=== PATIENT | male | born 1955 | race Caucasian/White ===

== ENCOUNTER → 2021-09-07 14:58 | Outpatient (CLI) | payer OTHER, SELFPAY ==
--- NOTE | ~2021-09-07 | XR_ITS ---
EXAMINATION: XR hand RT 2V DATE: 09/07/2021 15:28 INDICATION: Right wrist pain. Arthralgia. TECHNIQUE: 2 views of right hand were obtained. COMPARISON: None. FINDINGS: Bone alignment is normal. No fracture. There is mild osteoarthritis of first carpometacarpa l joint, second metacarpophalangeal joint, and third and fifth proximal interphalangeal joints. IMPRESSION: 1. Mild polyarticular osteoarthritis. Reviewed, dictated and finalized at location A. ET DEVELOPMENT EXECUTIVE
--- NOTE | ~2021-09-07 | XR_ITS ---
EXAMINATION: XR hand LT 2V INDICATION: Left hand pain TECHNIQUE: Two views of the left hand are obtained. COMPARISON: None available FINDINGS: Bone alignment is normal. There is no fracture. The soft tissues are unremarkable. There is mild osteoarthritis of multiple interphalangeal joints as well as at the first carpometacarpal joint . IMPRESSION: 1. Polyarticular osteoarthritis without acute findings. Reviewed, dictated and finalized at location B. ECTOR SOLDERING
== END ==
PROVIDERS: PCP Internal Medicine; Visit Provider Physician Assistant Medical
DX: M25.531 Pain in right wrist (principal); M25.532 Pain in left wrist
CPT/HCPCS: 73120

== ENCOUNTER 2023-01-23 16:09 | Observation (INO) | payer OTHER, SELFPAY ==
[2023-01-23] VITALS (19 sets, daily range): BP systolic 130–183; BP diastolic 88–151; PULSE 75–100; RESP 14–21; TEMP 36.6; O2SAT 95–100; BMI 28.3
--- NOTE | ~2023-01-23 | XR_ITS ---
EXAMINATION: XR chest 2V 01/23/2023 17:57 INDICATION: Syncope PROCEDURE: 2 view chest COMPARISON: 06/21/2011 FINDINGS: The lungs are clear. The cardiomediastinal silhouette is within normal limits. There are no pleural effusions. There is no pneumothorax suspected. Shallow inspiration. Moderate thoracic sp ondylosis. IMPRESSION: 1: NO ACUTE CARDIOPULMONARY DISEASE. Reviewed, dictated and finalized at location A.
--- NOTE | 2023-01-23 16:27 | ECG_ITS ---
Measurements Intervals Prentiss Rate: 77 P: 41 ME: 174 QRS: 43 QRSD: 86 T: 92 QT: 380 QTc: 431 Interpretive Statements SINUS RHYTHM BORDERLINE ST-T WAVE ABNORMALITY- LAT/HIGH LAT LEADS BORDERLINE ECG NO PREVIOUS ECG AVAILABLE FOR COMPARISON Electronically Signed On 01-23-2023 21:07:41 CDT by Salas Anton D.O.
[2023-01-23 16:46] LABS: Basophils Percent Auto 0.3 % (0.2-1.2); Eosinophils Absolute Auto 0.3 K/mm3 (0-0.3); Eosinophils Percent Auto 2.8 % (0-4.4); Hemoglobin 14.9 g/dL (14.0-18.0); Immature Granulocyte Absolute 0.02 K/mm3 (0.00-0.031); Immature Granulocyte Percent A 0.2 % (0-0.5); Lymphocytes Percent Auto 28.4 % (18.3-44.2); Mean Corpuscular HGB Conc 34.7 g/dl (32-36); Mean Corpuscular Hemoglobin 32.5 pg (26-34); Mean Corpuscular Volume 93.9 fl (80-100); Mean Platelet Volume 9.6 fl (7.4-10.4); Monocytes Absolute Auto 0.9 K/mm3 (0.1-0.6); Monocytes Percent Auto 10.3 % (2.6-8.5); Neutrophils Absolute Auto 5.1 K/mm3 (1.3-6.7); Platelet Count Result 284 k/mm3 (150-375); Red Blood Count 4.58 M/mm3 (4.6-6.20); Red Cell Distribution Width 12.1 % (11.5-14.5); White Blood Count 8.8 K/mm3 (4.5-10.0)
[2023-01-23 17:02] LABS: Alanine Aminotransferase 18 U/L (6-50); Albumin Level 4.4 g/dL (3.5-5.1); Alkaline Phosphatase 71 U/L (38-126); Anion Gap 11 mmol/L (8-16); Aspartate Amino Transferase 25 U/L (17-59); Bilirubin,Total 0.7 mg/dL (0.2-1.3); Blood Urea Nitrogen 16 mg/dL (9-20); Calcium 8.6 mg/dL (8.4-10.2); Carbon Dioxide 20 mmol/L (22-30); Chloride 98 mmol/L (98-107); Estimated CRCL calculation 102 ml/min; Estimated Glomerular Filt Rate > 60; Glucose 128 mg/dL (65-110); Magnesium 1.7 mg/dL (1.6-2.3); Potassium 4.4 mmol/L (3.4-5.0); Sodium 129 mmol/L (137-145)
--- NOTE | 2023-01-23 17:39 | ED.SYNCOPE ---
HPI - Syncope General Chief Complaint: Syncope Stated Complaint: syncope? Time Seen by Provider: 01/23/23 16:10 History of Present Illness HPI narrative: This is a 67-year-old male, with a past medical history of diabetes and hypertension, brought in by EMS from home for a syncopal episode. The patient states he recalls going to sit in his chair with a snack then waking. The patient's states the patient stood, went to his seat to have his afternoon snack, then she heard snoring which is unusual for him. On her evaluation, the patient was very difficult to arouse. After approximately 10 minutes, the patient awoke and appeared to be his normal self. The patient's states this is similar to a previous syncopal episode approximately 1 year ago. EMS reported patient's vital signs were remarkable for hypertension with a blood glucose in the 120s. Related Data Home Medications Medication Instructions Recorded Confirmed acetaminophen 325 mg tablet 650 mg PO TID PRN Pain 01/23/23 01/23/23 (Tylenol) aspirin 81 mg capsule 81 mg PO HS 01/23/23 01/23/23 cholecalciferol (vitamin D3)-soy 1 tablet PO DAILY 01/23/23 01/23/23 isoflavone 2,000 unit-64 mg tablet cimetidine 200 mg tablet 200 mg PO BID 01/23/23 01/23/23 cyclobenzaprine 10 mg tablet 10 mg PO HS 01/23/23 01/23/23 fexofenadine 180 mg tablet 180 mg PO DAILY 01/23/23 01/23/23 losartan 25 mg tablet 25 mg PO HS 01/23/23 01/23/23 meloxicam 15 mg tablet 15 mg PO DAILY 01/23/23 01/23/23 metformin 500 mg tablet 500 mg PO BID 01/23/23 01/23/23 neomycin-polymyxin B-dexameth eye 1 applic RIGHT EYE BID 01/23/23 01/23/23 ointment timolol maleate 0.5 % eye drops 1 drp RIGHT EYE BID 01/23/23 01/23/23 Allergies Allergy/AdvReac Type Severity Reaction Status Date / Time Sulfa (Sulfonamide Allergy Hives Verified 01/23/23 20:01 Antibiotics) codeine AdvReac Anaphylaxis Verified 01/23/23 20:01 Review of Systems Review of Systems: CONSTITUTIONAL: Denies fever, chills, or sweats. EYES: Right eye blindness denies redness, or discharge. ENT: Denies rhinorrhea, congestion, sore throat, or otalgia. CARDIOVASCULAR: Denies chest pain, palpitations, or edema. RESPIRATORY: Denies cough or dyspnea. GASTROINTESTINAL: Denies abdominal pain, nausea, vomiting, or diarrhea. GENITOURINARY: Denies dysuria or hematuria. SKIN: Denies rash or itching. MUSCULOSKELETAL: Denies back pain, joint pain, or myalgia. NEUROLOGIC: Denies headache, numbness, dizziness, or weakness. PSYCHIATRIC: Denies anxiety or depression. [facility] Past Medical History Medical History Diabetes mellitus Hypertension Surgical History Surgical History History of cryosurgery History of left hip replacement Social History Social History (Updated 01/23/23 @ 17:42 by Dennis Bran MD) Smoking packs per day: 3 Smoking cigarettes per day: 60.0 Years smoked: 35 Smoking pack-years: 105.00 Smoking status: Former smoker Tobacco type: cigarettes Second hand tobacco smoke exposure: Yes Smoking end date: 11/29/10 Alcohol intake: never Substance use: never Lack of Transportation: No Lack of Food: Never True Current Housing: I Have Housing Concerned About Future Housing: No Difficulty Paying Gas/Electric Bills: No Difficulty Paying for Meds: No Currently Unemployed: No Education: Bachelor's Degree Difficulty w/ Childcare or Family Care: No Spiritual care concerns: No Exam Narrative: GENERAL: Well-developed, well-nourished, and in no acute distress. HEAD: Normocephalic, atraumatic. EYES: Clouded cornea of the right eye. Right pupil PRRLA and EOMI. ENT: Nares clear, no rhinorrhea or epistaxis. Mucous membranes moist. Oropharynx without tonsillar hypertrophy exudate or other lesions. NECK: Supple. No adenopathy or masses. No JVD CHEST: Clear to auscultation.
[2023-01-23] MEDS: LABETALOL HCL INJ 100 MG/20 ML VIAL 20 MG IV PUSH (20:45)
[2023-01-23] MEDS: INSULIN GLARGINE (*BKC) 100 UNITS/ML 15 UNITS SUB-Q (21:03)
[2023-01-23 21:06] LABS: Glucose Point of Care 167 mg/dl (65-105)
--- NOTE | 2023-01-23 21:08 | PM.IMHP ---
H&P: HPI History of Present Illness Date/Time: 01/23/23 21:08 Chief Complaint: Syncope Narrative: This is a 67-year-old male with past medical history significant for type diabetes mellitus, hypertension, patient was brought to the emergency room after he was found by his slumped over and with a heavy breathing pattern apparently lasted for roughly 50 minute she was not able to get him arouse right away and patient was confused upon waking up. Patient denies any lightheadedness, dizziness, shortness of breath, palpitations, chest pain, no PND, no orthopnea, no leg swelling, no fevers no rigors no chills. Preliminary workup has been essentially nonrevealing. Patient was brought to the emergency room via EMS EXAMINATION: XR chest 2V 01/23/2023 17:57 INDICATION: Syncope PROCEDURE:? 2 view chest COMPARISON: 06/21/2011 FINDINGS: The lungs are clear.? The cardiomediastinal silhouette is within normal limits.? There are no pleural effusions.? There is no pneumothorax suspected.? Shallow inspiration. Moderate thoracic spondylosis. IMPRESSION: 1:? NO ACUTE CARDIOPULMONARY DISEASE. EKG Rate 77 CO 174 QRSd 86 QT 380 QTc 431 --Mode-- P 41 QRS 43 T [address]-T WAVE ABNORMALITY- LAT/HIGH LAT LEADS BORDERLINE ECG NO PREVIOUS ECG AVAILABLE FOR COMPARISON Electronically Signed On 01-23-2023 21:07:41 CDT by Salas Anton D.O. Review of Systems Review of Systems: Syncope, altered mental status Constitutional: Constitutional: Denies chills, Denies fatigue, Denies fever(s), Denies frequent falls, Denies night sweats and Denies poor appetite Eyes: Eyes: Denies change in vision ENT: Denies dysphagia, Denies vertigo, Denies dizziness and Denies odynophagia Cardiovascular: Cardiovascular: Denies chest pain at rest, Denies pedal edema, Denies leg edema, Denies radiating jaw, neck or arm pain, Denies palpitations and Denies dyspnea Respiratory: Respiratory: Denies chest congestion, Denies cough, Denies excessive phlegm production and Denies dyspnea Gastrointestinal: Gastrointestinal: Denies abdominal pain, Denies dyspepsia, Denies heartburn, Denies diarrhea, Denies nausea and Denies hematemesis Genitourinary: Genitourinary: Denies dysuria Musculoskeletal: Musculoskeletal: Denies back pain, Denies myalgias and Denies arthralgias Integumentary/Breasts: Skin/Breast: Denies rash Neurologic: Denies abnormal gait, Reports confusion, Denies vertigo, Denies dizziness, Denies seizure-like activity, Denies Sensory deficit (Neuro), Denies disequilibrium and Denies weakness Psychiatric: Psychiatric: Reports no additional psychiatric complaints and Reports as per HPI Endocrine: Endocrine: Denies cold intolerance, Denies deepening of the voice, Denies heat intolerance, Denies increase in ring/shoe/hat size and Denies palpitations Hematologic/Lymphatic: Hematologic/Lymphatic: Reports no additional hematologic/lymphatic complaints and Reports as per HPI Allergic/Immunologic: Allergic/Immunologic: Reports no additional allergic/immunologic complaints and Reports as per HPI PMFSH Past Medical History Medical History (Updated 01/24/23 @ 13:06 by Melisa Bashir RN) Diabetes mellitus Hypertension Surgical History Surgical History (Updated 01/24/23 @ 13:06 by Melisa Bashir RN) History of cryosurgery History of left hip replacement Social History Social History (Updated 01/23/23 @ 17:42 by Dennis Bran MD) Smoking packs per day: 3 Smoking cigarettes per day: 60.0 Years smoked: 35 Smoking pack-years: 105.00 Smoking status: Former smoker Tobacco type: cigarettes Second hand tobacco smoke exposure: Yes Smoking end date: 11/29/10 Alcohol intake: never Substance use: never Lack of Transportation: No Lack of Food: Never True Current Housing: I Have Housing Concerned About Future Housing: No Difficulty Paying Gas/Electric Bills: No Difficulty Paying for Meds: No Curre
[2023-01-23 21:59] LABS: Glucose Point of Care 144 mg/dl (65-105)
--- NOTE | 2023-01-23 22:06 | ADMGEN ---
This patient, Ronak Obrien, was admitted to IMU Room 214-01 at 2138. Patient/family oriented to hospital policies and general routines including ID bracelet, bed and alarms, visiting hours, pain management, procedures, bathroom and other care routines, personal items, smoking policy, room service/diet, and visiting hours. Information on how to activate the Rapid Response Team has been discussed. Patient/Family are encouraged to report perceived risks to care and to ask questions if they do not understand what they are told or what they should do.
[2023-01-23] MEDS: ACETAMINOPHEN 325 MG TABLET 650 MG PO (22:53)
[2023-01-24] VITALS (16 sets, daily range): BP systolic 123–161; BP diastolic 62–107; PULSE 56–89; RESP 14–20; TEMP 36–36.8; O2SAT 96–100
--- NOTE | 2023-01-24 | ECHO_ITS ---
Patient Info Name: Ronak Obrien Age: 67 years : 1955 Gender: Male Ht: 72 in Wt: 130 lbs BSA: 1.71 m2 HR: 82 bpm BP: 145 / 62 mmHg Heart Rhythm: Sinus Rhythm Technical Quality: Fair Exam Date: 01/24/2023 12:34 PM Exam Location: [facility] Patient Status: Outpatient Admit Date: 01/23/2023 Staff Ordering Physician: Neftali Hernández MD Tubing Machine Tender: Amanda Rdz RDCS Attending Provider: Neftali Hernández MD Referring Physician: Edgar SUAREZ; Exam Type: CA echo doppler color flow Study Info Indications - syncope Complete two-dimensional, color flow and Doppler transthoracic echocardiogram is performed. Summary 1. Complete two-dimensional, color flow and Doppler transthoracic echocardiogram is performed. 2. Left ventricular chamber dimension is normal. 3. Left ventricular systolic function is normal, estimated at 50-55%. 4. The left ventricular diastolic function is grade I diastolic dysfunction. 5. Right ventricular systolic function is normal. 6. There is mild mitral valve regurgitation. Left Ventricle Left ventricular chamber dimension is normal. Left ventricular systolic function is normal, estimated at 50-55%. There is no increased left ventricular wall thickness. The left ventricular diastolic function is grade I diastolic dysfunction. Right Ventricle Right ventricular chamber dimension is normal. Right ventricular systolic function is normal. Left Atria Left atrial chamber dimension is normal. Right Atria Right atrial chamber dimension is normal. Aortic Valve The aortic valve is not well visualized. There is no aortic valve stenosis. There is no aortic valve regurgitation. Pulmonic Valve The pulmonic valve is not well visualized. Mitral Valve There is mild mitral valve regurgitation. Tricuspid Valve There is trace tricuspid valve regurgitation. Pericardium/Pleural There is no pericardial effusion. Inferior Vena Cava Normal inferior vena cava with >50% collapse upon inspiration consistent with normal right atrial pressure, 3 mmHg. Aorta The aortic root size at the sinus of Valsalva is normal. Left Ventricular Outflow Tract Name Value Normal LVOT 2D LVOT Diameter 2.3 cm LVOT Doppler LVOT Peak Gradient 2 mmHg LVOT Mean Gradient 1 mmHg LVOT VTI 15 cm LVOT VTI/AV VTI Ratio 0.8 LVOT Stroke Volume 64 ml LVOT CO 3.8 l/min LVOT CI 2.2 l/min/m2 Pulmonic Valve Name Value Normal RVOT Doppler RVOT Peak Gradient 0 mmHg PV Doppler PV Peak Gradient 1 mmHg Mitral Valve Name Rupal
[2023-01-24] MEDS: LOSARTAN POTASSIUM 25 MG TABLET PO ×2 (03:23→21:09)
[2023-01-24 05:17] LABS: Basophils Percent Auto 0.4 % (0.2-1.2); Eosinophils Absolute Auto 0.2 K/mm3 (0-0.3); Eosinophils Percent Auto 1.9 % (0-4.4); Hematocrit 44.8 % (42.0-52.0); Hemoglobin 15.2 g/dL (14.0-18.0); Immature Granulocyte Absolute 0.04 K/mm3 (0.00-0.031); Immature Granulocyte Percent A 0.5 % (0-0.5); Lymphocytes Absolute Auto 2.07 K/mm3 (0.9-3.2); Lymphocytes Percent Auto 26.7 % (18.3-44.2); Mean Corpuscular HGB Conc 33.9 g/dl (32-36); Mean Corpuscular Hemoglobin 32.5 pg (26-34); Mean Corpuscular Volume 95.7 fl (80-100); Mean Platelet Volume 9.5 fl (7.4-10.4); Monocytes Absolute Auto 0.7 K/mm3 (0.1-0.6); Monocytes Percent Auto 8.9 % (2.6-8.5); Neutrophils Absolute Auto 4.8 K/mm3 (1.3-6.7); Neutrophils Percent Auto 61.6 % (45.5-73.1); Platelet Count Result 250 k/mm3 (150-375); Red Blood Count 4.68 M/mm3 (4.6-6.20); White Blood Count 7.8 K/mm3 (4.5-10.0)
[2023-01-24 05:31] LABS: Potassium 4.4 mmol/L (3.4-5.0)
[2023-01-24 05:34] LABS: Anion Gap 10 mmol/L (8-16); Blood Urea Nitrogen 13 mg/dL (9-20); Calcium 9.1 mg/dL (8.4-10.2); Carbon Dioxide 26 mmol/L (22-30); Chloride 99 mmol/L (98-107); Estimated CRCL calculation 91 ml/min; Estimated Glomerular Filt Rate > 60; Glucose 119 mg/dL (65-110); Sodium 135 mmol/L (137-145)
[2023-01-24 07:46] LABS: Glucose Point of Care 140 mg/dl (65-105)
[2023-01-24] MEDS: TIMOLOL MALEATE 0.5% OP SOLN 5 ML BOTTLE 1 DROP RIGHT EYE ×2 (08:38→17:44)
[2023-01-24] MEDS: ENOXAPARIN 40 MG/0.4 ML SYRINGE SUB-Q (08:38)
[2023-01-24] MEDS: NEOMYCIN/POLYMYXIN/DEXAMETH OP OINT 3.5 GM TUBE 1 APPLIC RIGHT EYE ×2 (08:38→17:44)
[2023-01-24] MEDS: LORATADINE 10 MG TABLET PO (08:38)
[2023-01-24] MEDS: MELOXICAM 7.5 MG TABLET 15 MG PO (08:38)
[2023-01-24] MEDS: FAMOTIDINE 20 MG TABLET PO ×2 (08:38→21:09)
[2023-01-24] MEDS: INSULIN ASPART (*BKC) 100 UNITS/ML SUB-Q ×2 (09:22→13:02)
[2023-01-24] MEDS: ACETAMINOPHEN 325 MG TABLET 650 MG PO (13:12)
[2023-01-24 16:43] LABS: Glucose Point of Care 97 mg/dl (65-105)
--- NOTE | 2023-01-24 18:01 | WPDPN ---
Progress Note: A&P Assessment and Plan (1) Syncope: Qualifiers: Syncope type: unspecified Qualified Code(s): R55 - Syncope and collapse Code(s): R55 - Syncope and collapse Status: Acute Assessment and Plan: 01/24/2023 interval history: patient with syncopal episode without any prodrome suspect vasovagle as patient just ate and was trying to get nap, however etiology is uncertain, to further evaluate will do cardiac echo and consult Cardiology possible arrhythmia and further recommendation to follow. (2) Hyponatremia: Code(s): E87.1 - Hypo-osmolality and hyponatremia Status: Acute Assessment and Plan: patient with mild hyponatremia upon arrival most likely dehydration will monitor (3) Orthostatic hypertension: Code(s): I10 - Essential (primary) hypertension Status: Acute Assessment and Plan: continue home regimen and monitor (4) Diabetes mellitus: Code(s): E11.9 - Type 2 diabetes mellitus without complications Status: Acute Assessment and Plan: continue home regimen and monitor Subjective Date/time seen: 01/24/23 18:01 Interval history: ED-HPI narrative: This is a 67-year-old male, with a past medical history of diabetes and hypertension, brought in by EMS from home for a syncopal episode.? The patient states he recalls going to sit in his chair with a snack then waking.? The patient's states the patient stood, went to his seat to have his afternoon snack, then she heard snoring which is unusual for him.? On her evaluation, the patient was very difficult to arouse.? After approximately 10 minutes, the patient awoke and appeared to be his normal self.? The patient's states this is similar to a previous syncopal episode approximately 1 year ago. EMS reported patient's vital signs were remarkable for hypertension with a blood glucose in the 120s. 01/24/2023 interval history: patient with syncopal episode without any prodrome suspect vasovagle as patient just ate and was trying to get nap, however etiology is uncertain, to further evaluate will do cardiac echo and consult Cardiology possible arrhythmia and further recommendation to follow. Review of Systems Constitutional: Constitutional: Denies chills, Denies fatigue, Denies fever(s), Denies frequent falls, Denies night sweats and Denies poor appetite Exam Narrative: Patient is comfortable, NAD HEENT: eyes are clear and none icteric LUNGS: normal respiratory effort ABD: distended Lower extremities: no edema SKIN: nonjaundiced Neuro: grossly intact. Objective Data Vital Signs Vital Signs: Vital Signs - 24 hr 01/23/23 19:11 01/23/23 19:08 01/23/23 19:15 Temperature Pulse Rate 88 88 97 Respiratory Rate 20 18 19 Blood Pressure 181/98 H Pulse Oximetry 97 97 95 Oxygen Delivery 01/23/23 19:16 01/23/23 19:30 01/23/23 19:31 Temperature Pulse Rate 96 90 92 Respiratory Rate 14 17 16 Blood Pressure 178/123 H 183/107 H Pulse Oximetry 97 98 99 Oxygen Delivery 01/23/23 19:45 01/23/23 19:46 01/23/23 20:00 Temperature Pulse Rate 94 100 92 Respiratory Rate 20 20 17 Blood Pressure 174/151 H Pulse Oximetry 99 99 99 Oxygen Delivery 01/23/23 20:15 01/23/23 20:30 01/23/23 20:55 Temperature Pulse Rate 93 99 82 Respiratory Rate 15 19 16 Blood Pressure 130/98 H Pulse Oximetry 97 98 100 Oxygen Delivery 01/23/23 20:41 01/23/23 20:45 01/23/23 20:46 Temperature Pulse Rate 90 90 95 Respiratory Rate 19 16 16 Blood Pressure 176/103 H 171/107 H Pulse Oximetry 97 96 97 Oxygen Delivery 01/23/23 21:38 01/24/23 00:00 01/24/23 03:25 Temperature 97.8 F 97.6 F Pulse Rate 79 87 61 Respiratory Rate 18 18 14 Blood Pressure 173/88 H 154/86 H Pulse Oximetry 100 99 96 Oxygen Delivery CPAP 01/24/23 04:00 01/24/23 00:00 01/24/23 02:00 Temperature 97.7 F Pulse Rate 82 86 89 Respiratory Rate 18 Bloo
[2023-01-24 20:31] LABS: Glucose Point of Care 129 mg/dl (65-105)
[2023-01-24] MEDS: CYCLOBENZAPRINE HCL 10 MG TABLET PO (21:09)
[2023-01-24] MEDS: ASPIRIN 81 MG ENTERIC TABLET PO (21:09)
[2023-01-25] VITALS: PULSE 89
[2023-01-25 04:00] VITALS: BP 167/97; PULSE 71; PULSE 90; RESP 18; TEMP 36.3; O2SAT 98
[2023-01-25 08:00] VITALS: BP 150/84; PULSE 90; PULSE 96; RESP 14; TEMP 36.6; O2SAT 99
[2023-01-25 08:40] LABS: Glucose Point of Care 137 mg/dl (65-105)
[2023-01-25] MEDS: TIMOLOL MALEATE 0.5% OP SOLN 5 ML BOTTLE 1 DROP RIGHT EYE (09:09)
[2023-01-25] MEDS: MELOXICAM 7.5 MG TABLET 15 MG PO (09:10)
[2023-01-25] MEDS: FAMOTIDINE 20 MG TABLET PO (09:10)
[2023-01-25] MEDS: ENOXAPARIN 40 MG/0.4 ML SYRINGE SUB-Q (09:10)
[2023-01-25] MEDS: NEOMYCIN/POLYMYXIN/DEXAMETH OP OINT 3.5 GM TUBE 1 APPLIC RIGHT EYE (09:10)
[2023-01-25] MEDS: LORATADINE 10 MG TABLET PO (09:10)
--- NOTE | 2023-01-25 09:59 | PM.CNCAR ---
Assessment and Plan Assessment and plan (1) Syncope: Qualifiers: Syncope type: unspecified Qualified Code(s): R55 - Syncope and collapse Code(s): R55 - Syncope and collapse Status: Acute Assessment and Plan: Episode of unconsciousness not associated with any prodrome. Has had an event like this in the recent past and had full cardiac workup which was negative. On telemetry he has not had any arrhythmias that would explain syncope. History not consistent with orthostatic hypotension, but can check orthostatic vitals. He had an echo performed that showed normal LVSF, grade I diastolic dysfunction, no significant valve pathology. Thus far, no cardiac explanation for his loss of consciousness. Will check an outpatient nurse monitoring. From a cardiac standpoint, patient is acceptable for discharge today. History of Present Illness History of Present Illness Consult date/time: 01/25/23 09:59 Requesting physician: Jaimee Beckman MD Consult reason: Other (syncope) Reason For Visit: Syncope Narrative: Mr. Obrien is a 67-year-old male with a medical history of type 2 diabetes mellitus, hypertension, and chronic back pain who presents to the hospital following a syncopal event. Patient states that this is the 2nd syncopal event in the past several months. The first event occurred after he had a bowel movement and was walking back to his bed. He was taken to [facility] at that point and was worked up and was determined to have vasovagal syncope. This 2nd syncopal event happened 2 days ago. Patient reports fixing himself an afternoon snack, sitting down in his chair and reportedly moments later his noticed that he was unresponsive. She called EMS and patient reports when he awoke he was able to hear and speak with the EMS personnel but things were fuzzy. He apparently did lose consciousness for about 3-4 minutes. He denies having any chest pain, palpitations, dizziness prior to either of these events. At the time of my visit with him, he is lying comfortably bed and has no complaints of any kind. Review of Systems Review of Systems: All systems reviewed & are unremarkable except as noted in HPI and below PMFSH Past Medical History Medical History Diabetes mellitus Hypertension Surgical History Surgical History History of cryosurgery History of left hip replacement Social History Social History Smoking packs per day: 3 Smoking cigarettes per day: 60.0 Years smoked: 35 Smoking pack-years: 105.00 Smoking status: Former smoker Tobacco type: cigarettes Second hand tobacco smoke exposure: Yes Smoking end date: 11/29/10 Alcohol intake: never Substance use: never Lack of Transportation: No Lack of Food: Never True Current Housing: I Have Housing Concerned About Future Housing: No Difficulty Paying Gas/Electric Bills: No Difficulty Paying for Meds: No Currently Unemployed: No Education: Bachelor's Degree Difficulty w/ Childcare or Family Care: No Spiritual care concerns: No Meds Home Medications and Allergies Home Medications Medication Instructions Recorded Confirmed Type acetaminophen 325 mg tablet 650 mg PO TID PRN Pain 01/23/23 01/23/23 History (Tylenol) aspirin 81 mg capsule 81 mg PO HS 01/23/23 01/23/23 History cholecalciferol (vitamin D3)-soy 1 tablet PO DAILY 01/23/23 01/23/23 History isoflavone 2,000 unit-64 mg tablet cimetidine 200 mg tablet 200 mg PO BID 01/23/23 01/23/23 History cyclobenzaprine 10 mg tablet 10 mg PO HS 01/23/23 01/23/23 History fexofenadine 180 mg tablet 180 mg PO DAILY 01/23/23 01/23/23 History losartan 25 mg tablet 25 mg PO HS 01/23/23 01/23/23 History meloxicam 15 mg tablet 15 mg PO DAILY 01/23/23 01/23/23 History metfor
[2023-01-25 10:00] VITALS: PULSE 102
[2023-01-25 12:00] VITALS: BP 154/87; PULSE 100; PULSE 90; RESP 18; TEMP 36.6; O2SAT 99
[2023-01-25] MEDS: ACETAMINOPHEN 325 MG TABLET 650 MG PO (12:13)
[2023-01-25 12:39] LABS: Glucose Point of Care 138 mg/dl (65-105)
[2023-01-25 14:00] VITALS: PULSE 102
--- NOTE | 2023-01-25 15:31 | PM.DS ---
DS: Admitting Diagnosis Discharge Date 01/25/2023 Admitting Diagnosis syncope DS: Discharge Diagnosis Discharge Diagnosis (1) Syncope: Qualifiers: Syncope type: unspecified Qualified Code(s): R55 - Syncope and collapse Code(s): R55 - Syncope and collapse Status: Acute Assessment and Plan: Admit to IMU Echocardiogram in morning Consider cardiology consult Unclear etiology Might want to consider Holter more (2) Hyponatremia: Code(s): E87.1 - Hypo-osmolality and hyponatremia Status: Acute Assessment and Plan: IV fluids (3) Orthostatic hypertension: Code(s): I10 - Essential (primary) hypertension Status: Acute Assessment and Plan: Continue home meds (4) Diabetes mellitus: Code(s): E11.9 - Type 2 diabetes mellitus without complications Status: Acute Assessment and Plan: Holding metformin DS: Summary Hospital Course Reason for hospitalization: Syncope Narrative: This is a 67-year-old male with past medical history significant for type diabetes mellitus, hypertension, patient was brought to the emergency room after he was found by his slumped over and with a heavy breathing pattern apparently lasted for roughly 50 minute she was not able to get him arouse right away and patient was confused upon waking up.? Patient denies any lightheadedness, dizziness, shortness of breath, palpitations, chest pain, no PND, no orthopnea, no leg swelling, no fevers no rigors no chills.? Preliminary workup has been essentially nonrevealing.? Patient was brought to the emergency room via EMS Hospital Course: patient with syncopal episode without any prodrome suspect vasovagle? as patient just ate and was trying to get nap, however etiology is uncertain,? to further evaluate will do cardiac echo and consult Cardiology possible arrhythmia and further recommendation to follow. Patient with syncopal episode, seen by foundry process engineer, all the workup is unrevealing, Patient will follow up with foundry process engineer with holter montor and further recommendation to follow. Time Spent with Patient Time attestation: Total time spent providing and/or coordinating discharge services: Exam Narrative: Patient is comfortable, NAD HEENT: eyes are clear and none icteric LUNGS: normal respiratory effort ABD: distended Lower extremities: no edema SKIN: nonjaundiced Neuro: grossly intact. DS: Data Data Completed and Pending Labs on day of discharge: Labs from last 24 hours 01/25/23 01/25/23 01/24/23 11:48 08:02 20:00 POC Capillary Glucose 138 H 137 H 129 H 01/24/23 16:35 POC Capillary Glucose 97 Discharge Plan Discharge Attending physician on discharge: Jaimee Beckman Consulting providers: Latrice Mcdaniel; Stevie Garcia; Josee Donaldson Discharging Clinician: Jaimee Beckman Patient Disposition: Home, Self-Care Activity: as tolerated Diet: heart healthy Discharge Instructions: Patient to follow discharge care instruction from his foundry process engineer and follow-up as scheduled, patient to follow-up with his primary care provider as soon as possible, patient is instructed if any symptoms worsen to go to nearest emergency department Patient Instructions: Antibiotic Form Stand Alone Forms: General Discharge Information Follow-up/Referrals: Florin Quiñones MD [Physician] - Clifford,Tim Pantoja MD [Primary Care Provider] - Discharge Medications: Continued cyclobenzaprine 10 mg tablet 10 mg PO HS metformin 500 mg tablet 500 mg PO BID meloxicam 15 mg tablet 15 mg PO DAILY timolol maleate 0.5 % drops 1 drp RIGHT EYE BID cimetidine 200 mg Tablet 200 mg PO BID acetaminophen [Tylenol] 325 mg Tablet 650 mg PO TID PRN (Reason: Pain) fexofenadine 180 mg Tablet 180 mg PO DAILY neomycin-polymyxin B-dexameth Ointment 1 applic RIGHT EYE BID losartan 25 mg Ta
== END 2023-01-25 15:52 | disposition home or self-care (01) ==
LOC: ANHED 18:01 → ANHIMU 01-24 09:24
PROVIDERS: Admitting Provider Internal Medicine; Emergency Provider Preventive Medicine Aerospace Medicine; PCP Internal Medicine; Visit Provider Family Medicine
DX: R55 Syncope and collapse (principal); E11.9 Type 2 diabetes mellitus without complications; I11.9 Hypertensive heart disease without heart failure; G89.29 Other chronic pain; M54.9 Dorsalgia, unspecified; H54.61 Unqualified visual loss, right eye, normal vision left eye; E87.1 Hypo-osmolality and hyponatremia; Z79.1 Long term (current) use of non-steroidal anti-inflammatories (NSAID); Z79.82 Long term (current) use of aspirin; Z79.899 Other long term (current) drug therapy; Z87.891 Personal history of nicotine dependence
CPT/HCPCS: 36415; 71046; 80048; 80053; 82948; 83735; 85025; 93005; 93306; 96372; 96374; 99285; A9270; G0378; J1650; J1815

== ENCOUNTER 2023-08-29 20:10 | Emergency (ER) | payer MEDICARE, SELFPAY ==
--- NOTE | ~2023-08-29 | XR_ITS ---
EXAMINATION: XR chest 1V portable INDICATION: Transient alteration of awareness TECHNIQUE: Portable AP chest at 2040 hours COMPARISON: 01/23/2023 FINDINGS: The lungs are free of acute opacities. No pleural effusion or pneumothorax. The cardiomedia stinal silhouette is normal. IMPRESSION: 1. No acute cardiopulmonary abnormality. Reviewed, dictated and finalized at location F. ERY TECH
--- NOTE | ~2023-08-29 | CT_ITS ---
EXAMINATION: CT brain wo con INDICATION: Transient alteration of awareness, head injury COMPARISON: None TECHNIQUE: Standard unenhanced head CT. The dose-length product (DLP) was 681.00 mGy-cm. The mA was a djusted according to patient size. Iterative reconstruction technique was employed. FINDINGS: No acute intraparenchymal hemorrhage. No evidence of mass lesion. No evidence of acute infa rction. There are areas of prior lacunar infarction in the right basal ganglia. There is mild periven tricular and subcortical hypodensity probably related to small vessel ischemic disease. There is mild prominence of the sulci and ventricles related to cerebral atrophy. Intracranial calcified cerebral atherosclerosis is noted. No extra-axial collections. No mass effect or midline shift. Hyperattenuati ng material in the left globe likely represents intraocular silicone coil. There is mild mucosal thic kening of the paranasal sinuses. IMPRESSION: 1. No acute intracranial abnormality. 2. Age related findings. Reviewed, dictated and finalized at location F. PREVENTION AGENT
[2023-08-29 20:05] VITALS: BP 136/90; PULSE 98; RESP 17; TEMP 36.5; O2SAT 100
--- NOTE | 2023-08-29 20:33 | ECG_ITS ---
Measurements Intervals [place] Rate: 100 P: 44 OR: 184 QRS: 46 QRSD: 85 T: 211 QT: 328 QTc: 424 Interpretive Statements SINUS TACHYCARDIA NONSPECIFIC ST-T WAVE ABNORMALITY- DIFFUSE LEADS BASELINE ARTIFACT- I, II, AVR, AVL, AVF, V3-V4 BORDERLINE ECG COMPARED TO ECG 01/23/2023 16:16:25 SINUS TACHYCARDIA NOW PRESENT Electronically Signed On 08-30-2023 6:36:41 DIE TROUBLE SHOOTER by Salas Anton D.O.
[2023-08-29 20:50] LABS: Basophils Percent Auto 0.3 % (0.2-1.2); Eosinophils Absolute Auto 0.2 K/mm3 (0-0.3); Eosinophils Percent Auto 1.4 % (0-4.4); Hematocrit 42.9 % (42.0-52.0); Hemoglobin 14.7 g/dL (14.0-18.0); Immature Granulocyte Absolute 0.06 K/mm3 (0.00-0.031); Immature Granulocyte Percent A 0.5 % (0-0.5); Lymphocytes Absolute Auto 1.19 K/mm3 (0.9-3.2); Lymphocytes Percent Auto 9.1 % (18.3-44.2); Mean Corpuscular HGB Conc 34.3 g/dl (32-36); Mean Corpuscular Hemoglobin 32.3 pg (26-34); Mean Corpuscular Volume 94.3 fl (80-100); Mean Platelet Volume 9.8 fl (7.4-10.4); Monocytes Absolute Auto 0.7 K/mm3 (0.1-0.6); Monocytes Percent Auto 5.5 % (2.6-8.5); Neutrophils Percent Auto 83.2 % (45.5-73.1); Platelet Count Result 244 k/mm3 (150-375); Red Blood Count 4.55 M/mm3 (4.6-6.20); Red Cell Distribution Width 11.9 % (11.5-14.5); White Blood Count 13.1 K/mm3 (4.5-10.0)
[2023-08-29 20:59] LABS: Lactic Acid Reflex 2.1 mmol/L (0.7-2.0)
[2023-08-29 21:01] LABS: Alanine Aminotransferase 16 U/L (6-50); Albumin Level 4.3 g/dL (3.5-5.1); Alkaline Phosphatase 91 U/L (38-126); Anion Gap 8 mmol/L (8-16); Aspartate Amino Transferase 20 U/L (17-59); Bilirubin,Total 0.7 mg/dL (0.2-1.3); Blood Urea Nitrogen 15 mg/dL (9-20); Calcium 9.3 mg/dL (8.4-10.2); Carbon Dioxide 25 mmol/L (22-30); Chloride 96 mmol/L (98-107); Estimated CRCL calculation 89 ml/min; Estimated Glomerular Filt Rate > 60; Glucose 190 mg/dL (65-110); INR 1.1; Magnesium 2.1 mg/dL (1.6-2.3); Potassium 4.3 mmol/L (3.4-5.0); Prothrombin Time 14.2 Seconds (11.1-14.7); Sodium 129 mmol/L (137-145)
[2023-08-29 21:02] LABS: Partial Thromboplastin Time 32.4 SECONDS (22.3-36.8)
[2023-08-29 21:12] LABS: Troponin I < 0.012 ng/mL (0.000-0.034)
[2023-08-29 21:38] LABS: Add Urine Microscopic? NO; Appearance Urine Clear (Clear); Bilirubin Urine Negative (Negative); Blood Urine Negative (Negative); Color Urine Yellow (Yellow); Glucose Urine UA Trace mg/dL (Negative); Ketones Urine Negative (Negative); Leukocyte Esterase Ur Negative LEU/UL (Negative); Nitrate Urine Negative (Negative); Protein Urine Negative (Negative); Specific Grav Ur 1.006 (1.001-1.035); Urobilinogen Urine 0.2 mg/dL (<2.0); pH Urine 6.5 (5.0-9.0)
[2023-08-29 21:50] VITALS: BP 138/95; PULSE 106; RESP 16; O2SAT 97
[2023-08-29 22:32] VITALS: BP 125/94; PULSE 107; RESP 15; O2SAT 97
[2023-08-29 23:24] VITALS: BP 129/101; BP 135/95; PULSE 107; PULSE 111
[2023-08-29 23:26] VITALS: BP 117/84; PULSE 96
[2023-08-29 23:48] LABS: Reflex Lactic Acid Yes or No Add Lactic
--- NOTE | 2023-08-29 23:55 | ED.GENADULT ---
HPI - General Adult General Chief complaint: Syncope Stated complaint: SYNCOPAL EPISODE W/ LOC+ Time Seen by Provider: 08/29/23 20:23 History of Present Illness HPI narrative: the patient is a 68-year-old gentleman who presents emergency department with chief complaint of syncopal episode. Patient reports that he was in the bathroom trying to have a bowel movement was straining and then fell off the toilet having a syncopal episode the patient was slightly confused afterwards and reports that he have a contusion on the right side of his scalp. The patient reports that he is not on blood thinners reports that he has no other injuries. Related Data Home Medications Medication Instructions Recorded Confirmed acetaminophen 325 mg tablet 650 mg PO TID PRN Pain 01/23/23 01/23/23 (Tylenol) aspirin 81 mg capsule 81 mg PO HS 01/23/23 01/23/23 cholecalciferol (vitamin D3)-soy 1 tablet PO DAILY 01/23/23 01/23/23 isoflavone 2,000 unit-64 mg tablet cimetidine 200 mg tablet 200 mg PO BID 01/23/23 01/23/23 cyclobenzaprine 10 mg tablet 10 mg PO HS 01/23/23 01/23/23 fexofenadine 180 mg tablet 180 mg PO DAILY 01/23/23 01/23/23 losartan 25 mg tablet 25 mg PO HS 01/23/23 01/23/23 meloxicam 15 mg tablet 15 mg PO DAILY 01/23/23 01/23/23 metformin 500 mg tablet 500 mg PO BID 01/23/23 01/23/23 neomycin-polymyxin B-dexameth eye 1 applic RIGHT EYE BID 01/23/23 01/23/23 ointment timolol maleate 0.5 % eye drops 1 drp RIGHT EYE BID 01/23/23 01/23/23 Allergies Allergy/AdvReac Type Severity Reaction Status Date / Time Sulfa (Sulfonamide Allergy Hives Verified 01/23/23 20:01 Antibiotics) codeine AdvReac Anaphylaxis Verified 01/23/23 20:01 Review of Systems Review of Systems: A 10 system review of systems was completed on the patient and is negative except for what is stated in the HPI. Nursing and ancillary documentation was reviewed. [facility] Past Medical History Medical History Diabetes mellitus Hypertension Surgical History Surgical History History of cryosurgery History of left hip replacement Social History Social History Smoking packs per day: 3 Smoking cigarettes per day: 60.0 Years smoked: 35 Smoking pack-years: 105.00 Smoking status: Former smoker Tobacco type: cigarettes Second hand tobacco smoke exposure: Yes Smoking end date: 11/29/10 Alcohol intake: never Substance use: never Lack of Transportation: No Lack of Food: Never True Current Housing: I Have Housing Concerned About Future Housing: No Difficulty Paying Gas/Electric Bills: No Difficulty Paying for Meds: No Currently Unemployed: No Education: Bachelor's Degree Difficulty w/ Childcare or Family Care: No Spiritual care concerns: No Exam Narrative: GENERAL: Well-appearing, well-nourished, and in no acute distress. HEAD: Normocephalic, Contusion present to right forehead. EYES: PERRLA and EOMI. ENT: Nares clear, no rhinorrhea or epistaxis. Mucous membranes moist. NECK: Supple. CHEST: Clear to auscultation. No respiratory distress. HEART: Regular rate and rhythm. No murmur heard. Normal peripheral pulses. ABDOMEN: Soft, nontender, nondistended, normal active bowel sounds. EXTREMITIES: Normal range of motion. No edema. SKIN: Warm, dry, no rash. NEURO: No focal deficits. Alert and oriented x3. PSYCH: Normal mood and affect. Course Vital Signs Vital signs: Vital Signs Temperature 36.5 C 08/29/23 20:05 Pulse Rate 98 08/29/23 20:05 Respiratory Rate 17 08/29/23 20:05 Blood Pressure 136/90 08/29/23 20:05 Pulse Oximetry 100 08/29/23 20:05 Oxygen Delivery Room Air 08/29/23 20:05 Temperature 36.5 C 08/29/23 20:05 Pulse Rate 96 08/29/23 23:26 Respiratory Rate 15 08/29/23 22:32 B
[2023-08-30 00:33] VITALS: BP 126/78; PULSE 98; RESP 20; O2SAT 99
== END 2023-08-30 00:34 | disposition home or self-care (01) ==
PROVIDERS: Emergency Provider Emergency Medicine; PCP Internal Medicine
DX: R55 Syncope and collapse (principal); S00.83XA Contusion of other part of head, initial encounter; E11.9 Type 2 diabetes mellitus without complications; I10 Essential (primary) hypertension; Z96.642 Presence of left artificial hip joint; Z87.891 Personal history of nicotine dependence; Z79.82 Long term (current) use of aspirin; Z79.84 Long term (current) use of oral hypoglycemic drugs; W18.11XA Fall from or off toilet without subsequent striking against object, initial encounter
CPT/HCPCS: 36415; 70450; 71045; 80053; 81003; 83605; 83735; 84484; 85025; 85610; 85730; 93005; 99284

== ENCOUNTER 2024-06-04 03:07 | Emergency (ER) | payer MEDICARE, SELFPAY ==
--- NOTE | ~2024-06-04 | CT_ITS ---
CT Facial Bones and Cervical Spine Clinical Indication: Trauma Technique: Contiguous axial scans were obtained through the facial bones and cervical spine followed by coronal and sagittal reconstructions. Dose reduction technique was used on this scan by utilizing automated exposure control and iterative reconstruction technique. The dose-length product (DLP) was 652.58 mGy-cm. Findings: CT facial bones: No fractures are identified. The visualized paranasal sinuses are clear. Intraorbita l soft tissues appear normal. CT cervical spine: No fractures or subluxation. There is moderate degenerative disc changes at the c ervical spine. There is extensive facet arthropathy. There is fusion of the bilateral C3-C4 facet harris nts. At C2-C3, there is left neural foraminal narrowing with probable left facet arthropathy. There i s mild canal stenosis with mild disc osteophyte complex. At C3-C4, there is bilateral neural foramina l narrowing with bilateral facet arthropathy. Probable mild central canal stenosis. At C4-C5, there i s left neural foraminal narrowing. There is probable disc ossify complex and probable mild to moderat e canal stenosis. At C5-C6, there is bilateral neural foraminal narrowing, right worse than left, wit h probable right facet arthropathy. At C6-C7, there is mild disc bulge. No prevertebral soft tissue s welling. Impression: No fracture is seen in the facial bones. No fracture or subluxation of the cervical spine. Extensive degenerative spondylosis of the cervical spine, as detailed above. Reviewed, dictated and finalized at [facility]. TICS SYSTEMS ENGINEER Impression: No fracture is seen in the facial bones. No fracture or subluxation of the cervical spine. Extensive degenerative spondylosis of the cervical spine, as detailed above.
--- NOTE | ~2024-06-04 | XR_ITS ---
Portable chest x-ray Comparison: 08/29/2023 Clinical History: Syncope Findings: Lungs are clear, without focal consolidation or pleural effusion. Cardiomediastinal silho uette is stable. Bones and soft tissues are unremarkable. Impression: Clear lungs. Reviewed, dictated and finalized at location . RVISOR WOUND Impression: Clear lungs.
--- NOTE | ~2024-06-04 | CT_ITS ---
CT head without contrast Indication: Head injury COMPARISON: 08/29/2023 Technique: Serial scans were obtained through the brain without the administration of contrast. Dose reduction technique was used on this scan by utilizing automated exposure control and iterative recon struction technique. The dose-length product (DLP) was 756.67 mGy-cm. Findings: There is no evidence of intracranial hemorrhage, mass lesion, or acute infarct. Chronic lac unar infarcts noted in the right basal ganglia. The ventricles and subarachnoid spaces are dilated, c onsistent with mild atrophy. Low attenuation regions are seen within the periventricular white matte r bilaterally, likely representing changes from chronic microvascular ischemic disease. There is no e vidence of edema, mass effect or midline shift. The visualized paranasal sinuses and mastoid air ce lls are clear. Impression: No intracranial hemorrhage, mass, or acute infarct. Stable chronic lacunar infarcts, as above. Atrophy and chronic white matter changes, as above. Reviewed, dictated and finalized at location . NG CHAIR SEAT CUSHION TRIMMER Impression: No intracranial hemorrhage, mass, or acute infarct. Stable chronic lacunar infarcts, as above. Atrophy and chronic white matter changes, as above.
--- NOTE | 2024-06-04 03:11 | ECG_ITS ---
Test Date: 2024-06-04 03:15:27 Measurements Intervals [place] Rate: 73 P: 47 [place]: 200 QRS: 56 QRSD: 85 T: 91 QT: 387 QTc: 429 Interpretive Statements SINUS RHYTHM NONSPECIFIC ST & T-WAVE ABNORMALITY No previous ECG available for comparison Electronically Signed On 06-04-2024 09:55:17 DISTRICT MANAGER by Luis Hudson M.D.
[2024-06-04 03:31] LABS: Basophils Percent Auto 0.2 % (0.2-1.2); Eosinophils Absolute Auto 0.3 K/mm3 (0-0.3); Eosinophils Percent Auto 2.9 % (0-4.4); Hematocrit 39.1 % (42.0-52.0); Hemoglobin 13.8 g/dL (14.0-18.0); Immature Granulocyte Absolute 0.04 K/mm3 (0.00-0.031); Immature Granulocyte Percent A 0.4 % (0-0.5); Lymphocytes Absolute Auto 2.73 K/mm3 (0.9-3.2); Lymphocytes Percent Auto 27.2 % (18.3-44.2); Mean Corpuscular HGB Conc 35.3 g/dl (32-36); Mean Corpuscular Hemoglobin 33.2 pg (26-34); Mean Platelet Volume 9.6 fl (7.4-10.4); Monocytes Absolute Auto 0.8 K/mm3 (0.1-0.6); Monocytes Percent Auto 7.9 % (2.6-8.5); Neutrophils Absolute Auto 6.2 K/mm3 (1.3-6.7); Neutrophils Percent Auto 61.4 % (45.5-73.1); Platelet Count Result 251 k/mm3 (150-375); Red Blood Count 4.16 M/mm3 (4.6-6.20); White Blood Count 10.1 K/mm3 (4.5-10.0)
[2024-06-04 03:32] VITALS: BP 116/88; PULSE 82; RESP 19; TEMP 36.6; O2SAT 100
[2024-06-04 03:33] VITALS: BP 112/86; PULSE 79; RESP 20; TEMP 36.5; O2SAT 98
[2024-06-04 03:43] LABS: Alanine Aminotransferase 13 U/L (6-50); Albumin Level 4.1 g/dL (3.5-5.1); Alkaline Phosphatase 76 U/L (38-126); Anion Gap 8 mmol/L (4-12); Aspartate Amino Transferase 19 U/L (17-59); Bilirubin,Total 0.7 mg/dL (0.2-1.3); Blood Urea Nitrogen 13 mg/dL (9-20); Calcium 8.6 mg/dL (8.4-10.2); Carbon Dioxide 19 mmol/L (22-30); Chloride 104 mmol/L (98-107); Estimated CRCL calculation 88 ml/min; Estimated Glomerular Filt Rate > 60; Glucose 156 mg/dL (65-110); Sodium 131 mmol/L (137-145)
--- NOTE | 2024-06-04 03:52 | ED.GENADULT ---
HPI - General Adult General Chief complaint: Fall Stated complaint: FALL W/+LOC, SYNCOPE, TINGLING TO HANDS & FEET. Time Seen by Provider: 06/04/24 03:17 History of Present Illness HPI narrative: Patient 69-year-old gentleman presents emergency department with chief complaint syncopal episode and tingling in the upper extremities. Patient reports that he has history of vasovagal syncope reports this evening he got up and had a episode of vasovagal syncope the patient reports he was on the ground and then noticed that he was having weakness in his arms and legs after the fall patient reports tingling in his hands when EMS arrived they attempted to help him get up and the patient reports that he had another syncopal episode the patient reports that since he got back up he is having numbness in his hands and reports that he has no fine control of his upper extremities and when he attempts to lift his arms there just floppy Related Data Home Medications Medication Instructions Recorded Confirmed acetaminophen 325 mg tablet 650 mg PO TID PRN Pain 01/23/23 01/23/23 (Tylenol) aspirin 81 mg capsule 81 mg PO HS 01/23/23 01/23/23 cholecalciferol (vitamin D3)-soy 1 tablet PO DAILY 01/23/23 01/23/23 isoflavone 2,000 unit-64 mg tablet cimetidine 200 mg tablet 200 mg PO BID 01/23/23 01/23/23 cyclobenzaprine 10 mg tablet 10 mg PO HS 01/23/23 01/23/23 fexofenadine 180 mg tablet 180 mg PO DAILY 01/23/23 01/23/23 losartan 25 mg tablet 25 mg PO HS 01/23/23 01/23/23 meloxicam 15 mg tablet 15 mg PO DAILY 01/23/23 01/23/23 metformin 500 mg tablet 500 mg PO BID 01/23/23 01/23/23 neomycin-polymyxin B-dexameth eye 1 applic RIGHT EYE BID 01/23/23 01/23/23 ointment timolol maleate 0.5 % eye drops 1 drp RIGHT EYE BID 01/23/23 01/23/23 Allergies Allergy/AdvReac Type Severity Reaction Status Date / Time Sulfa (Sulfonamide Allergy Hives Verified 01/23/23 20:01 Antibiotics) codeine AdvReac Anaphylaxis Verified 01/23/23 20:01 Review of Systems Review of Systems: A 10 system review of systems was completed on the patient and is negative except for what is stated in the HPI. Nursing and ancillary documentation was reviewed. [facility] Past Medical History Medical History Diabetes mellitus Hypertension Surgical History Surgical History History of cryosurgery History of left hip replacement Social History Social History Smoking packs per day: 3 Smoking cigarettes per day: 60.0 Years smoked: 35 Smoking pack-years: 105.00 Smoking status: Former smoker Tobacco type: cigarettes Second hand tobacco smoke exposure: Yes Smoking end date: 11/29/10 Alcohol intake: never Substance use: never Lack of Transportation: No Lack of Food: Never True Current Housing: I Have Housing Concerned About Future Housing: No Difficulty Paying Gas/Electric Bills: No Difficulty Paying for Meds: No Currently Unemployed: No Education: Bachelor's Degree Difficulty w/ Childcare or Family Care: No Spiritual care concerns: No Exam Narrative: GENERAL: Well-appearing, well-nourished, and in no acute distress. HEAD: Normocephalic, atraumatic. EYES: PERRLA and EOMI. ENT: Nares clear, no rhinorrhea or epistaxis. Mucous membranes moist. NECK: Supple. CHEST: Clear to auscultation. No respiratory distress. HEART: Regular rate and rhythm. No murmur heard. Normal peripheral pulses. ABDOMEN: Soft, nontender, nondistended, normal active bowel sounds. EXTREMITIES: Normal range of motion. No edema. SKIN: Warm, dry, no rash. NEURO: Upper extremities are profoundly weak patient is able to lift his upper extremities against gravity but there is no fine motor control there is decreased sensation in the hands. Alert and oriented x3. PSYCH: Normal mood and affect. Course Vital Signs Vital signs: Vital Signs Temperature 36.6 C 06/04/24 03:32 Pulse Rate 82 06/04/24 03:32 Respiratory Rate 19 06/04/24 03:32 Blood Pressure 116/88 06/04/24 03:32 Pulse Oximetry 100 06/04/24 03:32 Oxygen Delivery Room Air 06/04/24 03:32 Temperature 36.5 C 06/04/24 03:33 Pulse Rate 79 06/04/24 03:33 Respiratory Rate 20 06/04/24 03:33 Blood Pressure 112/86 06/04/24 03:33 Pulse Oximetry 98 06/04/24 03:33 Oxygen Delivery Room Air 06/04/24 03:32 Medical Decision Making MDM Narrative Medical decision making narrative: Differential diagnosis includes intracranial hemorrhage, cervical spine injury, cervical spine fracture Given the patient's presentation the concern for central cord syndrome is the most likely diagnosis. CT head CT facial bones CT C-spine were obtained at our facility and plan will be to discuss the patient with the transfer center at [facility] Vital Signs Vital Signs: Vital Signs Temperature 36.6 C 06/04/24 03:32 Pulse Rate 82 06/04/24 03:32 Respiratory Rate 19 06/04/24 03:32 Blood Pressure 116/88 06/04/24 03:32 Pulse Oximetry 100 06/04/24 03:32 Oxygen Delivery Room Air 06/04/24 03:32 Temperature 36.5 C 06/04/24 03:33 Pulse Rate 79 06/04/24 03:33 Respiratory Rate 20 06/04/24 03:33 Blood Pressure 112/86 06/04/24 03:33 Pulse Oximetry 98 06/04/24 03:33 Oxygen Delivery Room Air 06/04/24 03:32 Lab Data 06/04/24 03:25 06/04/24 03:25 Labs: Lab Results 06/04/24 Range/Units 03:25 WBC 10.1 H (4.5-10.0) K/mm3 RBC 4.16 L (4.6-6.20) M/mm3 Hgb 13.8 L (14.0-18.0) g/dL Hct 39.1 L (42.0-52.0) % MCV 94.0 (80-100) fl MCH 33.2 (26-34) pg MCHC 35.3 (32-36) g/dl RDW 12.0 (11.5-14.5) % Plt Count 251 (150-375) k/mm3 MPV 9.6 (7.4-10.4) fl Immature Gran % (Auto) 0.4 (0-0.5) % Neut % (Auto) 61.4 (45.5-73.1) % Lymph % (Auto) 27.2 (18.3-44.2) % [place] % (Auto) 7.9 (2.6-8.5) % Eos % (Auto) 2.9 (0-4.4) % Baso % (Auto) 0.2 (0.2-1.2) % Lymph # (Auto) 2.73 (0.9-3.2) K/mm3 [place] # (Auto) 0.8 H (0.1-0.6) K/mm3 Eos # (Auto) 0.3 (0-0.3) K/mm3 Baso # (Auto) 0.0 (0.0-0.1) K/mm3 Abs Immat Gran (auto) 0.04 H (0.00-0.031) K/mm3 Absolute Neuts (auto) 6.2 (1.3-6.7) K/mm3 Absolute Nucleated RBC 0.000 (0.0-0.012) K/mm3 Nucleated RBC % 0.0 (0.0-0.2) % Sodium 131 L (137-145) mmol/L Potassium 4.0 (3.4-5.0) mmol/L Chloride 104 (98-107) mmol/L Carbon Dioxide 19 L (22-30) mmol/L Anion Gap 8 (4-12) mmol/L BUN 13 (9-20) mg/dL Creatinine 0.80 (0.7-1.3) mg/dL Estim Creat Clear Calc 88 ml/min Estimated GFR > 60 (59 - ) Glucose 156 H (65-110) mg/dL Calcium 8.6 (8.4-10.2) mg/dL Total Bilirubin 0.7 (0.2-1.3) mg/dL AST 19 (17-59) U/L ALT 13 (6-50) U/L Alkaline Phosphatase 76 (38-126) U/L Total Protein 7.0 (6.3-8.2) g/dL Albumin 4.1 (3.5-5.1) g/dL Critical Care Time Critical Care Time Critical Care Time: Yes Total Critical Care Time: 30 Discharge Plan Discharge Clinical Impression: Syncope, Paresthesia and pain of both upper extremities, Central cord syndrome Patient Disposition: Acute Care Hospital Condition: Stable Prescriptions: No Action cyclobenzaprine 10 mg tablet 10 mg PO HS metformin 500 mg tablet 500 mg PO BID meloxicam 15 mg tablet 15 mg PO DAILY timolol maleate 0.5 % drops 1 drp RIGHT EYE BID cimetidine 200 mg Tablet 200 mg PO BID acetaminophen [Tylenol] 325 mg Tablet 650 mg PO TID PRN (Reason: Pain) fexofenadine 180 mg Tablet 180 mg PO DAILY neomycin-polymyxin B-dexameth Ointment 1 applic RIGHT EYE BID losartan 25 mg Tablet 25 mg PO HS cholecalciferol-soy isoflavone 2,000-64 unit-mg Tablet 1 tablet PO DAILY aspirin 81 mg Capsule 81 mg PO HS Follow-up/Referrals: Clifford,Tim Pantoja MD [Primary Care Provider] - Time of Disposition: 03:57
[2024-06-04 04:20] VITALS: BP 120/89; PULSE 97; RESP 17; TEMP 36.4; O2SAT 97
--- NOTE | 2024-06-04 05:16 | PC.NURSE ---
EMS arrives for patient
== END 2024-06-04 05:18 | disposition short-term general hospital (02) ==
PROVIDERS: Emergency Provider Emergency Medicine; PCP Internal Medicine
DX: R55 Syncope and collapse (principal); S14.129A Central cord syndrome at unspecified level of cervical spinal cord, initial encounter; R20.2 Paresthesia of skin; M79.602 Pain in left arm; M79.601 Pain in right arm; E11.9 Type 2 diabetes mellitus without complications; I10 Essential (primary) hypertension; Z87.891 Personal history of nicotine dependence; M47.812 Spondylosis without myelopathy or radiculopathy, cervical region; Z79.84 Long term (current) use of oral hypoglycemic drugs; Z79.82 Long term (current) use of aspirin; R94.31 Abnormal electrocardiogram [ECG] [EKG]; W18.39XA Other fall on same level, initial encounter
CPT/HCPCS: 36415; 70450; 70486; 71045; 72125; 80053; 85025; 93005; 99285; L0140

== ENCOUNTER 2024-08-04 06:09 | Emergency (ER) | payer MEDICARE, SELFPAY ==
--- NOTE | ~2024-08-04 | CT_ITS ---
CT head without contrast Indication: Status post fall COMPARISON: 06/04/2024 Technique: Serial scans were obtained through the brain without the administration of contrast. Dose reduction technique was used on this scan by utilizing automated exposure control and iterative recon struction technique. The dose-length product (DLP) was 605.33 mGy-cm. Findings: There is no evidence of intracranial hemorrhage, mass lesion, or acute infarct. The ventri cles and subarachnoid spaces are dilated, consistent with mild atrophy. Stable lacunar infarcts in th e right basal ganglia. Low attenuation regions are seen within the periventricular white matter bilat erally, likely representing changes from chronic microvascular ischemic disease. There is no evidence of edema, mass effect or midline shift. The visualized paranasal sinuses and mastoid air cells are clear. Impression: No intracranial hemorrhage, mass, or acute infarct. Stable chronic lacunar infarcts in the right basal ganglia. Atrophy and chronic white matter changes, as above. Reviewed, dictated and finalized at location . 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 Stable chronic lacunar infarcts in the right basal ganglia. Atrophy and chronic white matter changes, as above.
--- NOTE | ~2024-08-04 | XR_ITS ---
EXAMINATION: XR thoracic spine 2V DATE: 08/04/2024 07:58 INDICATION: Fall. TECHNIQUE: 3 views of thoracic spine on 4 radiographs were obtained. COMPARISON: Chest 2 view 01/23/2023. FINDINGS: Alignment is normal. There is mild chronic anterior wedge of multiple lower thoracic verteb ral bodies. There is mildly decreased disc height at many lower thoracic levels. There are changes of posterior fusion procedure from the cervical spine to T1. IMPRESSION: 1. Mild thoracic spondylosis. Reviewed, dictated and finalized at location A. AWAY MAN
[2024-08-04 06:12] VITALS: BP 138/93; PULSE 99; RESP 12; TEMP 36.1; O2SAT 100
[2024-08-04 07:36] VITALS: BP 131/91; PULSE 103; RESP 14; O2SAT 94
--- OUTSIDE RECORDS SUMMARY | 2024-08-04 08:35 | XMS_ITS | Clinical Summary ---
Author Organization [facility] Address [address] [facility] [place] [address] Care Team Providers Care Compliance Representative Dealer Name Role Phone Bri Clayton MD Unavailable Tim Horton MD Primary Care Provider [phone] Source Comments [facility],non-owned Affiliates and Associated Physician Practices is amultiple site organization consisting of ambulatory clinics and hospital sitesin [place], [place], [place] and [place]. This disclosure is being madepursuant to the Care Everywhere program and may not contain all information available regarding this patient. 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 Alwaysverify current medications with the patient. Medication Sig Dispensed Refills Start Date End Date Status raNITIdine (ZANTAC) 150 MG tablet Take 1 (one) tablet by mouth once daily Active vitamin D, cholecalciferol, 2000 UNITS tablet Take 1 (one) tablet by mouth once daily Active timolol maleate (TIMOPTIC) 0.5 % ophthalmic solution INSTILL ONE DROP INTO THE RIGHT EYE TWICE DAILY 5 mL 01/19/2020 Active albuterol HFA (PROVENTIL; VENTOLIN; PROAIR) 108 (90 Base) MCG/ACT inhaler 4 times daily Active ciclopirox (LOPROX) 1 % shampoo APPLY 5ML TOPICALLY TWICE WEEKLY 11/20/2021 Active metFORMIN (GLUCOPHAGE) 500 MG tablet 1 (one) tablet 2 times daily with morning and evening meal 12/04/2021 Active fexofenadine (NIELS) 180 MG tablet Take 1 (one) tablet by mouth once daily Active aspirin EC (Ecotrin) 81 MG tablet Take 1 (one) tablet by mouth 2 times daily Active OneTouch Ultra test strip USE 1 STRIP TO CHECK GLUCOSE ONCE DAILY 03/26/2022 Active acetaminophen CR (Tylenol 8 Hour Arthritis Pain) 650 MG tablet Take 1 (one) tablet by mouth every 8 hours as needed for Pain Active Blood Glucose Monitoring Suppl (ONE TOUCH ULTRA 2) w/Device KIT USE DIRECTED TO MONITOR DIABETES 08/15/2021 Active mupirocin (Bactroban) 2 % ointment APPLY OINTMENT TOPICALLY THREE TIMES DAILY 07/07/2022 Active meloxicam (Mobic) 15 MG tabletIndications: Hx of bilateral hip replacements Take 1 (one) tablet by mouth once daily 90 tablet 2 04/23/2023 Active felodipine CR 24hr (Plendil) 2.5 MG tablet Take 1 (one) tablet by mouth once daily 08/12/2023 Active rosuvastatin (Crestor) 10 MG tablet Take 1 (one) tablet by mouth at bedtime 08/05/2023 Active cyclobenzaprine (Flexeril) 10 MG tablet Take 1 (one) tablet by mouth at bedtime 08/29/2023 Active neomycin-polymyxin -hc (Cortisporin) 3.5-80245-8 otic suspension ADMINISTER 4 DROPS INTO LEFT EAR TWICE DAILY FOR 7 DAYS 01/03/2024 Active Entresto 24-26 MG tablet Take 1 (one) tablet by mouth 2 times daily 01/06/2024 Active prednisoLONE acetate (Pred Forte) 1 % ophthalmic suspensionIndicati ons:CME (cystoid macular edema), left Instill 1 (one) drop into left eye 4 times daily 15 mL 06/03/2024 Active ketorolac (Acular) 0.5 % ophthalmic solutionIndication s:CME (cystoid macular edema), left Instill 1 (one) drop into left eye 4 times daily 3 mL 06/03/2024 Active erythromycin (Romycin) 5 MG/GM ophthalmic ointmentIndication s:Band keratopathy of right eye Instill into right eye 2 times daily Apply thin ribbon to lower lid(s) twice a day 3.5 g 11 07/28/2024 Active erythromycin (Romycin) 5 MG/GM ophthalmic ointmentIndication s:Band keratopathy of right eye Instill into right eye 2 times daily Apply thin ribbon to lower lid(s) twice a day 3.5 g 4 07/22/2024 Discontinue d(Reorder) Active Problems Problem Noted Date Diagnosed Date 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 03/01/2023 Type 2 diabetes mellitus without retinopathy 07/2022 Syncope and collapse 12/17/2021 Osteoarthritis of left hip, unspecified osteoart hritis type 12/15/2021 History of detached retina repair 03/08/2018 Encounters Date Type Department Care Team Description 07/22/2024 1:20 PM LEGAL RECEPTIONIST Clinical Support [facility] [address] [place] [phone] Bell Gaffney MD CME (cystoid macular edema), left (Primary Dx); History of vitrectomy; History of detached retina repair 07/22/2024 1:15 PM LEGAL RECEPTIONIST [facility] [address] [place] [phone] Bell Gaffney MD CME (cystoid macular edema), left (Primary Dx); Band keratopathy of right eye; History of vitrectomy; History of detached retina repair; Phthisis bulbi of right eye 07/22/2024 Travel 06/03/2024 2:10 PM LEGAL RECEPTIONIST Clinical Support [facility] - Ophthalmology [address] [place] [phone] Bell Gaffney MD CME (cystoid macular edema), left (Primary Dx); History of vitrectomy 06/03/2024 1:45 PM LEGAL RECEPTIONIST Office Visit [facility] - Ophthalmology [address] [place] [phone] Bell Gaffney MD CME (cystoid macular edema), left (Primary Dx); History of detached retina repair; History of vitrectomy; Phthisis bulbi of right eye 06/03/2024 Travel from Last 3 Months Immunizations Name Administration Dates Next Due INFLUENZA VACCINE, TRIV. (AF LURIA, FLUZONE TRIVALENT; 6MO+) (IIV3) 03/09/2010 INFLUENZA VACCINE 03/25/2018 PNEUMOCOCCAL PCV VACCINE 04/06/2010 Social History Tobacco Use Types Packs/Day Years Used Date Smoking Tobacco: Former Cigarettes 2.5 25 1 986 - 2010 Smokeless Tobacco: Never Tobacco Cessation:Counseling Given: Not Answered Alcohol Use Standard Drinks/Week Comments No 0 (1 standard drink = 0.6 oz pur e alcohol) AUDIT-C Answer Date Recorded Q1: How often do you have a drink containing alc ohol? 2-4 times a month 01/30/2024 Q2: How many drinks containi ng alcohol do you have on a typical day when you are drinking? 1 or 2 01/30/2024 Q3: How often do you have si x or more drinks on one occasion? Never 01/30/2024 PHQ-2 Answer Date Recorded Patient Health Questionnaire-2 Score 0 04/23/2023 Sex and Gender Information Value Date Recorded Sex Assigned at Not on file Gender Identity Not on file Sexual Orientation Not on file Last Filed Vital Signs Vital Sign Reading Time Taken Comments Blood Pressure 112/80 01/30/2024 10:28 AM CDT Pulse 95 01/30/2024 10:24 AM CDT Temperature 36.4 ??C (97.6 ??F) 01/30/2024 10:11 AM C DT Respiratory Rate 17 01/30/2024 10:20 AM CDT Oxygen Saturation 95% 01/30/2024 10:24 AM CDT Inhaled Oxygen Concentration - - Weight 91.6 kg (202 lb) 01/30/2024 7:12 AM CDT Height 185.4 cm (6' 1 ) 01/30/2024 7:12 AM CDT Body Mass Index 26.65 01/30/2024 7:12 AM CDT Plan of Treatment Upcoming Encounters Date Type Department Care Team (Late st Contact Info) Description 09/09/2024 1:45 PM CDT Office Visit [facility] - Ophthalmology [address] [address], [place] [phone] Bell Gaffney MD [address] [facility] [place] [address] Health Maintenance Due Date Last Done Comments COLOGUARD (AGES 45-75) - COLON CA SCREENING [address] COLONOGRAPHY - COLON CA SCREENING 1955 FIT - COLON CA SCREENING 1955 FLEX SIG - COLON CA SCREENING 1957 HEPATITIS C SCREENING 02/09/1975 DTAP/TDAP/TD VACCINES (1 - Tdap) 02/14/1976 ZOSTER VACCINE (1 of 2) 2007 PNEUMOCOCCAL VACCINE 50+ (2 of 2 - PPSV23) 06/01/2010 04/06/2010 AAA SCREENING 2022 DIABETES-FOOT EXAM WITH MONOFILAMENT 03/01/2023 COVID-19 VACCINE ( season) 2024 03/31/2022, 06/11/2021, 09/05/2020 DEPRESSION SCREENING 07/01/2024 04/23/2023 DIABETES - URINE PROTEIN SCREENING 07/01/2024 MEDICARE AWV ? CALENDAR YEAR 2024 DIABETES-SERUM CREATININE 07/11/20242023, 12/18/2021, 12/17/2021, Additional history exists LUNG CANCER SCREENING 07/11/2024 07/11/2023 DIABETES-HGB A1C 11/09/2024 05/12/2024, , 10/17/2023, Additional history exists DIABETES RETINOPATHY SCREENING 07/22/2026 07/22/2024, 07/22/2024, 06/03/2024, Additional history exists COLONOSCOPY - COLON CA SCREENING 08/01/2031 08/01/2021, 08/01/2021 Colorectal Cancer Screening 08/01/2031 Respiratory Syncytial Virus (RSV) Vaccine Pt: or over 60 yrs (1 - 1-dose 75+ series) 02/14/2032 INFLUENZA VACCINE Completed 04/16/2024, , 03/25/2018, Additional history exists HEPATITIS B VACCINE Aged Out No longe r eligible based on patient's age to complete this topic HIB VACCINE Aged Out No longer eligi ble based on patient's age to complete this topic HPV VACCINE Aged Out No longer eligi ble based on patient's age to complete this topic MENINGOCOCCAL (Group B) VACCINE Aged Out No longer eligible based on patient's age to complete this topic MENINGOCOCCAL VACCINE Aged Out No olivia herb eligible based on patient's age to complete this topic Medical Devices Implanted Type Area Orthopedic Shoe Fitter Device Identifier Shelf Expiration Date Model / Serial / Lot Corydon Garland Adv Bp Orthocord Implanted:Qty: 2 on 07/20/2013 by Brandon Massey MD at [facility] Right: Shoulder [employer] 03/31/2016 [id number] / / [id number] Corydon Healix Adv Knotless Br Implanted:Qty: 2 on 07/20/2013 by Brandon Massey MD at [facility] Right: Shoulder [employer] 11/28/2015 [id number] / / [id number] Corydon Healix Adv Knotless Br Implanted:Qty: 1 on 07/20/2013 by Brandon Massey MD at [facility] Right: Shoulder [employer] 11/28/2015 [id number] / / [id number] Shell Actb 58mm 3 Hl Poly R3 Std Implanted:Qty: 1 on 12/15/2021 by Mo Gallardo MD at [facility] Left: Hip [employer] 09/26/2031 [id number] / / [id number] Screw 6.5mm 35mm Hip Actb Canc Sphrcl Implanted:Qty: 1 on 12/15/2021 by Mo Gallardo MD at [facility] Left: Hip [employer] 05/21/2031 [id number] / / [id number] Acetabular Liner Implanted:Qty: 1 on 12/15/2021 by Mo Gallardo MD at [facility] Left: Hip [employer] 02/20/2029 [id number] / / [id number] Stem Lateral Implanted:Qty: 1 on 12/15/2021 by Mo Gallardo MD at [facility] Left: Hip [employer] 03/08/2028 [id number] / / [id number] Head Fem 06/13 Lng+ 40mm Tpr Blx D Cerm Implanted:Qty: 1 on 12/15/2021 by Mo Gallardo MD at [facility] Left: Hip [employer] 03/23/2031 [id number] / / [id number] Tecnis Eyhance Iol Dib00 13.5d Implanted:Qty: 1 on 02/28/2023 by Bell Gaffney MD at [facility] Left: Eye [employer] 04/02/2025 [id number] / [id number] / 00 Description:No Lot# listed o n implant packaging. Procedures Procedure Name Priority Date/Time Associated Diagnosis Comments RETINAL ANALYSIS OCT Routine 07/22/2024 1:16 PM LEGAL RECEPTIONIST CME (cystoid macular edema), left History of vitrectomy History of detached retina repair RETINAL ANALYSIS OCT Routine 06/03/2024 2:06 PM LEGAL RECEPTIONIST CME (cystoid macular edema), left History of vitrectomy EYE EXAM 08/17/2022 BASIC METABOLIC PANEL (CALCIUM TOTAL) AM Draw 12/18/2021 4:15 AM CDT Syncope and collapse HEMOGLOBIN A1C STAT 12/05/2021 7:14 AM CDT Pre-op testing from Last 3 Months or Most Recently Relevant to Health Maintenance Results * RETINAL ANALYSIS OCT (07/22/2024 1:16 PM LEGAL RECEPTIONIST) Anatomical Region Laterality Modality Head External-Camera Photography Narrative 07/22/2024 2:16 PM LEGAL RECEPTIONIST Images from the original result were not included. OCT OS: CME is almost the same, distorted foveal contour, DRIL, much improved from before surgery, outer retinal folds improving Bell Gaffney MD OPHTHALMOLOGY SCHED ORD W PACS * RETINAL ANALYSIS OCT (06/03/2024 2:06 PM LEGAL RECEPTIONIST) Anatomical Region Laterality Modality Head External-Camera Photography Narrative 06/03/2024 4:28 PM LEGAL RECEPTIONIST Images from the original result were not included. OCT OS: distorted foveal contour, DRIL, much improved from before surgery, outer retinal folds improving, interval increase in CME OS (top 03/04/24, bottom 06/03/2024) Bell Gaffney MD OPHTHALMOLOGY SCHED ORD W PACS * EYE EXAM (08/17/2022) Anatomical Region Laterality Modality Other Narrative 08/17/2022 Ordered by an unspecified provider. Scanned Document SCANNING ONLY * (ABNORMAL) BASIC METABOLIC PANEL (CALCIUM TOTAL) (12/18/2021 4:15 AM CDT) Glucose 141(H) 70 - 105 mg/dL 12/18/2021 5:43 AM CDT [facility] Sodium 133(L) 136 - 145 mmol/L 12/18/2021 5:43 AM CDT [facility] Potassium 4.0 3.5 - 5.1 mmol/L 12/18/2021 5:43 AM CDT [facility] Chloride 101 98 - 107 mmol/L 12/18/2021 5:43 AM CDT [facility] CO2 21(L) 23 - 31 mmol/L 12/18/2021 5:43 AM CDT [facility] Calcium 8.4 8.4 - 10.4 mg/dL 12/18/2021 5:43 AM CDT [facility] Anion Gap 11 8 - 18 mmol/L 12/18/2021 5:43 AM CDT [facility] BUN 11 8.4 - 25.7 mg/dL 12/18/2021 5:43 AM CDT [facility] Creatinine 0.67(L) 0.72 - 1.25 mg/dL 12/18/2021 5:43 AM CDT [facility] eGFR by CKD-EPI >90 >=90 mL/min/1.7 3 m2 12/18/2021 5:43 AM CDT [facility] Blood BLOOD SPECIMEN / Unknown Lab Venipuncture / Unknown 12/18/2021 4:15 AM CDT 12/18/2021 5:18 AM CDT Gurdeep Reddy MD LAB - CHEMISTRY SAV[facility]NA [facility]MIC[facility] Organization Address City/State/[facility] [[email or web address]] Co de Phone Number [facility] [address] [place] [address] * (ABNORMAL) HEMOGLOBIN A1C (12/05/2021 7:14 AM CDT) [facility] Hemoglobin A1c 5.8(H) 4.2 - 5.6 % 12/05/2021 8:02 AM CDT [facility] Estimated Average Glucose 120 mg/dL 12/05/2021 8:02 AM CDT [facility] Blood BLOOD SPECIMEN / Unknown Venipuncture / Unknown 12/05/2021 7:14 AM CDT 12/05/2021 7:37 AM CDT Narrative [facility] - 12/05/2021 8:02 AM CDT The following cutoff levels are recommended by [place] [employer]. ?? A1c ??> 6.5% : considered as diabetes if two separate tests >6.5% or in an appropriate clinical setting. A1c ??5.7% - 6.4% : considered as prediabetes (suggest increased risk for diabetes and cardiovascular disease) Control target level: ??Should be individualized. ??< 7 ??for general (non- ) , ??< 8% less stringent goal, ??< 6.5 ??more stringent goal. Hemoglobin A1c measurements are used as an aid in the diagnosis of diabetic mellitus, as an aid to identify patients who may be at the risk for developing diabetic mellitus, and for the monitoring long-term blood glucose control in individuals with diabetes mellitus. ??This test should not replace glucose testing for patients with Type 1 diabetes, pediatric patients, or women. ??Falsely low HbA1c results may be observed in patients with clinical conditions that shorten erythrocyte life span or decrease mean erythrocyte age such as the presence of unstable hemoglobin variants, elevated hemoglobin F level ??or other causes of hemolytic anemia . ??HbA1c may not accurately reflect glycemic control when clinical conditions that affect erythrocyte survival are present. ??Severe Iron deficiency anemia may yield falsely high results. ??Hemoglobin A1c assay should not be used to diagnose or monitor diabetes in patients with malignancy, recent blood transfusion, chronic kidney or liver disease. ?? This method may yield falsely low results when hemoglobin (HbF) exceeds 5% in the specimen. Mo Gallardo MD LAB - CHEMISTRY ORD ERABLES [facility] [address] [place] [phone] from Last 3 Months or Most Recently Relevant to Health Maintenance Advance Directives * Full Code (Latest Code Status on File) Date Activated Date Inactivated Comments 12/18/2021 1:15 PM 12/18/2021 5:00 PM * Full Code Date Activated Date Inactivated Comments 12/15/2021 9:37 AM 12/15/2021 1:48 PM Care Teams Compliance Representative Dealer Relationship Specialty Start Date End Date Tim Horton MD [address] [facility] [address] [place] [address] PCP - General 04/18/22 [place] [address] [facility] [address] [place] [phone] Ophthalmology 07/23/19
--- OUTSIDE RECORDS SUMMARY | 2024-08-04 08:35 | XMS_ITS | Encounter Summary ---
Author Organization [facility] Address [address] [facility] [place] [address] Care Team Providers Care Emergency Operator Name Role Phone Bri Clayton MD Unavailable Tim Horton MD Primary Care Provider [phone] Reason for Visit * Reason Onset Date Comments Question 02/07/2023 Encounter Details Date Type Department Care Team (Late st Contact Info) Description 02/07/2023 Telephone [facility] - Ophthalmology [address] [place] [phone] Bell Gaffney MD [address] [place] [address] [place] [address] Question Social History Tobacco Use Types Packs/Day Years Used Date Smoking Tobacco: Former Smokeless Tobacco: Never Alcohol Use Standard Drinks/Week Comments No 0 (1 standard drink = 0.6 oz pur e alcohol) AUDIT-C Answer Date Recorded Q1: How often do you have a drink containing alc ohol? Never 12/17/2021 Average Number of Drinks Not on file 022 Frequency of Binge Drinking Not on file 11/29 Sex and Gender Information Value Date Recorded Sex Assigned at Not on file Gender Identity Not on file Sexual Orientation Not on file documented as of this encounter Miscellaneous Notes * Telephone Encounter - Keke Godwin - 02/07/2023 2:40 PM CDT Pt called about a referral from another provider for Dr. Gaffney. Pt is monocular with previous retinal surgery and has a cataract. Pt is looking to schedule. Outside provider notes are in chart. CB#[phone] documented in this encounter Plan of Treatment Upcoming Encounters Date Type Department Care Team (Late st Contact Info) Description 09/09/2024 1:45 PM CDT Office Visit [facility] - Ophthalmology [address] [place] [address], [place] [phone] Bell Gaffney MD [address] [place] [address] [place] [phone] documented as of this encounter Visit Diagnoses Not on filedocumented in this encounter Care Teams Emergency Operator Relationship Specialty Start Date End Date Tim Horton MD [address] [facility] [address] [place] [phone] PCP - General 04/18/22 [place] [address] [facility] [address] [place] [phone] Ophthalmology 07/23/19 documented as of this encounter
--- OUTSIDE RECORDS SUMMARY | 2024-08-04 08:35 | XMS_ITS | Referral Summary ---
Author Organization [facility] Address [address] [place] [address] Care Team Providers Care Geochemistry Teacher Name Role Phone Bri Clayton MD Unavailable Tim Horton MD Primary Care Provider [phone] Source Comments [facility],non-owned Affiliates and Associated Physician Practices is amultiple site organization consisting of ambulatory clinics and hospital sitesin [place], [place], [place] and [place]. This disclosure is being madepursuant to the Care Everywhere program and may not contain all information available regarding this patient. Last updated 18.[facility] Encounters Date Type Department Care Team Description 07/22/2024 1:20 PM ENGINEERING TEAM SUPERVISOR Clinical Support [facility] - Ophthalmology [address] [place] [phone] Bell Gaffney MD CME (cystoid macular edema), left (Primary Dx); History of vitrectomy; History of detached retina repair 07/22/2024 Travel 07/22/2024 1:15 PM ENGINEERING TEAM SUPERVISOR Office Visit [facility] - Ophthalmology [address] [place] [phone] Bell Gaffney MD CME (cystoid macular edema), left (Primary Dx); Band keratopathy of right eye; History of vitrectomy; History of detached retina repair; Phthisis bulbi of right eye 06/03/2024 2:10 PM ENGINEERING TEAM SUPERVISOR Clinical Support [facility] - Ophthalmology [address] [place] [phone] Bell Gaffney MD CME (cystoid macular edema), left (Primary Dx); History of vitrectomy 06/03/2024 Travel 06/03/2024 1:45 PM ENGINEERING TEAM SUPERVISOR Office Visit [facility] - Ophthalmology [address] [place] [phone] Bell Gaffney MD CME (cystoid macular edema), left (Primary Dx); History of detached retina repair; History of vitrectomy; Phthisis bulbi of right eye from Last 3 Months Allergies Active Allergy Reactions Criticality Noted Date Comments Adhesive Sensitivity Rash,Skin Reactions Medium 2021 Latex/adhesive on bandaids Codeine Rash,Itching,Nausea and/or Vomiting,MAINTENANCE MANAGER Dysfunction Medium 07/17/2013 Passes out Latex Rash [...] at bedtime 08/29/2023 Active neomycin-polymyxin -hc (Cortisporin) 3.5-18769-5 otic suspension ADMINISTER 4 DROPS INTO LEFT [...] 12/15/2021 History of detached retina repair 03/08/2018 Immunizations Name Administration Dates Next Due INFLUENZA [...] Description 09/09/2024 1:45 PM CDT Office Visit [facility] - Ophthalmology [address] [place] [address], [place] [phone] Bell Gaffney MD [address] [facility] [place] [address] Medical Devices Implanted Type Area Zoning Engineer Device Identifier Shelf Expiration Date Model / Serial / Lot Wildwood Conway Adv Bp Orthocord Implanted:Qty: 2 on 07/20/2013 by [place] Massey [place] [facility] [place] [facility]: Shoulder [employer] 03/31/2016 [id number] / / [id number] Wildwood Healix Adv Knotless Br Implanted:Qty: 2 on 07/20/2013 by Brandon Massey MD at [facility] [place] [facility] Right: Shoulder [employer] 11/28/2015 [id number] / / [id number] Wildwood Healix Adv Knotless Br Implanted:Qty: 1 on 07/20/2013 by Brandon Massey MD at [facility] [place] [facility] [place] Right: Shoulder [employer] 11/28/2015 [id number] / / [id number] Shell Actb 58mm 3 Hl Poly R3 Std Implanted:Qty: 1 on 12/15/2021 by Mo Gallardo MD at [facility] [place] [facility] Left: Hip [employer] 09/26/2031 [id number] / / [id number] Screw 6.5mm 35mm Hip Actb Canc Sphrcl Implanted:Qty: 1 on 12/15/2021 by Mo Gallardo MD at [facility] [place] [facility] Left: Hip [employer] 05/21/2031 [id number] / / [id number] Acetabular Liner Implanted:Qty: 1 on 12/15/2021 by Mo Gallardo MD at [facility] [place] [facility] [place] Left: Hip [employer] 02/20/2029 [id number] / / [id number] Stem Lateral Implanted:Qty: 1 on 12/15/2021 by Mo Gallardo MD at [facility] [place] [facility] [place] Left: Hip [employer] 03/08/2028 [id number] / / [id number] Head Fem 06/13 Lng+ 40mm Tpr Blx D Cerm Implanted:Qty: 1 on 12/15/2021 by Mo Gallardo MD at [facility] [place] [facility] [place] Left: Hip [employer] 03/23/2031 [id number] / / [id number] Tecnis Eyhance Iol Dib00 13.5d Implanted:Qty: 1 on 02/28/2023 by Bell Gaffney MD at [facility] Left: Eye [employer] 04/02/2025 [id number] / [id number] / 00 Description:No Lot# listed o n implant packaging. Procedures Procedure Name Priority Date/Time Associated Diagnosis Comments RETINAL ANALYSIS OCT Routine 07/22/2024 1:16 PM ENGINEERING TEAM SUPERVISOR CME (cystoid macular edema), left History of vitrectomy History of detached retina repair RETINAL ANALYSIS OCT Routine 06/03/2024 2:06 PM ENGINEERING TEAM SUPERVISOR CME (cystoid macular edema), left History of vitrectomy EYE EXAM 08/17/2022 BASIC METABOLIC PANEL (CALCIUM TOTAL) AM Draw 12/18/2021 4:15 AM CDT Syncope and collapse HEMOGLOBIN A1C STAT 12/05/2021 7:14 AM CDT Pre-op testing from Last 3 Months or Most Recently Relevant to Health Maintenance Results * RETINAL ANALYSIS OCT (07/22/2024 1:16 PM ENGINEERING TEAM SUPERVISOR) Anatomical Region Laterality Modality Head External-Camera Photography Narrative 07/22/2024 2:16 PM ENGINEERING TEAM SUPERVISOR Images from the original result were not included. OCT OS: CME is almost the same, distorted foveal contour, DRIL, much improved from before surgery, outer retinal folds improving Bell Gaffney MD OPHTHALMOLOGY SCHED ORD W PACS * RETINAL ANALYSIS OCT (06/03/2024 2:06 PM ENGINEERING TEAM SUPERVISOR) Anatomical Region Laterality Modality Head External-Camera Photography Narrative 06/03/2024 4:28 PM ENGINEERING TEAM SUPERVISOR Images from the original result were not [...] - 18 mmol/L 12/18/2021 5:43 AM CDT [facility] BUN 11 8.4 - 25.7 mg/dL 12/18/2021 5:43 AM CDT [facility] Creatinine 0.67(L) 0.72 - 1.25 mg/dL 12/18/2021 5:43 AM CDT [facility] eGFR by CKD-EPI >90 >=90 mL/min/1.7 3 m2 12/18/2021 5:43 AM CDT [facility] Blood BLOOD SPECIMEN / Unknown Lab Venipuncture / Unknown 12/18/2021 4:15 AM CDT 12/18/2021 5:18 AM CDT Gurdeep Reddy MD LAB - CHEMISTRY SAVANAN CARMICHAEL [facility] Organization Address City/State/[facility] Co de Phone Number [facility] [address] [place], [place] [id number] * (ABNORMAL) HEMOGLOBIN A1C (12/05/2021 7:14 AM CDT) Pathologist [facility] Hemoglobin A1c 5.8(H) 4.2 - 5.6 % 12/05/2021 8:02 AM CDT [facility] Estimated Average Glucose 120 mg/dL 12/05/2021 8:02 AM CDT [facility] Blood BLOOD SPECIMEN / Unknown Venipuncture / Unknown 12/05/2021 7:14 AM CDT 12/05/2021 7:37 AM CDT Narrative [facility] - 12/05/2021 8:02 AM CDT The following cutoff levels are recommended by [place] [employer]. ?? A1c ??> 6.5% : [...] Gallardo MD LAB - CHEMISTRY ORD ERABLES [facility] Organization Address City/State/ZIP Co de Phone Number [facility] [address] [place] [address] from Last 3 Months or Most Recently Relevant to Health Maintenance Advance Directives * Full Code (Latest Code Status on File) Date Activated Date Inactivated Comments 12/18/2021 1:15 PM 12/18/2021 5:00 PM * Full Code Date Activated Date Inactivated Comments 12/15/2021 9:37 AM 12/15/2021 1:48 PM Care Teams Geochemistry Teacher Relationship Specialty Start Date End Date Tim Horton MD [address] [facility] [address] [place] [address] PCP - General 04/18/22 [place] [address] [facility] [address] [place] [phone] Ophthalmology 07/23/19
--- OUTSIDE RECORDS SUMMARY | 2024-08-04 08:35 | XMS_ITS | Clinical Summary ---
Author Organization [facility] Address [address] [place] [address]. [place] [address] [place] [address] Care Team Providers Care Cooling Machine Operator Name Role Phone Tim Horton MD Primary Care Provider Allergies Active Allergy Reactions Criticality Noted Date Comments Codeine Nausea and Vomiting 07/24/2021 Latex Rash Low 07/24/2021 Sulfa Antibiotics Rash Low 07/24/2021 Medications cyclobenzaprine 10 MG tablet Take by mouth 2 (two) times daily as needed. Active raNITIdine HCl (ZANTAC OR) Take 20 mg by mouth. Active Vitamin D, Cholecalciferol , 50 MCG (1999) Cap Active aspirin EC (ASPIRIN EC) 81 MG tablet Take 81 mg by mouth daily. Active amLODIPine 5 MG tablet Take 5 mg by mouth daily. Active metFORMIN 500 MG tablet Take 500 mg by mouth 2 (two) times daily with meals. Active fexofenadine 180 MG tablet Take 180 mg by mouth daily. Active ibuprofen 200 MG tablet Take 400 mg by mouth every 8 (eight) hours as needed for Pain. Active timolol 0.25 % ophthalmic gel-forming Place 1 drop into the right eye 2 (two) times a day. Active neomycin-bacitr acin-polymyxin ointment Apply topically 2 (two) times daily. Right eye Active Immunizations Name Administration Dates Next Due Influenza Adult (Generic) 03/25/2018 JAYLA ([employer]) COVID-19 AD26 VACCINE 0.5 ML IM SUSP 06/11/2021,09/05/2020 Social History Tobacco Use Types Packs/Day Years Used Date Smoking Tobacco: Former Cigarettes Q uit: 2010 Smokeless Tobacco: Never Alcohol Use Standard Drinks/Week Comments Never 0 (1 standard drink = 0.6 oz pur e alcohol) Sex and Gender Information Value Date Recorded Sex Assigned at Not on file Legal Sex Male 7:50 AM GLUING CREW LEADER Gender Identity Not on file Sexual Orientation Not on file Last Filed Vital Signs Vital Sign Reading Time Taken Comments Blood Pressure 120/97 08/01/2021 8:07 AM GLUING CREW LEADER Pulse 96 08/01/2021 8:07 AM GLUING CREW LEADER Temperature 36.1 ??C (97 ??F) 08/01/2021 8:07 AM GLUING CREW LEADER Respiratory Rate 14 08/01/2021 8:07 AM GLUING CREW LEADER Oxygen Saturation 100% 08/01/2021 8:07 AM GLUING CREW LEADER Inhaled Oxygen Concentration - - Weight 104.3 kg (230 lb) 07/24/2021 12:46 PM GLUING CREW LEADER Height 188 cm (6' 2 ) 07/24/2021 12:46 PM GLUING CREW LEADER Body Mass Index 29.53 07/24/2021 12:46 PM GLUING CREW LEADER Plan of Treatment Health Maintenance Due Date Last Done Comments Hepatitis C 1975 DTaP, Tdap and Td Vaccines ( 1 - Tdap) 02/14/1976 Zoster Vaccines (1 of 2) 2007 Pneumococcal Vaccine: 65+ Years (1 of 1 - PCV) 2022 COVID-19 Vaccine (3 - 2023-2 5 season) 2024 06/11/2021, 09/05/2020 Influenza Adult (#1) 2024 03/25/2018, 03/09/2010 Colorectal Cancer Screening Colonoscopy (10 Years) 08/01/2031 08/01/2021, 08/01/2021 RSV Immunization or 60+ Years (1 - 1-dose 75+ series) 02/14/2032 Meningococcal B Vaccine Aged Out No l onger eligible based on patient's age to complete this topic Meningococcal Vaccine Aged Out No olivia herb eligible based on patient's age to complete this topic RSV Immunizations Under 20 Months Aged Out No longer eligible b ased on patient's age to complete this topic Procedures Procedure Name Priority Date/Time Associated Diagnosis Comments COLONOSCOPY Routine 08/01/2021 7:12 AM GLUING CREW LEADER from Last 3 Months or Most Recently Relevant to [place] [address] [facility] Care Teams Cooling Machine Operator Relationship Specialty Start Date End Date Tim Horton MD [address] [address] PCP - General INTERNAL MEDICINE 08/01/21
--- OUTSIDE RECORDS SUMMARY | 2024-08-04 08:35 | XMS_ITS | Continuity of Care Document ---
Author Organization 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 Name Role Phone Matilde MAO MD, Bri Unavailable Unavailable Allergies, Adverse Reactions, Alerts Substance Reaction Status Criticality Sulfa (Sulfonamide Antibiotics) Active No Information codeine Active No Information Medications Medication Instructions Dosage Effective Dates (start - stop) Status Comments Aspirin Childrens 81 mg chewable tablet chew 1 tablet by oral route 3 times every week 81 MG - Active Maxitrol 3.5 mg/g-10,000 unit/g-0.1 % eye ointment apply by ophthalmic route 2 times every day a small amount into the conjunctival sac(s) in affected eye(s) - Active timolol maleate 0.5 % eye drops instill 1 drop by ophthalmic route every day into both eyes, largest bottle insurance will allow. 90 day supply OK - Active Zantac-360 (famotidine) 20 mg tablet take 1 tablet by oral route 2 times every day 20 MG - Active vitamin d (unknown strength) Not Available - Active Tylenol 8 Hour 650 mg tablet,extended release take 2 tablet by oral route every 8 hours as needed swallowing whole with water. Do not break, crush, dissolve and/or chew. 1300 MG - Active meloxicam 15 mg tablet take 1 tablet by oral route every day 15 MG - Active flexeril ORAL TABLET - Active Nory Allergy 180 mg tablet take 1 tablet by oral route every day 180 MG - Active METFORMIN HCL (unknown strength) take 1 tablet by oral route 2 times every day with morning and evening meals Not Available - Active Procedures Procedure Date OFFICE/OUTPATIENT VISIT, EST GDX Retina POSTOP FOLLOW-UP VISIT GDX Retina OFFICE/OUTPATIENT VISIT, EST POSTOP FOLLOW-UP VISIT OFFICE/OUTPATIENT VISIT, EST REPAIR DETACHED RETINA REPAIR DETACHED RETINA FUNDUS PHOTOGRAPHY OFFICE/OUTPATIENT VISIT, EST OFFICE/OUTPATIENT VISIT, EST OFFICE/OUTPATIENT VISIT, EST OFFICE/OUTPATIENT VISIT, EST OPSCPY EXTND RTA DRAW UNI/BI OFFICE/OUTPATIENT VISIT, EST REFRACTION OFFICE/OUTPATIENT VISIT, EST EYE EXAM WITH PHOTOS Advance Directives Directive Yes / No Effective Date File Name No Information Encounters Encounter Description Practice Location Reason(s) For Visit Diagnoses Date Provider Providers Copied on Encounter [facility], [address] [address], [place], [place], [id number], [place] tel:[phone] OPH CONSULT HILDA MCLEAN No Information 3 Matilde Gregory. [address] [facility], [address], [place], [address], [place]. tel:[phone] Referring Provider: Jeremiah Altman MD, [address] [place], [address]. tel:[phone] OFFICE/OUTPA TIENT VISIT, EST [facility], [address] [facility] [address], [place], [place], [id number], [place] tel:[phone] [facility] Followup (chief complaint) Retinal detachment, leftHistory of detached retina repairAge-rel ated nuclear cataract of left eyePVD (posterior vitreous detachment), left eye 3 Matilde Gregory. [address] [facility], [address], [place], [address], [place]. tel:[phone] Other [place]: [place], [address], [place], [address]. tel:[phone] ring Provider: Jeremiah Altman MD, [address] [place], [address]. tel:[phone] [facility], [address] [place] [address] [address], [place], [place], [id number], [place] tel:[phone] OPH CONSULT [place] follow up (chief complaint) Retinal detachment, leftHistory of detached retina repairAge-rel ated nuclear cataract of left eye 3 Matilde Gregory. [address] [facility], [address], [place], [address], [place]. tel:[phone] Referring Provider: Jeremiah Altman MD, [address] [place], [address]. tel:[phone] OFFICE/OUTPA TIENT VISIT, [facility], [address] [place] [address] [address], [place], [place], [id number], [place] tel:[phone] [facility] retinal detachment OS (chief complaint) Retinal detachment, leftPVD (posterior vitreous detachment), left eyeHistory of detached retina repair 3 Matilde Gregory. [address] [facility], [address], [place], [address], [place]. tel:[phone] Specialist: Thelma De La Rosa, [address] [facility], [place], [address]. tel:[phone] ring Provider: Jeremiah Altman MD, [address] [facility], [place], [address]. tel:[phone] [facility], [address] [place] [address], [place], [place], [id number], [place] tel:[phone] OPH CONSULT HILDA MCLEAN Retinal detachment FU (chief complaint) Retinal detachment, leftPVD (posterior vitreous detachment), left eyeHistory of detached retina repairBullous keratopathy of right eyeIris bombe of right eye 3 Matilde Gregory. [address] [facility], [address], [place], [address], [place]. tel:[phone] Referring Provider: Jeremiah Altman MD, [address] [place] [address], [address]. tel:[phone] OFFICE/OUTPA TIENT VISIT, EST [facility], [address] [address], [place], [place], [id number], [place] tel:[phone] OPH CONSULT HILDA MCLEAN Visual Disturbance (chief complaint) PVD (posterior vitreous detachment), left eyeHistory of detached retina repairBullous keratopathy of right eyeIris bombe of right eyeAge-relate d nuclear cataract, left eyeRetinal detachment, left 3 Matilde Gregory. [address] [facility], [address], [place], [address], [place]. tel:[phone] Referring Provider: Jeremiah Altman MD, [address] [place] [address], [place], [address]. tel:[phone] OFFICE/OUTPA TIENT VISIT, EST [facility], [address] [place] [address], [place], [place], [id number], [place] tel:[phone] OPH CONSULT HILDA MCLEAN DMII (chief complaint)Mu ltiple Retina Repairs (chief complaint) PVD (posterior vitreous detachment), left eyeHistory of detached retina repairBullous keratopathy of right eyeIris bombe of right eyeAge-relate d nuclear cataract, left eye 3 Matilde Gregory. [address] [facility], [address], [place], [address], [place]. tel:[phone] Referring Provider: Jeremiah Altman MD, [address] [place] [address], [address]. tel:[phone] OFFICE/OUTPA TIENT VISIT, EST [facility], [address] [address], [place], [place], [id number], [place] tel:[phone] OPH CONSULT HILDA MCLEAN DM (chief complaint)mu ltiple retina repairs (chief complaint)PV D (chief complaint) Iris bombe of right eyeHistory of detached retina repairBullous keratopathy of right eyeAge-relate d nuclear cataract, left eyePVD (posterior vitreous detachment), left eye Xavier- 2 Matilde Gregory. [address] [facility], [address], [place], [address], [place]. tel:[phone] Referring Provider: [place], [address] [facility] [address], [place], [address]. tel:[phone] OFFICE/OUTPA TIENT VISIT, EST [facility], [address] [place] [address], [place], [place], [id number], [place] tel:[phone], multiple sxs (chief complaint)PV D (chief complaint) PVD (posterior vitreous detachment), left eyeHistory of detached retina repairIris bombe of right eyeBullous keratopathy of right eyeAcute allergic conjunctiviti s of both eyes 1 Matilde Gregory. [address] [facility], [address], [place], [address], [place]. tel:[phone] Referring Provider: Jeremiah Altman MD, [address] [place] [address], [address]. tel:[phone] OFFICE/OUTPA TIENT VISIT, EST [facility], [address] [place] [address], [place], [place], [id number], [place] tel:[phone] [facility] Bump on Eyelid (chief complaint) Chalazion of left lower eyelidAge-rel ated nuclear cataract, left eye 0 Dusty Catherine. [address] [facility], [address], [place], [place], [id number], [place]. tel:[phone] Referring Provider: Florin Montano MD P, [address] [facility] [address], [place], [place], [address]. tel:[phone] [facility], [address] [place] [address], [place], [place], [id number], [place] tel:[phone] OPH CONSULT HILDA MCLEAN blurry vision (chief complaint) Myopia, bilateral Mar- 0 Kingsley Vera. [address], [place], [address], [place]. tel:[phone] Referring Provider: Jeremiah Altman MD, [address] [facility], [place], [address]. tel:[phone] OFFICE/OUTPA TIENT VISIT, EST [facility], [address], [place], [place], [id number], [place] tel:[phone] OPH CONSULT HILDA MCLEAN retinal detachment (chief complaint) PVD (posterior vitreous detachment), left eyeHistory of detached retina repairIris bombe of right eyeBullous keratopathy of right eye 0 Matilde MAO [facility]. [address] [facility], [address], [place], [address], [place]. tel:[phone] Referring Provider: Jeremiah Altman MD, [address] [facility], [place], [address]. tel:[phone] Family History Family Member Type Diagnosis Age At Onset Problem No family history of Diabete s mellitus Problem No family history of Glaucom a Problem No family history of Macular degeneration Payers Payer name Insurance type Covered republican ID Authoriza tion(s) [facility] CI [id number] Social History Type Description Quantity Date Captured Comments Alcohol Use Details Unknown Caffeine Use Details Unknown Tobacco Use Status No Information Smoking Status No Information Sex Male Chief Complaint And Reason For Visit No Information Plan Of Treatment Date Type Action Status Goal Tobacco cessation counseling completed Goal Tobacco cessation counseling completed Goal Tobacco cessation counseling completed Goal Tobacco cessation counseling completed Goal Tobacco cessation counseling completed History Of Present Illness Encounter Date Complaint History Of Prese nt Illness Followup The 67 year old male presents for Follow - up. Patient states vision is about the same does have a nice amount of floaters(spider web). Started wearing cls sat& sun with no problems. No complaints of pain or discomfort. Used AT's a few times. OCT Ordered follow up The 67 year old male presents for evaluation of follow up Retinal Detachment S/P Cryoretinopexy + Pneumatic retinopexy (SF6) + AC tap OS - 01/10/23. Patient says he is still seeing a bubble, but it is getting more diminished then it was. No pain or discomfort. Not currently using any eye drops in the left eye. The right eye he has continued to use Maxitrol adam, and Timolol BID OD. retinal detachment OS The 67 yea r old male presents for evaluation of retinal detachment OS. OCT OS. Patient states vision is better when looking around the bubble. Patient is taking timolol OD BID and Maxitrol ADAM OD BID. Retinal detachment FU The 67 yea r old male presents for evaluation of Retinal detachment FU, pretty good but didn't care for drops-kept sneezing, coughing, and nose running, bubbles in OS are inferior, overall feels pretty good, hard to see with bubbles in eye, currently feels like there's a rock in the middle of his OSContinues Simwendyinsandee Visual Disturbance The 67 year o ld male presents for evaluation of Visual Disturbance. Saturday01/08/23 pt started to notice a black spot OS temporally. When pt woke up this AM, the black spot grew and looked wavy. Also blocked out vision temporally. Pt was wearing his CL yesterday but wore glasses today. Pt denies pain, discomfort, tears, discharge, and itching. OD seems normal and no new symptoms. DMII The 67 year old male presents for 1 year FU of DMII, BS: not tracked since A1C is under 7, last A1C end of October 2022: 6.[address] Mueller Multiple Retina Repairs The marv ent is present for FU of Multiple Retina Repairs, couple floaters in OS over the last 3 months-tend to zip back and forth, denies flashes and curtain/veils. His security supervisor mentioned cat sx, patient says his vision is so-so, still able to drive but has to get closer for things to become clear, words aren't as sharp, currently using CL in OS that helps some DM The 66 year old male presents for evaluation of DM in the right eye and left eye. It started about 1 year(s) ago. It occurs all the time. The condition is stable. A1C 6.8 yesterday. AM blood sugar runs about 93-110. He is followed by Dr Mueller at [place] multiple retina repairs The marv ent is present for evaluation of multiple retina repairs in the right eye. It started about 1 year(s) ago. It occurs all the time. The condition is stable. PVD The patient is p resent for evaluation of PVD in the left eye. It started about 1 year(s) ago. It occurs all the time. The condition is stable. Pt states no complaints/changes since last OV. A mac OCT was ordered today. gtts: Timolol BID OD, adam qhs OD RD, multiple sxs The 65 year old male presents for evaluation of RD, multiple sxs in the right eye. It started about 1 year(s) ago. It occurs all the time. The condition is stable. gtts: Timolol BID, OD, lisandro/poly adam BID, OD. PVD The patient is p resent for evaluation of PVD in the left eye. It started about 1 year(s) ago. It occurs all the time. The condition is stable. Pt states [facility] has been down 1 month. A mac OCT was ordered today. Bump on Eyelid Pt here today fo r ER appointment. Pt states has noticed a bump on his left lower lid- pt states no pain but still operator batch or continuous. Pt notices that it looks like its improving already. blurry vision The 65 year old male presents for evaluation of blurry vision in the left eye. It started about 4 month(s) ago. The stable is constant. The condition is stable. retinal detachment The 64 year o ld male presents for evaluation of retinal detachment in the right eye. It started about 5 year(s) ago. It occurs all the time. The condition is significant. Pt states no complaints/changes since he was last seen by Dr Clayton. gtts: Timolol BID OD Instructions Date Instruction Additional Infor irving Impression/Plan Related to PVD ( posterior vitreous detachment), left eye Impression/Plan Related to Retin al detachment, left Impression/Plan Related to Histo ry of detached retina repair Impression/Plan Related to Age-r elated nuclear cataract of left eye Impression/Plan Related to Histo ry of detached retina repair Impression/Plan Related to Age-r elated nuclear cataract of left eye Impression/Plan Related to Retin al detachment, left Impression/Plan Related to Retin al detachment, left Impression/Plan Related to PVD ( posterior vitreous detachment), left eye Impression/Plan Related to Histo ry of detached retina repair Impression/Plan Related to Retin al detachment, left Impression/Plan Related to PVD ( posterior vitreous detachment), left eye Impression/Plan Related to Histo ry of detached retina repair Impression/Plan Related to Bullo us keratopathy of right eye Impression/Plan Related to Iris bombe of right eye Impression/Plan Related to Retin al detachment, left Impression/Plan Related to Histo ry of detached retina repair Impression/Plan Related to PVD ( posterior vitreous detachment), left eye Impression/Plan Related to Iris bombe of right eye Impression/Plan Related to Bullo us keratopathy of right eye Impression/Plan Related to PVD ( posterior vitreous detachment), left eye Impression/Plan Related to Histo ry of detached retina repair Impression/Plan Related to Bullo us keratopathy of right eye Impression/Plan Related to Iris bombe of right eye Impression/Plan Related to Age-r elated nuclear cataract, left eye Impression/Plan Related to Bullo us keratopathy of right eye Impression/Plan Related to Histo ry of detached retina repair Impression/Plan Related to Iris bombe of right eye Impression/Plan Related to PVD ( posterior vitreous detachment), left eye Impression/Plan Related to Age-r elated nuclear cataract, left eye Impression/Plan Related to Acute allergic conjunctivitis of both eyes Impression/Plan Related to PVD ( posterior vitreous detachment), left eye Impression/Plan Related to Histo ry of detached retina repair Impression/Plan Related to Iris bombe of right eye Impression/Plan Related to Bullo us keratopathy of right eye Impression/Plan Related to Chala shannan of left lower eyelid Impression/Plan Related to Age-r elated nuclear cataract, left eye Impression/Plan Related to Myopi a, bilateral Impression/Plan Related to PVD ( posterior vitreous detachment), left eye Impression/Plan Related to Histo ry of detached retina repair Impression/Plan Related to Iris bombe of right eye Impression/Plan Related to Bullo us keratopathy of right eye Assessments Type Assessment Date No Information
--- OUTSIDE RECORDS SUMMARY | 2024-08-04 08:35 | XMS_ITS | Patient Health Summary ---
Author Organization [facility] Address [address] [place] [address] Care Team Providers Care Change Management Name Role Phone Bri Clayton MD Unavailable Tim Horton MD Primary Care Provider Note from [facility],non-owned Affiliates and Associated Physician Practices is amultiple site organization consisting of ambulatory clinics and hospital sitesin [place], [place], [place] and [place]. This disclosure is being madepursuant to the Care Everywhere program and may not contain all information available regarding this patient. Last updated 18.[facility] Allergies * Adhesive Sensitivity(Rash,Skin Reactions) -Medium Criticality * Codeine(Rash,Itching,Nausea and/or Vomiting,PROCESS ENGINEERING INTERN Dysfunction) -Medium Criticality * Latex(Rash) -Medium Criticality * Sulfa Drugs(Nausea and/or Vomiting) -Medium Criticality Medications * Be aware that medications may not be up to date on this document. Alwaysverify current medications with the patient. * raNITIdine (ZANTAC) 150 MG tablet Take 1 (one) tablet by mouth once daily * vitamin D, cholecalciferol, 2000 UNITS tablet Take 1 (one) tablet by mouth once daily * timolol maleate (TIMOPTIC) 0.5 % ophthalmic solution(Started 01/19/2020) INSTILL ONE DROP INTO THE RIGHT EYE TWICE DAILY * albuterol HFA (PROVENTIL; VENTOLIN; PROAIR) 108 (90 Base) MCG/ACT inhaler 4 times daily * ciclopirox (LOPROX) 1 % shampoo(Started 11/20/2021) APPLY 5ML TOPICALLY TWICE WEEKLY * metFORMIN (GLUCOPHAGE) 500 MG tablet(Started 12/04/2021) 1 (one) tablet 2 times daily with morning and evening meal * fexofenadine (NIELS) 180 MG tablet Take 1 (one) tablet by mouth once daily * aspirin EC (Ecotrin) 81 MG tablet Take 1 (one) tablet by mouth 2 times daily * UllinkTouch Ultra test strip(Started 03/26/2022) USE 1 STRIP TO CHECK GLUCOSE ONCE DAILY * acetaminophen CR (Tylenol 8 Hour Arthritis Pain) 650 MG tablet Take 1 (one) tablet by mouth every 8 hours as needed for Pain * Blood Glucose Monitoring Suppl (ONE TOUCH ULTRA 2) w/Device KIT(Started 08/15/2021) USE DIRECTED TO MONITOR DIABETES * mupirocin (Bactroban) 2 % ointment(Started 07/07/2022) APPLY OINTMENT TOPICALLY THREE TIMES DAILY * meloxicam (Mobic) 15 MG tablet(Started 04/23/2023) Take 1 (one) tablet by mouth once daily 2 refills by 04/22/2024 * felodipine CR 24hr (Plendil) 2.5 MG tablet(Started 08/12/2023) Take 1 (one) tablet by mouth once daily * rosuvastatin (Crestor) 10 MG tablet(Started 08/05/2023) Take 1 (one) tablet by mouth at bedtime * cyclobenzaprine (Flexeril) 10 MG tablet(Started 08/29/2023) Take 1 (one) tablet by mouth at bedtime * seliizsg-rkgdahuzr-ro (Cortisporin) 3.5-39026-0 otic suspension(Started 01/03/2024) ADMINISTER 4 DROPS INTO LEFT EAR TWICE DAILY FOR 7 DAYS * Entresto 24-26 MG tablet(Started 01/06/2024) Take 1 (one) tablet by mouth 2 times daily * prednisoLONE acetate (Pred Forte) 1 % ophthalmic suspension(Started 06/03/2024) Instill 1 (one) drop into left eye 4 times daily * ketorolac (Acular) 0.5 % ophthalmic solution(Started 06/03/2024) Instill 1 (one) drop into left eye 4 times daily * erythromycin (Romycin) 5 MG/GM ophthalmic ointment(Started 07/28/2024) Instill into right eye 2 times daily Apply thin ribbon to lower lid(s) twice a day 11 refills by 07/28/2025 Ended Medications* erythromycin (Romycin) 5 MG/GM ophthalmic ointment(Started 07/22/2024)(Discontinued) Instill into right eye 2 times daily Apply thin ribbon to lower lid(s) twice a day 4 refills by 07/22/2025 Active Problems Problem Noted Date Diagnosed Date 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 03/01/2023 Type 2 diabetes mellitus without retinopathy 07/2022 Syncope and collapse 12/17/2021 Osteoarthritis of left hip, unspecified osteoart hritis type 12/15/2021 History of detached retina repair 03/08/2018 Immunizations * INFLUENZA VACCINE, TRIV. (AFLURIA, FLUZONE TRIVALENT; 6MO+) (IIV3)(Given 03/09/2010) * INFLUENZA VACCINE(Given 03/25/2018) * PNEUMOCOCCAL PCV VACCINE(Given 04/06/2010) Social History Tobacco Use Types Packs/Day Years [...] Mass Index 26.65 01/30/2024 7:12 AM CDT Medical Devices Implanted Type Area Air Hoist Operator Device Identifier Shelf Expiration Date Model / Serial / Lot [place] Valders Adv Bp Orthocord Implanted:Qty: 2 on 07/20/2013 by Brandon Massey MD at [facility] Right: Shoulder [employer] 03/31/2016 [id number] / / [id number] [place] Healix Adv Knotless Br Implanted:Qty: 2 on 07/20/2013 by Brandon Massey MD at [facility] Right: Shoulder [employer] 11/28/2015 [id number] / / [id number] [place] Healix Adv Knotless Br Implanted:Qty: 1 on 07/20/2013 by Brandon Massey MD at [facility] Right: Shoulder [employer] 11/28/2015 [id number] / / [id number] Shell Actb 58mm 3 Hl Poly R3 Std Implanted:Qty: 1 on 12/15/2021 by Mo Gallardo MD at [facility] Left: Hip [employer] 09/26/2031 [id number] / / [id number] Screw 6.5mm 35mm Hip Actb Canc Sphrcl Implanted:Qty: 1 on 12/15/2021 by Mo Gallardo MD at [facility] Left: Hip [employer] 05/21/2031 [id number] / / [id number] Acetabular Liner Implanted:Qty: 1 on 12/15/2021 by Mo Gallardo MD at [facility] Left: Hip [employer] 02/20/2029 [id number] / / [id number] Stem Lateral Implanted:Qty: 1 on 12/15/2021 by Mo Gallardo MD at [facility] Left: Hip [employer] 03/08/2028 [id number] / / [id number] Head Fem 06/13 Lng+ 40mm Tpr Blx D Cerm Implanted:Qty: 1 on 12/15/2021 by Mo Gallardo MD at [facility] Left: Hip [employer] 03/23/2031 [id number] / / [id number] Tecnis Eyhance Iol Dib00 13.5d Implanted:Qty: 1 on 02/28/2023 by Bell Gaffney MD at [facility] Left: Eye [employer] 04/02/2025 [id number] / [id number] / 00 Description:No Lot# listed o n implant packaging. Procedures * RETINAL ANALYSIS OCT(Performed 07/22/2024) Performed for CME (cystoid macular edema), left, History of vitrectomy, History of detached retina repair * RETINAL ANALYSIS OCT(Performed 06/03/2024) Performed for CME (cystoid macular edema), left, History of vitrectomy * EDOUARD AUTO VISUAL FIELD EXTENDED(Performed 03/19/2024) Performed for Bilateral visual field constriction * RETINAL ANALYSIS OCT(Performed 03/04/2024) Performed for Status post eye surgery * RETINAL ANALYSIS OCT(Performed 02/12/2024) Performed for Status post eye surgery, Proliferative vitreoretinopathy of left eye * RETINAL ANALYSIS OCT(Performed 02/05/2024) Performed for Status post eye surgery * ENDOTRACHEAL TUBE NOTE(Performed 01/30/2024) * WA VIT FOR MACULAR PUCKER(Performed 01/30/2024) Performed for Epiretinal membrane (ERM) of left eye * GLUCOSE - POINT OF CARE(Performed 01/30/2024) * RETINAL ANALYSIS OCT(Performed 01/03/2024) Performed for Epiretinal membrane (ERM) of left eye, 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 * RETINAL ANALYSIS OCT(Performed 09/09/2023) Performed for Epiretinal membrane (ERM) of left eye, Proliferative vitreoretinopathy of left eye * RETINAL ANALYSIS OCT(Performed 06/19/2023) Performed for History of retinal detachment, Disorder of macula of left eye, Epiretinal membrane (ERM) of left eye * XR PELVIS W LEFT HIP 2VW(Performed 04/23/2023) Performed for Left hip pain * RETINAL ANALYSIS OCT(Performed 03/29/2023) Performed for History of retinal detachment, Status post eye surgery * RETINAL ANALYSIS OCT(Performed 03/08/2023) Performed for Status post phaco + IOL, 25 G vitrectomy, endolaser, air fluid exchange, silicone [id number], left eye 02/28/23 * WA REMV CATARACT EXTRACAP,INSERT LENS(Performed 02/28/2023) Performed for 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 * WA VITRECTOMY,MECHANICAL(Performed 02/28/2023) Performed for 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 * ENDOTRACHEAL TUBE NOTE(Performed 02/28/2023) * RETINAL ANALYSIS OCT(Performed 02/25/2023) Performed for History of detached retina repair, 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 * EYE EXAM(Performed 08/17/2022) * EYE EXAM(Performed 08/17/2022) * XR PELVIS W LEFT HIP 2VW(Performed 04/18/2022) Performed for Left hip pain * XR PELVIS W LEFT HIP 2VW(Performed 01/16/2022) Performed for Primary osteoarthritis of left hip * CARDIAC RHYTHM STRIP ORDER(Performed 12/21/2021) * CARDIAC RHYTHM STRIP ORDER(Performed 12/18/2021) * CARDIAC EKG ORDER(Performed 12/18/2021) * APHERESIS/TRANSFUSION ORDER(Performed 12/18/2021) * GLUCOSE - POINT OF CARE(Performed 12/18/2021) * GLUCOSE - POINT OF CARE(Performed 12/18/2021) * TSH REFLEX FREE T4(Performed 12/18/2021) Performed for Syncope and collapse * BASIC METABOLIC PANEL (CALCIUM TOTAL)(Performed 12/18/2021) Performed for Syncope and collapse * CBC W AUTO DIFFERENTIAL(Performed 12/18/2021) Performed for Syncope and collapse * GLUCOSE - POINT OF CARE(Performed 12/17/2021) * GLUCOSE - POINT OF CARE(Performed 12/17/2021) * TROPONIN I(Performed 12/17/2021) * GLUCOSE - POINT OF CARE(Performed 12/17/2021) * XR CERVICAL SPINE 2 OR 3VW(Performed 12/17/2021) Performed for Syncope and collapse * XR PELVIS W LEFT HIP 2VW(Performed 12/17/2021) Performed for Syncope and collapse * XR SHOULDER LEFT 2VW OR MORE(Performed 12/17/2021) Performed for Syncope and collapse * XR KNEE LEFT 3VW(Performed 12/17/2021) Performed for Syncope and collapse * TROPONIN I(Performed 12/17/2021) * URINALYSIS REFLEX TO MICROSCOPIC NO CULTURE(Performed 12/17/2021) * CT ANGIO CHEST ABDOMEN PELVIS(Performed 12/17/2021) Performed for Syncope and collapse * TROPONIN I(Performed 12/17/2021) * PT-INR(Performed 12/17/2021) * MAGNESIUM BLOOD(Performed 12/17/2021) * COMPREHENSIVE METABOLIC PANEL(Performed 12/17/2021) * CBC W AUTO DIFFERENTIAL(Performed 12/17/2021) * XR CHEST 1VW PORTABLE(Performed 12/17/2021) Performed for Syncope and collapse * EKG 12-LEAD(Performed 12/17/2021) Performed for Syncope and collapse * GLUCOSE - POINT OF CARE(Performed 12/16/2021) * GLUCOSE - POINT OF CARE(Performed 12/16/2021) * CBC W/O DIFFERENTIAL(Performed 12/16/2021) Performed for Osteoarthritis of left hip, unspecified osteoarthritis type * BASIC METABOLIC PANEL (CALCIUM TOTAL)(Performed 12/16/2021) Performed for Osteoarthritis of left hip, unspecified osteoarthritis type * GLUCOSE - POINT OF CARE(Performed 12/15/2021) * GLUCOSE - POINT OF CARE(Performed 12/15/2021) * GLUCOSE - POINT OF CARE(Performed 12/15/2021) * XR PELVIS 1 OR 2VW(Performed 12/15/2021) Performed for Osteoarthritis of left hip, unspecified osteoarthritis type * GLUCOSE - POINT OF CARE(Performed 12/15/2021) * ENDOTRACHEAL TUBE NOTE(Performed 12/15/2021) * WA TOTAL HIP REPLACEMENT(Performed 12/15/2021) Performed for Diagnosis unknown * BLOOD TYPE VERIFICATION(Performed 12/15/2021) * GLUCOSE - POINT OF CARE(Performed 12/15/2021) * TYPE + SCREEN PANEL(Performed 12/05/2021) Performed for Pre-op testing * URINALYSIS REFLEX MICROSCOPIC REFLEX CULTURE(Performed 12/05/2021) Performed for Pre-op testing * TRANSFERRIN(Performed 12/05/2021) Performed for Pre-op testing * HEMOGLOBIN A1C(Performed 12/05/2021) Performed for Pre-op testing * FRUCTOSAMINE(Performed 12/05/2021) Performed for Pre-op testing * COMPREHENSIVE METABOLIC PANEL(Performed 12/05/2021) Performed for Pre-op testing * CBC W AUTO DIFFERENTIAL(Performed 12/05/2021) Performed for Pre-op testing * CULTURE MSSA/MRSA(Performed 12/05/2021) Performed for Pre-op testing * XR PELVIS W LEFT HIP 2VW(Performed 09/13/2021) Performed for Pain * OPH OCT TEST SLU(Performed 11/10/2018) Performed for PVD (posterior vitreous detachment), left * OPH OCT TEST SLU(Performed 03/05/2018) Performed for Multiple defects of retina without detachment, unspecified laterality * OPH EYE ULTRASOUND SLU(Performed 03/05/2018) Performed for Multiple defects of retina without detachment, unspecified laterality * INFLUENZA A+B - POINT OF CARE (AMB)(Performed 07/10/2017) Performed for Influenza * XR HAND LEFT 3VW OR MORE(Performed 06/14/2017) * MRI LUMBAR SPINE WO CONTRAST(Performed 10/14/2015) * XR HIP RIGHT 2VW OR MORE(Performed 09/07/2015) Performed for Right hip pain * XR KNEE LEFT 4VW OR MORE(Performed 03/16/2015) * GLUCOSE ACCUCHECK(Performed 05/04/2014) * GLUCOSE ACCUCHECK(Performed 05/04/2014) * GLUCOSE ACCUCHECK(Performed 03/31/2014) * CARDIAC RHYTHM STRIP ORDER(Performed 07/22/2013) * GLUCOSE - POINT OF CARE(Performed 07/20/2013) * ARTHROSCOPY SHOULDER ROTATOR CUFF REPAIR (RCR)(Performed 07/20/2013) Performed for Rotator Cuff (Capsule) Sprain * Interscalene Block(Performed 07/20/2013) * GLUCOSE - POINT OF CARE(Performed 07/20/2013) * MRI SHOULDER RIGHT WO CONTRAST(Performed 02/06/2013) Performed for Complete rupture of rotator cuff * XR SHOULDER RIGHT 2VW OR MORE(Performed 02/03/2013) Performed for Pain in joint, shoulder region * XR HIP RIGHT 2VW OR MORE(Performed 06/25/2012) Performed for Hip pain Results * RETINAL ANALYSIS OCT (07/22/2024 1:16 PM NATURAL GAS TREATING UNIT OPERATOR) Anatomical Region Laterality Modality Head External-Camera Photography Narrative 07/22/2024 2:16 PM NATURAL GAS TREATING UNIT OPERATOR Images from the original result were not included. OCT OS: CME is almost the same, distorted foveal contour, DRIL, much improved from before surgery, outer retinal folds improving Bell Gaffney MD OPHTHALMOLOGY SCHED ORD W PACS * RETINAL ANALYSIS OCT (06/03/2024 2:06 PM NATURAL GAS TREATING UNIT OPERATOR) Anatomical Region Laterality Modality Head External-Camera Photography Narrative 06/03/2024 4:28 PM NATURAL GAS TREATING UNIT OPERATOR Images from the original result were not included. OCT OS: distorted foveal contour, DRIL, much improved from before surgery, outer retinal folds improving, interval increase in CME OS (top 03/04/24, bottom 06/03/2024) Bell Gaffney MD OPHTHALMOLOGY SCHED ORD W PACS * EDOUARD AUTO VISUAL FIELD EXTENDED (03/19/2024 1:08 PM CDT) Anatomical Region Laterality Modality Head External-Camera Photography Narrative 03/19/2024 1:53 PM CDT Images from the original result were not included. Horizontal meridian is approximately 85 degrees Nicolas Akbar OD OPHTHALMOLOGY SCHED ORD W PACS * RETINAL ANALYSIS OCT (03/04/2024 12:42 PM CDT) Anatomical Region Laterality Modality Head External-Camera Photography Narrative 03/08/2024 10:20 AM CDT Images from the original result were not included. OCT OS: distorted foveal contour, DRIL, much improved from before surgery , outer retinal folds improving OS (top 02/12/24, bottom 03/04/2024) Bell Gaffney MD OPHTHALMOLOGY SCHED ORD W PACS * RETINAL ANALYSIS OCT (02/12/2024 8:14 AM CDT) Anatomical Region Laterality Modality Head External-Camera Photography Narrative 02/18/2024 2:55 PM CDT Images from the original result were not included. OCT macula: OS: distorted foveal contour, DRIL, much improved from before surgery OS (top 02/05/2024, bottom 02/12/2024) Bell Gaffney MD OPHTHALMOLOGY SCHED ORD W PACS * RETINAL ANALYSIS OCT (02/05/2024 11:09 AM CDT) Anatomical Region Laterality Modality Head External-Camera Photography Narrative 02/05/2024 12:36 PM CDT Images from the original result were not included. OCT OS: Improved contour of retina and resolved cystoid spaces status post membrane peeling Bell Gaffney MD OPHTHALMOLOGY SCHED ORD W PACS * ETT LINE PERFORMABLE (01/30/2024 8:15 AM CDT) Narrative Charlie Rosa Anes Asst - 01/30/2024 8:15 AM CDT Charlie Rosa Anes Asst ? 01/30/2024 ??8:16 AM Endotracheal Tube Placement: ? Patient Location: OR. Intubation Event Date/Time: ??01/30/2024 8:06 AM Procedure: intubation (69624) Procedure Section: ?? Sedation: under general anesthesia. Indications for Airway Management: ??anesthesia Induction: standard IV Patient Position: ??supine Mask Ventilation: easy with oral airway. Blade Type: Yu Blade Size: 4 Laryngoscopy View: grade 1 (full cords) Intubation Adjuncts: cricoid pressure Tube: endotracheal tube Placement: oral Tube type: cuff - inflated Tube Size (MM): 7.5 Depth of Insertion (CM): 21 Measured From: lips Cuff volume (mL): ??6 Cuff Inflated With: air Number of Attempts: 1. Placement Verified By: direct visualization and CO2 monitor Tube secured with: ??adhesive tape. Dentition unchanged? ??Yes Difficult Airway? ??No. Procedure Start Time: 01/30/2024 8:06 AM. Staff Section ? Anesthesia Provider: Charlie Rosa Anes Asst, Performed the procedure Brandon Sahni MD GENERAL ANESTHESIA O RDERABLES * (ABNORMAL) GLUCOSE - POINT OF CARE (01/30/2024 7:19 AM CDT) Only the most recent of15 resultswithin the time period is included. Glucose WB/POC 159(H) 70 - 115 mg/dL 01/30/2024 1:11 PM CDT [facility] Specimen Type Venous 01/30/2024 1:11 PM CDT [facility] Blood BLOOD SPECIMEN / Unknown 01/30/2024 7:19 AM CDT 01/30/2024 1:11 PM CDT Bell Gaffney MD LAB - POINT OF CARE ORDERABLES Performing Organization Address City/State/[facility] Co de Phone Number [facility] [address] [place] [id number], [facility] [phone] * RETINAL ANALYSIS OCT (01/03/2024 9:08 AM CDT) Anatomical Region Laterality Modality Head External-Camera Photography Narrative 01/03/2024 4:48 PM CDT Images from the original result were not included. OCT OS: retinal thickening, ERM, IRF, multiple outer retinal folds improved from prior OS (top 09/09/23, bottom 01/03/2024) Bell Gaffney MD OPHTHALMOLOGY SCHED ORD W PACS * RETINAL ANALYSIS OCT (09/09/2023 11:13 AM CDT) Anatomical Region Laterality Modality Head External-Camera Photography Narrative 09/22/2023 5:18 PM CDT Images from the original result were not included. OCT OS: retinal thickening, ERM, IRF, multiple outer retinal folds - stable from prior OS (top 06/19/23, bottom 09/09/2023) Bell Gaffney MD OPHTHALMOLOGY SCHED ORD W PACS * RETINAL ANALYSIS OCT (06/19/2023 1:44 PM NATURAL GAS TREATING UNIT OPERATOR) Anatomical Region Laterality Modality Head External-Camera Photography Narrative 06/30/2023 6:41 PM NATURAL GAS TREATING UNIT OPERATOR Images from the original result were not included. OS: retinal thickening, ERM, IRF, multiple outer retinal folds - stable from prior OS (top 03/29/2023, bottom 06/19/2023) Bell Gaffney MD OPHTHALMOLOGY SCHED ORD W PACS * XR PELVIS W LEFT HIP 2VW (04/23/2023 12:38 PM CDT) Only the most recent of5 resultswithin the time period is included. Anatomical Region Laterality Modality Pelvis Radiographic Ho[place] ging 04/23/2023 12:4 4 PM CDT Impressions 04/23/2023 12:45 PM CDT IMPRESSION: No change, intact bilateral total hip arthroplasties > Interpreting Provider: Cori Jackson MD on 04/23/2023 12:45 PM Narrative 04/23/2023 12:45 PM CDT PROCEDURE: ??XR PELVIS W LEFT HIP 2VW DATE/TIME OF EXAM: ??04/23/2023 12:38 PM CLINICAL INFORMATION: None relevant/not provided if blank. Indication: M25.552: Pain in left hip Additional History: COMPARISON: Plain films from 04/18/2022 Findings: Bilateral total hip arthroplasties are unchanged in position or alignment. No evidence of hardware failure or loosening. ??Soft tissues are unremarkable. ??The pubic symphysis and the visualized sacroiliac joints are normal. Procedure Note Cori Jackson MD - 04/23/2023 PROCEDURE: XR PELVIS W LEFT HIP 2VW DATE/TIME OF EXAM: 04/23/2023 12:38 PM CLINICAL INFORMATION: None relevant/not provided if blank. Indication: M25.552: Pain in left hip Additional History: COMPARISON: Plain films from 04/18/2022 Findings: Bilateral total hip arthroplasties are unchanged in position or alignment. No evidence of hardware failure or loosening. Soft tissues are unremarkable. The pubic symphysis and the visualized sacroiliac jointsare normal. IMPRESSION: No change, intact bilateral total hip arthroplasties > Interpreting Provider: Cori Jackson MD on 04/23/2023 12:45 PM Mo Gallardo MD DIAGNOSTIC IMAGING ORDERABLES * RETINAL ANALYSIS OCT (03/29/2023 11:25 AM CDT) Anatomical Region Laterality Modality Head External-Camera Photography Narrative 04/09/2023 4:45 PM CDT Images from the original result were not included. OCT: OS: retinal thickening, ERM, multiple outer retinal folds - stable to slightly improved from prior OS (top 03/08/23, bottom 03/29/2023) Bell Gaffney MD OPHTHALMOLOGY SCHED ORD W PACS * RETINAL ANALYSIS OCT (03/08/2023 11:09 AM CDT) Anatomical Region Laterality Modality Head External-Camera Photography Narrative 03/09/2023 11:21 AM CDT Images from the original result were not included. OCT macula 03/08/23 OS: Retinal thickening, ERM, ??multiple outer retinal folds OS Bell Gaffney MD OPHTHALMOLOGY SCHED ORD W PACS * ETT LINE PERFORMABLE (02/28/2023 1:37 PM CDT) Narrative Kay Linton Anes Asst - 02/28/2023 1:37 PM CDT Kay Linton Anes Asst ? 02/28/2023 ??1:38 PM Endotracheal Tube Placement: ? Patient Location: OR. Intubation Event Date/Time: ??02/28/2023 1:29 PM Procedure: intubation (35051). Procedure Section: ?? Sedation: under general anesthesia. Indications for Airway Management: ??anesthesia Induction: standard IV Patient Position: ??supine Mask Ventilation: easy. Blade Type: Yu Blade Size: 4 Laryngoscopy View: grade 1 (full cords) Intubation Adjuncts: stylet Tube: endotracheal tube Placement: oral Tube type: cuff - inflated Tube Size (MM): 7 Depth of Insertion (CM): 23 Measured From: lips Cuff Inflated With: air Number of Attempts: 1. Placement Verified By: direct visualization, bilateral breath sounds, chest auscultation and CO2 monitor Tube secured with: ??adhesive tape. Dentition unchanged? ??Yes Difficult Airway? ??No. Procedure Start Time: 02/28/2023 1:29 PM. Staff Section ? Anesthesia Provider: Kay Linton Anes Asst, Performed the procedure ? Provider #1: Yessenia Ko MD. Additional Comments: Atraumatic intubation with lips, teeth, and tongue in pre-op condition. Eyes taped prior to airway manipulation. . Yessenia Ko MD GENERAL ANESTHESIA O RDERABLES * RETINAL ANALYSIS OCT (02/25/2023 9:48 AM CDT) Anatomical Region Laterality Modality Head External-Camera Photography Narrative 02/25/2023 5:44 PM CDT OCT unable to obtain Bell Gaffney MD OPHTHALMOLOGY SCHED ORD W PACS * EYE EXAM (08/17/2022) Anatomical Region Laterality Modality Other Narrative 08/17/2022 Ordered by an unspecified provider. Scanned Document SCANNING ONLY * EYE EXAM (08/17/2022) Anatomical Region Laterality Modality Other Narrative 08/17/2022 Ordered by an unspecified provider. Scanned Document SCANNING ONLY * CARDIAC RHYTHM STRIP ORDER (12/21/2021 8:35 AM CDT) Only the most recent of3 resultswithin the time period is included. Narrative 12/21/2021 8:35 AM CDT Ordered by an unspecified provider. Scanned Document CARDIAC SERVICES ORD ERABLES * CARDIAC EKG ORDER (12/18/2021 9:28 PM CDT) Narrative 12/18/2021 9:28 PM CDT Ordered by an unspecified provider. Scanned Document CARDIAC SERVICES ORD ERABLES * APHERESIS/TRANSFUSION ORDER (12/18/2021 2:20 PM CDT) Narrative 12/18/2021 2:20 PM CDT Ordered by an unspecified provider. Scanned Document NURSING - VITAL SIGN S AND ASSESSMENT * TSH REFLEX FREE T4 (12/18/2021 4:15 AM CDT) [facility] TSH 0.685 0.350 - 4.940 uIU/mL 12/18/2021 6:05 AM CDT [facility] Blood BLOOD SPECIMEN / Unknown Lab Venipuncture / Unknown 12/18/2021 4:15 AM CDT 12/18/2021 5:18 AM CDT Gurdeep Reddy MD LAB - CHEMISTRY ORDE [facility] Organization Address City/State/[facility] Co de Phone Number [facility] [address] [place] [address] * (ABNORMAL) CBC W AUTO DIFFERENTIAL (12/18/2021 4:15 AM CDT) Only the most recent of3 resultswithin the time period is included. [facility] WBC 9.2 4.4 - 10.7 x10E9/L 12/18/2021 5:30 AM CDT [facility] WBC Corrected 12/18/2021 5:30 AM CDT [facility] RBC 3.73(L) 3.80 - 5.40 x10E12/L 12/18/2021 5:30 AM CDT [facility] Hemoglobin 11.3(L) 12.0 - 17.6 gm/dL 12/18/2021 5:30 AM CDT [facility] Hematocrit 33.9(L) 35.2 - 51.7 % 12/18/2021 5:30 AM CDT [facility] MCV 90.9 80.7 - 98.3 fl 12/18/2021 5:30 AM CDT [facility] MCH 30.3 26.7 - 34.0 pg 12/18/2021 5:30 AM CDT [facility] MCHC 33.3 30.8 - 35.9 gm/dL 12/18/2021 5:30 AM [facility] Platelet Count 286 153 - 416 x10E9/L 12/18/2021 5:30 AM [facility] RDW-CV 13.9 12.1 - 14.9 % 12/18/2021 5:30 AM [facility] MPV 9.3(L) 9.4 - 12.9 fl 12/18/2021 5:30 AM [facility] Neutrophils % 70.2 44.0 - 73.0 % 12/18/2021 5:30 AM [facility] Lymphocytes % 17.6(L) 20.0 - 43.0 % 12/18/2021 5:30 AM [facility] Monocytes % 9.3 5.0 - 13.0 % 12/18/2021 5:30 AM [facility] Eosinophils % 1.9 0.0 - 6.0 % 12/18/2021 5:30 AM [facility] Basophils % 0.2 0.0 - 2.0 % 12/18/2021 5:30 AM [facility] Immature Granulocytes 0.8 0 - 1 % 12/18/2021 5:30 AM [facility] Neutrophil Absolute 6.48 2.01 - 7.14 x10E9/L 12/18/2021 5:30 AM [facility] Lymphocytes Absolute 1.63 1.07 - 3.94 x10E9/L 12/18/2021 5:30 AM [facility] Monocytes Absolute 0.86 0.26 - 1.07 x10E9/L 12/18/2021 5:30 AM [facility] Eosinophils Absolute 0.18 0 - 0.47 x10E9/L 12/18/2021 5:30 AM [facility] Basophils Absolute 0.02 0 - 0.08 x10E9/L 12/18/2021 5:30 AM [facility] Immature Granulocytes Absolute 0.07(H) 0.00 - 0.06 x10E9/L 12/18/2021 5:30 AM [facility] nRBC Auto 0 /100 WBC 12/18/2021 5:30 AM CDT [facility] Blood BLOOD SPECIMEN / Unknown Lab Venipuncture / Unknown 12/18/2021 4:15 AM CDT 12/18/2021 5:18 AM CDT Gurdeep Reddy MD LAB - HEMATOLOGY ORD DENISE [facility] [address] [place] [address] * (ABNORMAL) BASIC METABOLIC PANEL (CALCIUM TOTAL) (12/18/2021 4:15 AM CDT) Only the most recent of2 resultswithin the time period is included. [facility] Signature Glucose 141(H) 70 - 105 mg/dL 12/18/2021 5:43 AM CDT [facility] Sodium 133(L) 136 - 145 mmol/L 12/18/2021 5:43 AM CDT [facility] Potassium 4.0 3.5 - 5.1 mmol/L 12/18/2021 5:43 AM CDT [facility] Chloride 101 98 - 107 mmol/L 12/18/2021 5:43 AM CDT [facility] CO2 21(L) 23 - 31 mmol/L 12/18/2021 5:43 AM CDT [facility] Calcium 8.4 8.4 - 10.4 mg/dL 12/18/2021 5:43 AM CDT [facility] Anion Gap 11 8 - 18 mmol/L 12/18/2021 5:43 AM CDT [facility] BUN 11 8.4 - 25.7 mg/dL 12/18/2021 5:43 AM CDT [facility] Creatinine 0.67(L) 0.72 - 1.25 mg/dL 12/18/2021 5:43 AM CDT [facility] eGFR by CKD-EPI >90 >=90 mL/min/1.7 3 m2 12/18/2021 5:43 AM CDT [facility] Blood BLOOD SPECIMEN / Unknown Lab Venipuncture / Unknown 12/18/2021 4:15 AM CDT 12/18/2021 5:18 AM CDT Gurdeep Reddy MD LAB - CHEMISTRY ORDE JANY Performing Organization Address City/[facility]/ZIP Co de Phone Number [facility] [address] [place] [address] * TROPONIN I (12/17/2021 2:01 PM CDT) Only the most recent of3 resultswithin the time period is included. Troponin I <0.010 <0.038 ng/mL 12/17/2021 2:36 PM CDT [facility] Blood BLOOD SPECIMEN / Unknown Lab Venipuncture / Unknown 12/17/2021 2:01 PM CDT 12/17/2021 2:10 PM CDT Anthony Reyes MD LAB - CHEMISTRY ORDERABLES Performing Organization Address [facility] Co de Phone Number [facility] [address] [place] [address] * XR CERVICAL SPINE 2 OR 3VW (12/17/2021 12:51 PM CDT) Anatomical Region Laterality Modality Spine Radiographic [place] 12/17/2021 12:5 9 PM CDT Impressions 12/17/2021 1:00 PM CDT 1. ??No acute findings 2. ??Mild chronic degenerative changes and torticollis *Reading Radiologist: Cori Jackson on 12/17/2021 at 1:00 PM Narrative 12/17/2021 1:00 PM CDT Cervical spine, 3 views DATE: 12/17/2021. INDICATION: Syncopal episode. FINDINGS: Torticollis is noted. ??Nonstandard positioning somewhat limits evaluation. ??Nevertheless no evidence of fracture or prevertebral swelling. ??The mid to lower cervical interspaces are narrowed. ??Small posterior spurs at C5-C6. Procedure Note Cori Jackson MD - 12/17/2021 Cervical spine, 3 views DATE: 12/17/2021. INDICATION: Syncopal episode. FINDINGS: Torticollis is noted. Nonstandard positioning somewhat limits evaluation. Nevertheless no evidence of fracture or prevertebral swelling. The mid to lower cervical interspaces are narrowed. Small posterior spurs at C5-C6. IMPRESSION 1. No acute findings 2. Mild chronic degenerative changes and torticollis *Reading Radiologist: Cori Jackson on 12/17/2021 at 1:00 PM Gurdeep Reddy MD DIAGNOSTIC IMAGING O RDERABLES * XR KNEE LEFT 3VW (12/17/2021 12:49 PM CDT) Anatomical Region Laterality Modality Lower Extremity Radiographic [place] 12/17/2021 12:5 6 PM CDT Impressions 12/17/2021 12:57 PM CDT 1. ??No fracture 2. ??Mild primary osteoarthritic *Reading Radiologist: Cori Jackson on 12/17/2021 at 12:57 PM Narrative 12/17/2021 12:57 PM CDT Left knee, 4 views DATE: 12/17/2021. INDICATION: Pain after fall. FINDINGS: There is no fracture, dislocation or joint effusion. ??The patellofemoral space is asymmetrically narrowed indicating cartilage loss. Procedure Note Cori Jackson MD - 12/17/2021 Left knee, 4 views DATE: 12/17/2021. INDICATION: Pain after fall. FINDINGS: There is no fracture, dislocation or joint effusion. The patellofemoral space is asymmetrically narrowed indicating cartilage loss. IMPRESSION 1. No fracture 2. Mild primary osteoarthritic *Reading Radiologist: Cori Jackson on 12/17/2021 at 12:57 PM Gurdeep Reddy MD DIAGNOSTIC IMAGING O RDERABLES * XR SHOULDER LEFT 2VW OR MORE (12/17/2021 12:49 PM CDT) Anatomical Region Laterality Modality Upper Extremity Radiographic [place] 12/17/2021 12:5 9 PM CDT Impressions 12/17/2021 12:59 PM CDT Unremarkable. *Reading Radiologist: Cori Jackson on 12/17/2021 at 12:59 PM Narrative 12/17/2021 12:59 PM CDT Left shoulder, 3 views DATE: 12/17/2021 INDICATION: Pain after injury. ??Syncopal episode FINDINGS: There is no fracture, dislocation. ??Mild degenerative changes are noted in the glenoid. ??The AC joint is aligned. Procedure Note Cori Jackson MD - 12/17/2021 Left shoulder, 3 views DATE: 12/17/2021 INDICATION: Pain after injury. Syncopal episode FINDINGS: There is no fracture, dislocation. Mild degenerative changes are noted in the glenoid. The AC joint is aligned. IMPRESSION Unremarkable. *Reading Radiologist: Cori Jackson on 12/17/2021 at 12:59 PM Gurdeep Reddy MD DIAGNOSTIC IMAGING O RDERABLES * URINALYSIS REFLEX TO MICROSCOPIC NO CULTURE (12/17/2021 10:57 AM CDT) Color UA Yellow Straw, Yellow 12/17/2021 11:04 AM CDT [facility] Clarity UA Clear Clear 12/17/2021 11:04 AM CDT [facility] Glucose UA Negative Negative 12/17/2021 11:04 AM CDT [facility] Bilirubin UA Negative Negative 12/17/2021 11:04 AM CDT [facility] Ketone UA Negative Negative 12/17/2021 11:04 AM CDT [facility] Specific [place] UA 1.018 1.005 - 1.030 12/17/2021 11:04 AM CDT [facility] Blood UA Negative Negative 12/17/2021 11:04 AM CDT [facility] pH UA 7.0 5.0 - 8.0 pH 12/17/2021 11:04 AM CDT [facility] Protein UA Negative Negative 12/17/2021 11:04 AM CDT [facility] Urobilinogen UA Negative Negative mg/dL 12/17/2021 11:04 AM CDT [facility] Nitrite UA Negative Negative 12/17/2021 11:04 AM CDT [facility] Leukocyte UA Negative Negative 12/17/2021 11:04 AM [facility] Urine Microscopy Urine microscopy not indicated 12/17/2021 11:04 AM [facility] Urine URINE SPECIMEN OBTAINED BY CLEAN CATCH PROCEDURE / Unknown Collection / Unknown 12/17/2021 10:57 AM CDT 12/17/2021 10:59 AM CDT Narrative [facility] - 12/17/2021 11:04 AM CDT Anthony Reyes MD LAB - URINALYSIS ORDERABLES [facility] [address] [place] [address] * CT ANGIO CHEST ABDOMEN PELVIS (12/17/2021 10:02 AM CDT) Anatomical Region Laterality Modality Chest, Abdomen, Pelvis Computed Tomography 12/17/2021 10:0 9 AM CDT Impressions 12/17/2021 10:16 AM CDT 1. ??No aortic dissection or pulmonary embolism. 2. ??No pneumonia. 3. ??Coronary atherosclerosis. CT ANGIOGRAM ABDOMEN AND PELVIS: Exam quality is good for evaluating the abdominal aorta. ??The vessel is atherosclerotic particularly in the infrarenal region but without stenosis, dissection or aneurysm. ??There is no hemorrhage. ??The celiac artery, SMA and HOA are patent. ??The renal arteries are patent. ??The iliac arteries are moderately atherosclerotic with both calcified and soft plaque but without high-grade stenosis or occlusion. ??The external iliac arteries and common femoral arteries are patent. As seen in arterial phase the liver is unremarkable. ??The gallbladder is normal in size and there is no dilatation of biliary tree or common duct. ??The pancreas and pancreatic duct are normal. ??The spleen is normal. ??Adrenal glands are normal. ??The kidneys are free of stones or obstruction and enhance normally. ??The IVC is unremarkable. ??There is no overt peritoneal adenopathy. The distal esophagus is decompressed. ??The stomach and duodenum are normal. ??Small bowel is normal. ??The terminal ileum is normal. ??There is scattered stool in colon without obstructive or inflammatory changes. ??Diverticula in the descending and sigmoid colon are not inflamed. The prostate is small. ??No free fluid, free air or abscess. ??The urinary bladder is normal. Bilateral total hip arthroplasties are noted and there are recent postop changes in the left hip including scattered subcutaneous and intramuscular gas droplets. ??No abnormal fluid collection. ??No evidence of hardware failure or loosening. 1. ??No aortic aneurysm or dissection. ??No significant stenosis. 2. ??Colonic diverticulosis. 3. ??Recent left hip postop changes *Reading Radiologist: Cori Jackson on 12/17/2021 at 10:16 AM Narrative 12/17/2021 10:[address] ANGIOGRAM CHEST ABDOMEN AND PELVIS with and without contrast DATE: 12/17/2021. INDICATION: Syncopal episode, recent hip replacement. ??Assess for dissection or pulmonary embolism. TECHNIQUE: Multidetector pre-enhanced chest CT and post enhanced CT angiography through the chest, abdomen and pelvis utilizing 80 cc of Isovue-370 intravenously with multiplanar and MIP reformations created on a workstation. COMPARISONS: None relevant. CT ANGIOGRAM CHEST: Exam quality is good for assessing the thoracic aorta. ??There is no dissection, a aneurysm or hemorrhage. ??No aortic wall thickening. ??The arch vessels are patent. Exam quality is moderate for assessing the pulmonary arteries due to contrast bolus intensity. ??There is no central or proximal pulmonary embolus. ??The more peripheral vessels are not as well evaluated but there is no primary or secondary evidence for embolism. ??There is no pneumonia or mass. ??Bibasal dependent atelectasis is noted. ??The trachea and bronchi are patent. ??Overall heart size is normal. ??There is no pericardial effusion. ??However there are multifocal calcified plaques in the coronary arteries especially on the left. ??There is no significant mediastinal or axillary adenopathy. ??Several incidental calcified mediastinal nodes are present. No significant bony findings. Procedure Note Cori Jackson MD - 12/17/2021 CT ANGIOGRAM CHEST ABDOMEN AND PELVIS with and without contrast DATE: 12/17/2021. INDICATION: Syncopal episode, recent hip replacement. Assess for dissection or pulmonary embolism. TECHNIQUE: Multidetector pre-enhanced chest CT and post enhanced CT angiography through the chest, abdomen and pelvis utilizing 80 cc of Isovue-370 intravenously with multiplanar and MIP reformations created on a workstation. COMPARISONS: None relevant. CT ANGIOGRAM CHEST: Exam quality is good for assessing the thoracic aorta. There is no dissection, a aneurysm or hemorrhage. No aortic wall thickening. The arch vessels are patent. Exam quality is moderate for assessing the pulmonary arteries due to contrast bolus intensity. There is no central or proximal pulmonary embolus. The more peripheral vessels are not as well evaluated but there is no primary or secondary evidence for embolism. There is no pneumonia or mass. Bibasal dependent atelectasis is noted. The trachea and bronchi are patent. Overall heart size is normal. There is no pericardial effusion. However there are multifocal calcified plaques in the coronary arteries especially on the left. There is no significant mediastinal or axillary adenopathy. Several incidental calcified mediastinal nodes are present. No significant bony findings. IMPRESSION 1. No aortic dissection or pulmonary embolism. 2. No pneumonia. 3. Coronary atherosclerosis. CT ANGIOGRAM ABDOMEN AND PELVIS: Exam quality is good for evaluating the abdominal aorta. The vessel is atherosclerotic particularly in the infrarenal region but without stenosis, dissection or aneurysm. There is no hemorrhage. The celiac artery, SMA and HOA are patent. The renal arteries are patent. The iliac arteries are moderately atherosclerotic with both calcified and soft plaque but without high-grade stenosis or occlusion. The external iliac arteries and common femoral arteries are patent. As seen in arterial phase the liver is unremarkable. The gallbladder is normal in size and there is no dilatation of biliary tree or common duct. The pancreas and pancreatic duct are normal. The spleen is normal. Adrenal glands are normal. The kidneys are free of stones or obstruction and enhance normally. The IVC is unremarkable. There is no overt peritoneal adenopathy. The distal esophagus is decompressed. The stomach and duodenum are normal. Small bowel is normal. The terminal ileum is normal. There is scattered stool in colon without obstructive or inflammatory changes. Diverticula in the descending and sigmoid colon are not inflamed. The prostate is small. No free fluid, free air or abscess. The urinary bladder is normal. Bilateral total hip arthroplasties are noted and there are recent postop changes in the left hip including scattered subcutaneous and intramuscular gas droplets. No abnormal fluid collection. No evidence of hardware failure or loosening. 1. No aortic aneurysm or dissection. No significant stenosis. 2. Colonic diverticulosis. 3. Recent left hip postop changes *Reading Radiologist: Cori Jackson on 12/17/2021 at 10:16 AM Anthony Reyes MD CT ORDERABLES * PT-INR (12/17/2021 8:39 AM CDT) Pathologist [facility] PT 14.0 12.1 - 14.8 sec 12/17/2021 8:54 AM CDT [facility] INR 1.1 0.9 - 1.1 12/17/2021 8:54 AM CDT [facility] Blood BLOOD SPECIMEN / Unknown Venipuncture / Unknown 12/17/2021 8:39 AM CDT 12/17/2021 8:43 AM CDT [facility] - 12/17/2021 8:54 AM CDT Conventional Warfarin Anticoagulant Therapy: INR Reference Range: ??2.0-3.0 Intensive Warfarin Anticoagulant Therapy: INR Reference Range: ? 2.5-3.5 Anthony Reyes MD LAB - COAGULATIO N ORDERABLES Performing Organization Address City/State/[facility] Co de Phone Number [facility] [address], [place] [id number] * (ABNORMAL) COMPREHENSIVE METABOLIC PANEL (12/17/2021 8:39 AM CDT) Only the most recent of2 resultswithin the time period is included. Pathologist [facility] Glucose 143(H) 70 - 105 mg/dL 12/17/2021 9:01 AM [facility] Sodium 134(L) 136 - 145 mmol/L 12/17/2021 9:01 AM [facility] Potassium 4.2 3.5 - 5.1 mmol/L 12/17/2021 9:01 AM [facility] Chloride 101 98 - 107 mmol/L 12/17/2021 9:01 AM [facility] CO2 20(L) 23 - 31 mmol/L 12/17/2021 9:01 AM [facility] Calcium 8.7 8.4 - 10.4 mg/dL 12/17/2021 9:01 AM [facility] Anion Gap 13 8 - 18 mmol/L 12/17/2021 9:01 AM [facility] BUN 12 8.4 - 25.7 mg/dL 12/17/2021 9:01 AM [facility] Creatinine 0.74 0.72 - 1.25 mg/dL 12/17/2021 9:01 AM CDT [facility] Alkaline Phosphatase 81 40 - 150 U/L 12/17/2021 9:01 AM CDT [facility] ALT 14 0 - 61 U/L 12/17/2021 9:01 AM CDT [facility] AST 24 5 - 34 U/L 12/17/2021 9:01 AM CDT [facility] Protein Total 6.7 6.4 - 8.3 gm/dL 12/17/2021 9:01 AM CDT [facility] Albumin 3.7 3.2 - 4.6 gm/dL 12/17/2021 9:01 AM T [facility] Bilirubin Total 0.5 0.2 - 1.2 mg/dL 12/17/2021 9:01 AM T [facility] eGFR by CKD-EPI >90 >=90 mL/min/1.7 3 m2 12/17/2021 9:01 AM CDT [facility] Blood BLOOD SPECIMEN / Unknown Venipuncture / Unknown 12/17/2021 8:39 AM CDT 12/17/2021 8:43 AM CDT Anthony Reyes MD LAB - CHEMISTRY ORDERABLES [facility] [address] [place] [id number] * MAGNESIUM BLOOD (12/17/2021 8:39 AM CDT) [facility] Magnesium 1.7 1.6 - 2.6 mg/dL 12/17/2021 9:01 AM T [facility] Blood BLOOD SPECIMEN / Unknown Venipuncture / Unknown 12/17/2021 8:39 AM CDT 12/17/2021 8:43 AM CDT Anthony Reyes MD LAB - CHEMISTRY ORDERABLES [facility] [address] [place], [place] [id number] * XR CHEST 1VW PORTABLE (12/17/2021 8:30 AM CDT) Anatomical Region Laterality Modality Chest Radiographic [place] 12/17/2021 9:04 AM CDT Impressions 12/17/2021 9:04 AM CDT Unremarkable. *Reading Radiologist: Cori Jackson on 12/17/2021 at 9:04 AM Narrative 12/17/2021 9:04 AM CDT Chest, 1 view DATE: 12/17/2021 INDICATION: Syncope FINDINGS: The lungs are clear and free of effusion. The heart, mediastinum and bones are unremarkable. Procedure Note Cori Jackson MD - 12/17/2021 Chest, 1 view DATE: 12/17/2021 INDICATION: Syncope FINDINGS: The lungs are clear and free of effusion. The heart, mediastinum and bones are unremarkable. IMPRESSION Unremarkable. *Reading Radiologist: Cori Jackson on 12/17/2021 at 9:04 AM Anthony Reyes MD DIAGNOSTIC IMAGI NG ORDERABLES * EKG 12-LEAD (12/17/2021 8:24 AM CDT) Ventricular Rate 95 BPM [facility] Atrial Rate 96 BPM [facility] P-R Interval 150 ms [facility] QRS Duration ms 74 ms [facility] Q-T Interval ms 340 ms [facility] QTC Calculation (Bezet) 427 ms [facility] Calculated P [place] 54 degrees [facility] Calculated R [place] 56 degrees [facility] Calculated T [place] 97 degrees [facility] Interpretation EKG NORMAL SINUS RHYTHM SEPTAL INFARCT , AGE UNDETERMINED ABNORMAL ECG NO PREVIOUS ECGS AVAILABLE Confirmed by DO HUFFMAN STEPHANIE ([id number]) on 12/18/2021 4:57:47 PM [facility] 12/17/2021 8:24 AM CDT 12/18/2021 4:57 PM CDT Anthony Reyes MD ECG ORDERABLES [facility] * (ABNORMAL) CBC W/O DIFFERENTIAL (12/16/2021 2:31 AM CDT) WBC 12.9(H) 4.4 - 10.7 x10E9/L 12/16/2021 4:41 AM CDT [facility] RBC 4.03 3.80 - 5.40 x10E12/L 12/16/2021 4:41 AM CDT [facility] Hemoglobin 12.3 12.0 - 17.6 gm/dL 12/16/2021 4:41 AM CDT [facility] Hematocrit 37.4 35.2 - 51.7 % 12/16/2021 4:41 AM CDT [facility] MCV 92.8 80.7 - 98.3 fl 12/16/2021 4:41 AM CDT [facility] MCH 30.5 26.7 - 34.0 pg 12/16/2021 4:41 AM CDT [facility] MCHC 32.9 30.8 - 35.9 gm/dL 12/16/2021 4:41 AM CDT [facility] Platelet Count 352 153 - 416 x10E9/L 12/16/2021 4:41 AM CDT [facility] RDW-CV 13.6 12.1 - 14.9 % 12/16/2021 4:41 AM CDT [facility] MPV 9.6 9.4 - 12.9 fl 12/16/2021 4:41 AM CDT [facility] Blood BLOOD SPECIMEN / Unknown Lab Venipuncture / Unknown 12/16/2021 2:31 AM CDT 12/16/2021 4:33 AM CDT Mo Gallardo MD LAB - HEMATOLOGY OR DERABLES Performing Organization Address [facility] Co de Phone Number [facility] [address] [place] [address] * XR PELVIS 1 OR 2VW (12/15/2021 1:14 PM CDT) Anatomical Region Laterality Modality Pelvis Radiographic [place] 12/15/2021 1:22 PM CDT Narrative 12/15/2021 1:23 PM CDT AP pelvis HISTORY: Arthroplasty follow-up Since 09/13/2021 there is been interval left hip arthroplasty. A left knee prosthesis appears in normal alignment. A right hip prosthesis is normal. There is no evidence of an acute fracture or dislocation. *Reading Radiologist: Eric Jenkins on 12/15/2021 at 1:23 PM Procedure Note Eric Jenkins MD - 12/15/2021 AP pelvis HISTORY: Arthroplasty follow-up Since 09/13/2021 there is been interval left hip arthroplasty. A left knee prosthesis appears in normal alignment. A right hip prosthesis is normal. There is no evidence of an acute fracture or dislocation. *Reading Radiologist: Eric Jenkins on 12/15/2021 at 1:23 PM Mo Gallardo MD DIAGNOSTIC IMAGING ORDERABLES * ETT LINE PERFORMABLE (12/15/2021 10:57 AM CDT) Narrative Zulema Smallwood APRN-CRNA - 12/15/2021 10:57 AM CDT Zulema Smallwood APRN-CRNA ? 12/15/2021 10:57 AM Endotracheal Tube Placement: ? Patient Location: OR. Intubation Event Date/Time: ??12/15/2021 10:40 AM Procedure: intubation ([id number]). Procedure Section: ?? Sedation: under general anesthesia. Indications for Airway Management: ??anesthesia Induction: standard IV Patient Position: ??sniffing and supine Mask Ventilation: easy. Blade Type: Yu Blade Size: 4 Laryngoscopy View: grade 1 (full cords) Intubation Adjuncts: stylet Tube: endotracheal tube Placement: oral Tube type: cuff - inflated Tube Size (MM): 8 Depth of Insertion (CM): 24 Measured From: lips Cuff volume (mL): ??7 Cuff inflation pressure (CM H20): ??20 Cuff Inflated With: air Number of Attempts: 1. Placement Verified By: direct visualization, bilateral breath sounds, chest auscultation and CO2 monitor Tube secured with: ??adhesive tape. Difficult Airway? ??No. Procedure Start Time: 12/15/2021 10:40 AM. Staff Section ? Anesthesia Provider: Zulema Smallwood APRN-CRNA, Performed the procedure Additional Comments: Atraumatic intubation. All mouth, lips, tongue, teeth same condition as baseline. Toña Mckenzie DO GENERAL ANESTHESIA ORDERABLES * BLOOD TYPE VERIFICATION (12/15/2021 10:06 AM CDT) ABO Rh O POS 12/15/2021 10:53 AM CDT [facility] Blood Bank BLOOD SPECIMEN / Unknown Venipuncture / Unknown 12/15/2021 10:06 AM CDT 12/15/2021 10:10 AM CDT Toña Mckenzie DO LAB - BLOOD BANK OR DERABLES [facility] [address] [place], [place] [id number] [place] [address] * CULTURE MSSA/MRSA (12/05/2021 7:14 AM CDT) Culture Negative for Staphylococcus aureus (MRSA/MSSA) 12/06/2021 7:04 PM CDT [facility] Microbiology SPECIMEN FROM NASAL FOSSAE / Unknown Collection / Unknown 12/05/2021 7:14 AM CDT 12/05/2021 7:38 AM CDT Mo Gallardo MD LAB - MICROBIOLOGY ORDERABLES Performing Organization Address City/[facility]/ZIP Co de Phone Number [facility] [address] [phone] * (ABNORMAL) URINALYSIS REFLEX MICROSCOPIC REFLEX CULTURE (12/05/2021 7:14 AM CDT) Color UA Straw Straw, Yellow 12/05/2021 7:44 AM CDT [facility] Clarity UA Clear Clear 12/05/2021 7:44 AM CDT [facility] Glucose UA 2+(A) Negative 12/05/2021 7:44 AM CDT [facility] Bilirubin UA Negative Negative 12/05/2021 7:44 AM CDT [facility] Ketone UA Negative Negative 12/05/2021 7:44 AM CDT [facility] Specific [place] UA 1.006 1.005 - 1.030 12/05/2021 7:44 AM CDT [facility] Blood UA Negative Negative 12/05/2021 7:44 AM CDT [facility] pH UA 6.0 5.0 - 8.0 pH 12/05/2021 7:44 AM CDT [facility] Protein UA Negative Negative 12/05/2021 7:44 AM CDT [facility] Urobilinogen UA Negative Negative mg/dL 12/05/2021 7:44 AM CDT [facility] Nitrite UA Negative Negative 12/05/2021 7:44 AM CDT [facility] Leukocyte UA Negative Negative 12/05/2021 7:44 AM CDT [facility] Urine Microscopy Urine microscopy not indicated 12/05/2021 7:44 AM CDT [facility] Reflex Status Culture not indicated 12/05/2021 7:44 AM CDT [facility] Urine URINE SPECIMEN OBTAINED BY CLEAN CATCH PROCEDURE / Unknown Collection / Unknown 12/05/2021 7:14 AM CDT 12/05/2021 7:38 AM CDT Narrative [facility] - 12/05/2021 7:44 AM CDT Mo Gallardo MD LAB - URINALYSIS OR DERABLES [facility] [address] [place] [id number] * TRANSFERRIN (12/05/2021 7:14 AM CDT) Pathologist [facility] Transferrin 241 163 - 344 mg/dL 12/05/2021 8:14 AM CDT [facility] Blood BLOOD SPECIMEN / Unknown Venipuncture / Unknown 12/05/2021 7:14 AM CDT 12/05/2021 7:37 AM CDT Mo Gallardo MD LAB - CHEMISTRY ORD ERABLES [facility] [address] [place] [address] * (ABNORMAL) HEMOGLOBIN A1C (12/05/2021 7:14 AM CDT) Hemoglobin A1c 5.8(H) 4.2 - 5.6 % 12/05/2021 8:02 AM CDT [facility] Estimated Average Glucose 120 mg/dL 12/05/2021 8:02 AM CDT [facility] Blood BLOOD SPECIMEN / Unknown Venipuncture / Unknown 12/05/2021 7:14 AM CDT 12/05/2021 7:37 AM CDT Narrative [facility] - 12/05/2021 8:02 AM CDT The following cutoff levels are recommended by [place] [employer]. ?? A1c ??> 6.5% : [...] Gallardo MD LAB - CHEMISTRY ORD ERABLES [facility] [address] [place] [address] * FRUCTOSAMINE (12/05/2021 7:14 AM CDT) [facility] Fructosamine 225 0 - 285 umol/L 12/06/2021 5:07 AM CDT [facility] ([facility]) Comment: Published reference interval for apparently healthy subjects between age 20 and 60 is 205 - 285 umol/L and in a poorly controlled diabetic population is 228 - 563 umol/L with a mean of 396 umol/L. Blood BLOOD SPECIMEN / Unknown Venipuncture / Unknown 12/05/2021 7:14 AM CDT 12/05/2021 7:37 AM CDT Narrative [facility] ([facility]) - 12/06/2021 5:07 AM CDT Performed at: ??01 - [facility] [address] [place] [address], [place], [place] ??[id number] Environmental Services Project Manager: Mike Montes De Oca PhD, Phone: ??[phone] Mo Gallardo MD LAB - CHEMISTRY ORD ERABLES Performing Organization Address City/[facility] Co de Phone Number [facility] ([facility]) [address] [place] [address] * TYPE + SCREEN PANEL (12/05/2021 7:14 AM CDT) ABO Rh O POS 12/05/2021 8:10 AM CDT [facility] Comment:No history; collect retype. Antibody Screen NEG 8:10 AM CDT [facility] Blood Bank BLOOD SPECIMEN / Unknown Venipuncture / Unknown 12/05/2021 7:14 AM CDT 12/05/2021 7:37 AM CDT Mo Gallardo MD LAB - BLOOD BANK OR DERABLES Performing Organization Address City/[facility]/ZIP Co de Phone Number [facility] [address] [phone] * OPH OCT TEST [facility] (11/10/2018 2:00 PM CDT) Anatomical Region Laterality Modality Other 11/10/2018 2:00 PM CDT Bri Clayton MD OPHTHALMOLOGY SERVIC ES ORDERABLES * OPH OCT TEST [facility] (03/05/2018 10:49 AM CDT) Anatomical Region Laterality Modality Other 03/05/2018 10:4 9 AM CDT Bri Clayton MD OPHTHALMOLOGY SERVIC ES ORDERABLES * OPH EYE ULTRASOUND [facility] (03/05/2018 12:00 AM CDT) Anatomical Region Laterality Modality Other 03/05/2018 Bri Clayton MD OPHTHALMOLOGY SERVIC ES ORDERABLES * (ABNORMAL) INFLUENZA A+B - POINT OF CARE (AMB) (07/10/2017) Influenza A Antigen Rapid Positive(A) Negative Influenza B Antigen Rapid Negative Negative Influenza Internal Control NEG/POS NEGATIVE - POSITIVE Influenza Lot Number [id number] Influenza Expiration Date 02/21/19 Other NASOPHARYNGEAL SWAB / Unknown 07/10/2017 Long Batista 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 This report was electronically signed by AKASH HANSEN MD ??on 06/14/2017 10:22 AM . Narrative 06/14/2017 10:22 AM NATURAL G[employer] TREATING UNIT OPERATOR Exam: ??XR HAND LEFT 3+ VW History: ??pain Comparison: None. Findings: No fracture or dislocation is present. The joint spaces are normal. No erosions are seen. ??Bone density appears normal. ??The soft tissues are normal. Procedure Note Akahs Hansen MD - 09/27/2017 Exam: XR HAND LEFT 3+ VW History: pain Comparison: None. Findings: No fracture or dislocation is present. The joint spaces are normal. Noerosions are seen. Bone density appears normal. The soft tissues arenormal. IMPRESSION IMPRESSION: Normal. This report was electronically signed by AKASH HANSEN MD on06/14/2017 10:22 AM . Meagan Duron PA-C DIAGNOSTIC IMAG ING ORDERABLES * MRI LUMBAR SPINE WO CONTRAST (10/14/2015 4:45 PM CDT) Anatomical Region Laterality Modality Spine Other Impressions 10/14/2015 4:14 PM CDT IMPRESSION: 1. Multilevel degenerative disc disease most pronounced at L5-S1 where there is a diffuse disc bulge and superimposed right paracentral disc protrusion placing mass effect on the right S1 nerve root as it exits the thecal sac anteriorly with mild central canal stenosis. There is also mild bilateral neural foraminal stenosis at L5-S1. This report was approved ??by Ronak Loyola ?? on 10/14/2015 4:09 PM . I, Dr. TONY RODRIGUEZ M.D. have personally reviewed and interpreted this examination/study. This report was electronically signed by TONY RODRIGUEZ M.D. ??on 10/14/2015 4:14 PM . Narrative 10/14/2015 4:14 PM CDT EXAMINATION: Magnetic resonance imaging (MRI) of the lumbar spine without contrast HISTORY: Lumbar stenosis. TECHNIQUE: MRI of the lumbar spine was performed without contrast according to standard protocol. FINDINGS: Comparison is made to a lumbar radiograph performed 09/22/2015. There is mild L5-S1 retrolisthesis. Vertebral bodies are normal in height without evidence of compression fractures. Marrow signal intensity is normal. The conus medullaris terminates at the level of L2 and the distal spinal cord signal intensity is normal. There is disc desiccation at L5-S1 level. There are Schmorl's nodes seen in the lower thoracic and upper lumbar spine. No soft tissue abnormality is identified. L1-L2: There is mild disc bulge. There is no central canal stenosis. There is no facet osteoarthritis. There is no neural foraminal stenosis. L2-L3: There is no disc bulge. There is no central canal stenosis. There is no facet osteoarthritis. There is no neural foraminal stenosis. L3-L4: There is no disc bulge. There is no central canal stenosis. There is no facet osteoarthritis. There is no neural foraminal stenosis. L4-L5: There is mild disc bulge which touches the left L5 nerve root as it exits the thecal sac anteriorly. There is no central canal stenosis. There is mild bilateral facet osteoarthritis. There is no neural foraminal stenosis. L5-S1: There is moderate disc bulge with superimposed right right paracentral disc protrusion with mild which places mild mass effect on the on the right S1 nerve root as it exits the thecal sac anteriorly. (Series 101, image 42). There is mild central canal stenosis. There is mild facet osteoarthritis. There is mild bilateral neural foraminal stenosis. Procedure Note Tony Rodriguez MD - 09/28/2017 EXAMINATION: Magnetic resonance imaging (MRI) of the lumbar spine withoutcontrast HISTORY: Lumbar stenosis. TECHNIQUE: MRI of the lumbar spine was performed without contrastaccording to standard protocol. FINDINGS: Comparison is made to a lumbar radiograph performed 09/22/2015. There is mild L5-S1 retrolisthesis. Vertebral bodies are normal in heightwithout evidence of compression fractures. Marrow signal intensity isnormal. The conus medullaris terminates at the level of L2 and the distalspinal cord signal intensity is normal. There is disc desiccation at L5-S1 level. There are Schmorl'snodes seen in the lower thoracic and upper lumbar spine. No soft tissueabnormality is identified. L1-L2: There is mild disc bulge. There is no central canal stenosis. Thereis no facet osteoarthritis. There is no neural foraminal stenosis. L2-L3: There is no disc bulge. There is no central canal stenosis. Thereis no facet osteoarthritis. There is no neural foraminal stenosis. L3-L4: There is no disc bulge. There is no central canal stenosis. Thereis no facet osteoarthritis. There is no neural foraminal stenosis. L4-L5: There is mild disc bulge which touches the left L5 nerve root as itexits the thecal sac anteriorly. There is no central canal stenosis. Thereis mild bilateral facet osteoarthritis. There is no neural foraminalstenosis. L5-S1: There is moderate disc bulge with superimposed right rightparacentral disc protrusion with mild which places mild mass effect on theon the right S1 nerve root as it exits the thecal sac anteriorly. ([id number], image 42). There is mild central canal stenosis. There is mild facet osteoarthritis. There is mildbilateral neural foraminal stenosis. IMPRESSION IMPRESSION: 1. Multilevel degenerative disc disease most pronounced at L5-S1 wherethere is a diffuse disc bulge and superimposed right paracentral discprotrusion placing mass effect on the right S1 nerve root as it exits thethecal sac anteriorly with mild central canal stenosis. There is also mild bilateral neural foraminal stenosis atL5-S1. This report was approved by Ronak Loyola on 10/14/2015 4:09 PM . I, Dr. TONY RODRIGUEZ M.D. have personally reviewed and interpreted thisexamination/study. This report was electronically signed by TONY RODRIGUEZ M.D. on 10/14/20154:14 PM . Mark Singh MD MR ORDERABLES * XR HIP 2+ VW RIGHT (09/07/2015 8:37 AM [employer] TREATING UNIT OPERATOR) Only the most recent of2 resultswithin the time period is included. Anatomical Region Laterality Modality Pelvis, Lower Extremity Radiogra phic Imaging 09/07/2015 9:40 AM [employer] G[employer] TREATING UNIT OPERATOR Narrative 09/07/2015 10:38 AM [employer]URAL G[employer] TREATING UNIT OPERATOR RIGHT HIP, 3 VIEWS INCLUDING AP PELVIS HISTORY: Right hip pain. Since 06/25/2012, there has been no significant change in the appearance of right hip prosthesis. There is no fracture or dislocation. Degenerative change of the left hip joint is present. Edited by Peggy Bonner on 09/07/2015 10:35 AM Procedure Note Eric Jenkins MD - 09/07/2015 RIGHT HIP, 3 VIEWS INCLUDING AP PELVIS HISTORY: Right hip pain. Since 06/25/2012, there has been no significant change in the appearance of right hip prosthesis. There is no fracture or dislocation. Degenerative change of the left hip joint is present. Edited by Peggy Bonner on 09/07/2015 10:35 AM oM Gallardo MD DIAGNOSTIC IMAGING ORDERABLES * XR KNEE LEFT 4VW OR MORE (03/16/2015 10:10 AM CDT) Anatomical Region Laterality Modality Lower Extremity Other Impressions 03/16/2015 3:25 PM CDT Impression: 1. Mild tricompartment degenerative osteoarthritis. Report dictated by Katie Fortune MD. (Donation Specialist). This report was approved ??by Katie Fortune M.D. ?? on 03/16/2015 2:02 PM . IDr. AKASH MD have personally reviewed and interpreted this examination/study. This report was electronically signed by AKASH HANSEN MD ??on 03/16/2015 3:25 PM . Narrative 03/16/2015 3:25 PM CDT Exam: ??XR KNEE LEFT 4+ VW Date: 03/16/2015; 10:10 AM History: ??left knee pain Comparison: No prior study is available for comparison. Findings: The alignment is normal. There is no acute fracture or dislocation. Mild tricompartment degenerative osteoarthritis is noted. An inferior patellar enthesophyte is present. A joint effusion may be present. Bone mineralization is normal. Procedure Note Akash Hansen MD - 09/28/2017 Exam: XR KNEE LEFT 4+ VW Date: 03/16/2015; 10:10 AM History: left knee pain Comparison: No prior study is available for comparison. Findings: The alignment is normal. There is no acute fracture or dislocation. Mildtricompartment degenerative osteoarthritis is noted. An inferior patellarenthesophyte is present. A joint effusion may be present. Bonemineralization is normal. IMPRESSION Impression: 1. Mild tricompartment degenerative osteoarthritis. Report dictated by Katie Fortune MD. (Donation Specialist). This report was approved by Katie Fortune M.D. on 03/16/2015 2:[address] AKASH Thakkar MD have personally reviewed and interpreted thisexamination/study. This report was electronically signed by AKASH HANSEN MD on 03/16/20153:25 PM . Brandon Massey MD DIAGNOSTIC IMAGING O RDERABLES * GLUCOSE ACCUCHECK (05/04/2014 9:56 AM NATURAL GAS TREATING UNIT OPERATOR) Only the most recent of3 resultswithin the time period is included. Glucose, Fingerstick 112 70-115mg/d L mg/dL [facility] (BEAKER) Comment:Circuit Manager: TOLU PERKINS SA 05/04/2014 9:56 AM NATURAL GAS TREATING UNIT OPERATOR Bri Clayton MD LAB - CHEMISTRY SAVANNA CARMICHAEL ARNULFO MANUEL) * ANESTHESIA BLOCK PERF (07/20/2013 12:00 PM NATURAL GAS TREATING UNIT OPERATOR) Narrative Renetta Alvarenga MD - 07/20/2013 12:00 PM NATURAL G[employer] TREATING UNIT OPERATOR Renetta Alvarenga MD ? 07/20/2013 12:00 PM Preanesthetic Checklist Completed: patient identified, IV checked, site marked, risks and benefits discussed, surgical consent, monitors and equipment checked, pre-op evaluation, timeout performed and questions answered / anesthesia plan accepted ?? Interscalene Procedures: ultrasound guided and nerve stimulator. ?? Laterality: Right Position for procedure: ??sitting Prep: ??skin prepped with Chloraprep. ?? Needle: ??22 G Nerve Stimulator Needle ?? Needle length: 40mm ?? Injection technique: single-shot Needle placement: ??right neck Response to Block: ?? Start time: 07/20/2013 11:50 AM End time: 07/20/2013 11:59 AM Injection made incrementally with aspirations every 5 mL. Additional response: ??In holding. ??Time out. ??Oxygen per nasal cannula. ??IV sedation. ??Right brachial plexus at level of interscalene groove identified by ultrasound. ??Skin prepped with chloroprep, 1 % lidocaine skin wheal, 22 ga nerve stimulating needle advanced under direct vision until biceps twitch obtained. 40 ml Marcaine 0.375% with epi 1:400 injected. ??Perineural spread noted by ultrasound bicps twitch 0.4 mA Patient Care after Block: Additional Notes: Procedure Note Renetta Alvarenga MD - 07/20/2013 11:57 AM CST Preanesthetic Checklist Completed: patient identified, IV checked, site marked, risks and benefitsdiscussed, surgical consent, monitors and equipment checked, pre-opevaluation, timeout performed and questions answered / anesthesia planaccepted Interscalene Procedures: ultrasound guided and nerve stimulator. Laterality: Right Position for procedure: sitting Prep: skin prepped with Chloraprep. Needle: 22 G Nerve Stimulator Needle Needle length: 40mm Injection technique: single-shot Needle placement: right neck Response to Block: Start time: 07/20/2013 11:50 AM End time: 07/20/2013 11:59 AM Injection made incrementally with aspirations every 5 mL. Additional response: In holding. Time out. Oxygen per nasal cannula.IV sedation. Right brachial plexus at level of interscalene grooveidentified by ultrasound. Skin prepped with chloroprep, 1 % lidocaineskin wheal, 22 ga nerve stimulating needle advanced under direct visionuntil biceps twitch obtained. 40 ml Marcaine 0.375% with epi 1:400injected. Perineural spread noted by ultrasound bicps twitch 0.4 mA Patient Care after Block: Additional Notes: Renetta Alvarenga MD GENERAL ANESTHESIA O RDERABLES * MRI SHOULDER WO CONT RIGHT (02/06/2013 12:32 PM CDT) Anatomical Region Laterality Modality Magnetic Resonan ce Angiography 02/06/2013 1:23 PM CDT Narrative 02/06/2013 1:45 PM CDT MRI RIGHT SHOULDER HISTORY: Pain with questionable rotator cuff tear. TECHNIQUE: Routine MR shoulder was obtained on a high field open magnet. FINDINGS: There is a moderate amount of fluid within the subacromial subdeltoid bursa and moderate-sized glenohumeral joint effusion. There is a full-thickness tear of the supraspinatus contribution of the rotator cuff with approximately 2.4 cm of tendinous gap. The infraspinatus contribution of the rotator cuff appears intact. The subscapularis tendon is normal and intact. The biceps tendon is normally situated in the bicipital groove. The biceps superior labral anchor is normal. There is no evidence of a labral ligamentous tear. DIAGNOSIS: Full-thickness tear, supraspinatus contribution of the rotator cuff with approximately 2.4 cm tendinous gap. There is moderate glenohumeral joint effusion and fluid in the subacromial subdeltoid bursa. Edited by Anita Kern on 02/06/2013 1:43 PM Procedure Note Eric Jenkins MD - 02/06/2013 MRI RIGHT SHOULDER HISTORY: Pain with questionable rotator cuff tear. TECHNIQUE: Routine MR shoulder was obtained on a high field open magnet. FINDINGS: There is a moderate amount of fluid within the subacromial subdeltoid bursa and moderate-sized glenohumeral joint effusion. There is a full-thickness tear of the supraspinatus contribution of the rotator cuff with approximately 2.4 cm of tendinous gap. The infraspinatus contribution of the rotator cuff appears intact. The subscapularis tendon is normal and intact. The biceps tendon is normally situated in the bicipital groove. The biceps superior labral anchor is normal. There is no evidence of a labral ligamentous tear. DIAGNOSIS: Full-thickness tear, supraspinatus contribution of the rotator cuff with approximately 2.4 cm tendinous gap. There is moderate glenohumeral joint effusion and fluid in the subacromial subdeltoid bursa. Edited by Anita Kern on 02/06/2013 1:43 PM Brandon Massey MD MR ORDERABLES * XR SHOULDER 2+VW RIGHT ROUTINE (02/03/2013 9:28 AM CDT) Anatomical Region Laterality Modality Upper Extremity Radiographic [place] 02/03/2013 11:4 7 AM CDT Narrative 02/03/2013 12:03 PM CDT THREE-VIEW RIGHT SHOULDER HISTORY: Pain FINDINGS: There is minimal degenerative change of the glenohumeral joint. No fracture, dislocation, or bone destruction is seen. Edited by Joslyn Elaine on 02/03/2013 12:00 PM Procedure Note Eric Jenkins MD - 02/03/2013 THREE-VIEW RIGHT SHOULDER HISTORY: Pain FINDINGS: There is minimal degenerative change of the glenohumeral joint. No fracture, dislocation, or bone destruction is seen. Edited by Joslyn Elaine on 02/03/2013 12:00 PM Brandon Massey MD [facility] Care Teams Change Management Relationship Specialty Start Date End Date Tim Horton MD [address] [facility] [address] [place] [address] PCP - General 04/18/22 [place] [address] [address] [facility] [place] [address] [place] [id number] Ophthalmology 07/23/19
--- OUTSIDE RECORDS SUMMARY | 2024-08-04 08:35 | XMS_ITS | Clinical Summary ---
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 SEVERE NAUSEA AND VOMITING Passes out Latex Other (See comments),Rash Medium 07/17/2013 Reaction: FACIAL RASH, ?? skin Reaction Sulfa (Sulfonamide Antibiotics) Nausea And Vomiting Medium 11/08/2011 Medications fexofenadine (NIELS) 180 mg tablet Take 1 tablet (180 mg total) by mouth daily as needed Active cholecalcifer ol (VITAMIN D-3) 2,000 unit tablet Take 1 tablet (2,000 Units total) by mouth daily Active famotidine (PEPCID) 20 mg tablet Take 1 tablet (20 mg total) by mouth 2 (two) times a day Active rosuvastatin (CRESTOR) 20 mg tablet Take 1 tablet (20 mg total) by mouth daily 30 tablet 11 09/11/19 24 025 Active albuterol HFA (PROVENTIL HFA,VENTOLIN HFA,PROAIR HFA) 90 mcg/actuation inhaler Inhale 2 puffs every 4 (four) hours as needed for wheezing PRN 3 each 3 10/17/19 24 Active acetaminophen 500 mg capsule Take 2 capsules (1,000 mg total) by mouth every 8 (eight) hours 06/12/20 Active prednisoLONE acetate (PRED FORTE) 1 % ophthalmic suspension Administer 1 drop into the left eye 4 (four) times a day 06/12/20 Active polyethylene glycol (MIRALAX) 17 gram packetIndicat ions:constipa tion Take 1 packet (17 g total) by mouth daily as needed for constipation 06/12/20 Active methocarbamoL (ROBAXIN) 500 mg tablet Take 2 tablets (1,000 mg total) by mouth every 8 (eight) hours 06/12/20 Active ketorolac (ACULAR) 0.5 % ophthalmic solution Administer 1 drop into the left eye 4 (four) times a day 06/12/20 Active calcium carbonate (TUMS) 500 mg (200 mg elemental calcium) chewable tablet Take 1 tablet/chew tab (500 mg total) by mouth 2 (two) times a day as needed for heartburn 06/12/20 24 025 Active oxyCODONE (ROXICODONE) 5 mg immediate release tabletIndicat ions:Pain Take 1 tablet (5 mg total) by mouth every 6 (six) hours as needed for pain for up to 15 doses 15 tablet 06/12/20 24 Active blood glucose diagnostic strip Test sugars once daily dx e11.9 50 strip 3 07/03/19 25 Active ondansetron (ZOFRAN) 4 mg tablet TAKE 1 TABLET BY MOUTH EVERY 6 HOURS NEEDED FOR NAUSEA FOR VOMITING 07/04/19 25 Active erythromycin (ILOTYCIN) ophthalmic ointment Apply to affected eye(s) 2 (two) times a day 07/22/19 25 Active tamsulosin (FLOMAX) 0.4 mg extended release capsule Take 1 capsule (0.4 mg total) by mouth daily with dinner for 7 days 7 capsule 07/23/19 25 Active cyclobenzapri ne (FLEXERIL) 10 mg tablet Take 1 tablet (10 mg total) by mouth 3 (three) times a day as needed for muscle spasms 30 tablet 07/23/19 25 03/24/2 025 Active metFORMIN XR (GLUCOPHAGE XR) 500 mg 24 hr tablet Take 2 tablets (1,000 mg total) by mouth daily with breakfast 60 tablet 11 07/23/19 25 026 Active gabapentin (NEURONTIN) 300 mg capsule 2 caps 3 times daily 180 capsule 1 07/23/19 25 Active losartan (COZAAR) 25 mg tablet Take 1 tablet (25 mg total) by mouth daily 90 tablet 07/23/19 25 Active metFORMIN (GLUCOPHAGE) 500 mg tablet Take 1 tablet (500 mg total) by mouth 2 (two) times a day 180 tablet 1 10/17/19 24 025 Discontinued(A lternate therapy) gabapentin (NEURONTIN) 600 mg tablet Take 1 tablet (600 mg total) by mouth 3 (three) times a day 06/12/20 24 025 Discontinued tamsulosin (FLOMAX) 0.4 mg extended release capsule Take 1 capsule (0.4 mg total) by mouth daily with dinner for 7 days 06/12/20 24 025 Discontinued losartan (COZAAR) 25 mg tablet 1 tablet (25 mg total) 07/03/19 25 025 Discontinued(R eorder) gabapentin (NEURONTIN) 300 mg capsule 1 capsule (300 mg total) 2 caps 3 times daily 07/03/19 25 025 Discontinued(R eorder) losartan (COZAAR) 25 mg tablet Take 1 tablet (25 mg total) by mouth once for 1 dose 30 tablet 2 07/23/19 25 025 Discontinued(R eorder) gabapentin (NEURONTIN) 300 mg capsule Take 1 capsule (300 mg total) by mouth 3 (three) times a day 2 caps 3 times daily 30 capsule 2 07/23/19 25 025 Discontinued(R eorder) Active Problems Problem Noted Date Diagnosed Date Urinary retention 06/11/2024 Assessment & Plan (06/11/2024 11:30 AM ADMINISTRATIVE PROGRAM SPECIALIST): 06/11 elias replaced and flomax started Acute traumatic pain 06/08/2024 Assessment & Plan (06/12/2024 12:25 PM ADMINISTRATIVE PROGRAM SPECIALIST): - Tylenol 1g q6h - Increased Gabapentin 600mg TID - Robaxin 1000mg q8h - Ketorolac 1 gtts QID - Oxycodone 5mg q4h PRN Discharge planning issues 06/08/2024 Assessment & Plan (06/12/2024 3:19 PM ADMINISTRATIVE PROGRAM SPECIALIST): - 06/08: awaiting PT/OT, spine drain remained in place. - 06/09: syncope workup pending, continue to work with PT/OT - 06/10-06/11: Patient is medically stable for discharge, SW/CM updated. Discharge pending insurance authorization 06/12: Discharged Central cord syndrome (CMS/HCC) 06/04/2024 Assessment & Plan (06/12/2024 3:18 PM ADMINISTRATIVE PROGRAM SPECIALIST): - Neurosurgery consult - MRI C spine (06/04): Findings concerning for possible fracture of an anterior osteophyte at C5-C6 with anterior discoligamentous injury at this level (widening of the disc space, focal disruption of the anterior longitudinal ligament). There is mild edema within the interspinous ligament at C4-C5 extending into the facet joints with mild widening on left at this level, consistent with interspinous and capsulae ligamentous injury at this level, severe multilevel degenerative disc and joint disease resulting in multilevel severe canal and neuroforaminal stenosis with cord signal abnormality and compression at C4-C5. - s/p Posterior cervical thoracic instrumentation and arthrodesis C3-T1, posterior cervical laminectomy C4-C7, open reduction internal fixation C4-5 fracture (06/04 GARST) 06/04: c3-t1 PCDF, MAP 90-110 for 5 days postop, diet regular, no restrictions, - CT T/L spine (06/04): No acute fracture in the thoracic or lumbar spine, degenerative changes of the thoracic and lumbar spine as above, most pronounced at L5-S1 where there is severe bilateral neuroforaminal stenosis - Cspine xr (06/06): Interval C3-T1 posterior instrumented spinal fusion 06/06: Meeting MAP goals independently, Q4NC - PT/OT - F/u 4-6 weeks with cervical flexion/extension film Fall, initial encounter 06/04/2024 Cardiomyopathy 05/12/2024 Assessment & Plan (05/12/2024 12:29 PM ADMINISTRATIVE PROGRAM SPECIALIST): Has had 1 further episode of syncope. I have asked her to please reach out to his drawer in to discuss. The episodes of syncope seemed to have accelerated since starting on Entresto. Part of the dilemma is that the Entresto clearly has improved as ejection fraction. We did discuss that 1 option was to go on an ARB and then add an SGLT2 such as Farxiga. In my mind Farxiga seems to have some data in heart failure with preserved or improved ejection fraction. In any event she will call Cardiology to discuss Diabetic polyneuropathy becki wiseman with type 2 diabetes mellitus ([facility]) 01/01/2024 Assessment & Plan (04/09/2024 1:25 PM CDT): Diabetic foot evaluation performed: ADA Risk Category 3 (High): Presence of diabetes with previous history of ulcer or lower extremity amputation Chronic venous insufficiency (skin color change or temperature difference) Diabetic Foot Education: - Clean feet daily and dry between toes - Use clean socks that are not too tight. - If Low Risk Diabetic: - Avoid cutting nails on a sharp angle. Instead cut straight across - If Moderate or High Risk Diabetic: - Allow a medical professional to cut toenails. - Avoid walking barefoot - Always let your healthcare providers know right away if you have a cut or foot problem - Breaks in the skin of the feet can lead to gangrene and amputation - Try to stay off your foot if you have a cut. Let your national sales representative decide how much walking you should do. At this time his feet are doing well. He has not had any progression or worsening of neuropathy. He has not had any history of any open ulcerations since last visit. Assessment & Plan (01/01/2024 1:17 PM CDT): Diabetic foot evaluation performed: ADA Risk Category 3 (High): Presence of diabetes with previous history of ulcer or lower extremity amputation Chronic venous insufficiency (skin color change or temperature difference) Diabetic Foot Education: - Clean feet daily and dry between toes - Use clean socks that are not too tight. - If Low Risk Diabetic: - Avoid cutting nails on a sharp angle. Instead cut straight across - If Moderate or High Risk Diabetic: - Allow a medical professional to cut toenails. - Avoid walking barefoot - Always let your healthcare providers know right away if you have a cut or foot problem - Breaks in the skin of the feet can lead to gangrene and amputation - Try to stay off your foot if you have a cut. Let your national sales representative decide how much walking you should do. Essential hypertension 10/17/2023 Assessment & Plan (06/12/2024 3:19 PM ADMINISTRATIVE PROGRAM SPECIALIST): 06/06: still holding entresto Continue to hold Entresto, further management per PCP Assessment & Plan (10/17/2023 1:45 PM CDT): BP at target. Chronic systolic heart failure (CMS/HCC) 024 Assessment & Plan (10/17/2023 1:44 PM CDT): Doing quite well but does feel somewhat fatigued on Entresto Raynaud's disease without gangrene 08/16/2023 Assessment & Plan (04/09/2024 1:26 PM CDT): With the colder season coming up I have recommended he be diligent about checking his feet daily. I explained that if he has signs of ischemia with pain or blistering that I recommend he contact the office. We may then need to increase his felodipine dosage or try something such as Nitro-Bid. Assessment & Plan (01/01/2024 1:45 PM CDT): He is to continue to monitor his Raynaud's syndrome. Continue to wear thicker/layered socks. Assessment & Plan (09/12/2023 11:40 AM CDT): He continues to have Raynaud's syndrome and is on calcium channel blockers. Continue this at this time. Recommended thicker/layered socks. I suspect that the changes to the color to his left 3rd digit were secondary to his activity as well as his Raynaud's syndrome. Monitor for further issues. Assessment & Plan (09/03/2023 1:27 PM ADMINISTRATIVE PROGRAM SPECIALIST): We will continue calcium channel blockers at this time. Assessment & Plan (08/26/2023 11:56 AM ADMINISTRATIVE PROGRAM SPECIALIST): Recommend that he continue felodipine at this standpoint for Raynaud's syndrome. Assessment & Plan (08/16/2023 12:04 PM ADMINISTRATIVE PROGRAM SPECIALIST): While in hospital he was started on felodipine for Raynaud's syndrome. He did not take it once discharge due to significant other's concern for a side effect of dizziness. I explained that he tolerated the felodipine well in the hospital and it is a low dosage of 2.5 mg. I explained that it more than likely would not change his blood pressure and should not cause dizziness. I have explained that because of his Raynaud's syndrome there is decreased perfusion to the surgical site. I explained that this could cause dehiscence her lack of healing. I have advocated for them to start taking the felodipine 2.5 mg daily. I also recommended they wear thicker/layered socks. Diabetic foot ulcer with osteomyelitis Assessment & Plan (01/01/2024 1:46 PM CDT): His partial 2nd digit amputation site of the left foot is healed well. Monitor for any issues. Assessment & Plan (10/02/2023 2:34 PM CDT): His left 3rd digit amputation site is doing well today. There is some minimal scab formation however there was no active drainage or signs of infection. The color to the toe is appropriate. He can use a Band-Aid to the area as needed. He can also apply lotion to the area as needed. Recommended that he monitor the area for any drainage or worsening of the toe. Assessment & Plan (09/12/2023 11:40 AM CDT): His left 3rd digit amputation site has some crusting but otherwise looks fine. In discussions with the patient patient's the color has improved to the area. They stated that the discoloration was blue shoe which I think was more related to patient's activity along site has Raynaud's syndrome. Applied a dry Band-Aid. Recommended he perform daily dressing changes to the area. He is to monitor for signs of dehiscence or excessive drainage. Monitor for signs of infection as well. Assessment & Plan (09/03/2023 1:27 PM ADMINISTRATIVE PROGRAM SPECIALIST): Remove the rest of the sutures without incident. There is a small little punctate bleeding area that I put antibiotic ointment and a Band-Aid. I recommend they do this for 2 days. Once the area has fully epithelialized they can start getting it wet in the shower however, avoid soaking. He is to continue weight-bearing as tolerated in his surgical shoe until he obtains appropriate shoe gear and which he can then be weight-bearing as tolerated in this appropriate shoe gear. May feel better wearing a dry Band-Aid over the incision site to prevent irritation and rubbing. Continue to monitor for issues. Assessment & Plan (08/26/2023 11:57 AM ADMINISTRATIVE PROGRAM SPECIALIST): I started to remove the sutures however the incision site was not fully coapted. Therefore I stopped suture removal and applied Steri-Strips of the area. He is to keep the dressing clean, dry, intact. He is to continue weight-bearing as tolerated in surgical shoe. He is to monitor for any signs of reaction or infection. Assessment & Plan (08/16/2023 8:41 AM ADMINISTRATIVE PROGRAM SPECIALIST): Osteomyelitis has been resected completely. Diabetic foot evaluation performed: Urgent (Active Pathology): Open wound or ulcerative area, with or without signs of infection Diabetic Foot Education: - Clean feet daily and dry between toes - Use clean socks that are not too tight. - If Low Risk Diabetic: - Avoid cutting nails on a sharp angle. Instead cut straight across - If Moderate or High Risk Diabetic: - Allow a medical professional to cut toenails. - Avoid walking barefoot - Always let your healthcare providers know right away if you have a cut or foot problem - Breaks in the skin of the feet can lead to gangrene and amputation - Try to stay off your foot if you have a cut. Let your national sales representative decide how much walking you should do. Cellulitis of toe of left foot 08/07/2023 Toe pain, left 08/06/2023 Acute osteomyelitis of left ankle or foot 2023 Assessment & Plan (08/26/2023 11:56 AM ADMINISTRATIVE PROGRAM SPECIALIST): Proximal margin of the amputation was clear of osteomyelitis. Assessment & Plan (08/16/2023 8:40 AM ADMINISTRATIVE PROGRAM SPECIALIST): Proximal margin of the amputation was clear of osteomyelitis. He is to the dressing clean, dry, intact. He can be weight-bearing in surgical shoe. Type 2 diabetes mellitus without retinopathy ([facility] S/HCC) 03/01/2023 Syncope 02/27/2023 Assessment & Plan (06/10/2024 1:29 PM ADMINISTRATIVE PROGRAM SPECIALIST): - Orthostatic vital signs repeat 06/09 (-) - ECHO (06/10): TDS due to poor acoustic window. Normal LV and RV size and systolic function. LVEF 55-60% by visual estimate. LA normal. No significant valvular abnormalities noted. No , Grade I diastolic function c/w normal mean LA pressure. No adequate TR to estimate PA pressure. Strain quality is inadequate for accurate reporting. Normal Inferior vena cava. Normal aorta. Cellulitis of left toe 08/02/2022 Assessment & Plan (08/16/2023 8:40 AM ADMINISTRATIVE PROGRAM SPECIALIST): This is resolved currently with antibiotic treatment as well as with partial 3rd digit amputation. Monitor for further signs of infection Assessment & Plan (08/02/2022 10:27 AM ADMINISTRATIVE PROGRAM SPECIALIST): Finish clindamycin as prescribed by Podiatry Apply betadine daily & PRN Elevate BLE PRN Has Podiatry f/u 08/09/22 Osteoarthritis of left hip 12/15/2021 Rheumatoid arthritis of both wrists 09/07/2021 Overview (09/25/2021): 08/2021 labs: Neg Hep A/B/C 08/2021 XR: -Rt hand: mild OA of 1st CMC joint/2nd MCP joint/3rd and 5th PIP joints -Lt hand: mild OA of multiple IP joint and 1st CMC joint US Right hand/wrist 09/18/21: 1. 4th extensor compartment effusion with grade 1 power Doppler suggestive of tenosynovitis 2. Grade 1 effusion of the dorsal wrist, radial scaphoid joint, and ulnar styloid 3. Power Doppler of the wrist (grade 2), radial scaphoid joint (grade 2-3), and ulnar styloid (grade 2) 4. Moderate synovial thickening of the 2nd and 3rd MCPJ and 2nd PIPJ 5. Mild synovial thickening of the 4th MCPJ and 3rd PIPJ Assessment & Plan (10/26/2021 4:41 PM CDT): CDAI 8, low Began 12.5mg MTX weekly but experienced S/Es (headache, heartburn, fatigue) and decreased to 7.5mg weekly but had continued GI upset and discontinued after 2 doses. Has been taking 1300mg Tylenol Arthritis BID with improvement in joint pain. He is requesting to remain off medication until after his left hip arthroplasty in mid November as he does not wish to have any additional GI issues. Some synovitis on exam without joint tenderness. As his recent hand ultrasound did not demonstrate any erosive arthritis and he appears to be doing well at this time on Tylenol Arthritis I do think it would be acceptable to monitor symptoms and consider retrial of a DMARD following his hip surgery. No need for labs today with only 2 doses of MTX. Return 2 weeks following hip athroplasty. Seen with Dr. Lawrence. Assessment & Plan (09/25/2021 11:47 AM CDT): Mr. Obrien is a 66yo male with PMH of left hip OA, T2DM, asthma, GERD, cataracts, R torn retina/dettachment (visually impaired), high cholesterol and seasonal allergies who presents for additional evaluation of his bilateral wrist pain and recent +RF. Notes pain in his palms and over the ulnar aspect of his wrists. Has AM stiffness lasting hours. Alternates 15mg meloxicam (recently prescribed by his orthopedist) and Tylenol ES throughout the day with benefit. Also with symptoms of dry mouth and Raynauds. No contributory FH. An RA panel is still pending with an elevated CRP lab. Radiographic imaging of the bilateral hands revealed mild OA changes of the 1st CMC joints and multiple IP joints. A right hand/wrist US demonstrated varying degrees of synovial thickening of the MCP and PIP joints with moderate power doppler of the wrist/radial-scaphoid and ulnar styloid without erosions. Based on symptoms and work up patient appears to have rheumatoid arthritis. Recommend initiating treatment with 12.5mg MTX once weekly and 1mg folic acid daily. Patient advised of the side effects of the medication, including but not limited to increased risk of infection, GI upset, increased LFTs, mouth sores, rash, diarrhea, and/or blood count abnormalities. Discussed that this medication can take upwards of 3 months before joint improvement is noticeable and the dosage will be increased at each subsequent visit until symptoms are controlled or the maximum dose of 20mg is achieved. Patient was amenable to the plan and was provided handouts for further review his diagnosis and treatment. Discussed option to switch to Tylenol Arthritis 1300mg BID and alternate with his 15mg meloxicam. Return in [address] Lawrence. Assessment & Plan (09/07/2021 8:12 PM ADMINISTRATIVE PROGRAM SPECIALIST): Mr. Obrien is a 66yo male with PMH of left hip OA, T2DM, asthma, GERD, cataracts, R torn retina/dettachment (visually impaired), high cholesterol and seasonal allergies who presents for additional evaluation of his bilateral wrist pain and recent +RF. Notes pain in his palms and over the ulnar aspect of his wrists. Has AM stiffness lasting hours. Alternates Advil/Tylenol/Advil throughout the day with benefit. Also with symptoms of dry mouth and Raynauds. No contributory FH. Ttp over ulnar aspects of bilateral wrists with fullness, pain on pronation and supination of wrists. Telangectasia of several fingernail beds and palms of hands. Symptoms suspicious for RA. Will perform appropriate radiographs, serologies, and right hand/wrist US to assess the etiology of symptoms. Return in [address] Lawrence. History of detached retina repair 03/08/2018 Asymmetrical sensorineural hearing loss 12/15/19 16 Peripheral vascular disease 10/09/2013 Assessment & Plan (05/12/2024 12:29 PM ADMINISTRATIVE PROGRAM SPECIALIST): Stable at this time. Type 2 diabetes mellitus 02/04/2012 Overview (10/11/2017): Description: dx'd 2011 Assessment & Plan (05/12/2024 12:29 PM ADMINISTRATIVE PROGRAM SPECIALIST): Would like to add Farxiga if finances etc. will allow. Assessment & Plan (10/17/2023 1:44 PM CDT): A1c elevated. Needs to follow diet. Assessment & Plan (08/02/2022 10:26 AM ADMINISTRATIVE PROGRAM SPECIALIST): Well controlled, 6.1% Hyperlipidemia 02/04/2012 Assessment & Plan (05/12/2024 12:29 PM ADMINISTRATIVE PROGRAM SPECIALIST): Stable. Assessment & Plan (10/17/2023 1:44 PM CDT): Doing well at this time Resolved Problems Problem Noted Date Diagnosed Date Resolved Date Abdominal pain 03/20/2022 08/02/2022 Assessment & Plan (03/20/2022 5:38 PM CDT): Will continue to monitor If worsens or persists to call for imaging Polyarthritis 08/09/2021 03/20/2022 Assessment & Plan (08/09/2021 4:09 PM ADMINISTRATIVE PROGRAM SPECIALIST): Check rheum panel Hypertrophic toenail 02/22/2015 022 Pain in extremity 02/07/2015 03/20/2022 Onychomycosis of toenail 02/07/2015 Ingrown toenail 05/12/2014 03/20/2022 Skin callus 05/12/2014 03/20/2022 Ulcer of toe (CMS/HCC) 10/09/201303/20 Arthralgia of shoulder 06/18/201203/20 Unspecified cataract 02/04/2012 022 Encounters Date Type Department Care Team Description 07/28/2024 Orders Only [facility] [address] [place] [address] Tim Horton MD 07/27/2024 Telephone [facility] [address] [place] [phone] Tim Horton MD Spoke With Home Health Provider 07/23/2024 12:15 PM ADMINISTRATIVE PROGRAM SPECIALIST Office Visit [facility] [address] [place] [phone] Tim Horton MD Type 2 diabetes mellitus with diabetic polyneuropathy, without long-term current use of insulin (HCC) (Primary Dx); Mixed hyperlipidemia; Type 2 diabetes mellitus without retinopathy (CMS/HCC) (HCC); Central cord syndrome, sequela (HCC) 07/23/2024 Telephone [facility] [address] [place] [phone] Tim Horton MD 07/13/2024 8:00 AM ADMINISTRATIVE PROGRAM SPECIALIST Ancillary Procedure [facility] [address] [place] [address] [address] [place] [address] Syncope and collapse 07/13/2024 Telephone [facility] [address] [place] [phone] Tim Horton MD Spoke With Home Health Provider 07/10/[address] [facility] [address] [place] [address] [address] [place] [address] Jayne Brooks NP Syncope and collapse (Primary Dx) 07/06/[address] [facility] [address] [place] [address] [address] [place] [address] Nathan Rivas MD [employer] message re: pt update 07/02/2024 Orders Only [facility] [phone] Unknown, Notinfile 06/29/2024 Orders Only [facility] [phone] Unknown, Notinfile 06/25/2024 Orders Only [facility] [phone] Medicine 06/22/2024 Orders Only [facility] [address] [facility] [place] [id number] Mamie Cummings MA Personal history of nicotine dependence 06/22/2024 Orders Only [facility] [phone] Unknown, Notinfile 06/22/2024 Telephone [facility] Cardiology [address] [facility] [address] [place] [phone] Nathan Rivas MD 06/21/2024 Orders Only [facility] [phone] Unknown, Notinfile 06/18/2024 Orders Only [facility] [phone] Unknown, Notinfile 06/17/2024 Telephone [facility] [address] [facility] [address] 4th Floor [address] [place] [phone] Bhavna Fisher 06/16/2024 Telephone [facility] [address] [place] [address] Talia Carmona RN 06/15/2024 Orders Only [facility] [phone] Unknown, Notinfile 06/14/2024 Orders Only [facility] [phone] Unknown, Notinfile 06/04/2024 9:07 AM ADMINISTRATIVE PROGRAM SPECIALIST Anesthesia Event [facility] Operating Room 1 [place] [address] Lisa Marie MD PhD Florin Henson CRNA 06/04/2024 9:00 AM ADMINISTRATIVE PROGRAM SPECIALIST - 06/04/2024 2:50 PM ADMINISTRATIVE PROGRAM SPECIALIST Surgery [facility] Operating Room 1 [place] [phone] Panda Gamez MD FUSION CERVICAL/THORACIC - POSTERIOR WITH INSTRUMENTATION C3-T1 06/04/2024 5:48 AM ADMINISTRATIVE PROGRAM SPECIALIST - 06/13/2024 12:52 PM ADMINISTRATIVE PROGRAM SPECIALIST Hospital Encounter [address] [id number] Nathan Buchanan MD Vallar, Kelly Jean, MD Palmer, Kalyan Catherine MD Fall, initial encounter (Primary Dx); Central cord syndrome, initial encounter (HCC); Central cord syndrome, subsequent encounter (HCC) Discharge Disposition: Discharge to an Rehab facility 06/04/2024 Orders Only [facility] [address] [place] [address] [address] [place] [address] Tim Horton MD 05/12/2024 11:30 AM ADMINISTRATIVE PROGRAM SPECIALIST Office Visit [facility] [address] [place] [address] [address] [place] [address] Tim Horton MD Type 2 diabetes mellitus with diabetic polyneuropathy, without long-term current use of insulin (HCC) (Primary Dx); Mixed hyperlipidemia; Peripheral vascular disease (HCC); Cardiomyopathy, unspecified type (HCC) 05/06/[address] [facility]iology [facility] 8th [place] [address] [place] [phone] Nathan Rivas MD Entresto inquiry from Last 3 Months Immunizations Name Administration Dates Next Due Flucelvax Influenza Quad 04/16/2024 Influenza, Quadrivalent, Hig h Dose, Preservative Free, Intrr 03/31/2023 Influenza, Quadrivalent, Spl it, Preservative Free, Intramuscular 03/25/2018 Influenza, Trivalent, High D ose, Split, Preservative Free, Intramuscular 04/16/2024 Influenza, Trivalent, IM (MDV) 03/09/2010 Influenza, Unspecified 03/19/2023,03/25/2018 Pfizer Sars-Cov-2 Bivalent Vaccination (12+ YRS) 03/31/2022 Pneumococcal Conjugate, Unspecified 04/19/2021,1 Pneumococcal, Unspecified 04/20/2021 ZOSTER Recombinant 05/07/2024 Surgical History Surgery Date Site/Laterality Comments TOTAL HIP ARTHROPLASTY Bilateral Hip Replacement - right hip; 2010 (Added by TW Conv) HEMORRHOID SURGERY Hemorrhoidectomy - 1964 (Added by TW Conv) TONSILLECTOMY Tonsillectomy - 1961 (Added by TW Conv) PILONIDAL CYST RESECTION Pilonidal Cyst Resection - 1987 (Added by TW Conv) Medical History Medical History Date Comments Personal history of diseases of skin or subcutaneous tissue History of ingrown nail - (A dded by TW Conv) Diabetes mellitus (HCC) Hypertension Hyperlipidemia Family History Medical History Relation Name Comments Cancer Mother Cancer - breast -mother, aunt (Added by TW Conv)/Family history of malignant neoplasm - (Added by TW Conv) Hypertension Mother Thyroid disease Mother Thyroid Diso rder - mother (Added by TW Conv) Cancer Other 1 Cancer - breast -mother, aunt Relation: Aunt (Added by TW Conv) Diabetes type II Other 2 Type 2 Diab etes Mellitus - 3 grandparents, aunt, cousin, mother is borderline (Added by TW Conv) Relation Name Status Comments Mother Other 1 Other 2 Social History Tobacco Use Types Packs/Day Years Used Date Smoking Tobacco: Former Cigarettes 2.5 30 1 2010 Smokeless Tobacco: Never Tobacco Cessation:Counseling Given: Not Answered Alcohol Use Standard Drinks/Week Comments No 0 (1 standard drink = 0.6 oz pur e alcohol) [facility] Answer Date Recorded In the past 12 months has [employer], oil, or water [employer] threatened to shut off services in your home? No 08/07/2023 Social Connection and Isolat ion Panel [NHANES] Answer Date Recorded In a typical week, how many times do you talk on the phone with family, friends, or neighbors? More than three times a week 08/07/2023 How often do you get togethe r with friends or relatives? More than three times a week 08/07/2023 How often do you attend chur or scientology services? 1 to 4 times per year 08/07/2023 Do you belong to any clubs o r organizations such as muslim groups, unions, fraternal or athletic groups, or school groups? No 08/07/2023 How often do you attend meet ings of the clubs or organizations you belong to? Never 08/07/2023 Are you , , di vorced, , never , or living with a partner? 08/07/2023 AUDIT-C Answer Date Recorded Q1: How often do you have a drink containing alcohol? Never 08/09/2023 Q2: How many drinks containi ng alcohol do you have on a typical day when you are drinking? Patient does not drink Frequency of Binge Drinking Not on file 03/2024 Overall Financial Resource Strain (CARDIA) Answe r Date Recorded How hard is it for you to pa y for the very basics like food, housing, medical care, and heating? Not hard at all 08/07/2023 Hunger Vital Sign Answer Date Recorded Within the past 12 months, y ou worried that your food would run out before you got the money to buy more. Never true 08/07/19 24 Within the past 12 months, t he food you bought just didn't last and you didn't have money to get more. Never true 08/07/2023 PRAPARE - Transportation Answer Date Re corded In the past 12 months, has l ack of transportation kept you from medical appointments or from getting medications? No 12/2023 In the past 12 months, has l ack of transportation kept you from meetings, work, or from getting things needed for daily living? No 08/07/2023 Housing Stability Vital Sign Answer Loki e Recorded In the last 12 months, was t here a time when you were not able to pay the mortgage or rent on time? No 08/07/2023 In the last 12 months, how many places have you lived? 1 08/07/2023 In the last 12 months, was t here a time when you did not have a steady place to sleep or slept in a custodial (including now)? No 08/07/2023 Personal Safety Answer Date Recorded Have you ever been in or are you currently in a harmful physical or emotional relationship or is someone making you feel afraid or unsafe? Denies 06/04/2024 Sex and Gender Information Value Date Recorded Sex Assigned at Not on file Legal Sex Male 2:47 AM ADMINISTRATIVE PROGRAM SPECIALIST Gender Identity Male 02/12/2021 8:10 AM CDT Sexual Orientation Straight 12/18/2018 4: 37 PM CDT Obstetrics History Last Filed Vital Signs Vital Sign Reading Time Taken Comments Blood Pressure 143/91 07/23/2024 12:31 PM ADMINISTRATIVE PROGRAM SPECIALIST Pulse 103 07/23/2024 12:31 PM ADMINISTRATIVE PROGRAM SPECIALIST Temperature 37.1 ??C (98.8 ??F) 06/13/2024 4:41 AM CS T Respiratory Rate 18 06/13/2024 4:41 AM ADMINISTRATIVE PROGRAM SPECIALIST Oxygen Saturation 96% 06/13/2024 4:41 AM ADMINISTRATIVE PROGRAM SPECIALIST Inhaled Oxygen Concentration - - Weight 85.7 kg (189 lb) 07/23/2024 12:31 PM ADMINISTRATIVE PROGRAM SPECIALIST Height 185.4 cm (6' 1 ) 07/23/2024 12:31 PM ADMINISTRATIVE PROGRAM SPECIALIST Body Mass Index 24.94 07/23/2024 12:31 PM ADMINISTRATIVE PROGRAM SPECIALIST Plan of Treatment Health Maintenance Due Date Last Done Comments Depression Screening 1955 Dilated Eye Exam 1957 Foot Exam 1957 DTaP/Tdap/Td Vaccine (1 - Tdap) 02/14/1968 Hepatitis B Screening 1975 Pneumococcal vaccine 65+ (2 of 2 - PPSV23 or PCV20) 06/15/2021 04/20/2021, 04/19/2021, 04/06/2010 Well Visit 65+ 2022 Prostate Cancer Screening-PSA 01/25/2023 01/25/2021 Albumin Creatinine Ratio, Urine 11/23/2023 3 Zoster Vaccine (2 of 2) 07/02/2024 05/07/2024 Lung Cancer Screening 07/11/2024 07/11/2023 Hemoglobin A1C 01/20/2025 07/23/2024, 05/01, 01/24/2024, Additional history exists Lipid Panel 06/04/2025 06/04/2024, 07/01, 05/01/2022, Additional history exists Fall Risk Assessment 06/13/2025 06/13/2024 eGFR 07/02/2025 07/02/2024, 06/02, 06/25/2024, Additional history exists Colon Cancer Screening-Colonoscopy 08/01/2025 Hepatitis C Screening Completed 09/07/2021 Abdominal Aortic Aneurysm (A AA) Screen Completed 05/18/2022, 10/07/2013 Covid-19 Vaccine Completed 04/16/2024, 07/2021, 06/11/2021, Additional history exists Influenza Vaccine Completed 04/16/2024, , 03/31/2023, Additional history exists Medical Devices Implanted Type Area Ginseng Farmer Device Identifier Shelf Expiration Date Model / Serial / Lot [employer] Graft Bone Magnetos 10cc 1-2mm Granules In Moldable Putty 703-038-[id number] - [id number] Implanted:Qty : 1 on 06/04/2024 by Panda Gamez MD at [facility] N/A: Spine Cervical [employer] [id number] 01/29/2029 [id number] / / [id number] Allosource Crushed Fresh Frozen Cancellous 1-4mm Graft 15ml Bone [id number] - [id number] Implanted:Qty : 1 on 06/04/2024 by Panda Gamez MD at [facility] N/A: Spine Cervical [employer] 08/25/2028 [id number] / / [id number] Medtronic Inc 3.5mm 18mm Multiaxial Spine Screw Bone [id number] - [id number] Implanted:Qty : 6 on 06/04/2024 by Panda Gamez MD at [facility] N/A: Spine Cervical Med[employer] Inc [id number] / / Med[employer]onic Inc 3.5mm 22mm Multiaxial Spine Screw Bone [id number] - [id number] Implanted:Qty : 2 on 06/04/2024 by Panda Gamez MD at [facility] N/A: Spine Cervical [employer] Inc [id number] / / Med[employer]onic Inc 4.5mm 24mm Multiaxial Spine Screw Bone [id number] - [id number] Implanted:Qty : 2 on 06/04/2024 by Panda Gamez MD at [facility] N/A: Spine Cervical [employer] Inc [id number] / / Medtronic Inc Miguel Spinal [place] Cervical Standard Infinity [id number] - [id number] Implanted:Qty : 1 on 06/04/2024 by Panda Gamez MD at [facility] N/A: Spine Cervical [employer] Inc [id number] / / Medtronic Inc Set Screw [id number] M6 Setscrew [id number] - [id number] Implanted:Qty : 10 on 06/04/2024 by Panda Gamez MD at [facility] N/A: Spine Cervical Med[employer]onic Inc [id number] / / Medtronic Inc 3.5mm 80mm Precut Miguel Spinal [id number] - [id number] Implanted:Qty : 1 on 06/04/2024 by Panda Gamez MD at [facility] N/A: Spine Cervical [employer] Inc [id number] / / Procedures Procedure Name Priority Date/Time Associated Diagnosis Comments SCAN - LABS 07/28/2024 1:20 AM ADMINISTRATIVE PROGRAM SPECIALIST POCT HEMOGLOBIN A1C Routine 07/23/2024 12:36 PM ADMINISTRATIVE PROGRAM SPECIALIST Type 2 diabetes mellitus with diabetic polyneuropathy, without long-term current use of insulin (HCC) CS GLUCOSE Routine Gen Lab 07/02/2024 5:21 AM ADMINISTRATIVE PROGRAM SPECIALIST EGFR Routine Gen Lab 07/02/2024 5:21 AM ADMINISTRATIVE PROGRAM SPECIALIST CS BASIC METABOLIC PANEL Routine Gen Lab 07/02/2024 5:21 AM ADMINISTRATIVE PROGRAM SPECIALIST CBC WITHOUT DIFFERENTIAL Routine Gen Lab 07/02/2024 5:21 AM ADMINISTRATIVE PROGRAM SPECIALIST EGFR Routine Gen Lab 06/29/2024 10:23 AM ADMINISTRATIVE PROGRAM SPECIALIST COMPREHENSIVE METABOLIC PANEL WITHOUT GLUCOSE (OUTREACH) Routine Gen Lab 06/29/2024 10:23 AM ADMINISTRATIVE PROGRAM SPECIALIST CS GLUCOSE Routine Gen Lab 06/29/2024 10:23 AM ADMINISTRATIVE PROGRAM SPECIALIST CBC WITHOUT DIFFERENTIAL Routine Gen Lab 06/29/2024 10:23 AM ADMINISTRATIVE PROGRAM SPECIALIST EGFR Routine Gen Lab 06/25/2024 11:00 AM ADMINISTRATIVE PROGRAM SPECIALIST COMPREHENSIVE METABOLIC PANEL WITHOUT GLUCOSE (OUTREACH) Routine Gen Lab 06/25/2024 11:00 AM ADMINISTRATIVE PROGRAM SPECIALIST CS GLUCOSE Routine Gen Lab 06/25/2024 11:00 AM ADMINISTRATIVE PROGRAM SPECIALIST DIFFERENTIAL AUTO Routine Gen Lab 06/25/2024 11:00 AM ADMINISTRATIVE PROGRAM SPECIALIST CBC WITH AUTO DIFFERENTIAL Routine Gen Lab 06/25/2024 11:00 AM ADMINISTRATIVE PROGRAM SPECIALIST EGFR Routine Gen Lab 06/22/2024 8:29 AM ADMINISTRATIVE PROGRAM SPECIALIST COMPREHENSIVE METABOLIC PANEL WITHOUT GLUCOSE (OUTREACH) Routine Gen Lab 06/22/2024 8:29 AM ADMINISTRATIVE PROGRAM SPECIALIST CS GLUCOSE Routine Gen Lab 06/22/2024 8:29 AM ADMINISTRATIVE PROGRAM SPECIALIST CBC WITHOUT DIFFERENTIAL Routine Gen Lab 06/22/2024 8:29 AM ADMINISTRATIVE PROGRAM SPECIALIST C. DIFFICILE TESTING Routine Gen Lab 06/21/2024 4:18 PM ADMINISTRATIVE PROGRAM SPECIALIST EGFR Routine Gen Lab 06/18/2024 4:58 PM ADMINISTRATIVE PROGRAM SPECIALIST CS BASIC METABOLIC PANEL Routine Gen Lab 06/18/2024 4:58 PM ADMINISTRATIVE PROGRAM SPECIALIST CS GLUCOSE Routine Gen Lab 06/18/2024 4:58 PM ADMINISTRATIVE PROGRAM SPECIALIST CBC WITHOUT DIFFERENTIAL Routine Gen Lab 06/18/2024 4:58 PM ADMINISTRATIVE PROGRAM SPECIALIST EGFR Routine Gen Lab 06/15/2024 9:30 AM ADMINISTRATIVE PROGRAM SPECIALIST COMPREHENSIVE METABOLIC PANEL WITHOUT GLUCOSE (OUTREACH) Routine Gen Lab 06/15/2024 9:30 AM ADMINISTRATIVE PROGRAM SPECIALIST VITAMIN D 25 HYDROXY Routine Gen Lab 06/15/2024 9:30 AM ADMINISTRATIVE PROGRAM SPECIALIST CS GLUCOSE Routine Gen Lab 06/15/2024 9:30 AM ADMINISTRATIVE PROGRAM SPECIALIST CBC WITHOUT DIFFERENTIAL Routine Gen Lab 06/15/2024 9:30 AM ADMINISTRATIVE PROGRAM SPECIALIST URINALYSIS, MICROSCOPIC ONLY Routine Gen Lab 06/14/2024 4:34 PM ADMINISTRATIVE PROGRAM SPECIALIST URINE CULTURE Routine Gen Lab 06/14/2024 4:34 PM ADMINISTRATIVE PROGRAM SPECIALIST URINALYSIS AND REFLEX TO MICROSCOPIC AND CULTURE Routine Gen Lab 06/14/2024 4:34 PM ADMINISTRATIVE PROGRAM SPECIALIST CBC WITHOUT DIFFERENTIAL Routine Gen Lab 06/14/2024 5:18 AM ADMINISTRATIVE PROGRAM SPECIALIST POCT GLUCOSE DEVICE Routine 06/13/2024 11:41 AM ADMINISTRATIVE PROGRAM SPECIALIST POCT GLUCOSE DEVICE Routine 06/13/2024 8 :46 AM ADMINISTRATIVE PROGRAM SPECIALIST POCT GLUCOSE DEVICE Routine 06/13/2024 2 :02 AM ADMINISTRATIVE PROGRAM SPECIALIST POCT GLUCOSE DEVICE Routine 06/12/2024 8 :34 PM ADMINISTRATIVE PROGRAM SPECIALIST POCT GLUCOSE DEVICE Routine 06/12/2024 5 :28 PM ADMINISTRATIVE PROGRAM SPECIALIST POCT GLUCOSE DEVICE Routine 06/12/2024 11:17 AM ADMINISTRATIVE PROGRAM SPECIALIST POCT GLUCOSE DEVICE Routine 06/12/2024 7 :44 AM ADMINISTRATIVE PROGRAM SPECIALIST POCT GLUCOSE DEVICE Routine 06/11/2024 9 :23 PM ADMINISTRATIVE PROGRAM SPECIALIST POCT GLUCOSE DEVICE Routine 06/11/2024 5 :11 PM ADMINISTRATIVE PROGRAM SPECIALIST POCT GLUCOSE DEVICE Routine 06/11/2024 12:39 PM ADMINISTRATIVE PROGRAM SPECIALIST POCT GLUCOSE DEVICE Routine 06/11/2024 9 :26 AM ADMINISTRATIVE PROGRAM SPECIALIST EGFR Timed 06/11/2024 6:11 AM ADMINISTRATIVE PROGRAM SPECIALIST BASIC METABOLIC PANEL Timed 06/11/2024 6:11 AM ADMINISTRATIVE PROGRAM SPECIALIST POCT GLUCOSE DEVICE Routine 06/11/2024 2 :01 AM ADMINISTRATIVE PROGRAM SPECIALIST POCT GLUCOSE DEVICE Routine 06/10/2024 8 :58 PM ADMINISTRATIVE PROGRAM SPECIALIST POCT GLUCOSE DEVICE Routine 06/10/2024 7 :26 PM ADMINISTRATIVE PROGRAM SPECIALIST POCT GLUCOSE DEVICE Routine 06/10/2024 3 :23 PM ADMINISTRATIVE PROGRAM SPECIALIST POCT GLUCOSE DEVICE Routine 06/10/2024 11:05 AM ADMINISTRATIVE PROGRAM SPECIALIST TRANSTHORACIC ECHO (TTE) COMPLETE W DOPPLER/CF W CONTRAST ED Urgent/IP Urgent 06/10/2024 9:22 AM ADMINISTRATIVE PROGRAM SPECIALIST POCT GLUCOSE DEVICE Routine 06/10/2024 7 :30 AM ADMINISTRATIVE PROGRAM SPECIALIST POCT GLUCOSE DEVICE Routine 06/10/2024 4 :51 AM ADMINISTRATIVE PROGRAM SPECIALIST POCT GLUCOSE DEVICE Routine 06/09/2024 11:40 PM ADMINISTRATIVE PROGRAM SPECIALIST EGFR Routine 06/09/2024 9:46 PM ADMINISTRATIVE PROGRAM SPECIALIST DIFFERENTIAL AUTO Routine 06/09/2024 9:4 6 PM ADMINISTRATIVE PROGRAM SPECIALIST PHOSPHORUS Routine 06/09/2024 9:46 PM ADMINISTRATIVE PROGRAM SPECIALIST MAGNESIUM Routine 06/09/2024 9:46 PM ADMINISTRATIVE PROGRAM SPECIALIST BASIC METABOLIC PANEL Routine 06/09/2024 9:46 PM ADMINISTRATIVE PROGRAM SPECIALIST CBC WITH AUTO DIFFERENTIAL Routine 06/09/2024 9:46 PM ADMINISTRATIVE PROGRAM SPECIALIST POCT GLUCOSE DEVICE Routine 06/09/2024 7 :54 PM ADMINISTRATIVE PROGRAM SPECIALIST POCT GLUCOSE DEVICE Routine 06/09/2024 5 :49 PM ADMINISTRATIVE PROGRAM SPECIALIST POCT GLUCOSE DEVICE Routine 06/09/2024 12:05 PM ADMINISTRATIVE PROGRAM SPECIALIST POCT GLUCOSE DEVICE Routine 06/09/2024 7 :32 AM ADMINISTRATIVE PROGRAM SPECIALIST EGFR STAT 06/09/2024 6:36 AM ADMINISTRATIVE PROGRAM SPECIALIST PHOSPHORUS STAT 06/09/2024 6:36 AM ADMINISTRATIVE PROGRAM SPECIALIST MAGNESIUM STAT 06/09/2024 6:36 AM ADMINISTRATIVE PROGRAM SPECIALIST BASIC METABOLIC PANEL STAT 06/09/2024 6:36 AM ADMINISTRATIVE PROGRAM SPECIALIST CBC WITHOUT DIFFERENTIAL STAT 024 6:36 AM ADMINISTRATIVE PROGRAM SPECIALIST POCT GLUCOSE DEVICE Routine 06/08/2024 9 :12 PM ADMINISTRATIVE PROGRAM SPECIALIST POCT GLUCOSE DEVICE Routine 06/08/2024 5 :33 PM ADMINISTRATIVE PROGRAM SPECIALIST XR ABDOMEN AP 1 VIEW ED Urgent/IP Urgent 06/08/2024 3:30 PM ADMINISTRATIVE PROGRAM SPECIALIST POCT GLUCOSE DEVICE Routine 06/08/2024 11:17 AM ADMINISTRATIVE PROGRAM SPECIALIST POCT GLUCOSE DEVICE Routine 06/08/2024 7 :34 AM ADMINISTRATIVE PROGRAM SPECIALIST POCT GLUCOSE DEVICE Routine 06/08/2024 3 :38 AM ADMINISTRATIVE PROGRAM SPECIALIST POCT GLUCOSE DEVICE Routine 06/07/2024 11:34 PM ADMINISTRATIVE PROGRAM SPECIALIST EGFR Routine 06/07/2024 9:38 PM ADMINISTRATIVE PROGRAM SPECIALIST PHOSPHORUS Routine 06/07/2024 9:38 PM ADMINISTRATIVE PROGRAM SPECIALIST MAGNESIUM Routine 06/07/2024 9:38 PM ADMINISTRATIVE PROGRAM SPECIALIST BASIC METABOLIC PANEL Routine 06/07/2024 9:38 PM ADMINISTRATIVE PROGRAM SPECIALIST CBC WITHOUT DIFFERENTIAL Routine 024 9:38 PM ADMINISTRATIVE PROGRAM SPECIALIST POCT GLUCOSE DEVICE Routine 06/07/2024 8 :15 PM ADMINISTRATIVE PROGRAM SPECIALIST POCT GLUCOSE DEVICE Routine 06/07/2024 5 :08 PM ADMINISTRATIVE PROGRAM SPECIALIST POCT GLUCOSE DEVICE Routine 06/07/2024 11:04 AM ADMINISTRATIVE PROGRAM SPECIALIST POCT GLUCOSE DEVICE Routine 06/07/2024 7:47 AM ADMINISTRATIVE PROGRAM SPECIALIST POCT GLUCOSE DEVICE Routine 06/06/2024 8 :27 PM ADMINISTRATIVE PROGRAM SPECIALIST POCT GLUCOSE DEVICE Routine 06/06/2024 5 :25 PM ADMINISTRATIVE PROGRAM SPECIALIST XR SPINE CERVICAL 2 OR 3 VIEWS IP Routine 06/06/2024 12:21 PM ADMINISTRATIVE PROGRAM SPECIALIST POCT GLUCOSE DEVICE Routine 06/06/2024 11:15 AM ADMINISTRATIVE PROGRAM SPECIALIST POCT GLUCOSE DEVICE Routine 06/06/2024 7 :41 AM ADMINISTRATIVE PROGRAM SPECIALIST POCT GLUCOSE DEVICE Routine 06/06/2024 6 :07 AM ADMINISTRATIVE PROGRAM SPECIALIST POCT GLUCOSE DEVICE Routine 06/06/2024 3 :50 AM ADMINISTRATIVE PROGRAM SPECIALIST POCT GLUCOSE DEVICE Routine 06/06/2024 1 :36 AM ADMINISTRATIVE PROGRAM SPECIALIST POCT GLUCOSE DEVICE Routine 06/05/2024 8 :48 PM ADMINISTRATIVE PROGRAM SPECIALIST CRITICAL CARE Routine 06/05/2024 8:42 PM ADMINISTRATIVE PROGRAM SPECIALIST Fall, initial encounter EGFR Routine 06/05/2024 7:32 PM ADMINISTRATIVE PROGRAM SPECIALIST DIFFERENTIAL AUTO Routine 06/05/2024 7:3 2 PM ADMINISTRATIVE PROGRAM SPECIALIST PHOSPHORUS Routine 06/05/2024 7:32 PM ADMINISTRATIVE PROGRAM SPECIALIST MAGNESIUM Routine 06/05/2024 7:32 PM ADMINISTRATIVE PROGRAM SPECIALIST COMPREHENSIVE METABOLIC PANEL Routine 06/05/2024 7:32 PM ADMINISTRATIVE PROGRAM SPECIALIST CBC WITH AUTO DIFFERENTIAL Routine 06/05/2024 7:32 PM ADMINISTRATIVE PROGRAM SPECIALIST POCT GLUCOSE DEVICE Routine 06/05/2024 6 :02 PM ADMINISTRATIVE PROGRAM SPECIALIST CRITICAL CARE Routine 06/05/2024 5:30 PM ADMINISTRATIVE PROGRAM SPECIALIST Central cord syndrome, subsequent encounter (HCC) POCT GLUCOSE DEVICE Routine 06/05/2024 12:51 PM ADMINISTRATIVE PROGRAM SPECIALIST POCT GLUCOSE DEVICE Routine 06/05/2024 8 :34 AM ADMINISTRATIVE PROGRAM SPECIALIST POCT GLUCOSE DEVICE Routine 06/05/2024 6 :07 AM ADMINISTRATIVE PROGRAM SPECIALIST POCT GLUCOSE DEVICE Routine 06/05/2024 5 :18 AM ADMINISTRATIVE PROGRAM SPECIALIST POCT GLUCOSE DEVICE Routine 06/05/2024 4 :17 AM ADMINISTRATIVE PROGRAM SPECIALIST POCT GLUCOSE DEVICE Routine 06/05/2024 3 :27 AM ADMINISTRATIVE PROGRAM SPECIALIST POCT GLUCOSE DEVICE Routine 06/04/2024 11:34 PM ADMINISTRATIVE PROGRAM SPECIALIST CRITICAL CARE Routine 06/04/2024 11:00 PM ADMINISTRATIVE PROGRAM SPECIALIST Central cord syndrome, subsequent encounter (HCC) POCT GLUCOSE DEVICE Routine 06/04/2024 8 :09 PM ADMINISTRATIVE PROGRAM SPECIALIST POCT GLUCOSE DEVICE Routine 06/04/2024 7 :00 PM ADMINISTRATIVE PROGRAM SPECIALIST LIPID PANEL STAT 06/04/2024 5:40 PM ADMINISTRATIVE PROGRAM SPECIALIST EGFR STAT 06/04/2024 5:40 PM ADMINISTRATIVE PROGRAM SPECIALIST DIFFERENTIAL AUTO STAT 06/04/2024 5:4 0 PM ADMINISTRATIVE PROGRAM SPECIALIST CBC WITH AUTO DIFFERENTIAL STAT 06/04/2024 5:40 PM ADMINISTRATIVE PROGRAM SPECIALIST PHOSPHORUS STAT 06/04/2024 5:40 PM ADMINISTRATIVE PROGRAM SPECIALIST MAGNESIUM STAT 06/04/2024 5:40 PM ADMINISTRATIVE PROGRAM SPECIALIST COMPREHENSIVE METABOLIC PANEL STAT 06/04/2024 5:40 PM ADMINISTRATIVE PROGRAM SPECIALIST CT THORACIC AND LUMBAR SPINE WO CONTRAST ED Urgent/IP Urgent 06/04/2024 4:37 PM ADMINISTRATIVE PROGRAM SPECIALIST POCT GLUCOSE DEVICE Routine 06/04/2024 3 :08 PM ADMINISTRATIVE PROGRAM SPECIALIST POCT GLUCOSE DEVICE Routine 06/04/2024 2 :10 PM ADMINISTRATIVE PROGRAM SPECIALIST POCT GLUCOSE DEVICE Routine 06/04/2024 1 :20 PM ADMINISTRATIVE PROGRAM SPECIALIST POCT GLUCOSE DEVICE Routine 06/04/2024 12:00 PM ADMINISTRATIVE PROGRAM SPECIALIST FL FLUOROSCOPY < 1 HOUR IP Routine 06/04/20 11:38 AM ADMINISTRATIVE PROGRAM SPECIALIST POCT GLUCOSE DEVICE Routine 06/04/2024 11:03 AM ADMINISTRATIVE PROGRAM SPECIALIST POCT GLUCOSE DEVICE Routine 06/04/2024 9 :51 AM ADMINISTRATIVE PROGRAM SPECIALIST DC AN PROCEDURE PLACEHOLDER Routine 06/04/2024 9:46 AM ADMINISTRATIVE PROGRAM SPECIALIST DC AN ELECTIVE ENDOTRACHEAL AIRWAY Routine 06/04/2024 9:46 AM ADMINISTRATIVE PROGRAM SPECIALIST FUSION CERVICAL/THORACIC - POSTERIOR WITH INSTRUMENTATION 06/04/2024 9:06 AM ADMINISTRATIVE PROGRAM SPECIALIST Central cord syndrome, initial encounter (HCC) Case Notes Ronnie [id number], Cam awareE @ 0809 DC ARTL CATHJ/CANNULJ MNTR/TRANSFUSION SPX PRQ Routine 06/04/2024 9:04 AM ADMINISTRATIVE PROGRAM SPECIALIST MRI CERVICAL SPINE WO CONTRAST Critical/Life- Threatening 06/04/2024 7:48 AM ADMINISTRATIVE PROGRAM SPECIALIST SCAN - RADIOLOGY/IMAGING 7:02 AM ADMINISTRATIVE PROGRAM SPECIALIST SCAN - RADIOLOGY/IMAGING 7:00 AM ADMINISTRATIVE PROGRAM SPECIALIST SCAN - LABS 06/04/2024 6:55 AM ADMINISTRATIVE PROGRAM SPECIALIST NEURO CT OUTSIDE CONSULT Routine 6:53 AM ADMINISTRATIVE PROGRAM SPECIALIST NEURO CT OUTSIDE CONSULT Routine 6:50 AM ADMINISTRATIVE PROGRAM SPECIALIST SCAN - RADIOLOGY/IMAGING 024 6:49 AM ADMINISTRATIVE PROGRAM SPECIALIST XR TRANSFER OF OUTSIDE FILMS Routine 06/04/2024 6:46 AM ADMINISTRATIVE PROGRAM SPECIALIST POCT GLUCOSE DEVICE Routine 06/04/2024 6 :43 AM ADMINISTRATIVE PROGRAM SPECIALIST POCT LACTATE - DEVICE Routine 06/04/2024 6:38 AM ADMINISTRATIVE PROGRAM SPECIALIST POC BLOOD GAS AND CHEMISTRIES, ARTERIAL Routine 06/04/2024 6:34 AM ADMINISTRATIVE PROGRAM SPECIALIST POCT GLUCOSE DEVICE Routine 06/04/2024 6 :34 AM ADMINISTRATIVE PROGRAM SPECIALIST DC CRITICAL CARE ILL/INJURED PATIENT INIT 30-74 MIN Routine 06/04/2024 6:29 AM ADMINISTRATIVE PROGRAM SPECIALIST B CHECK SAMPLE STAT 06/04/2024 6:29 AM ADMINISTRATIVE PROGRAM SPECIALIST XR CHEST 1 VIEW ED 06/04/2024 6:22 AM ADMINISTRATIVE PROGRAM SPECIALIST XR PELVIS 1 OR 2 VIEWS ED 6:22 AM ADMINISTRATIVE PROGRAM SPECIALIST THROMBOELASTOMETRY PANEL - INTRINSIC STAT 06/04/2024 5:56 AM ADMINISTRATIVE PROGRAM SPECIALIST THROMBOELASTOMETRY PANEL - HEPARIN STAT 06/04/2024 5:56 AM ADMINISTRATIVE PROGRAM SPECIALIST THROMBOELASTOMETRY PANEL - EXTRINSIC STAT 06/04/2024 5:56 AM ADMINISTRATIVE PROGRAM SPECIALIST THROMBOELASTOMETRY PANEL - FIBRINOGEN STAT 06/04/2024 5:56 AM ADMINISTRATIVE PROGRAM SPECIALIST EGFR STAT 06/04/2024 5:56 AM ADMINISTRATIVE PROGRAM SPECIALIST DIFFERENTIAL AUTO STAT 06/04/2024 5:5 6 AM ADMINISTRATIVE PROGRAM SPECIALIST BASIC METABOLIC PANEL STAT 06/04/2024 5:56 AM ADMINISTRATIVE PROGRAM SPECIALIST THROMBOELASTOMETRY PANEL STAT 5:56 AM ADMINISTRATIVE PROGRAM SPECIALIST PROTIME-INR STAT 06/04/2024 5:56 AM ADMINISTRATIVE PROGRAM SPECIALIST APTT STAT 06/04/2024 5:56 AM ADMINISTRATIVE PROGRAM SPECIALIST ETHANOL STAT 06/04/2024 5:56 AM ADMINISTRATIVE PROGRAM SPECIALIST CBC WITH AUTO DIFFERENTIAL STAT 06/04/2024 5:56 AM ADMINISTRATIVE PROGRAM SPECIALIST BLOOD GAS, VENOUS STAT 06/04/2024 5:5 6 AM ADMINISTRATIVE PROGRAM SPECIALIST TYPE AND SCREEN STAT 06/04/2024 5:56 AM ADMINISTRATIVE PROGRAM SPECIALIST POCT HEMOGLOBIN A1C Routine 05/12/2024 11:45 AM ADMINISTRATIVE PROGRAM SPECIALIST Type 2 diabetes mellitus with diabetic polyneuropathy, without long-term current use of insulin (HCC) CT LUNG CANCER SCREENING Schedule Routine, Read Routine (OP Routine) 07/11/2023 7:52 AM ADMINISTRATIVE PROGRAM SPECIALIST Personal history of nicotine dependence ALBUMIN CREATININE RATIO, URINE Routine 11/22/2022 12:31 PM CDT Type 2 diabetes mellitus without complication, without long-term current use of insulin (CMS/HCC) (HCC) Mixed hyperlipidemia Rheumatoid arthritis of both wrists, unspecified whether rheumatoid factor present (HCC) Cellulitis of left toe CT ABDOMEN PELVIS W CONTRAST Schedule Routine, Read Routine (OP Routine) 05/18/2022 5:13 PM ADMINISTRATIVE PROGRAM SPECIALIST Abdominal pain HEPATITIS C AB W/REFL TO HCV RNA, QN, PCR (REFL) Routine 09/07/2021 2:48 PM ADMINISTRATIVE PROGRAM SPECIALIST Pain in both wrists Fatigue, unspecified type PSA SCREEN Routine 01/25/2021 1:39 PM CDT Type 2 diabetes mellitus without complication, without long-term current use of insulin (CMS/HCC) (HCC) Essential hypertension from Last 3 Months or Most Recently Relevant to Health Maintenance Results * SCAN - LABS (07/28/2024 1:20 AM ADMINISTRATIVE PROGRAM SPECIALIST) Tim Horton MD Final Result * (ABNORMAL) POCT hemoglobin A1c (07/23/2024 12:36 PM ADMINISTRATIVE PROGRAM SPECIALIST) Hemoglobin A1C, POC 5.9 4.0 - 5.6 % Blood 07/23/2024 12:3 6 PM ADMINISTRATIVE PROGRAM SPECIALIST Tim Horton MD POINT OF CARE TEST ORDERABLES Final Result * CS GLUCOSE (07/02/2024 5:21 AM ADMINISTRATIVE PROGRAM SPECIALIST) Glucose 85 70 - 199 mg/dL IRENE JENKINS Comment: Interpretive Data Fasting glucose >/= 126 mg/dl is diagnostic for diabetes. ?? Fasting is defined as no caloric intake for at least 8 hours. Fasting glucose between 100 mg/dl to 125 mg/dl is diagnostic of prediabetes. In a patient with classic symptoms of hyperglycemia or hyperglycemic crisis, a random glucose >/= 200 mg/dl is diagnostic for diabetes. In the absence of unequivocal hyperglycemia, results should be confirmed by repeat testing. The classification and Diagnosis of Diabetes Diabetes Care 2021; 46: S19-S40. Current interpretive data was last revised 2022. Testing performed by: [facility], [address] [place] [address]., [address] Blood 07/02/2024 5:21 AM ADMINISTRATIVE PROGRAM SPECIALIST 07/02/2024 6:56 AM ADMINISTRATIVE PROGRAM SPECIALIST Notinfile Unknown LAB BLOOD ORDERABLES Final Res ult IRENE JENKINS One [facility] Department [place] [address] * (ABNORMAL) CS BASIC METABOLIC PANEL (07/02/2024 5:21 AM ADMINISTRATIVE PROGRAM SPECIALIST) Pathologist [facility] Sodium 140 135 - 145 mmol/L IRENE JENKINS Comment:Testing performed by : [facility], [address] [place] [address]., [address] Potassium, pl 4.0 3.3 - 4.9 mmol/L [facility] Comment:Testing performed by : [facility], [address] [facility], [address] Chloride 108 97 - 110 mmol/L [facility] Comment:Testing performed by : [facility], [address] [facility], [address] CO2 25 22 - 32 mmol/L [facility] Comment:Testing performed by : [facility], [address] [facility], [address] Anion gap 7 2 - 15 mmol/L [facility] Comment:Testing performed by : [facility], [address] [facility], [address] BUN 8 6 - 25 mg/dL [facility] Comment:Testing performed by : [facility], [address] [facility], [address] Creatinine 0.73(L) 0.80 - 1.30 mg/dL [facility] Comment:Testing performed by : [facility], [address] [facility], [address] Calcium 8.6 8.5 - 10.3 mg/dL [facility] Comment:Testing performed by : [facility], [address] [facility], [address] Blood 07/02/2024 5:21 AM ADMINISTRATIVE PROGRAM SPECIALIST 07/02/2024 6:56 AM ADMINISTRATIVE PROGRAM SPECIALIST us Notinfile Unknown LAB BLOOD ORDERABLES Final Res ult [facility]ENE [facility] One [facility] Department [place] [address] * eGFR (07/02/2024 5:21 AM ADMINISTRATIVE PROGRAM SPECIALIST) eGFR >90 >=60 mL/min/1. 73 m2 IRENE [facility] Comment: Interpretive Data Reference Interval Normal ?>/= 90 mL/min/1.73m2 Mildly decreased* ? 60 - 89 mL/min/1.73m2 Mildly to moderately decreased ?45 - 59 mL/min/1.73m2 Moderately to severely decreased ??30 - 44 mL/min/1.73m2 Severely decreased ?15 - 29 mL/min/1.73m2 Kidney Failure ?< 15 ??mL/min/1.73m2 *Relative to young adult level Estimated glomerular filtration rate is determined by the 2020 CKD-EPI equation recommended by the National Kidney Foundation (A Unifying Approach to GFR Estimation: Recommendations of the NKF-ASK Task Force on Reassessing the Inclusion of Race in Diagnosing Kidney Disease, JASN 2020). The CKD-EPI equation should not be used for patients with unstable renal function and has not been validated in children and those over 70. Current interpretive data was last reviewed 2021. Testing performed by: [facility], [address] [place] [address]., [address] Blood 07/02/2024 5:21 AM ADMINISTRATIVE PROGRAM SPECIALIST 07/02/2024 6:56 AM ADMINISTRATIVE PROGRAM SPECIALIST us Notinfile Unknown LAB BLOOD ORDERABLES Final Res ult [facility] One [facility] Department [place] [address] * (ABNORMAL) CBC without differential (07/02/2024 5:21 AM ADMINISTRATIVE PROGRAM SPECIALIST) WBC 5.8 3.8 - 9.9 K/cumm [facility] Comment:Testing performed by : [facility], [address] [place] [address]., [address] Hgb 11.5(L) 13.0 - 17.5 g/dL [facility] Comment:Testing performed by : [facility], [address] [facility], [address] Hct 35.6(L) 38.9 - 50.3 % [facility] Comment:Testing performed by : [facility], [address] [facility], [address] Plt 234 150 - 400 K/cumm [facility] Comment:Testing performed by : [facility], [address] [facility], [address] MPV 10.2 9.1 - 12.3 fL [facility] Comment:Testing performed by : [facility], [address] [facility], [address] RBC 3.80(L) 4.30 - 5.80 M/cumm [facility] Comment:Testing performed by : [facility], [address] [facility], [address] MCV 93.7 81.3 - 96.4 fL [facility] Comment:Testing performed by : [facility], [address] [facility], [address] MCH 30.3 27.1 - 33.3 pg [facility] Comment:Testing performed by : [facility], [address] [facility], [address] MCHC 32.3 32.3 - 35.7 g/dL [facility] Comment:Testing performed by : [facility], [address] [facility], [address] RDW CV 12.2 11.1 - 14.9 % [facility] Comment:Testing performed by : [facility], [address] [facility], [address] RDW SD 41.9 35.7 - 48.1 fL [facility] Comment:Testing performed by : [facility], [address] [facility], [address] NRBC abs 0.00 0.00 - 0.01 K/cumm [facility] Comment:Testing performed by : [facility], [address] [place] [address]., [address] Blood 07/02/2024 5:21 AM ADMINISTRATIVE PROGRAM SPECIALIST 07/02/2024 6:56 AM ADMINISTRATIVE PROGRAM SPECIALIST us Notinfile Unknown LAB BLOOD ORDERABLES Final Res ult Performing Organization Address City/[facility]/ZIP Co de Phone Number [facility] One [facility] Department [place] [address] * CS GLUCOSE (06/29/2024 10:23 AM ADMINISTRATIVE PROGRAM SPECIALIST) Glucose 99 70 - 199 mg/dL [facility] Comment: Interpretive Data Fasting glucose >/= 126 mg/dl is diagnostic for diabetes. ?? Fasting is defined as no caloric intake for at least 8 hours. Fasting glucose between 100 mg/dl to 125 mg/dl is diagnostic of prediabetes. In a patient with classic symptoms of hyperglycemia or hyperglycemic crisis, a random glucose >/= 200 mg/dl is diagnostic for diabetes. In the absence of unequivocal hyperglycemia, results should be confirmed by repeat testing. The classification and Diagnosis of Diabetes Diabetes Care 2021; 46: S19-S40. Current interpretive data was last revised 2022. Testing performed by: [facility], [address] [place] [address]., [address] Blood 06/29/2024 10:2 3 AM ADMINISTRATIVE PROGRAM SPECIALIST 06/29/2024 10:52 AM ADMINISTRATIVE PROGRAM SPECIALIST Narrative [facility] - 06/29/2024 11:30 AM ADMINISTRATIVE PROGRAM SPECIALIST Draw in Dialysis us Notinfile Unknown LAB BLOOD ORDERABLES Final Res ult Performing Organization Address City/[facility]/ZIP Co de Phone Number [facility] One [facility] Department [place] [address] * eGFR (06/29/2024 10:23 AM ADMINISTRATIVE PROGRAM SPECIALIST) eGFR >90 >=60 mL/min/1. 73 m2 IRENE [facility] Comment: Interpretive Data Reference Interval Normal ?>/= 90 mL/min/1.73m2 Mildly decreased* ? 60 - 89 mL/min/1.73m2 Mildly to moderately decreased ?45 - 59 mL/min/1.73m2 Moderately to severely decreased ??30 - 44 mL/min/1.73m2 Severely decreased ?15 - 29 mL/min/1.73m2 Kidney Failure ?< 15 ??mL/min/1.73m2 *Relative to young adult level Estimated glomerular filtration rate is determined by the 2020 CKD-EPI equation recommended by the National Kidney Foundation (A Unifying Approach to GFR Estimation: Recommendations of the NKF-ASK Task Force on Reassessing the Inclusion of Race in Diagnosing Kidney Disease, JASN 2020). The CKD-EPI equation should not be used for patients with unstable renal function and has not been validated in children and those over 70. Current interpretive data was last reviewed 2021. Testing performed by: [facility], [address] [place] [address]., [address] Blood 06/29/2024 10:2 3 AM ADMINISTRATIVE PROGRAM SPECIALIST 06/29/2024 10:52 AM ADMINISTRATIVE PROGRAM SPECIALIST us Notinfile Unknown LAB BLOOD ORDERABLES Final Res ult [facility] One [facility] Department [place] [address] * (ABNORMAL) Comprehensive metabolic panel, without glucose (Outreach) (06/29/2024 10:23 AM ADMINISTRATIVE PROGRAM SPECIALIST) Sodium 140 135 - 145 mmol/L [facility] Comment:Testing performed by : [facility], [address] [place] [address]., [address] Potassium, pl 4.3 3.3 - 4.9 mmol/L [facility] Comment:Testing performed by : [facility], [address] [facility], [address] Chloride 107 97 - 110 mmol/L [facility] Comment:Testing performed by : [facility], [address] [facility], [address] CO2 22 22 - 32 mmol/L [facility] Comment:Testing performed by : [facility], [address] [facility], [address] Anion gap 11 2 - 15 mmol/L [facility] Comment:Testing performed by : [facility], [address] [facility], [address] BUN 6 6 - 25 mg/dL [facility] Comment:Testing performed by : [facility], [address] [facility], [address] Creatinine 0.67(L) 0.80 - 1.30 mg/dL [facility] Comment:Testing performed by : [facility], [address] [facility], [address] Calcium 8.9 8.5 - 10.3 mg/dL [facility] Comment:Testing performed by : [facility], [address] [facility], [address] Protein, pl 6.5 6.5 - 8.5 g/dL [facility] Comment:Testing performed by : [facility], [address] [facility], [address] Albumin 3.7 3.5 - 5.0 g/dL [facility] Comment:Testing performed by : [facility], [address] [facility], [address] Bilirubin, total 0.3 0.1 - 1.2 mg/dL [facility] Comment:Testing performed by : [facility], [address] [facility], [address] Alk phos 82 40 - 130 Units/L [facility] Comment:Testing performed by : [facility], [address] [facility], [address] AST 17 10 - 50 Units/L [facility] Comment:Testing performed by : [facility], [address] [facility], [address] ALT 12 7 - 55 Units/L [facility] Comment:Testing performed by : [facility], [address] [facility], [address] Blood 06/29/2024 10:2 3 AM ADMINISTRATIVE PROGRAM SPECIALIST 06/29/2024 10:52 AM ADMINISTRATIVE PROGRAM SPECIALIST Narrative [facility]ENE [facility] - 06/29/2024 11:30 AM ADMINISTRATIVE PROGRAM SPECIALIST Draw in Dialysis us Notinfile Unknown LAB BLOOD ORDERABLES Final Res ult [facility] One [facility] Department [place] [address] * (ABNORMAL) CBC without differential (06/29/2024 10:23 AM ADMINISTRATIVE PROGRAM SPECIALIST) WBC 5.7 3.8 - 9.9 K/cumm [facility] Comment:Testing performed by : [facility], [address] [facility], [address] Hgb 11.3(L) 13.0 - 17.5 g/dL [facility] Comment:Testing performed by : [facility], [address] [facility], [address] Hct 35.3(L) 38.9 - 50.3 % [facility] Comment:Testing performed by : [facility], [address] [facility], [address] Plt 251 150 - 400 K/cumm [facility] Comment:Testing performed by : [facility], [address] [facility], [address] MPV 10.3 9.1 - 12.3 fL [facility] Comment:Testing performed by : [facility], [address] [place]., [address] RBC 3.70(L) 4.30 - 5.80 M/cumm [facility] Comment:Testing performed by : [facility], [address] [facility], [address] MCV 95.4 81.3 - 96.4 fL [facility] Comment:Testing performed by : [facility], [address] [facility], [address] MCH 30.5 27.1 - 33.3 pg [facility] Comment:Testing performed by : [facility], [address] [facility], [address] MCHC 32.0(L) 32.3 - 35.7 g/dL [facility] Comment:Testing performed by : [facility], [address] [facility], [address] RDW CV 12.3 11.1 - 14.9 % [facility] Comment:Testing performed by : [facility], [address] [facility], [address] RDW SD 43.3 35.7 - 48.1 fL [facility] Comment:Testing performed by : [facility], [address] [facility], [address] NRBC abs 0.00 0.00 - 0.01 K/cumm [facility] Comment:Testing performed by : [facility], [address] [facility], [address] Blood 06/29/2024 10:2 3 AM ADMINISTRATIVE PROGRAM SPECIALIST 06/29/2024 10:52 AM ADMINISTRATIVE PROGRAM SPECIALIST [facility]ative [facility] - 06/29/2024 11:12 AM ADMINISTRATIVE PROGRAM SPECIALIST Draw in Dialysis us Notinfile Unknown LAB BLOOD ORDERABLES Final Res ult [facility] One [facility] Department [place] [address] * CS GLUCOSE (06/25/2024 11:00 AM ADMINISTRATIVE PROGRAM SPECIALIST) Glucose 98 70 - 199 mg/dL [facility] Comment: Interpretive Data Fasting glucose >/= 126 mg/dl is diagnostic for diabetes. ?? Fasting is defined as no caloric intake for at least 8 hours. Fasting glucose between 100 mg/dl to 125 mg/dl is diagnostic of prediabetes. In a patient with classic symptoms of hyperglycemia or hyperglycemic crisis, a random glucose >/= 200 mg/dl is diagnostic for diabetes. In the absence of unequivocal hyperglycemia, results should be confirmed by repeat testing. The classification and Diagnosis of Diabetes Diabetes Care 202; 46: S19-S40. Current interpretive data was last revised 2022. Testing performed by: [facility], [address] [facility], [place]., [address] Blood 06/25/2024 11:0 0 AM ADMINISTRATIVE PROGRAM SPECIALIST 06/25/2024 11:40 AM ADMINISTRATIVE PROGRAM SPECIALIST Medicine LAB BLOOD ORDERABLES Final Resul t [facility] One [facility] Department [place] [address] * eGFR (06/25/2024 11:00 AM ADMINISTRATIVE PROGRAM SPECIALIST) eGFR >90 >=60 mL/min/1. 73 m2 IRENE JENKINS Comment: Interpretive Data Reference Interval Normal ?>/= 90 mL/min/1.73m2 Mildly decreased* ? 60 - 89 mL/min/1.73m2 Mildly to moderately decreased ?45 - 59 mL/min/1.73m2 Moderately to severely decreased ??30 - 44 mL/min/1.73m2 Severely decreased ?15 - 29 mL/min/1.73m2 Kidney Failure ?< 15 ??mL/min/1.73m2 *Relative to young adult level Estimated glomerular filtration rate is determined by the 2020 CKD-EPI equation recommended by the National Kidney Foundation (A Unifying Approach to GFR Estimation: Recommendations of the NKF-ASK Task Force on Reassessing the Inclusion of Race in Diagnosing Kidney Disease, JASN 2020). The CKD-EPI equation should not be used for patients with unstable renal function and has not been validated in children and those over 70. Current interpretive data was last reviewed 2021. Testing performed by: [facility], [address] [place]., [address] Blood 06/25/2024 11:0 0 AM ADMINISTRATIVE PROGRAM SPECIALIST 06/25/2024 11:45 AM ADMINISTRATIVE PROGRAM SPECIALIST Medicine LAB BLOOD ORDERABLES Final Resul t [facility] One [facility] Department [place] [address] * Differential, auto (06/25/2024 11:00 AM ADMINISTRATIVE PROGRAM SPECIALIST) Neutrophil abs 3.4 1.5 - 6.5 K/cumm [facility] Comment:Testing performed by : [facility], [address] [place]., [address] Imm gran abs 0.0 0.0 - 0.1 K/cumm [facility] Comment:Testing performed by : [facility], [address] [place]., [address] Lymphocyte abs 1.4 0.8 - 3.3 K/cumm [facility] Comment:Testing performed by : [facility], [address] [place]., [address] Monocyte abs 0.6 0.2 - 0.8 K/cumm [facility] Comment:Testing performed by : [facility], [address] [place]., [address] Eosinophil abs 0.2 0.0 - 0.5 K/cumm [facility] Comment:Testing performed by : [facility], [address] [place]., [address] Basophil abs 0.0 0.0 - 0.1 K/cumm [facility] Comment:Testing performed by : [facility], [address] [place]., [address] Neutrophil pct 60.7 % [facility] Comment: Interpretive Data Percent cell count reference ranges are not reported, since discordance with absolute values may lead to misinterpretation of CBC data. Current Interpretive Data was last revised on 2017. Testing performed by: [facility], [address] [place]., [address] Imm gran pct 0.5 % [facility] Comment: Interpretive Data Percent cell count reference ranges are not reported, since discordance with absolute values may lead to misinterpretation of CBC data. Current Interpretive Data was last revised on 2017. Testing performed by: [facility], [address] [place]., [address] Lymphocyte pct 25.1 % [facility] Comment: Interpretive Data Percent cell count reference ranges are not reported, since discordance with absolute values may lead to misinterpretation of CBC data. Current Interpretive Data was last revised on 2017. Testing performed by: [facility], [address] [place] [address]., [address] Monocyte pct 10.8 % [facility] Comment: Interpretive Data Percent cell count reference ranges are not reported, since discordance with absolute values may lead to misinterpretation of CBC data. Current Interpretive Data was last revised on 2017. Testing performed by: [facility], [address] [place]., [address] Eosinophil pct 2.9 % [facility] Comment: Interpretive Data Percent cell count reference ranges are not reported, since discordance with absolute values may lead to misinterpretation of CBC data. Current Interpretive Data was last revised on 2017. Testing performed by: [facility], [address] [place] [address] Basophil pct 0.0 % [facility] Comment: Interpretive Data Percent cell count reference ranges are not reported, since discordance with absolute values may lead to misinterpretation of CBC data. Current Interpretive Data was last revised on 2017. Testing performed by: [facility], [address] [place]., [address] Blood 06/25/2024 11:0 0 AM ADMINISTRATIVE PROGRAM SPECIALIST 06/25/2024 11:41 AM ADMINISTRATIVE PROGRAM SPECIALIST Medicine LAB BLOOD ORDERABLES Final Resul t [facility] One [facility] Department [place] [address] * (ABNORMAL) Comprehensive metabolic panel, without glucose (Outreach) (06/25/2024 11:00 AM ADMINISTRATIVE PROGRAM SPECIALIST) Sodium 139 135 - 145 mmol/L [facility] Comment:Testing performed by : [facility], [address] [place]., [address] Potassium, pl 4.6 3.3 - 4.9 mmol/L [facility] Comment:Testing performed by : [facility], [address] [facility], [address] Chloride 104 97 - 110 mmol/L [facility] Comment:Testing performed by : [facility], [address] [place]., [address] CO2 22 22 - 32 mmol/L [facility] Comment:Testing performed by : [facility], [address] [place]., [address] Anion gap 13 2 - 15 mmol/L [facility] Comment:Testing performed by : [facility], [address] [place]., [address] BUN 7 6 - 25 mg/dL [facility] Comment:Testing performed by : [facility], [address] [facility], [address] Creatinine 0.67(L) 0.80 - 1.30 mg/dL [facility] Comment:Testing performed by : [facility], [address] [facility], [address] Calcium 8.7 8.5 - 10.3 mg/dL [facility] Comment:Testing performed by : [facility], [address] [facility], [address] Protein, pl 6.2(L) 6.5 - 8.5 g/dL [facility] Comment:Testing performed by : [facility], [address] [facility], [address] Albumin 3.5 3.5 - 5.0 g/dL [facility] Comment:Testing performed by : [facility], [address] [facility], [address] Bilirubin, total 0.3 0.1 - 1.2 mg/dL [facility] Comment:Testing performed by : [facility], [address] [facility], [address] Alk phos 85 40 - 130 Units/L [facility] Comment:Testing performed by : [facility], 1 [facility], [address] AST 26 10 - 50 Units/L [facility] Comment:Testing performed by : [facility], [address] [place] [address], [address] ALT 15 7 - 55 Units/L [facility] Comment:Testing performed by : [facility], [address] [place] [address], [address] Blood 06/25/2024 11:0 0 AM ADMINISTRATIVE PROGRAM SPECIALIST 06/25/2024 11:40 AM ADMINISTRATIVE PROGRAM SPECIALIST Medicine LAB BLOOD ORDERABLES Final Resul t [facility] One [facility] Department [place] [address] * (ABNORMAL) CBC with auto differential (06/25/2024 11:00 AM ADMINISTRATIVE PROGRAM SPECIALIST) [facility] WBC 5.6 3.8 - 9.9 K/cumm [facility] Comment:Testing performed by : [facility], 1 [facility], [address] Hgb 11.0(L) 13.0 - 17.5 g/dL [facility] Comment:Testing performed by : [facility], 1 [facility], [address] Hct 33.9(L) 38.9 - 50.3 % [facility] Comment:Testing performed by : [facility], 1 [facility], [address] Plt 252 150 - 400 K/cumm [facility] Comment:Testing performed by : [facility], 1 [facility], [address] MPV 9.9 9.1 - 12.3 fL [facility] Comment:Testing performed by : [facility], 1 [facility], [address] RBC 3.54(L) 4.30 - 5.80 M/cumm [facility] Comment:Testing performed by : [facility], 1 [facility], [address] MCV 95.8 81.3 - 96.4 fL [facility] Comment:Testing performed by : [facility], 1 [facility], [address] MCH 31.1 27.1 - 33.3 pg [facility] Comment:Testing performed by : [facility], [address] [place] [address], [address] MCHC 32.4 32.3 - 35.7 g/dL [facility] Comment:Testing performed by : [facility], 1 [facility], [address] RDW CV 12.4 11.1 - 14.9 % [facility] Comment:Testing performed by : [facility], [address] [place]., [address] RDW SD 43.3 35.7 - 48.1 fL [facility] Comment:Testing performed by : [facility], [address] [place]., [address] NRBC abs 0.00 0.00 - 0.01 K/cumm [facility] Comment:Testing performed by : [facility], [address] [place]., [address] Blood 06/25/2024 11:0 0 AM ADMINISTRATIVE PROGRAM SPECIALIST 06/25/2024 11:41 AM ADMINISTRATIVE PROGRAM SPECIALIST us Medicine LAB BLOOD ORDERABLES Final Resul t [facility] One [facility] Department [place] [address] * CS GLUCOSE (06/22/2024 8:29 AM ADMINISTRATIVE PROGRAM SPECIALIST) [facility] Signature Glucose 138 70 - 199 mg/dL [facility] Comment: Interpretive Data Fasting glucose >/= 126 mg/dl is diagnostic for diabetes. ?? Fasting is defined as no caloric intake for at least 8 hours. Fasting glucose between 100 mg/dl to 125 mg/dl is diagnostic of prediabetes. In a patient with classic symptoms of hyperglycemia or hyperglycemic crisis, a random glucose >/= 200 mg/dl is diagnostic for diabetes. In the absence of unequivocal hyperglycemia, results should be confirmed by repeat testing. The classification and Diagnosis of Diabetes Diabetes Care 2021; 46: S19-S40. Current interpretive data was last revised 2022. Testing performed by: [facility], [address] [place]., [address] Blood 06/22/2024 8:29 AM ADMINISTRATIVE PROGRAM SPECIALIST 06/22/2024 12:52 PM ADMINISTRATIVE PROGRAM SPECIALIST Narrative IRENE JENKINS - 06/22/2024 1:37 PM ADMINISTRATIVE PROGRAM SPECIALIST Draw in Dialysis us Notinfile Unknown LAB BLOOD ORDERABLES Final Res ult Performing Organization Address [facility]/ZIP Co de Phone Number IRENE JENKINS One [facility] Department [place] [address] * eGFR (06/22/2024 8:29 AM ADMINISTRATIVE PROGRAM SPECIALIST) eGFR >90 >=60 mL/min/1. 73 m2 [facility] Comment: Interpretive Data Reference Interval Normal ?>/= 90 mL/min/1.73m2 Mildly decreased* ? 60 - 89 mL/min/1.73m2 Mildly to moderately decreased ?45 - 59 mL/min/1.73m2 Moderately to severely decreased ??30 - 44 mL/min/1.73m2 Severely decreased ?15 - 29 mL/min/1.73m2 Kidney Failure ?< 15 ??mL/min/1.73m2 *Relative to young adult level Estimated glomerular filtration rate is determined by the 2020 CKD-EPI equation recommended by the National Kidney Foundation (A Unifying Approach to GFR Estimation: Recommendations of the NKF-ASK Task Force on Reassessing the Inclusion of Race in Diagnosing Kidney Disease, JASN 2020). The CKD-EPI equation should not be used for patients with unstable renal function and has not been validated in children and those over 70. Current interpretive data was last reviewed 2021. Testing performed by: [facility], 1 [facility], [place]., [address] Blood 06/22/2024 8:29 AM ADMINISTRATIVE PROGRAM SPECIALIST 06/22/2024 1:08 PM ADMINISTRATIVE PROGRAM SPECIALIST us Notinfile Unknown LAB BLOOD ORDERABLES Final Res ult Performing Organization Address [facility]/ZIP Co de Phone Number IRENE JENKINS One [facility] Department [place] [address] * (ABNORMAL) Comprehensive metabolic panel, without glucose (Outreach) (06/22/2024 8:29 AM ADMINISTRATIVE PROGRAM SPECIALIST) Sodium 138 135 - 145 mmol/L [facility] Comment:Testing performed by : [facility], 1 [facility], [address] Potassium, pl 4.3 3.3 - 4.9 mmol/L [facility] Comment:Testing performed by : [facility], 1 [facility], [address] Chloride 105 97 - 110 mmol/L [facility] Comment:Testing performed by : [facility], 1 [facility], [address] CO2 23 22 - 32 mmol/L [facility] Comment:Testing performed by : [facility], 1 [facility], [address] Anion gap 10 2 - 15 mmol/L [facility] Comment:Testing performed by : [facility], 1 [facility], [address] BUN 6 6 - 25 mg/dL [facility] Comment:Testing performed by : [facility], 1 [facility], [address] Creatinine 0.69(L) 0.80 - 1.30 mg/dL [facility] Comment:Testing performed by : [facility], 1 [facility], [address] Calcium 8.8 8.5 - 10.3 mg/dL [facility] Comment:Testing performed by : [facility], 1 [facility], [address] Protein, pl 6.5 6.5 - 8.5 g/dL [facility] Comment:Testing performed by : [facility], 1 [facility], [address] Albumin 3.5 3.5 - 5.0 g/dL [facility] Comment:Testing performed by : [facility], 1 [facility], [address] Bilirubin, total 0.4 0.1 - 1.2 mg/dL [facility] Comment:Testing performed by : [facility], 1 [facility], [address] Alk phos 89 40 - 130 Units/L [facility] Comment:Testing performed by : [facility], 1 [facility], [address] AST 29 10 - 50 Units/L [facility] Comment:Testing performed by : [facility], 1 [facility], [address] ALT 24 7 - 55 Units/L [facility] Comment:Testing performed by : [facility], 1 [facility], [address] Blood 06/22/2024 8:29 AM ADMINISTRATIVE PROGRAM SPECIALIST 06/22/2024 12:52 PM ADMINISTRATIVE PROGRAM SPECIALIST Narrative [facility] - 06/22/2024 1:38 PM ADMINISTRATIVE PROGRAM SPECIALIST Draw in Dialysis us Notinfile Unknown LAB BLOOD ORDERABLES Final Res ult [facility] One [facility] Department [place] [address] * (ABNORMAL) CBC without differential (06/22/2024 8:29 AM ADMINISTRATIVE PROGRAM SPECIALIST) WBC 7.7 3.8 - 9.9 K/cumm [facility] Comment:Testing performed by : [facility], [address] [place]., [address] Hgb 11.1(L) 13.0 - 17.5 g/dL [facility] Comment:Testing performed by : [facility], 1 [facility], [address] Hct 34.5(L) 38.9 - 50.3 % [facility] Comment:Testing performed by : [facility], 1 [facility], [address] Plt 320 150 - 400 K/cumm [facility] Comment:Testing performed by : [facility], 1 [facility], [address] MPV 9.6 9.1 - 12.3 fL [facility] Comment:Testing performed by : [facility], 1 [facility], [address] RBC 3.62(L) 4.30 - 5.80 M/cumm [facility] Comment:Testing performed by : [facility], 1 [facility], [address] MCV 95.3 81.3 - 96.4 fL [facility] Comment:Testing performed by : [facility], 1 [facility], [address] MCH 30.7 27.1 - 33.3 pg [facility] Comment:Testing performed by : [facility], 1 [facility], [address] MCHC 32.2(L) 32.3 - 35.7 g/dL [facility] Comment:Testing performed by : [facility], 1 [facility], [address] RDW CV 12.3 11.1 - 14.9 % [facility] Comment:Testing performed by : [facility], 1 [facility], [address] RDW SD 43.1 35.7 - 48.1 fL [facility] Comment:Testing performed by : [facility], 1 [facility], [address] NRBC abs 0.00 0.00 - 0.01 K/cumm [facility] Comment:Testing performed by : [facility], 1 [facility], [address] Blood 06/22/2024 8:29 AM ADMINISTRATIVE PROGRAM SPECIALIST 06/22/2024 12:52 PM ADMINISTRATIVE PROGRAM SPECIALIST Narrative IRENE JENKINS - 06/22/2024 1:16 PM ADMINISTRATIVE PROGRAM SPECIALIST Draw in Dialysis us Notinfile Unknown LAB BLOOD ORDERABLES Final Res ult Performing Organization Address City/[facility]/ZIP Co de Phone Number [facility] Department [place] [address] * (ABNORMAL) C. difficile testing Stool (06/21/2024 4:18 PM ADMINISTRATIVE PROGRAM SPECIALIST) GDH Result Positive Negative [facility] Comment:Testing performed by : [facility], [address] [place] [address]., [address] Toxin Result Positive Negative [facility] Comment:Testing performed by : [facility], [address] [place] [address]., [address] C. diff result Positive, free toxin(A) Negative, free toxin [facility] Comment:Testing performed by : [facility], [address] [place] [address]., [address] C. diff interp Toxigenic Clostridioides (Clostridium) difficile detected. Analysis was performed using a two-step methodology using glutamate dehydrogenase antigen detection followed by detection of C. difficile toxin(s). [facility] Comment:Testing performed by : [facility], [address] [place] [address]., [address] Stool 06/21/2024 4:18 PM ADMINISTRATIVE PROGRAM SPECIALIST 06/21/2024 9:43 PM ADMINISTRATIVE PROGRAM SPECIALIST us Notinfile Unknown LAB MICROBIOLOGY - GENERAL ORD ERABLES Final Result Performing Organization Address [facility]/ZIP Co de Phone Number [facility] Y[facility] Department [place] [address] * CS GLUCOSE (06/18/2024 4:58 PM ADMINISTRATIVE PROGRAM SPECIALIST) Glucose 116 70 - 199 mg/dL [facility] Comment: Interpretive Data Fasting glucose >/= 126 mg/dl is diagnostic for diabetes. ?? Fasting is defined as no caloric intake for at least 8 hours. Fasting glucose between 100 mg/dl to 125 mg/dl is diagnostic of prediabetes. In a patient with classic symptoms of hyperglycemia or hyperglycemic crisis, a random glucose >/= 200 mg/dl is diagnostic for diabetes. In the absence of unequivocal hyperglycemia, results should be confirmed by repeat testing. The classification and Diagnosis of Diabetes Diabetes Care 2021; 46: S19-S40. Current interpretive data was last revised 2022. Testing performed by: [facility], [address] [place]., [address] Blood 06/18/2024 4:58 PM ADMINISTRATIVE PROGRAM SPECIALIST 06/18/2024 6:20 PM ADMINISTRATIVE PROGRAM SPECIALIST us Notinfile Unknown LAB BLOOD ORDERABLES Final Res ult [facility] One [facility] Department [place] [address] * (ABNORMAL) CS BASIC METABOLIC PANEL (06/18/2024 4:58 PM ADMINISTRATIVE PROGRAM SPECIALIST) Sodium 135 135 - 145 mmol/L [facility] Comment:Testing performed by : [facility], [address] [place] [address]., [address] Potassium, pl 3.5 3.3 - 4.9 mmol/L [facility] Comment:Testing performed by : [facility], [address] [place] [address]., [address] Chloride 98 97 - 110 mmol/L [facility] Comment:Testing performed by : [facility], [address] [place] [address]., [address] CO2 24 22 - 32 mmol/L [facility] Comment:Testing performed by : [facility], [address] [place] [address] Anion gap 13 2 - 15 mmol/L [facility] Comment:Testing performed by : [facility], 1 [facility], [address] BUN 9 6 - 25 mg/dL [facility] Comment:Testing performed by : [facility], [address] [place]., [address] Creatinine 0.73(L) 0.80 - 1.30 mg/dL [facility] Comment:Testing performed by : [facility], [address] [place] [address] Calcium 9.2 8.5 - 10.3 mg/dL [facility] Comment:Testing performed by : [facility], [address] [place]., [address] Blood 06/18/2024 4:58 PM ADMINISTRATIVE PROGRAM SPECIALIST 06/18/2024 6:20 PM ADMINISTRATIVE PROGRAM SPECIALIST us Notinfile Unknown LAB BLOOD ORDERABLES Final Res ult [facility] One [facility] Department [place] [address] * eGFR (06/18/2024 4:58 PM ADMINISTRATIVE PROGRAM SPECIALIST) eGFR >90 >=60 mL/min/1. 73 m2 [facility] Comment: Interpretive Data Reference Interval Normal ?>/= 90 mL/min/1.73m2 Mildly decreased* ? 60 - 89 mL/min/1.73m2 Mildly to moderately decreased ?45 - 59 mL/min/1.73m2 Moderately to severely decreased ??30 - 44 mL/min/1.73m2 Severely decreased ?15 - 29 mL/min/1.73m2 Kidney Failure ?< 15 ??mL/min/1.73m2 *Relative to young adult level Estimated glomerular filtration rate is determined by the 2020 CKD-EPI equation recommended by the National Kidney Foundation (A Unifying Approach to GFR Estimation: Recommendations of the NKF-ASK Task Force on Reassessing the Inclusion of Race in Diagnosing Kidney Disease, JASN 202). The CKD-EPI equation should not be used for patients with unstable renal function and has not been validated in children and those over 70. Current interpretive data was last reviewed 2021. Testing performed by: [facility], [address] [place] [address] Blood 06/18/2024 4:58 PM ADMINISTRATIVE PROGRAM SPECIALIST 06/18/2024 6:30 PM ADMINISTRATIVE PROGRAM SPECIALIST us Notinfile Unknown LAB BLOOD ORDERABLES Final Res ult [facility] One [facility] Department [place] [address] * (ABNORMAL) CBC without differential (06/18/2024 4:58 PM ADMINISTRATIVE PROGRAM SPECIALIST) WBC 11.5(H) 3.8 - 9.9 K/cumm [facility] Comment:Testing performed by : [facility], [address] [place] [address] Hgb 11.6(L) 13.0 - 17.5 g/dL [facility] Comment:Testing performed by : [facility], [address] [place] [address] Hct 36.1(L) 38.9 - 50.3 % [facility] Comment:Testing performed by : [facility], [address] [place] [address] Plt 380 150 - 400 K/cumm [facility] Comment:Testing performed by : [facility], [address] [place] [address] MPV 9.7 9.1 - 12.3 fL [facility] Comment:Testing performed by : [facility], [address] [place] [address] RBC 3.69(L) 4.30 - 5.80 M/cumm [facility] Comment:Testing performed by : [facility], 1 [facility], [address] MCV 97.8(H) 81.3 - 96.4 fL [facility] Comment:Testing performed by : [facility], 1 [facility], [address] MCH 31.4 27.1 - 33.3 pg [facility] Comment:Testing performed by : [facility], 1 [facility], [address] MCHC 32.1(L) 32.3 - 35.7 g/dL [facility] Comment:Testing performed by : [facility], 1 [facility], [address] RDW CV 12.2 11.1 - 14.9 % [facility] Comment:Testing performed by : [facility], 1 [facility], [address] RDW SD 44.3 35.7 - 48.1 fL [facility] Comment:Testing performed by : [facility], 1 [facility], [address] NRBC abs 0.00 0.00 - 0.01 K/cumm [facility] Comment:Testing performed by : [facility], [address] [place] [address], [address] Blood 06/18/2024 4:58 PM ADMINISTRATIVE PROGRAM SPECIALIST 06/18/2024 6:20 PM ADMINISTRATIVE PROGRAM SPECIALIST us Notinfile Unknown LAB BLOOD ORDERABLES Final Res ult [facility] One [facility] Department [place] [address] * (ABNORMAL) CS GLUCOSE (06/15/2024 9:30 AM ADMINISTRATIVE PROGRAM SPECIALIST) [facility] Signature Glucose 231(H) 70 - 199 mg/dL [facility] Comment: Interpretive Data Fasting glucose >/= 126 mg/dl is diagnostic for diabetes. ?? Fasting is defined as no caloric intake for at least 8 hours. Fasting glucose between 100 mg/dl to 125 mg/dl is diagnostic of prediabetes. In a patient with classic symptoms of hyperglycemia or hyperglycemic crisis, a random glucose >/= 200 mg/dl is diagnostic for diabetes. In the absence of unequivocal hyperglycemia, results should be confirmed by repeat testing. The classification and Diagnosis of Diabetes Diabetes Care 202; 46: S19-S40. Current interpretive data was last revised 2022. Testing performed by: [facility], 1 [facility], [place]., [address] Blood 06/15/2024 9:30 AM ADMINISTRATIVE PROGRAM SPECIALIST 06/15/2024 12:24 PM ADMINISTRATIVE PROGRAM SPECIALIST Narrative [facility] - 06/15/2024 1:05 PM ADMINISTRATIVE PROGRAM SPECIALIST Draw in Dialysis us Notinfile Unknown LAB BLOOD ORDERABLES Final Res ult [facility] One [facility] Department [place] [address] * eGFR (06/15/2024 9:30 AM ADMINISTRATIVE PROGRAM SPECIALIST) eGFR >90 >=60 mL/min/1. 73 m2 [facility] Comment: Interpretive Data Reference Interval Normal ?>/= 90 mL/min/1.73m2 Mildly decreased* ? 60 - 89 mL/min/1.73m2 Mildly to moderately decreased ?45 - 59 mL/min/1.73m2 Moderately to severely decreased ??30 - 44 mL/min/1.73m2 Severely decreased ?15 - 29 mL/min/1.73m2 Kidney Failure ?< 15 ??mL/min/1.73m2 *Relative to young adult level Estimated glomerular filtration rate is determined by the 2020 CKD-EPI equation recommended by the National Kidney Foundation (A Unifying Approach to GFR Estimation: Recommendations of the NKF-ASK Task Force on Reassessing the Inclusion of Race in Diagnosing Kidney Disease, JASN 202). The CKD-EPI equation should not be used for patients with unstable renal function and has not been validated in children and those over 70. Current interpretive data was last reviewed 2021. Testing performed by: [facility], [address] [place] [address] Blood 06/15/2024 9:30 AM ADMINISTRATIVE PROGRAM SPECIALIST 06/15/2024 12:24 PM ADMINISTRATIVE PROGRAM SPECIALIST us Notinfile Unknown LAB BLOOD ORDERABLES Final Res ult [facility] One [facility] Department [place] [address] * (ABNORMAL) Comprehensive metabolic panel, without glucose (Outreach) (06/15/2024 9:30 AM ADMINISTRATIVE PROGRAM SPECIALIST) Sodium 132(L) 135 - 145 mmol/L [facility] Comment:Testing performed by : [facility], [address] [place]., [address] Potassium, pl 3.7 3.3 - 4.9 mmol/L [facility] Comment:Testing performed by : [facility], [address] [place] [address] Chloride 97 97 - 110 mmol/L [facility] Comment:Testing performed by : [facility], [address] [place] [address] CO2 23 22 - 32 mmol/L [facility] Comment:Testing performed by : [facility], 1 [facility], [address] Anion gap 12 2 - 15 mmol/L [facility] Comment:Testing performed by : [facility], [address] [place]., [address] BUN 11 6 - 25 mg/dL [facility] Comment:Testing performed by : [facility], 1 [facility], [address] Creatinine 0.71(L) 0.80 - 1.30 mg/dL [facility] Comment:Testing performed by : [facility], 1 [facility], [address] Calcium 8.9 8.5 - 10.3 mg/dL [facility] Comment:Testing performed by : [facility], 1 [facility], [address] Protein, pl 6.8 6.5 - 8.5 g/dL [facility] Comment:Testing performed by : [facility], 1 [facility], [address] Albumin 3.5 3.5 - 5.0 g/dL [facility] Comment:Testing performed by : [facility], 1 [facility], [address] Bilirubin, total 0.5 0.1 - 1.2 mg/dL [facility] Comment:Testing performed by : [facility], [address] [facility], [address] Alk phos 88 40 - 130 Units/L [facility] Comment:Testing performed by : [facility], [address] [place] [address], [address] AST 36 10 - 50 Units/L [facility] Comment:Testing performed by : [facility], [address] [place] [address], [id number] ALT 34 7 - 55 Units/L CERNER BJ Comment:Testing performed by : [facility], [address] [place] [address], [id number] Blood 06/15/2024 9:30 AM ADMINISTRATIVE PROGRAM SPECIALIST 06/15/2024 12:24 PM ADMINISTRATIVE PROGRAM SPECIALIST Narrative [facility] - 06/15/2024 1:43 PM ADMINISTRATIVE PROGRAM SPECIALIST Draw in Dialysis us Notinfile Unknown LAB BLOOD ORDERABLES Final Res ult Performing Organization Address City/[facility]/ZIP Co de Phone Number [facility] [place] [address] * Vitamin D 25 hydroxy (06/15/2024 9:30 AM ADMINISTRATIVE PROGRAM SPECIALIST) Pathologist [facility] Vitamin D 25-OH 32 30 - 80 ng/mL [facility] Comment:Testing performed by : [facility], [address] [place] [address]., [id number] Blood 06/15/2024 9:30 AM ADMINISTRATIVE PROGRAM SPECIALIST 06/15/2024 12:24 PM ADMINISTRATIVE PROGRAM SPECIALIST Narrative [facility] - 06/15/2024 1:43 PM ADMINISTRATIVE PROGRAM SPECIALIST Draw in Dialysis us Notinfile Unknown LAB BLOOD ORDERABLES Final Res ult Performing Organization Address [facility] Co de Phone Number [facility] Department [place] [address] * (ABNORMAL) CBC without differential (06/15/2024 9:30 AM ADMINISTRATIVE PROGRAM SPECIALIST) Pathologist [facility] WBC 7.5 3.8 - 9.9 K/cumm [facility] Comment:Testing performed by : [facility], [address] [place] [address]., [address] Hgb 11.2(L) 13.0 - 17.5 g/dL [facility] Comment:Testing performed by : [facility], [address] [place] [address]., [address] Hct 33.4(L) 38.9 - 50.3 % [facility] Comment:Testing performed by : [facility], [address] [place]., [address] Plt 298 150 - 400 K/cumm [facility] Comment:Testing performed by : [facility], [address] [place] [address]., [address] MPV 10.2 9.1 - 12.3 fL [facility] Comment:Testing performed by : [facility], [address] [place]., [address] RBC 3.59(L) 4.30 - 5.80 M/cumm [facility] Comment:Testing performed by : [facility], [address] [facility], [address] MCV 93.0 81.3 - 96.4 fL [facility] Comment:Testing performed by : [facility], [address] [facility], [address] MCH 31.2 27.1 - 33.3 pg [facility] Comment:Testing performed by : [facility], [address] [facility], [address] MCHC 33.5 32.3 - 35.7 g/dL [facility] Comment:Testing performed by : [facility], [address] [facility], [address] RDW CV 11.9 11.1 - 14.9 % [facility] Comment:Testing performed by : [facility], [address] [place]., [address] RDW SD 40.8 35.7 - 48.1 fL [facility] Comment:Testing performed by : [facility], [address] [facility], [address] NRBC abs 0.00 0.00 - 0.01 K/cumm [facility] Comment:Testing performed by : [facility], [address] [facility], [address] Blood 06/15/2024 9:30 AM ADMINISTRATIVE PROGRAM SPECIALIST 06/15/2024 12:24 PM ADMINISTRATIVE PROGRAM SPECIALIST Narrative [facility] - 06/15/2024 12:48 PM ADMINISTRATIVE PROGRAM SPECIALIST Draw in Dialysis us Notinfile Unknown LAB BLOOD ORDERABLES Final Res ult [facility] Department [place] [address] * (ABNORMAL) Urinalysis reflex to microscopic and culture Urine (06/14/2024 4:34 PM ADMINISTRATIVE PROGRAM SPECIALIST) Color, ur Straw Yellow CERNER BJ Comment:Testing performed by : [facility], [address] [place]., [address] Clarity, ur Clear Clear CERNER BJ Comment:Testing performed by : [facility], [address] [facility], [address] Specific gravity, ur 1.011 1.003 - 1.030 CERNER BJ Comment:Testing performed by : [facility], [address] [facility], [address] pH, urine 7.0 CERNER BJ Comment: Interpretive Data Urine pH is affected by diet, medications, systemic acid-base disturbances, and renal tubular function. ??pH may affect urinary stone formation. ??For example, urine pH below 6.0 may help reduce the tendency for calcium phosphate stones and pH greater than 6.0 may reduce the tendency for uric acid stone formation. Source: [facility] Current Interpretive Data was last revised on 2017 Testing performed by: [facility], [address] [place] [address]., [address] Protein, ur ql Trace Negative [facility] Comment:Testing performed by : [facility], [address] [place] [address]., [address] Glucose, ur ql 2+(A) Negative [facility] Comment:Testing performed by : [facility], [address] [place] [address]., [address] Ketones, ur Negative Negative [facility] Comment:Testing performed by : [facility], [address] [place] [address]., [address] Bilirubin, ur Negative Negative [facility] Comment:Testing performed by : [facility], [address] [place] [address], [address] Blood, ur 1+(A) Negative [facility] Comment:Testing performed by : [facility], [address] [place]., [address] Urobilinogen, ur 2.0(A) <2.0 mg/dL IRENE JENKINS Comment:Testing performed by : [facility], [address] [facility], [address] Nitrite, ur Negative Negative [facility] Comment:Testing performed by : [facility], [address] [facility], [address] Leukocyte esterase, ur 3+(A) Negative [facility] Comment:Testing performed by : [facility], [address] [facility], [address] UA reflex comment Reflex to microscopic UA will be performed. [facility] Comment:Testing performed by : [facility], [address] [facility], [address] Urine 06/14/2024 4:34 PM ADMINISTRATIVE PROGRAM SPECIALIST 06/14/2024 9:16 PM ADMINISTRATIVE PROGRAM SPECIALIST us Notinfile Unknown LAB MICROBIOLOGY - GENERAL ORD ERABLES Final Result [facility] Department [place] [address] * (ABNORMAL) Urinalysis, microscopic only (06/14/2024 4:34 PM ADMINISTRATIVE PROGRAM SPECIALIST) WBC, ur 21-50(A) 0 - 5 /HPF [facility] Comment:Testing performed by : [facility], [address] [place] [address]., [address] RBC, ur 11-20(A) 0 - 2 /HPF [facility] Comment:Testing performed by : [facility], [address] [facility], [address] Bacteria, ur Trace(A) [facility] Comment:Testing performed by : [facility], [address] [facility], [address] Hyaline casts, ur 1-5 0 - 10 /LPF [facility] Comment:Testing performed by : [facility], [address] [place]., [address] Culture Reflex Comment Reflex to urine culture will be performed. [facility] Comment:Testing performed by : [facility], [address] [place]., [address] Urine 06/14/2024 4:34 PM ADMINISTRATIVE PROGRAM SPECIALIST 06/14/2024 9:16 PM ADMINISTRATIVE PROGRAM SPECIALIST us Notinfile Unknown LAB URINE ORDERABLES Final Res ult [facility] One [facility] Department [place] [address] * (ABNORMAL) Urine culture Urine (06/14/2024 4:34 PM ADMINISTRATIVE PROGRAM SPECIALIST) Report Final Report: Greater than or equal to 100,000 colonies/mL of Escherichia coli Greater than or equal to 100,000 colonies/mL of Escherichia coli #2 (.) [facility] Comment:Testing performed by : [facility], [address] [place] [address]., [address] Organism ESCHERICHIA COLI [facility] Organism ESCHERICHIA COLI [facility] Urine 06/14/2024 4:34 PM ADMINISTRATIVE PROGRAM SPECIALIST 06/14/2024 11:07 PM ADMINISTRATIVE PROGRAM SPECIALIST Narrative [facility] - 06/15/2024 4:58 PM ADMINISTRATIVE PROGRAM SPECIALIST Urine culture reflexed based upon urinalysis results. Testing performed by [facility] Microbiology Laboratory ([phone]) Organism Antibiotic Method Susceptibility Escherichia coli Ampicillin INTERPRETATION Intermediate Escherichia coli Cefazolin INTERPRETATION Susceptible Escherichia coli Nitrofurantoin INTERPRETATION Susceptible Escherichia coli Gentamicin INTERPRETATION Susceptible Escherichia coli Trimethoprim with Sulfamethoxazole INTERPRETATION Susceptible Escherichia coli Meropenem INTERPRETATION Susceptible Escherichia coli Cefepime INTERPRETATION Susceptible Escherichia coli Ciprofloxacin INTERPRETATION Susceptible Escherichia coli Ceftazidime INTERPRETATION Susceptible Escherichia coli Ceftriaxone INTERPRETATION Susceptible Escherichia coli Piperacillin/Tazobactam INTERPRETATIO N Susceptible Escherichia coli Cephalexin INTERPRETATION Susceptible Escherichia coli Cefuroxime-axetil INTERPRETATION Susceptible Escherichia coli Cefdinir INTERPRETATION Susceptible Comment:fowl smelling urine Escherichia coli Ampicillin INTERPRETATION Intermediate Escherichia coli Cefazolin INTERPRETATION Susceptible Escherichia coli Nitrofurantoin INTERPRETATION Susceptible Escherichia coli Gentamicin INTERPRETATION Susceptible Escherichia coli Trimethoprim with Sulfamethoxazole INTERPRETATION Susceptible Escherichia coli Meropenem INTERPRETATION Susceptible Escherichia coli Cefepime INTERPRETATION Susceptible Escherichia coli Ciprofloxacin INTERPRETATION Susceptible Escherichia coli Ceftazidime INTERPRETATION Susceptible Escherichia coli Ceftriaxone INTERPRETATION Susceptible Escherichia coli Piperacillin/Tazobactam INTERPRETATIO N Susceptible Escherichia coli Cephalexin INTERPRETATION Susceptible Escherichia coli Cefuroxime-axetil INTERPRETATION Susceptible Escherichia coli Cefdinir INTERPRETATION Susceptible Comment:fowl smelling urine us Notinfile Unknown LAB MICROBIOLOGY - GENERAL ORD ERABLES Final Result [facility] One [facility] Department [place] [address] * (ABNORMAL) CBC without differential (06/14/2024 5:18 AM ADMINISTRATIVE PROGRAM SPECIALIST) WBC 13.1(H) 3.8 - 9.9 K/cumm [facility] Comment:Testing performed by : [facility], [address] [place] [address], [address] Hgb 10.6(L) 13.0 - 17.5 g/dL [facility] Comment:Testing performed by : [facility], [address] [place] [address], [address] Hct 32.4(L) 38.9 - 50.3 % [facility] Comment:Testing performed by : [address], [address] Plt 252 150 - 400 K/cumm [facility] Comment:Testing performed by : [address], [address] MPV 10.2 9.1 - 12.3 fL [facility] Comment:Testing performed by : [facility], [address] [place] [address], [address] RBC 3.36(L) 4.30 - 5.80 M/cumm [facility] Comment:Testing performed by : [facility], [address] [place]., [address] MCV 96.4 81.3 - 96.4 fL [facility] Comment:Testing performed by : [facility], [address] [facility], [address] MCH 31.5 27.1 - 33.3 pg [facility] Comment:Testing performed by : [facility], [address] [facility], [address] MCHC 32.7 32.3 - 35.7 g/dL [facility] Comment:Testing performed by : [facility], [address] [facility], [address] RDW CV 12.0 11.1 - 14.9 % [facility] Comment:Testing performed by : [facility], [address] [facility], [address] RDW SD 42.7 35.7 - 48.1 fL [facility] Comment:Testing performed by : [facility], [address] [facility], [address] NRBC abs 0.00 0.00 - 0.01 K/cumm [facility] Comment:Testing performed by : [facility], [address] [facility], [address] Blood 06/14/2024 5:18 AM ADMINISTRATIVE PROGRAM SPECIALIST 06/14/2024 10:29 AM ADMINISTRATIVE PROGRAM SPECIALIST us Notinfile Unknown LAB BLOOD ORDERABLES Final Res ult [facility] Department [place] [address] * POCT glucose (06/13/2024 11:41 AM ADMINISTRATIVE PROGRAM SPECIALIST) [facility] Signature Glucose, POC 183 70 - 199 mg/dL Blood 06/13/2024 11:4 1 AM ADMINISTRATIVE PROGRAM SPECIALIST 06/13/2024 11:41 AM ADMINISTRATIVE PROGRAM SPECIALIST us Litzy Bruno MD LAB POCT ORDERABLES - DEVIC E Final Result Performing Organization Address [facility] de Phone Number [facility] [place] [address] * (ABNORMAL) POCT glucose (06/13/2024 8:46 AM ADMINISTRATIVE PROGRAM SPECIALIST) Glucose, POC 208(H) 70 - 199 mg/dL Blood 06/13/2024 8:46 AM ADMINISTRATIVE PROGRAM SPECIALIST 06/13/2024 8:46 AM ADMINISTRATIVE PROGRAM SPECIALIST us Litzy Bruno MD LAB POCT ORDERABLES - DEVIC E Final Result Performing Organization Address [facility] Phone Number [facility] [place] [address] * (ABNORMAL) POCT glucose (06/13/2024 2:02 AM ADMINISTRATIVE PROGRAM SPECIALIST) Glucose, POC 212(H) 70 - 199 mg/dL Blood 06/13/2024 2:02 AM ADMINISTRATIVE PROGRAM SPECIALIST 06/13/2024 2:02 AM ADMINISTRATIVE PROGRAM SPECIALIST us Litzy Bruno MD LAB POCT ORDERABLES - DEVIC E Final Result Performing Organization Address [facility] Phone Number [facility] [place] [address] * (ABNORMAL) POCT glucose (06/12/2024 8:34 PM ADMINISTRATIVE PROGRAM SPECIALIST) Glucose, POC 292(H) 70 - 199 mg/dL Blood 06/12/2024 8:34 PM ADMINISTRATIVE PROGRAM SPECIALIST 06/12/2024 8:34 PM ADMINISTRATIVE PROGRAM SPECIALIST Litzy Bruno MD LAB POCT ORDERABLES - DEVIC E Final Result Performing Organization Address [facility]/State/ZIP Co de Phone Number [facility] [place] [address] * POCT glucose (06/12/2024 5:28 PM ADMINISTRATIVE PROGRAM SPECIALIST) Glucose, POC 196 70 - 199 mg/dL Blood 06/12/2024 5:28 PM ADMINISTRATIVE PROGRAM SPECIALIST 06/12/2024 5:28 PM ADMINISTRATIVE PROGRAM SPECIALIST us Litzy Bruno MD LAB POCT ORDERABLES - DEVIC E Final Result Performing Organization Address [facility] [place] [address] * (ABNORMAL) POCT glucose (06/12/2024 11:17 AM ADMINISTRATIVE PROGRAM SPECIALIST) Glucose, POC 233(H) 70 - 199 mg/dL Blood 06/12/2024 11:1 7 AM ADMINISTRATIVE PROGRAM SPECIALIST 06/12/2024 11:17 AM ADMINISTRATIVE PROGRAM SPECIALIST us Litzy Bruno MD LAB POCT ORDERABLES - DEVIC E Final Result Performing Organization Address [facility] [place] [address] * (ABNORMAL) POCT glucose (06/12/2024 7:44 AM ADMINISTRATIVE PROGRAM SPECIALIST) Glucose, POC 210(H) 70 - 199 mg/dL Comment:Glu2: RN/MD Notified Glucose comment 1 Glu2: RN/MD Notified [facility] Blood 06/12/2024 7:44 AM ADMINISTRATIVE PROGRAM SPECIALIST 06/12/2024 7:44 AM ADMINISTRATIVE PROGRAM SPECIALIST us Litzy Bruno MD LAB POCT ORDERABLES - DEVIC E Final Result Performing Organization Address City/[facility]/ZIP Co de Phone Number [facility] [place] [address] * (ABNORMAL) POCT glucose (06/11/2024 9:23 PM ADMINISTRATIVE PROGRAM SPECIALIST) Glucose, POC 274(H) 70 - 199 mg/dL Blood 06/11/2024 9:23 PM ADMINISTRATIVE PROGRAM SPECIALIST 06/11/2024 9:23 PM ADMINISTRATIVE PROGRAM SPECIALIST Litzy Bruno MD LAB POCT ORDERABLES - DEVIC E Final Result Performing Organization Address City/[facility]/ZIP Co de Phone Number [facility] [address] * POCT glucose (06/11/2024 5:11 PM ADMINISTRATIVE PROGRAM SPECIALIST) Glucose, POC 187 70 - 199 mg/dL Blood 06/11/2024 5:11 PM ADMINISTRATIVE PROGRAM SPECIALIST 06/11/2024 5:11 PM ADMINISTRATIVE PROGRAM SPECIALIST Litzy Bruno MD LAB POCT ORDERABLES - DEVIC E Final Result Performing Organization Address [facility] [place] [address] * (ABNORMAL) POCT glucose (06/11/2024 12:39 PM ADMINISTRATIVE PROGRAM SPECIALIST) Glucose, POC 201(H) 70 - 199 mg/dL Comment:Glu2: RN/MD Notified Glucose comment 1 Glu2: RN/MD Notified [facility] Blood 06/11/2024 12:3 9 PM ADMINISTRATIVE PROGRAM SPECIALIST 06/11/2024 12:39 PM ADMINISTRATIVE PROGRAM SPECIALIST Litzy Bruno MD LAB POCT ORDERABLES - DEVIC E Final Result Performing Organization Address City/[facility] [place] [address] * (ABNORMAL) POCT glucose (06/11/2024 9:26 AM ADMINISTRATIVE PROGRAM SPECIALIST) Glucose, POC 208(H) 70 - 199 mg/dL Blood 06/11/2024 9:26 AM ADMINISTRATIVE PROGRAM SPECIALIST 06/11/2024 9:26 AM ADMINISTRATIVE PROGRAM SPECIALIST Litzy Bruno MD LAB POCT ORDERABLES - DEVIC E Final Result Performing Organization Address City/State/[facility] Phone Number [facility] Department [place] [address] * eGFR (06/11/2024 6:11 AM ADMINISTRATIVE PROGRAM SPECIALIST) eGFR >90 >=60 mL/min/1. 73 m2 Comment: Interpretive Data Reference Interval Normal ?>/= 90 mL/min/1.73m2 Mildly decreased* ? 60 - 89 mL/min/1.73m2 Mildly to moderately decreased ?45 - 59 mL/min/1.73m2 Moderately to severely decreased ??30 - 44 mL/min/1.73m2 Severely decreased ?15 - 29 mL/min/1.73m2 Kidney Failure ?< 15 ??mL/min/1.73m2 *Relative to young adult level Estimated glomerular filtration rate is determined by the 2020 CKD-EPI equation recommended by the National Kidney Foundation (A Unifying Approach to GFR Estimation: Recommendations of the NKF-ASK Task Force on Reassessing the Inclusion of Race in Diagnosing Kidney Disease, JASN 2020). The CKD-EPI equation should not be used for patients with unstable renal function and has not been validated in children and those over 70. Current interpretive data was last reviewed 2021. Blood 06/11/2024 6:11 AM ADMINISTRATIVE PROGRAM SPECIALIST 06/11/2024 6:30 AM ADMINISTRATIVE PROGRAM SPECIALIST Litzy Bruno MD LAB BLOOD ORDERABLES Final Result [facility] [place] [address] * (ABNORMAL) Basic metabolic panel (06/11/2024 6:11 AM ADMINISTRATIVE PROGRAM SPECIALIST) Sodium 134(L) 135 - 145 mmol/L Potassium, pl 3.9 3.3 - 4.9 mmol/L [facility] Chloride 99 97 - 110 mmol/L [facility] CO2 24 22 - 32 mmol/L [facility] Anion gap 11 2 - 15 mmol/L [facility] BUN 12 6 - 25 mg/dL [facility] Creatinine 0.66(L) 0.80 - 1.30 mg/dL [facility] Glucose 192 70 - 199 mg/dL [facility] Comment: Interpretive Data Fasting glucose >/= 126 mg/dl is diagnostic for diabetes. ?? Fasting is defined as no caloric intake for at least 8 hours. Fasting glucose between 100 mg/dl to 125 mg/dl is diagnostic of prediabetes. In a patient with classic symptoms of hyperglycemia or hyperglycemic crisis, a random glucose >/= 200 mg/dl is diagnostic for diabetes. In the absence of unequivocal hyperglycemia, results should be confirmed by repeat testing. The classification and Diagnosis of Diabetes Diabetes Care 202; 46: S19-S40. Current interpretive data was last revised 2022. Calcium 8.8 8.5 - 10.3 mg/dL [facility] Blood 06/11/2024 6:11 AM ADMINISTRATIVE PROGRAM SPECIALIST 06/11/2024 6:30 AM ADMINISTRATIVE PROGRAM SPECIALIST Litzy Bruno MD LAB BLOOD ORDERABLES Final Result Performing Organization Address City/[facility]/ZIP Co de Phone Number [facility] [place] [address] * POCT glucose (06/11/2024 2:01 AM ADMINISTRATIVE PROGRAM SPECIALIST) Glucose, POC 177 70 - 199 mg/dL Blood 06/11/2024 2:01 AM ADMINISTRATIVE PROGRAM SPECIALIST 06/11/2024 2:01 AM ADMINISTRATIVE PROGRAM SPECIALIST Litzy Bruno MD LAB POCT ORDERABLES - DEVIC E Final Result Performing Organization Address [facility] Co de Phone Number [facility] [place], [place] [id number] * (ABNORMAL) POCT glucose (06/10/2024 8:58 PM ADMINISTRATIVE PROGRAM SPECIALIST) Glucose, POC 216(H) 70 - 199 mg/dL Blood 06/10/2024 8:58 PM ADMINISTRATIVE PROGRAM SPECIALIST 06/10/2024 8:58 PM ADMINISTRATIVE PROGRAM SPECIALIST us Litzy Burno MD LAB POCT ORDERABLES - DEVIC E Final Result Performing Organization Address [facility] Co de Phone Number [facility] [place] [address] * (ABNORMAL) POCT glucose (06/10/2024 7:26 PM ADMINISTRATIVE PROGRAM SPECIALIST) Glucose, POC 205(H) 70 - 199 mg/dL Comment:Glu2: RN/MD Notified Glucose comment 1 Glu2: RN/MD Notified [facility] Blood 06/10/2024 7:26 PM ADMINISTRATIVE PROGRAM SPECIALIST 06/10/2024 7:26 PM ADMINISTRATIVE PROGRAM SPECIALIST Litzy Bruno MD LAB POCT ORDERABLES - DEVIC E Final Result Performing Organization Address [facility] Co de Phone Number [place], [place] [id number] * (ABNORMAL) POCT glucose (06/10/2024 3:23 PM ADMINISTRATIVE PROGRAM SPECIALIST) Glucose, POC 237(H) 70 - 199 mg/dL Blood 06/10/2024 3:23 PM ADMINISTRATIVE PROGRAM SPECIALIST 06/10/2024 3:23 PM ADMINISTRATIVE PROGRAM SPECIALIST us Litzy Bruno MD LAB POCT ORDERABLES - DEVIC E Final Result Performing Organization Address City/[facility] Co de Phone Number IRENE [facility] [place] [address] * (ABNORMAL) POCT glucose (06/10/2024 11:05 AM ADMINISTRATIVE PROGRAM SPECIALIST) Glucose, POC 243(H) 70 - 199 mg/dL Blood 06/10/2024 11:0 5 AM ADMINISTRATIVE PROGRAM SPECIALIST 06/10/2024 11:05 AM ADMINISTRATIVE PROGRAM SPECIALIST us Litzy Bruno MD LAB POCT ORDERABLES - DEVIC E Final Result Performing Organization Address [facility] de Phone Number IRENE [facility] [place] [address] * TRANSTHORACIC ECHO (TTE) COMPLETE W DOPPLER/CF W CONTRAST (06/10/2024 9:22 AM ADMINISTRATIVE PROGRAM SPECIALIST) Pathologist [facility] LV EF 55-60 % CARDIOREPORT Anatomical Region Laterality Modality Ultrasound 06/10/2024 8:00 AM ADMINISTRATIVE PROGRAM SPECIALIST Narrative 06/10/2024 9:47 AM ADMINISTRATIVE PROGRAM SPECIALIST Patient name: Ronak Obrien Date of test: 06/10/2024 Type of test: TTE w/Doppler Hospital #: 0 Date of : 1955 (M) Chief Operator Lock Tender: Panda Cabello RDCS Referring Physician: YUMIKO ZUNIGA MD Contrast Agent: 0.60 ml Definity Administered, (0.90 ml wasted). Contrast Administered by: Barbara Burton RN Supervised/Interpreted by: Cristi Landon MD Diagnosis: Location: [facility] Reason for test: syncope MV Structure: Normal, ?MV Motion: Normal, ?? Mitral Annulus: Normal AV Structure: tricuspid and is Normal, ?? AV Motion: Normal Aotic root: Normal, ?TM: Normal, ?? PV: Normal Valvular Vegetations: none seen, ?Mass/Thrombi: none seen RA: Normal Measurements: ?M-Mode ?Normal ? Aotic Root: ? <3.8 ? LA: ? <4.0 ? RV: ? <2.8 ? LV(ED): ? <5.7 ? LV(ES): ? Variable ?2D Linear Normal ? Aotic Root: ? <4.0 ? Ao Indexed: ? <2.0 ? LA: ? <4.0 ? RV: ? <4.2 ? LV(ED): ? <5.9 ? LV(ES): ? <4.0 ?2D Vol. ?? Normal ?Indexed ?? Indexed Normal RA: ? 11-39 ? LA: ? 16-34 ? RV: ? <12.7 ? LV(ED): ? 62-150 ?<75 ? LV(ES): ? 21-61 ? <32 ?3D Vol. ? Indexed Normal LV(ED): ?<75 ? LV(ES): ?<32 ? LV EF: 55-60 % ?? (Normal: >=52%) ?? LV Mass Index (Area-Length): ??g/m2 ?(Normal: 50-102 g/m2) Wall Motion Scoring (1=Normal 2=Hypo 3=Akinetic 4=Dyskin./Aneurysm 0=Not visualized) Parasternal Long [place]:MAS=1 BAS=1 MIL=1 RUSSELL=1 Parasternal Short [place]:MAS=1 MIS=1 OR=1 MIL=1 MAL=1 MA=1 Apical 4 Chambers:=1 MIS=1 BIS=1 BAL=1 MAL=1 AL=1 AC=1 Apical 2 Chambers:AI=1 OR=1 BI=1 BA=1 MA=1 AA=1 AC=1 LV Global Longitudinal Strain: RV Global Longitudinal Strain: LV Function: Normal LV Ejection Fraction, (EF=52-72%) RV Function: Normal Septal Motion: Normal Pericardial Effusion: none seen Atrial Septum: Normal DOPPLER/COLOR FLOW DOPPLER RESULTS: Diastolic Function: Impaired Relaxation Tricuspid Valve: normal TV Pulmonic Valve: normal PV AV Regurgitation: No AR seen AV Stenosis: no AV Area: ??cm2 AV Pressure Gradient (mmHg): Mean: 0, Peak:0 MV Regurgitation: No MR seen MV Stenosis: no MS MV Area: ??cm2 MV Pressure Gradient (mmHg): Mean: 0 MV ERO: ??cm Regurg. Vol.: ??ml/beat Regurg. Frac.: ??% PA Pressure: ??mmHg DOPPLER/COLOR FOLOW DOPPLER COMMENTS: No AR seen, No MR seen, no , no MS, normal TV, normal PV. Diastolic function: Impaired Relaxation CONTRAST: 0.60 ml Definity Administered, (0.90 ml wasted). SUMMARY: TDS due to poor acoustic window. Normal LV and RV size and systolic function. LVEF 55-60% by visual estimate. ??LA is normal. No significant valvular abnormalities noted. No . Grade I diastolic function c/w normal mean LA pressure. No adequate TR to estimate PA pressure. Strain quality is inadequate for accurate reporting. ??Normal Inferior vena cava. Normal aorta. No significant changes noted. Confirmed on ??06/10/2024 - 09:47:45 by Cristi Landon MD By signing this report, the attending drawer in certifies that he or she has personally supervised and interpreted the echocardiogram and has reviewed and or edited and agrees with the written comments contained within the report. Procedure Note Cristi Patterson MD - 06/10/2024 Patient name: Ronak Obrien Date of test: 06/10/2024 Type of test: TTE w/Doppler Hospital #: [id number] Date of : 1955 (M) Chief Operator Lock Tender: Panda Cabello LETICIA Referring Physician: YUMIKO ZUNIGA MD Contrast Agent: 0.60 ml Definity Administered, (0.90 ml wasted). Contrast Administered by: Barbara Burton RN Supervised/Interpreted by: Cristi Landon MD Diagnosis: Location: [facility] Reason for test: syncope MV Structure: Normal, MV Motion: Normal, Mitral Annulus: Normal AV Structure: tricuspid and is Normal, AV Motion: Normal Aotic root: Normal, TM: Normal, PV: Normal Valvular Vegetations: none seen, Mass/Thrombi: none seen RA: Normal Measurements: M-Mode Normal Aotic Root: <3.8 LA: <4.0 RV: <2.8 LV(ED): <5.7 LV(ES): Variable 2D Linear Normal Aotic Root: <4.0 Ao Indexed: <2.0 LA: <4.0 RV: <4.2 LV(ED): <5.9 LV(ES): <4.0 2D Vol. Normal Indexed Indexed Normal RA: 11-39 LA: 16-34 RV: <12.7 LV(ED): 62-150 <75 LV(ES): 21-61 <32 3D Vol. Indexed Normal LV(ED): <75 LV(ES): <32 LV EF: 55-60 % (Normal: >=52%) LV Mass Index (Area-Length): g/m2 (Normal: 50-102 g/m2) Wall Motion Scoring (1=Normal 2=Hypo 3=Akinetic 4=Dyskin./Aneurysm 0=Not visualized) Parasternal Long [place]:MAS=1 BAS=1 MIL=1 RUSSELL=1 Parasternal Short [place]:MAS=1 MIS=1 OR=1 MIL=1 MAL=1 MA=1 Apical 4 Chambers:=1 MIS=1 BIS=1 BAL=1 MAL=1 AL=1 AC=1 Apical 2 Chambers:AI=1 OR=1 BI=1 BA=1 MA=1 AA=1 AC=1 LV Global Longitudinal Strain: RV Global Longitudinal Strain: LV Function: Normal LV Ejection Fraction, (EF=52-72%) RV Function: Normal Septal Motion: Normal Pericardial Effusion: none seen Atrial Septum: Normal DOPPLER/COLOR FLOW DOPPLER RESULTS: Diastolic Function: Impaired Relaxation Tricuspid Valve: normal TV Pulmonic Valve: normal PV AV Regurgitation: No AR seen AV Stenosis: no AV Area: cm2 AV Pressure Gradient (mmHg): Mean: 0, Peak:0 MV Regurgitation: No MR seen MV Stenosis: no MS MV Area: cm2 MV Pressure Gradient (mmHg): Mean: 0 MV ERO: cm Regurg. Vol.: ml/beat Regurg. Frac.: % PA Pressure: mmHg DOPPLER/COLOR FOLOW DOPPLER COMMENTS: No AR seen, No MR seen, no , no MS, normal TV, normal PV. Diastolic function: Impaired Relaxation CONTRAST: 0.60 ml Definity Administered, (0.90 ml wasted). SUMMARY: TDS due to poor acoustic window. Normal LV and RV size and systolic function. LVEF 55-60% by visual estimate. LA is normal. No significant valvular abnormalities noted. No . Grade I diastolic function c/w normal mean LA pressure. No adequate TR to estimate PA pressure. Strain quality is inadequate for accurate reporting. Normal Inferior vena cava. Normal aorta. No significant changes noted. Confirmed on 06/10/2024 - 09:47:45 by Cristi Landon MD By signing this report, the attending drawer in certifies that he or she has personally supervised and interpreted the echocardiogram and has reviewed and or edited and agrees with the written comments contained within the report. Yumiko Zuniga NP CV ECHO PROCEDURES Fin al Result * (ABNORMAL) POCT glucose (06/10/2024 7:30 AM ADMINISTRATIVE PROGRAM SPECIALIST) Glucose, POC 214(H) 70 - 199 mg/dL Blood 06/10/2024 7:30 AM ADMINISTRATIVE PROGRAM SPECIALIST 06/10/2024 7:30 AM ADMINISTRATIVE PROGRAM SPECIALIST us Litzy Bruno MD LAB POCT ORDERABLES - DEVIC E Final Result Performing Organization Address [facility] de Phone Number [facility] [place] [address] * POCT glucose (06/10/2024 4:51 AM ADMINISTRATIVE PROGRAM SPECIALIST) Glucose, POC 167 70 - 199 mg/dL Blood 06/10/2024 4:51 AM ADMINISTRATIVE PROGRAM SPECIALIST 06/10/2024 4:51 AM ADMINISTRATIVE PROGRAM SPECIALIST Litzy Bruno MD LAB POCT ORDERABLES - DEVIC E Final Result Performing Organization Address [facility] de Phone Number [facility] [place] [address] * POCT glucose (06/09/2024 11:40 PM ADMINISTRATIVE PROGRAM SPECIALIST) Glucose, POC 182 70 - 199 mg/dL Blood 06/09/2024 11:4 0 PM ADMINISTRATIVE PROGRAM SPECIALIST 06/09/2024 11:40 PM ADMINISTRATIVE PROGRAM SPECIALIST Litzy Bruno MD LAB POCT ORDERABLES - DEVIC E Final Result Performing Organization Address [facility] Co de Phone Number [facility] Department [place] [address] * eGFR (06/09/2024 9:46 PM ADMINISTRATIVE PROGRAM SPECIALIST) eGFR >90 >=60 mL/min/1. 73 m2 Comment: Interpretive Data Reference Interval Normal ?>/= 90 mL/min/1.73m2 Mildly decreased* ? 60 - 89 mL/min/1.73m2 Mildly to moderately decreased ?45 - 59 mL/min/1.73m2 Moderately to severely decreased ??30 - 44 mL/min/1.73m2 Severely decreased ?15 - 29 mL/min/1.73m2 Kidney Failure ?< 15 ??mL/min/1.73m2 *Relative to young adult level Estimated glomerular filtration rate is determined by the 2020 CKD-EPI equation recommended by the National Kidney Foundation (A Unifying Approach to GFR Estimation: Recommendations of the NKF-ASK Task Force on Reassessing the Inclusion of Race in Diagnosing Kidney Disease, JASN 202). The CKD-EPI equation should not be used for patients with unstable renal function and has not been validated in children and those over 70. Current interpretive data was last reviewed 2021. Blood 06/09/2024 9:46 PM ADMINISTRATIVE PROGRAM SPECIALIST 06/09/2024 10:54 PM ADMINISTRATIVE PROGRAM SPECIALIST Yumiko Zuniga NP LAB BLOOD ORDERABLES F inal Result Performing Organization Address [facility] Co de Phone Number IRENE JENKINS Yoshi [facility] Department [place] [address] * (ABNORMAL) Differential, auto (06/09/2024 9:46 PM ADMINISTRATIVE PROGRAM SPECIALIST) Neutrophil abs 8.4(H) 1.5 - 6.5 K/cumm Imm gran abs 0.1 0.0 - 0.1 K/cumm [facility] Lymphocyte abs 1.7 0.8 - 3.3 K/cumm [facility] Monocyte abs 1.0(H) 0.2 - 0.8 K/cumm [facility] Eosinophil abs 0.2 0.0 - 0.5 K/cumm [facility] Basophil abs 0.0 0.0 - 0.1 K/cumm [facility] Neutrophil pct 73.7 % [facility] Comment: Interpretive Data Percent cell count reference ranges are not reported, since discordance with absolute values may lead to misinterpretation of CBC data. Current Interpretive Data was last revised on 2017. Imm gran pct 0.4 % [facility] Comment: Interpretive Data Percent cell count reference ranges are not reported, since discordance with absolute values may lead to misinterpretation of CBC data. Current Interpretive Data was last revised on 2017. Lymphocyte pct 15.2 % [facility] Comment: Interpretive Data Percent cell count reference ranges are not reported, since discordance with absolute values may lead to misinterpretation of CBC data. Current Interpretive Data was last revised on 2017. Monocyte pct 8.7 % [facility] Comment: Interpretive Data Percent cell count reference ranges are not reported, since discordance with absolute values may lead to misinterpretation of CBC data. Current Interpretive Data was last revised on 2017. Eosinophil pct 1.7 % [facility] Comment: Interpretive Data Percent cell count reference ranges are not reported, since discordance with absolute values may lead to misinterpretation of CBC data. Current Interpretive Data was last revised on 2017. Basophil pct 0.3 % [facility] Comment: Interpretive Data Percent cell count reference ranges are not reported, since discordance with absolute values may lead to misinterpretation of CBC data. Current Interpretive Data was last revised on 2017. Blood 06/09/2024 9:46 PM ADMINISTRATIVE PROGRAM SPECIALIST 06/09/2024 10:54 PM ADMINISTRATIVE PROGRAM SPECIALIST Yumiko Carole Jacquie RESEARCH EXECUTIVE LAB BLOOD ORDERABLES F inal Result Performing Organization Address [facility] de Phone Number [facility] Department [place] [address] * (ABNORMAL) CBC with auto differential (06/09/2024 9:46 PM ADMINISTRATIVE PROGRAM SPECIALIST) [facility] WBC 11.4(H) 3.8 - 9.9 K/cumm Hgb 11.2(L) 13.0 - 17.5 g/dL [facility] Hct 33.1(L) 38.9 - 50.3 % [facility] Plt 248 150 - 400 K/cumm [facility] MPV 10.3 9.1 - 12.3 fL [facility] RBC 3.49(L) 4.30 - 5.80 M/cumm [facility] MCV 94.8 81.3 - 96.4 fL [facility] MCH 32.1 27.1 - 33.3 pg [facility] MCHC 33.8 32.3 - 35.7 g/dL [facility] RDW CV 11.9 11.1 - 14.9 % [facility] RDW SD 41.1 35.7 - 48.1 fL [facility] NRBC abs 0.00 0.00 - 0.01 K/cumm [facility] Blood 06/09/2024 9:46 PM ADMINISTRATIVE PROGRAM SPECIALIST 06/09/2024 10:54 PM ADMINISTRATIVE PROGRAM SPECIALIST Yumiko Zuniga NP LAB BLOOD ORDERABLES F inal Result Performing Organization Address [facility] Co de Phone Number [facility] Department [place] [address] * Phosphorus (06/09/2024 9:46 PM ADMINISTRATIVE PROGRAM SPECIALIST) [facility] Phosphorus, pl 3.0 2.3 - 4.5 mg/dL Blood 06/09/2024 9:46 PM ADMINISTRATIVE PROGRAM SPECIALIST 06/09/2024 10:54 PM ADMINISTRATIVE PROGRAM SPECIALIST Yumiko Zuniga RESEARCH EXECUTIVE LAB BLOOD ORDERABLES F inal Result Performing Organization Address [facility] Co de Phone Number [facility] [place] [address] * Magnesium (06/09/2024 9:46 PM ADMINISTRATIVE PROGRAM SPECIALIST) [facility] Magnesium 2.0 1.4 - 2.5 mg/dL Blood 06/09/2024 9:46 PM ADMINISTRATIVE PROGRAM SPECIALIST 06/09/2024 10:54 PM ADMINISTRATIVE PROGRAM SPECIALIST Yumiko Zuniga RESEARCH EXECUTIVE LAB BLOOD ORDERABLES F inal Result Performing Organization Address [facility] de Phone Number [facility] Department [place] [address] * (ABNORMAL) Basic metabolic panel (06/09/2024 9:46 PM ADMINISTRATIVE PROGRAM SPECIALIST) [facility] Sodium 131(L) 135 - 145 mmol/L Potassium, pl 4.0 3.3 - 4.9 mmol/L [facility] Chloride 96(L) 97 - 110 mmol/L [facility] CO2 27 22 - 32 mmol/L [facility] Anion gap 8 2 - 15 mmol/L [facility] BUN 12 6 - 25 mg/dL [facility] Creatinine 0.84 0.80 - 1.30 mg/dL [facility] Glucose 222(H) 70 - 199 mg/dL [facility] Comment: Interpretive Data Fasting glucose >/= 126 mg/dl is diagnostic for diabetes. ?? Fasting is defined as no caloric intake for at least 8 hours. Fasting glucose between 100 mg/dl to 125 mg/dl is diagnostic of prediabetes. In a patient with classic symptoms of hyperglycemia or hyperglycemic crisis, a random glucose >/= 200 mg/dl is diagnostic for diabetes. In the absence of unequivocal hyperglycemia, results should be confirmed by repeat testing. The classification and Diagnosis of Diabetes Diabetes Care 2021; 46: S19-S40. Current interpretive data was last revised 2022. Calcium 8.6 8.5 - 10.3 mg/dL [facility] Blood 06/09/2024 9:46 PM ADMINISTRATIVE PROGRAM SPECIALIST 06/09/2024 10:54 PM ADMINISTRATIVE PROGRAM SPECIALIST Yumiko Zuniga RESEARCH EXECUTIVE LAB BLOOD ORDERABLES F inal Result Performing Organization Address [facility] Phone Number [facility] [place] [address] * POCT glucose (06/09/2024 7:54 PM ADMINISTRATIVE PROGRAM SPECIALIST) Glucose, POC 168 70 - 199 mg/dL Blood 06/09/2024 7:54 PM ADMINISTRATIVE PROGRAM SPECIALIST 06/09/2024 7:54 PM ADMINISTRATIVE PROGRAM SPECIALIST Litzy Bruno MD LAB POCT ORDERABLES - DEVIC E Final Result Performing Organization Address [facility] Phone Number [facility] [place] [address] * POCT glucose (06/09/2024 5:49 PM ADMINISTRATIVE PROGRAM SPECIALIST) Glucose, POC 187 70 - 199 mg/dL Blood 06/09/2024 5:49 PM ADMINISTRATIVE PROGRAM SPECIALIST 06/09/2024 5:49 PM ADMINISTRATIVE PROGRAM SPECIALIST Litzy Bruno MD LAB POCT ORDERABLES - DEVIC E Final Result Performing Organization Address [facility] de Phone Number [facility] [place] [address] * (ABNORMAL) POCT glucose (06/09/2024 12:05 PM ADMINISTRATIVE PROGRAM SPECIALIST) Glucose, POC 250(H) 70 - 199 mg/dL Blood 06/09/2024 12:0 5 PM ADMINISTRATIVE PROGRAM SPECIALIST 06/09/2024 12:05 PM ADMINISTRATIVE PROGRAM SPECIALIST Litzy Bruno MD LAB POCT ORDERABLES - DEVIC E Final Result Performing Organization Address [facility] Co de Phone Number IRENE BADILLO [facility] Department [place] [address] * (ABNORMAL) POCT glucose (06/09/2024 7:32 AM ADMINISTRATIVE PROGRAM SPECIALIST) Glucose, POC 218(H) 70 - 199 mg/dL Blood 06/09/2024 7:32 AM ADMINISTRATIVE PROGRAM SPECIALIST 06/09/2024 7:32 AM ADMINISTRATIVE PROGRAM SPECIALIST Litzy Bruno MD LAB POCT ORDERABLES - DEVIC E Final Result Performing Organization Address [facility] de Phone Number IRENE JENKINS Yoshi [facility] Department [place] [address] * eGFR (06/09/2024 6:36 AM ADMINISTRATIVE PROGRAM SPECIALIST) [facility] eGFR >90 >=60 mL/min/1. 73 m2 Comment: Interpretive Data Reference Interval Normal ?>/= 90 mL/min/1.73m2 Mildly decreased* ? 60 - 89 mL/min/1.73m2 Mildly to moderately decreased ?45 - 59 mL/min/1.73m2 Moderately to severely decreased ??30 - 44 mL/min/1.73m2 Severely decreased ?15 - 29 mL/min/1.73m2 Kidney Failure ?< 15 ??mL/min/1.73m2 *Relative to young adult level Estimated glomerular filtration rate is determined by the 2020 CKD-EPI equation recommended by the National Kidney Foundation (A Unifying Approach to GFR Estimation: Recommendations of the NKF-ASK Task Force on Reassessing the Inclusion of Race in Diagnosing Kidney Disease, JASN 2020). The CKD-EPI equation should not be used for patients with unstable renal function and has not been validated in children and those over 70. Current interpretive data was last reviewed 2021. Blood 06/09/2024 6:36 AM ADMINISTRATIVE PROGRAM SPECIALIST 06/09/2024 6:46 AM ADMINISTRATIVE PROGRAM SPECIALIST Yumiko Zuniga RESEARCH EXECUTIVE LAB BLOOD ORDERABLES F inal Result Performing Organization Address [facility] Co de Phone Number [facility] [place] [address] * (ABNORMAL) CBC without differential (06/09/2024 6:36 AM ADMINISTRATIVE PROGRAM SPECIALIST) Pathologist [facility] WBC 11.3(H) 3.8 - 9.9 K/cumm Hgb 11.8(L) 13.0 - 17.5 g/dL [facility] Hct 34.0(L) 38.9 - 50.3 % [facility] Plt 267 150 - 400 K/cumm [facility] MPV 9.7 9.1 - 12.3 fL [facility] RBC 3.66(L) 4.30 - 5.80 M/cumm [facility] MCV 92.9 81.3 - 96.4 fL [facility] MCH 32.2 27.1 - 33.3 pg [facility] MCHC 34.7 32.3 - 35.7 g/dL [facility] RDW CV 12.2 11.1 - 14.9 % [facility] RDW SD 41.8 35.7 - 48.1 fL [facility] NRBC abs 0.00 0.00 - 0.01 K/cumm [facility] Blood 06/09/2024 6:36 AM ADMINISTRATIVE PROGRAM SPECIALIST 06/09/2024 6:46 AM ADMINISTRATIVE PROGRAM SPECIALIST Yumiko Zuniga NP LAB BLOOD ORDERABLES F inal Result Performing Organization Address [facility] Co de Phone Number [facility] [place] [address] * Phosphorus (06/09/2024 6:36 AM ADMINISTRATIVE PROGRAM SPECIALIST) Pathologist [facility] Phosphorus, pl 3.1 2.3 - 4.5 mg/dL Blood 06/09/2024 6:36 AM ADMINISTRATIVE PROGRAM SPECIALIST 06/09/2024 6:46 AM ADMINISTRATIVE PROGRAM SPECIALIST Yumiko Zuniga RESEARCH EXECUTIVE LAB BLOOD ORDERABLES F inal Result Performing Organization Address [facility] de Phone Number [facility] [place] [address] * Magnesium (06/09/2024 6:36 AM ADMINISTRATIVE PROGRAM SPECIALIST) [facility] Magnesium 2.0 1.4 - 2.5 mg/dL Blood 06/09/2024 6:36 AM ADMINISTRATIVE PROGRAM SPECIALIST 06/09/2024 6:46 AM ADMINISTRATIVE PROGRAM SPECIALIST Yumiko Zuniga RESEARCH EXECUTIVE LAB BLOOD ORDERABLES F inal Result Performing Organization Address [facility] de Phone Number [facility] [place] [address] * (ABNORMAL) Basic metabolic panel (06/09/2024 6:36 AM ADMINISTRATIVE PROGRAM SPECIALIST) [facility] Sodium 131(L) 135 - 145 mmol/L Potassium, pl 4.2 3.3 - 4.9 mmol/L [facility] Chloride 97 97 - 110 mmol/L [facility] CO2 25 22 - 32 mmol/L [facility] Anion gap 9 2 - 15 mmol/L [facility] BUN 12 6 - 25 mg/dL [facility] Creatinine 0.67(L) 0.80 - 1.30 mg/dL [facility] Glucose 204(H) 70 - 199 mg/dL [facility] Comment: Interpretive Data Fasting glucose >/= 126 mg/dl is diagnostic for diabetes. ?? Fasting is defined as no caloric intake for at least 8 hours. Fasting glucose between 100 mg/dl to 125 mg/dl is diagnostic of prediabetes. In a patient with classic symptoms of hyperglycemia or hyperglycemic crisis, a random glucose >/= 200 mg/dl is diagnostic for diabetes. In the absence of unequivocal hyperglycemia, results should be confirmed by repeat testing. The classification and Diagnosis of Diabetes Diabetes Care 2021; 46: S19-S40. Current interpretive data was last revised 2022. Calcium 8.8 8.5 - 10.3 mg/dL [facility] Blood 06/09/2024 6:36 AM ADMINISTRATIVE PROGRAM SPECIALIST 06/09/2024 6:46 AM ADMINISTRATIVE PROGRAM SPECIALIST us Yumiko Zuniga RESEARCH EXECUTIVE LAB BLOOD ORDERABLES F inal Result Performing Organization Address [facility] Co de Phone Number [facility] Department [place] [address] * (ABNORMAL) POCT glucose (06/08/2024 9:12 PM ADMINISTRATIVE PROGRAM SPECIALIST) Glucose, POC 215(H) 70 - 199 mg/dL Blood 06/08/2024 9:12 PM ADMINISTRATIVE PROGRAM SPECIALIST 06/08/2024 9:12 PM ADMINISTRATIVE PROGRAM SPECIALIST us Litzy Bruno MD LAB POCT ORDERABLES - DEVIC E Final Result Performing Organization Address [facility] Co de Phone Number [facility] [place] [address] * POCT glucose (06/08/2024 5:33 PM ADMINISTRATIVE PROGRAM SPECIALIST) Glucose, POC 164 70 - 199 mg/dL Blood 06/08/2024 5:33 PM ADMINISTRATIVE PROGRAM SPECIALIST 06/08/2024 5:33 PM ADMINISTRATIVE PROGRAM SPECIALIST Litzy Bruno MD LAB POCT ORDERABLES - DEVIC E Final Result Performing Organization Address [facility] Co de Phone Number [facility] [place] [address] * XR Abdomen 1 View AP (06/08/2024 3:30 PM ADMINISTRATIVE PROGRAM SPECIALIST) Anatomical Region Laterality Modality Body, Abdomen N/A Computed Radiogr aphy 06/08/2024 3:48 PM ADMINISTRATIVE PROGRAM SPECIALIST Impressions 06/08/2024 3:48 PM ADMINISTRATIVE PROGRAM SPECIALIST A single view of the abdomen is submitted for evaluation. Mild gaseous distension of the transverse colon. ??Otherwise normal bowel gas pattern. ??Bilateral total hip arthroplasties. The radiology attending physician has personally reviewed this study, and had reviewed and/or edited this written report and agrees with it. Electronically signed by: Ty Thompson M.D. Narrative 06/08/2024 3:48 PM ADMINISTRATIVE PROGRAM SPECIALIST EXAMINATION: Abdomen, one view. HISTORY: Abdominal distension. COMPARISON: CT 05/18/2022 Procedure Note Ty Thompson MD - 06/08/2024 EXAMINATION: Abdomen, one view. HISTORY: Abdominal distension. COMPARISON: CT 05/18/2022 IMPRESSION: A single view of the abdomen is submitted for evaluation. Mild gaseous distension of the transverse colon. Otherwise normal bowel gas pattern. Bilateral total hip arthroplasties. The radiology attending physician has personally reviewed this study, and had reviewed and/or edited this written report and agrees with it. Electronically signed by: Ty Thompson M.D. Yumiko Zuniga NP IMG XR PROCEDURES Ting l Result * (ABNORMAL) POCT glucose (06/08/2024 11:17 AM ADMINISTRATIVE PROGRAM SPECIALIST) Glucose, POC 207(H) 70 - 199 mg/dL Blood 06/08/2024 11:1 7 AM ADMINISTRATIVE PROGRAM SPECIALIST 06/08/2024 11:17 AM ADMINISTRATIVE PROGRAM SPECIALIST us Litzy Bruno MD LAB POCT ORDERABLES - DEVIC E Final Result [facility] Department [place] [address] * POCT glucose (06/08/2024 7:34 AM ADMINISTRATIVE PROGRAM SPECIALIST) Glucose, POC 173 70 - 199 mg/dL Blood 06/08/2024 7:34 AM ADMINISTRATIVE PROGRAM SPECIALIST 06/08/2024 7:34 AM ADMINISTRATIVE PROGRAM SPECIALIST Litzy Bruno MD LAB POCT ORDERABLES - DEVIC E Final Result Performing Organization Address [facility] de Phone Number [facility] [place] [address] * POCT glucose (06/08/2024 3:38 AM ADMINISTRATIVE PROGRAM SPECIALIST) Glucose, POC 169 70 - 199 mg/dL Blood 06/08/2024 3:38 AM ADMINISTRATIVE PROGRAM SPECIALIST 06/08/2024 3:38 AM ADMINISTRATIVE PROGRAM SPECIALIST us Litzy Bruno MD LAB POCT ORDERABLES - DEVIC E Final Result Performing Organization Address [facility] de Phone Number [facility] [place] [address] * POCT glucose (06/07/2024 11:34 PM ADMINISTRATIVE PROGRAM SPECIALIST) Glucose, POC 170 70 - 199 mg/dL Blood 06/07/2024 11:3 4 PM ADMINISTRATIVE PROGRAM SPECIALIST 06/07/2024 11:34 PM ADMINISTRATIVE PROGRAM SPECIALIST Litzy Bruno MD LAB POCT ORDERABLES - DEVIC E Final Result Performing Organization Address [facility] [place] [address] * eGFR (06/07/2024 9:38 PM ADMINISTRATIVE PROGRAM SPECIALIST) eGFR >90 >=60 mL/min/1. 73 m2 Comment: Interpretive Data Reference Interval Normal ?>/= 90 mL/min/1.73m2 Mildly decreased* ? 60 - 89 mL/min/1.73m2 Mildly to moderately decreased ?45 - 59 mL/min/1.73m2 Moderately to severely decreased ??30 - 44 mL/min/1.73m2 Severely decreased ?15 - 29 mL/min/1.73m2 Kidney Failure ?< 15 ??mL/min/1.73m2 *Relative to young adult level Estimated glomerular filtration rate is determined by the 2020 CKD-EPI equation recommended by the National Kidney Foundation (A Unifying Approach to GFR Estimation: Recommendations of the NKF-ASK Task Force on Reassessing the Inclusion of Race in Diagnosing Kidney Disease, JASN 2020). The CKD-EPI equation should not be used for patients with unstable renal function and has not been validated in children and those over 70. Current interpretive data was last reviewed 2021. Blood 06/07/2024 9:38 PM ADMINISTRATIVE PROGRAM SPECIALIST 06/07/2024 10:46 PM ADMINISTRATIVE PROGRAM SPECIALIST us Litzy Bruno MD LAB BLOOD ORDERABLES Final Result [facility] Department [place] [address] * (ABNORMAL) CBC without differential (06/07/2024 9:38 PM ADMINISTRATIVE PROGRAM SPECIALIST) WBC 10.4(H) 3.8 - 9.9 K/cumm Hgb 11.7(L) 13.0 - 17.5 g/dL [facility] Hct 33.6(L) 38.9 - 50.3 % [facility] Plt 244 150 - 400 K/cumm [facility] MPV 10.4 9.1 - 12.3 fL [facility] RBC 3.60(L) 4.30 - 5.80 M/cumm [facility] MCV 93.3 81.3 - 96.4 fL [facility] MCH 32.5 27.1 - 33.3 pg [facility] MCHC 34.8 32.3 - 35.7 g/dL [facility] RDW CV 12.2 11.1 - 14.9 % [facility] RDW SD 42.1 35.7 - 48.1 fL [facility] NRBC abs 0.00 0.00 - 0.01 K/cumm [facility] Blood 06/07/2024 9:38 PM ADMINISTRATIVE PROGRAM SPECIALIST 06/07/2024 10:46 PM ADMINISTRATIVE PROGRAM SPECIALIST Litzy Bruno MD LAB BLOOD ORDERABLES Final Result Performing Organization Address City/[facility]/ZIP Co de Phone Number [facility] [place] [address] * Phosphorus (06/07/2024 9:38 PM ADMINISTRATIVE PROGRAM SPECIALIST) Pathologist [facility] Phosphorus, pl 2.8 2.3 - 4.5 mg/dL Blood 06/07/2024 9:38 PM ADMINISTRATIVE PROGRAM SPECIALIST 06/07/2024 10:46 PM ADMINISTRATIVE PROGRAM SPECIALIST Litzy Bruno MD LAB BLOOD ORDERABLES Final Result Performing Organization Address [facility] Co de Phone Number [facility] [place] [address] * Magnesium (06/07/2024 9:38 PM ADMINISTRATIVE PROGRAM SPECIALIST) [facility] Magnesium 2.0 1.4 - 2.5 mg/dL Blood 06/07/2024 9:38 PM ADMINISTRATIVE PROGRAM SPECIALIST 06/07/2024 10:46 PM ADMINISTRATIVE PROGRAM SPECIALIST Litzy Bruno MD LAB BLOOD ORDERABLES Final Result Performing Organization Address [facility] Co de Phone Number [facility] [place] [address] * (ABNORMAL) Basic metabolic panel (06/07/2024 9:38 PM ADMINISTRATIVE PROGRAM SPECIALIST) [facility] Sodium 133(L) 135 - 145 mmol/L Potassium, pl 4.1 3.3 - 4.9 mmol/L [facility] Chloride 99 97 - 110 mmol/L [facility] CO2 24 22 - 32 mmol/L [facility] Anion gap 10 2 - 15 mmol/L [facility] BUN 11 6 - 25 mg/dL [facility] Creatinine 0.67(L) 0.80 - 1.30 mg/dL [facility] Glucose 203(H) 70 - 199 mg/dL [facility] Comment: Interpretive Data Fasting glucose >/= 126 mg/dl is diagnostic for diabetes. ?? Fasting is defined as no caloric intake for at least 8 hours. Fasting glucose between 100 mg/dl to 125 mg/dl is diagnostic of prediabetes. In a patient with classic symptoms of hyperglycemia or hyperglycemic crisis, a random glucose >/= 200 mg/dl is diagnostic for diabetes. In the absence of unequivocal hyperglycemia, results should be confirmed by repeat testing. The classification and Diagnosis of Diabetes Diabetes Care 2021; 46: S19-S40. Current interpretive data was last revised 2022. Calcium 8.8 8.5 - 10.3 mg/dL [facility] Blood 06/07/2024 9:38 PM ADMINISTRATIVE PROGRAM SPECIALIST 06/07/2024 10:46 PM ADMINISTRATIVE PROGRAM SPECIALIST Litzy Bruno MD LAB BLOOD ORDERABLES Final Result Performing Organization Address [facility] Co de Phone Number [facility] [place] [address] * (ABNORMAL) POCT glucose (06/07/2024 8:15 PM ADMINISTRATIVE PROGRAM SPECIALIST) [facility] Glucose, POC 214(H) 70 - 199 mg/dL Blood 06/07/2024 8:15 PM ADMINISTRATIVE PROGRAM SPECIALIST 06/07/2024 8:15 PM ADMINISTRATIVE PROGRAM SPECIALIST Litzy Bruno MD LAB POCT ORDERABLES - DEVIC E Final Result Performing Organization Address [facility]/ZIP Co de Phone Number [facility] Department [place] [address] * (ABNORMAL) POCT glucose (06/07/2024 5:08 PM ADMINISTRATIVE PROGRAM SPECIALIST) Glucose, POC 221(H) 70 - 199 mg/dL Blood 06/07/2024 5:08 PM ADMINISTRATIVE PROGRAM SPECIALIST 06/07/2024 5:08 PM ADMINISTRATIVE PROGRAM SPECIALIST us Litzy Bruno MD LAB POCT ORDERABLES - DEVIC E Final Result Performing Organization Address City/[facility] [place] [address] * (ABNORMAL) POCT glucose (06/07/2024 11:04 AM ADMINISTRATIVE PROGRAM SPECIALIST) Glucose, POC 216(H) 70 - 199 mg/dL Comment:Glu2: RN/MD Notified Glucose comment 1 Glu2: RN/MD Notified [facility] Blood 06/07/2024 11:0 4 AM ADMINISTRATIVE PROGRAM SPECIALIST 06/07/2024 11:04 AM ADMINISTRATIVE PROGRAM SPECIALIST us Litzy Bruno MD LAB POCT ORDERABLES - DEVIC E Final Result Performing Organization Address [facility] [place] [address] * POCT glucose (06/07/2024 7:47 AM ADMINISTRATIVE PROGRAM SPECIALIST) Glucose, POC 192 70 - 199 mg/dL Blood 06/07/2024 7:47 AM ADMINISTRATIVE PROGRAM SPECIALIST 06/07/2024 7:47 AM ADMINISTRATIVE PROGRAM SPECIALIST us Litzy Bruno MD LAB POCT ORDERABLES - DEVIC E Final Result Performing Organization Address City/[facility] [place] [address] * POCT glucose (06/06/2024 8:27 PM ADMINISTRATIVE PROGRAM SPECIALIST) Glucose, POC 163 70 - 199 mg/dL Blood 06/06/2024 8:27 PM ADMINISTRATIVE PROGRAM SPECIALIST 06/06/2024 8:27 PM ADMINISTRATIVE PROGRAM SPECIALIST Litzy Bruno MD LAB POCT ORDERABLES - DEVIC E Final Result Performing Organization Address [facility] de Phone Number [facility] Department [place] [address] * POCT glucose (06/06/2024 5:25 PM ADMINISTRATIVE PROGRAM SPECIALIST) Glucose, POC 181 70 - 199 mg/dL Blood 06/06/2024 5:2 5 PM ADMINISTRATIVE PROGRAM SPECIALIST 06/06/2024 5:25 PM ADMINISTRATIVE PROGRAM SPECIALIST Litzy Bruno MD LAB POCT ORDERABLES - DEVIC E Final Result Performing Organization Address [facility] Phone Number [facility] [place] [address] * XR Spine Cervical 2 or 3 Views (06/06/2024 12:21 PM ADMINISTRATIVE PROGRAM SPECIALIST) Anatomical Region Laterality Modality Spine N/A Computed Radiogr aphy 06/06/2024 1:21 PM ADMINISTRATIVE PROGRAM SPECIALIST Impressions 06/06/2024 1:21 PM ADMINISTRATIVE PROGRAM SPECIALIST 1. ??Interval C3-T1 posterior instrumented spinal fusion Electronically signed by: Korey Mendoza MD Narrative 06/06/2024 1:21 PM ADMINISTRATIVE PROGRAM SPECIALIST EXAMINATION: XR SPINE CERVICAL 2 OR 3 VIEWS HISTORY: ??Cervical fusion FINDINGS: 5 radiographs of the cervical spine are compared to MRI 06/04/2024. There has been interval posterior decompression and instrumented spinal fusion from C3-T1. ??A surgical drain is present. ??No acute displaced fracture. Procedure Note Caitlyn Mendoza MD - 06/06/2024 EXAMINATION: XR SPINE CERVICAL 2 OR 3 VIEWS HISTORY: Cervical fusion FINDINGS: 5 radiographs of the cervical spine are compared to MRI 06/04/2024. There has been interval posterior decompression and instrumented spinal fusion from C3-T1. A surgical drain is present. No acute displaced fracture. IMPRESSION: 1. Interval C3-T1 posterior instrumented spinal fusion Electronically signed by: Korey Mendoza MD Litzy Bruno MD IMG XR PROCEDURES Final Res ult * (ABNORMAL) POCT glucose (06/06/2024 11:15 AM ADMINISTRATIVE PROGRAM SPECIALIST) Glucose, POC 241(H) 70 - 199 mg/dL Blood 06/06/2024 11:1 5 AM ADMINISTRATIVE PROGRAM SPECIALIST 06/06/2024 11:15 AM ADMINISTRATIVE PROGRAM SPECIALIST Litzy Bruno MD LAB POCT ORDERABLES - DEVIC E Final Result Performing Organization Address [facility] de Phone Number [facility] [place] [address] * POCT glucose (06/06/2024 7:41 AM ADMINISTRATIVE PROGRAM SPECIALIST) Glucose, POC 199 70 - 199 mg/dL Blood 06/06/2024 7:41 AM ADMINISTRATIVE PROGRAM SPECIALIST 06/06/2024 7:41 AM ADMINISTRATIVE PROGRAM SPECIALIST Result [facility] Litzy Bruno MD LAB POCT ORDERABLES - DEVIC E Final Result Performing Organization Address [facility] de Phone Number [facility] [place] [address] * POCT glucose (06/06/2024 6:07 AM ADMINISTRATIVE PROGRAM SPECIALIST) Glucose, POC 191 70 - 199 mg/dL Blood 06/06/2024 6:07 AM ADMINISTRATIVE PROGRAM SPECIALIST 06/06/2024 6:07 AM ADMINISTRATIVE PROGRAM SPECIALIST Litzy Bruno MD LAB POCT ORDERABLES - DEVIC E Final Result Performing Organization Address [facility] de Phone Number [facility] [place] [address] * (ABNORMAL) POCT glucose (06/06/2024 3:50 AM ADMINISTRATIVE PROGRAM SPECIALIST) Glucose, POC 207(H) 70 - 199 mg/dL Blood 06/06/2024 3:50 AM ADMINISTRATIVE PROGRAM SPECIALIST 06/06/2024 3:50 AM ADMINISTRATIVE PROGRAM SPECIALIST us Litzy Bruno MD LAB POCT ORDERABLES - DEVIC E Final Result Performing Organization Address [facility] Phone Number [facility] Department [place] [address] * POCT glucose (06/06/2024 1:36 AM ADMINISTRATIVE PROGRAM SPECIALIST) Glucose, POC 161 70 - 199 mg/dL Blood 06/06/2024 1:36 AM ADMINISTRATIVE PROGRAM SPECIALIST 06/06/2024 1:36 AM ADMINISTRATIVE PROGRAM SPECIALIST Litzy Bruno MD LAB POCT ORDERABLES - DEVIC E Final Result Performing Organization Address [facility] Phone Number [facility] [place] [address] * (ABNORMAL) POCT glucose (06/05/2024 8:48 PM ADMINISTRATIVE PROGRAM SPECIALIST) Glucose, POC 214(H) 70 - 199 mg/dL Comment:Glu2: RN/MD Notified Glucose comment 1 Glu2: RN/MD Notified [facility] Blood 06/05/2024 8:48 PM ADMINISTRATIVE PROGRAM SPECIALIST 06/05/2024 8:48 PM ADMINISTRATIVE PROGRAM SPECIALIST Litzy Bruno MD LAB POCT ORDERABLES - DEVIC E Final Result Performing Organization Address [facility] Co de Phone Number [facility] Department [place] [address] * Critical Care (06/05/2024 8:42 PM ADMINISTRATIVE PROGRAM SPECIALIST) Narrative Chele Gibson MD - 06/05/2024 8:42 PM ADMINISTRATIVE PROGRAM SPECIALIST Chele Gibson MD ? 06/06/2024 ??5:12 AM Critical Care Performed by: Chele Gibson MD Authorized by: Chele Gibson MD ?? CRITICAL CARE: ??Team: ??SICU RED ??Shift: ??PM ??Level of Billing: ??Initial Hospital Visit Level 2 ??My time spent with this patient was 25 minutes: Critical Provider Statement: I have seen and examined the patient on this day of service. I have reviewed and confirmed the history, physical exam, laboratory, and radiographic data as documented in the ICU note. I have reviewed and discussed my treatment plan with the patient's team and other medical/sales consultant insurance staff. This time was in addition to and separate from care provided by other practitioners on this day of service. ?? us Chele Gibson MD IN CLINIC/BEDSIDE ORDERAB LES Final Result * eGFR (06/05/2024 7:32 PM ADMINISTRATIVE PROGRAM SPECIALIST) [facility] eGFR >90 >=60 mL/min/1. 73 m2 Comment: Interpretive Data Reference Interval Normal ?>/= 90 mL/min/1.73m2 Mildly decreased* ? 60 - 89 mL/min/1.73m2 Mildly to moderately decreased ?45 - 59 mL/min/1.73m2 Moderately to severely decreased ??30 - 44 mL/min/1.73m2 Severely decreased ?15 - 29 mL/min/1.73m2 Kidney Failure ?< 15 ??mL/min/1.73m2 *Relative to young adult level Estimated glomerular filtration rate is determined by the 2020 CKD-EPI equation recommended by the National Kidney Foundation (A Unifying Approach to GFR Estimation: Recommendations of the NKF-ASK Task Force on Reassessing the Inclusion of Race in Diagnosing Kidney Disease, JASN 202). The CKD-EPI equation should not be used for patients with unstable renal function and has not been validated in children and those over 70. Current interpretive data was last reviewed 2021. Blood 06/05/2024 7:32 PM ADMINISTRATIVE PROGRAM SPECIALIST 06/05/2024 8:28 PM ADMINISTRATIVE PROGRAM SPECIALIST Litzy Bruno MD LAB BLOOD ORDERABLES Final Result [facility] Department [place] [address] * (ABNORMAL) Differential, auto (06/05/2024 7:32 PM ADMINISTRATIVE PROGRAM SPECIALIST) Neutrophil abs 10.2(H) 1.5 - 6.5 K/cumm Imm gran abs 0.1 0.0 - 0.1 K/cumm [facility] Lymphocyte abs 1.8 0.8 - 3.3 K/cumm [facility] Monocyte abs 1.0(H) 0.2 - 0.8 K/cumm [facility] Eosinophil abs 0.1 0.0 - 0.5 K/cumm [facility] Basophil abs 0.0 0.0 - 0.1 K/cumm [facility] Neutrophil pct 77.3 % [facility] Comment: Interpretive Data Percent cell count reference ranges are not reported, since discordance with absolute values may lead to misinterpretation of CBC data. Current Interpretive Data was last revised on 2017. Imm gran pct 0.4 % [facility] Comment: Interpretive Data Percent cell count reference ranges are not reported, since discordance with absolute values may lead to misinterpretation of CBC data. Current Interpretive Data was last revised on 2017. Lymphocyte pct 13.5 % [facility] Comment: Interpretive Data Percent cell count reference ranges are not reported, since discordance with absolute values may lead to misinterpretation of CBC data. Current Interpretive Data was last revised on 2017. Monocyte pct 7.8 % [facility] Comment: Interpretive Data Percent cell count reference ranges are not reported, since discordance with absolute values may lead to misinterpretation of CBC data. Current Interpretive Data was last revised on 2017. Eosinophil pct 0.8 % [facility] Comment: Interpretive Data Percent cell count reference ranges are not reported, since discordance with absolute values may lead to misinterpretation of CBC data. Current Interpretive Data was last revised on 2017. Basophil pct 0.2 % [facility] Comment: Interpretive Data Percent cell count reference ranges are not reported, since discordance with absolute values may lead to misinterpretation of CBC data. Current Interpretive Data was last revised on 2017. Blood 06/05/2024 7:32 PM ADMINISTRATIVE PROGRAM SPECIALIST 06/05/2024 8:29 PM ADMINISTRATIVE PROGRAM SPECIALIST Litzy Bruno MD LAB BLOOD ORDERABLES Final Result [facility] Department [place] [address] * (ABNORMAL) CBC with auto differential (06/05/2024 7:32 PM ADMINISTRATIVE PROGRAM SPECIALIST) WBC 13.2(H) 3.8 - 9.9 K/cumm Hgb 11.9(L) 13.0 - 17.5 g/dL [facility] Hct 34.1(L) 38.9 - 50.3 % [facility] Plt 270 150 - 400 K/cumm [facility] MPV 10.1 9.1 - 12.3 fL [facility] RBC 3.59(L) 4.30 - 5.80 M/cumm [facility] MCV 95.0 81.3 - 96.4 fL [facility] MCH 33.1 27.1 - 33.3 pg [facility] MCHC 34.9 32.3 - 35.7 g/dL [facility] RDW CV 12.3 11.1 - 14.9 % [facility] RDW SD 42.6 35.7 - 48.1 fL [facility] NRBC abs 0.00 0.00 - 0.01 K/cumm [facility] Blood 06/05/2024 7:32 PM ADMINISTRATIVE PROGRAM SPECIALIST 06/05/2024 8:29 PM ADMINISTRATIVE PROGRAM SPECIALIST Litzy Bruno MD LAB BLOOD ORDERABLES Final Result Performing Organization Address City/[facility]/ZIP Co de Phone Number [facility] [place] [address] * (ABNORMAL) Phosphorus (06/05/2024 7:32 PM ADMINISTRATIVE PROGRAM SPECIALIST) [facility] Phosphorus, pl 2.1(L) 2.3 - 4.5 mg/dL Blood 06/05/2024 7:32 PM ADMINISTRATIVE PROGRAM SPECIALIST 06/05/2024 8:28 PM ADMINISTRATIVE PROGRAM SPECIALIST Litzy Bruno MD LAB BLOOD ORDERABLES Final Result Performing Organization Address [facility] Co de Phone Number [facility] Department [place] [address] * Magnesium (06/05/2024 7:32 PM ADMINISTRATIVE PROGRAM SPECIALIST) [facility] Magnesium 1.9 1.4 - 2.5 mg/dL Blood 06/05/2024 7:32 PM ADMINISTRATIVE PROGRAM SPECIALIST 06/05/2024 8:28 PM ADMINISTRATIVE PROGRAM SPECIALIST Litzy Bruno MD LAB BLOOD ORDERABLES Final Result Performing Organization Address City/[facility]/ZIP Co de Phone Number [facility] [place] [address] * (ABNORMAL) Comprehensive metabolic panel (06/05/2024 7:32 PM ADMINISTRATIVE PROGRAM SPECIALIST) [facility] Sodium 131(L) 135 - 145 mmol/L Potassium, pl 4.2 3.3 - 4.9 mmol/L [facility] Chloride 100 97 - 110 mmol/L [facility] CO2 22 22 - 32 mmol/L [facility] Anion gap 9 2 - 15 mmol/L [facility] BUN 10 6 - 25 mg/dL [facility] Creatinine 0.80 0.80 - 1.30 mg/dL [facility] Glucose 249(H) 70 - 199 mg/dL [facility] Comment: Interpretive Data Fasting glucose >/= 126 mg/dl is diagnostic for diabetes. ?? Fasting is defined as no caloric intake for at least 8 hours. Fasting glucose between 100 mg/dl to 125 mg/dl is diagnostic of prediabetes. In a patient with classic symptoms of hyperglycemia or hyperglycemic crisis, a random glucose >/= 200 mg/dl is diagnostic for diabetes. In the absence of unequivocal hyperglycemia, results should be confirmed by repeat testing. The classification and Diagnosis of Diabetes Diabetes Care 2021; 46: S19-S40. Current interpretive data was last revised 2022. Calcium 8.2(L) 8.5 - 10.3 mg/dL [facility] Bilirubin, total 0.5 0.1 - 1.2 mg/dL [facility] Protein, pl 6.0(L) 6.5 - 8.5 g/dL [facility] Albumin 3.7 3.5 - 5.0 g/dL [facility] Alk phos 64 40 - 130 Units/L [facility] ALT 9 7 - 55 Units/L [facility] AST 20 10 - 50 Units/L [facility] Blood 06/05/2024 7:32 PM ADMINISTRATIVE PROGRAM SPECIALIST 06/05/2024 8:28 PM ADMINISTRATIVE PROGRAM SPECIALIST Litzy Bruno MD LAB BLOOD ORDERABLES Final Result [facility] Department [place] [address] * (ABNORMAL) POCT glucose (06/05/2024 6:02 PM ADMINISTRATIVE PROGRAM SPECIALIST) [facility] Glucose, POC 200(H) 70 - 199 mg/dL Blood 06/05/2024 6:02 PM ADMINISTRATIVE PROGRAM SPECIALIST 06/05/2024 6:02 PM ADMINISTRATIVE PROGRAM SPECIALIST Litzy Bruno MD LAB POCT ORDERABLES - DEVIC E Final Result Performing Organization Address City/[facility]/ZIP Co de Phone Number [facility] Department [place] [address] * Critical Care (06/05/2024 5:30 PM ADMINISTRATIVE PROGRAM SPECIALIST) Narrative Bin Cheema MD - 06/05/2024 5:30 PM ADMINISTRATIVE PROGRAM SPECIALIST Bin Cheema MD ? 06/05/2024 ??5:30 PM Critical Care Performed by: Bin Cheema MD Authorized by: Bin Cheema MD ?? CRITICAL CARE: ??Team: ??SICU RED ??Shift: ??AM ??Level of Billing: ??Subsequent Hospital Visit Level 2 ??My time spent with this patient was 20 minutes: Critical Provider Statement: I have seen and examined the patient on this day of service. I have reviewed and confirmed the history, physical exam, laboratory, and radiographic data as documented in the ICU note. I have reviewed and discussed my treatment plan with the patient's team and other medical/sales consultant insurance staff. This time was in addition to and separate from care provided by other practitioners on this day of service. ?? Bin Cheema MD IN CLINIC/BEDSIDE ORDERABLE S Final Result * (ABNORMAL) POCT glucose (06/05/2024 12:51 PM ADMINISTRATIVE PROGRAM SPECIALIST) Glucose, POC 272(H) 70 - 199 mg/dL Blood 06/05/2024 12:5 1 PM ADMINISTRATIVE PROGRAM SPECIALIST 06/05/2024 12:51 PM ADMINISTRATIVE PROGRAM SPECIALIST Litzy Bruno MD LAB POCT ORDERABLES - DEVIC E Final Result Performing Organization Address [facility] Co de Phone Number [facility] Department [place] [address] * POCT glucose (06/05/2024 8:34 AM ADMINISTRATIVE PROGRAM SPECIALIST) Glucose, POC 191 70 - 199 mg/dL Blood 06/05/2024 8:34 AM ADMINISTRATIVE PROGRAM SPECIALIST 06/05/2024 8:34 AM ADMINISTRATIVE PROGRAM SPECIALIST Litzy Bruno MD LAB POCT ORDERABLES - DEVIC E Final Result Performing Organization Address [facility] de Phone Number [facility] [place] [address] * POCT glucose (06/05/2024 6:07 AM ADMINISTRATIVE PROGRAM SPECIALIST) Glucose, POC 189 70 - 199 mg/dL Blood 06/05/2024 6:07 AM ADMINISTRATIVE PROGRAM SPECIALIST 06/05/2024 6:07 AM ADMINISTRATIVE PROGRAM SPECIALIST us Litzy Bruno MD LAB POCT ORDERABLES - DEVIC E Final Result Performing Organization Address [facility] de Phone Number [facility] [place] [address] * POCT glucose (06/05/2024 5:18 AM ADMINISTRATIVE PROGRAM SPECIALIST) Glucose, POC 163 70 - 199 mg/dL Blood 06/05/2024 5:18 AM ADMINISTRATIVE PROGRAM SPECIALIST 06/05/2024 5:18 AM ADMINISTRATIVE PROGRAM SPECIALIST Litzy Bruno MD LAB POCT ORDERABLES - DEVIC E Final Result Performing Organization Address [facility] [place] [address] * (ABNORMAL) POCT glucose (06/05/2024 4:17 AM ADMINISTRATIVE PROGRAM SPECIALIST) Glucose, POC 204(H) 70 - 199 mg/dL Blood 06/05/2024 4:17 AM ADMINISTRATIVE PROGRAM SPECIALIST 06/05/2024 4:17 AM ADMINISTRATIVE PROGRAM SPECIALIST Litzy Bruno MD LAB POCT ORDERABLES - DEVIC E Final Result Performing Organization Address [facility] de Phone Number [facility] [place] [address] * (ABNORMAL) POCT glucose (06/05/2024 3:27 AM ADMINISTRATIVE PROGRAM SPECIALIST) Glucose, POC 228(H) 70 - 199 mg/dL Comment:Glu2: RN/ Notified Glucose comment 1 Glu2: RN/MD Notified [facility] Blood 06/05/2024 3:27 AM ADMINISTRATIVE PROGRAM SPECIALIST 06/05/2024 3:27 AM ADMINISTRATIVE PROGRAM SPECIALIST us Litzy Bruno MD LAB POCT ORDERABLES - DEVIC E Final Result Performing Organization Address [facility] [place] [address] * (ABNORMAL) POCT glucose (06/04/2024 11:34 PM ADMINISTRATIVE PROGRAM SPECIALIST) Glucose, POC 212(H) 70 - 199 mg/dL Comment:Glu2: RN/ Notified Glucose comment 1 Glu2: RN/ Notified [facility] Blood 06/04/2024 11:3 4 PM ADMINISTRATIVE PROGRAM SPECIALIST 06/04/2024 11:34 PM ADMINISTRATIVE PROGRAM SPECIALIST us Litzy Bruno MD LAB POCT ORDERABLES - DEVIC E Final Result Performing Organization Address [facility] [place] [address] * Critical Care (06/04/2024 11:00 PM ADMINISTRATIVE PROGRAM SPECIALIST) Narrative Ramiro Slaughter MD - 06/04/2024 11:00 PM ADMINISTRATIVE PROGRAM SPECIALIST Ramiro Slaughter MD ? 06/05/2024 ??8:35 AM Critical Care Performed by: Ramiro Slaughter MD Authorized by: Ramiro Slaughter MD ?? CRITICAL CARE: ??Team: ??SICU RED ??Shift: ??PM ??Level of Billing: ??Critical Care ??My time spent with this patient was 30 minutes: Critical Provider Statement: I have seen and examined the patient on this day of service. I have reviewed and confirmed the history, physical exam, laboratory and radiologic data as documented in the signed ICU note. I have reviewed and discussed my treatment plan with the ICU team and other medical/sales consultant insurance staff, making frequent assessments and decisions regarding this patient's complex medical care. Critical Care time was exclusive of time spent performing separately billed procedures, treating other patients, and teaching. This time was in addition to and separate from critical care provided by other practitioners in my group on this day of service. Critical Care was necessary to treat or prevent imminent or life-threatening deterioration of the following conditions: ? Spinal cord injury/spine fracture ??This time was spent by me doing the following: ? Acute pain control ?? Initiation/active titration of vasoactive medications ?? I spent time reviewing and interpreting data from bedside monitors, laboratory results, and imaging, I spent time discussing the management of this critically ill patient with consultants and the medical staff and I spent time documenting in the medical record us Ramiro Slaughter MD IN CLINIC/BEDSIDE ORDERABLES Fin al Result * (ABNORMAL) POCT glucose (06/04/2024 8:09 PM ADMINISTRATIVE PROGRAM SPECIALIST) Glucose, POC 208(H) 70 - 199 mg/dL Blood 06/04/2024 8:09 PM ADMINISTRATIVE PROGRAM SPECIALIST 06/04/2024 8:09 PM ADMINISTRATIVE PROGRAM SPECIALIST us Litzy Bruno MD LAB POCT ORDERABLES - DEVIC E Final Result [facility] [place] [address] * POCT glucose (06/04/2024 7:00 PM ADMINISTRATIVE PROGRAM SPECIALIST) Glucose, POC 165 70 - 199 mg/dL Blood 06/04/2024 7:00 PM ADMINISTRATIVE PROGRAM SPECIALIST 06/04/2024 7:00 PM ADMINISTRATIVE PROGRAM SPECIALIST us Litzy Bruno MD LAB POCT ORDERABLES - DEVIC E Final Result Performing Organization Address [facility] Co de Phone Number IRENE JENKINS Yoshi [facility] Department [place] [address] * eGFR (06/04/2024 5:40 PM ADMINISTRATIVE PROGRAM SPECIALIST) eGFR >90 >=60 mL/min/1. 73 m2 Comment: Interpretive Data Reference Interval Normal ?>/= 90 mL/min/1.73m2 Mildly decreased* ? 60 - 89 mL/min/1.73m2 Mildly to moderately decreased ?45 - 59 mL/min/1.73m2 Moderately to severely decreased ??30 - 44 mL/min/1.73m2 Severely decreased ?15 - 29 mL/min/1.73m2 Kidney Failure ?< 15 ??mL/min/1.73m2 *Relative to young adult level Estimated glomerular filtration rate is determined by the 2020 CKD-EPI equation recommended by the National Kidney Foundation (A Unifying Approach to GFR Estimation: Recommendations of the NKF-ASK Task Force on Reassessing the Inclusion of Race in Diagnosing Kidney Disease, JASN 2020). The CKD-EPI equation should not be used for patients with unstable renal function and has not been validated in children and those over 70. Current interpretive data was last reviewed 2021. Blood 06/04/2024 5:40 PM ADMINISTRATIVE PROGRAM SPECIALIST 06/04/2024 6:03 PM ADMINISTRATIVE PROGRAM SPECIALIST us Litzy Bruno MD LAB BLOOD ORDERABLES Final Result Performing Organization Address [facility] de Phone Number IRENE JENKINS Yoshi [facility] Department [place] [address] * (ABNORMAL) Differential, auto (06/04/2024 5:40 PM ADMINISTRATIVE PROGRAM SPECIALIST) Neutrophil abs 15.7(H) 1.5 - 6.5 K/cumm Imm gran abs 0.1 0.0 - 0.1 K/cumm [facility] Lymphocyte abs 0.8 0.8 - 3.3 K/cumm [facility] Monocyte abs 1.0(H) 0.2 - 0.8 K/cumm [facility] Eosinophil abs 0.0 0.0 - 0.5 K/cumm [facility] Basophil abs 0.0 0.0 - 0.1 K/cumm [facility] Neutrophil pct 89.0 % [facility] Comment: Interpretive Data Percent cell count reference ranges are not reported, since discordance with absolute values may lead to misinterpretation of CBC data. Current Interpretive Data was last revised on 2017. Imm gran pct 0.5 % [facility] Comment: Interpretive Data Percent cell count reference ranges are not reported, since discordance with absolute values may lead to misinterpretation of CBC data. Current Interpretive Data was last revised on 2017. Lymphocyte pct 4.8 % [facility] Comment: Interpretive Data Percent cell count reference ranges are not reported, since discordance with absolute values may lead to misinterpretation of CBC data. Current Interpretive Data was last revised on 2017. Monocyte pct 5.5 % [facility] Comment: Interpretive Data Percent cell count reference ranges are not reported, since discordance with absolute values may lead to misinterpretation of CBC data. Current Interpretive Data was last revised on 2017. Eosinophil pct 0.0 % [facility] Comment: Interpretive Data Percent cell count reference ranges are not reported, since discordance with absolute values may lead to misinterpretation of CBC data. Current Interpretive Data was last revised on 2017. Basophil pct 0.2 % [facility] Comment: Interpretive Data Percent cell count reference ranges are not reported, since discordance with absolute values may lead to misinterpretation of CBC data. Current Interpretive Data was last revised on 2017. Blood 06/04/2024 5:40 PM ADMINISTRATIVE PROGRAM SPECIALIST 06/04/2024 5:51 PM ADMINISTRATIVE PROGRAM SPECIALIST us Litzy Bruno MD LAB BLOOD ORDERABLES Final Result Performing Organization Address City/[facility]/ZIP Co de Phone Number [facility] Department [place] [address] * (ABNORMAL) CBC with auto differential (06/04/2024 5:40 PM ADMINISTRATIVE PROGRAM SPECIALIST) WBC 17.6(H) 3.8 - 9.9 K/cumm Hgb 13.2 13.0 - 17.5 g/dL [facility] Hct 38.3(L) 38.9 - 50.3 % [facility] Plt 267 150 - 400 K/cumm [facility] MPV 9.8 9.1 - 12.3 fL [facility] RBC 4.09(L) 4.30 - 5.80 M/cumm [facility] MCV 93.6 81.3 - 96.4 fL [facility] MCH 32.3 27.1 - 33.3 pg [facility] MCHC 34.5 32.3 - 35.7 g/dL [facility] RDW CV 12.0 11.1 - 14.9 % [facility] RDW SD 41.4 35.7 - 48.1 fL [facility] NRBC abs 0.00 0.00 - 0.01 K/cumm [facility] Blood 06/04/2024 5:40 PM ADMINISTRATIVE PROGRAM SPECIALIST 06/04/2024 5:51 PM ADMINISTRATIVE PROGRAM SPECIALIST us Litzy Bruno MD LAB BLOOD ORDERABLES Final Result [facility] Department [place] [address] * Phosphorus (06/04/2024 5:40 PM ADMINISTRATIVE PROGRAM SPECIALIST) Pathologist [facility] Phosphorus, pl 2.8 2.3 - 4.5 mg/dL Blood 06/04/2024 5:40 PM ADMINISTRATIVE PROGRAM SPECIALIST 06/04/2024 6:03 PM ADMINISTRATIVE PROGRAM SPECIALIST us Litzy Bruno MD LAB BLOOD ORDERABLES Final Result Performing Organization Address [facility] Co de Phone Number [facility] One [facility] [place] [address] * Magnesium (06/04/2024 5:40 PM ADMINISTRATIVE PROGRAM SPECIALIST) Pathologist [facility] Magnesium 1.6 1.4 - 2.5 mg/dL Blood 06/04/2024 5:40 PM ADMINISTRATIVE PROGRAM SPECIALIST 06/04/2024 6:03 PM ADMINISTRATIVE PROGRAM SPECIALIST Litzy Bruno MD LAB BLOOD ORDERABLES Final Result Performing Organization Address [facility] de Phone Number [facility] Department [place] [address] * (ABNORMAL) Lipid panel (06/04/2024 5:40 PM ADMINISTRATIVE PROGRAM SPECIALIST) [facility] Cholesterol 106 30 - 199 mg/dL Comment: Interpretive Data Ages < or = 19 years ??Acceptable: ? <170 mg/dL ??Borderline high: ??170-199 mg/dL ??High: ? >or= 200 mg/dL Ages > or = 20 years ??Desirable: ?<200 mg/dL ??Borderline high: ??200-239 mg/dL ??High: ? >or= 240 mg/dL Literature References: 1. Expert Panel on Integrated Guidelines for Cardiovascular Health and Risk Reduction in Children and Adolescents. Pediatrics 2011;128:S213 2. NCEP Expert Panel. Circulation 2004;110:227 Current Interpretive Data was last revised on 2018. Triglycerides 136 <=149 mg/dL [facility] Comment: Interpretive Data Ages < or = 9 years ??Acceptable: ? <75 mg/dL ??Borderline high: ??75-99 mg/dL ??High: ? >or= 100 mg/dL Ages 10 to 20 years ??Acceptable: ? <90 mg/dL ??Borderline high: ??90-129 mg/dL ??High: ? >or= 130 mg/dL Ages > or = 20 years ??Desirable: ?<150 mg/dL ??Borderline high: ??150-199 mg/dL ??High: ? 200-499 mg/dL ?Very high: ?? >or= 499 mg/dL Literature References: 1. Expert Panel on Integrated Guidelines for Cardiovascular Health and Risk Reduction in Children and Adolescents. Pediatrics 2011;128:S213 2. NCEP Expert Panel. Circulation 2004;110:227 Current Interpretive Data was last revised on 2018. HDL 31(L) >=40 mg/dL [facility] Comment: Interpretive Data Ages < or = 19 years ??Acceptable: ? >45 mg/dL ??Borderline low: ?? 40-45 mg/dL ??Low: ? <40 mg/dL Ages > or = 20 years ??Desirable: ?>or= 60 mg/dL ??Low: ? <40 mg/dL Literature References: 1. Expert Panel on Integrated Guidelines for Cardiovascular Health and Risk Reduction in Children and Adolescents. Pediatrics 2011;128:S213 2. NCEP Expert Panel. Circulation 2004;110:227 Current Interpretive Data was last revised on 2018. LDL, calculated 51 <=129 mg/dL [facility] Comment: Interpretive Data Ages < or = 19 years ??Acceptable: ? <110 mg/dL ??Borderline high: ??110-129 mg/dL ??High: ?>or= 130 mg/dL Ages > or = 20 years ??Optimal: ? <100 mg/dL ??Near optimal: ?100-129 mg/dL ??Borderline high: ?? 130-159 mg/dL ??High: ?>160 mg/dL Calculated using the Jamal LDL-C estimating equation. This equation was implemented on 2024. Prior to this date LDL-C was estimated using the Friedewald equation. Literature References: 1. Expert Panel on Integrated Guidelines for Cardiovascular Health and Risk Reduction in Children and Adolescents. Pediatrics 2011;128:S213 2. NCEP Expert Panel. Circulation 2004;110:227 3. Jamal Blakely et al. JAY Cardiol. 2019October 29;5(5):540-548. doi: 10.1001/[email or web address] Current Interpretive Data was last revised on 2024. Non-HDL Cholesterol 75 mg/dL [facility] Comment: Interpretive Data Ages < or = 19 years ??Acceptable: ?<120 mg/dL ??Borderline high: ??120-144 mg/dL ??High: ?>145 mg/dL Ages > or = 20 years ??When triglycerides are >200 mg/dL, Non-HDL cholesterol is a secondary target of ? therapy with treatment goals that are 30 mg/dL greater than the LDL cholesterol target. ? Literature References: 1. Expert Panel on Integrated Guidelines for Cardiovascular Health and Risk Reduction in Children and Adolescents. Pediatrics 2011;128:S213 2. NCEP Expert Panel. Circulation 2004;110:227 Current Interpretive Data was last revised on 2018. Chol/HDL ratio 3 [facility] Blood 06/04/2024 5:40 PM ADMINISTRATIVE PROGRAM SPECIALIST 06/04/2024 6:03 PM ADMINISTRATIVE PROGRAM SPECIALIST us Litzy Bruno MD LAB BLOOD ORDERABLES Final Result [facility] Department [place] [address] * (ABNORMAL) Comprehensive metabolic panel (06/04/2024 5:40 PM ADMINISTRATIVE PROGRAM SPECIALIST) Sodium 135 135 - 145 mmol/L Potassium, pl 4.5 3.3 - 4.9 mmol/L [facility] Chloride 103 97 - 110 mmol/L [facility] CO2 20(L) 22 - 32 mmol/L [facility] Anion gap 12 2 - 15 mmol/L [facility] BUN 8 6 - 25 mg/dL [facility] Creatinine 0.58(L) 0.80 - 1.30 mg/dL [facility] Glucose 178 70 - 199 mg/dL [facility] Comment: Interpretive Data Fasting glucose >/= 126 mg/dl is diagnostic for diabetes. ?? Fasting is defined as no caloric intake for at least 8 hours. Fasting glucose between 100 mg/dl to 125 mg/dl is diagnostic of prediabetes. In a patient with classic symptoms of hyperglycemia or hyperglycemic crisis, a random glucose >/= 200 mg/dl is diagnostic for diabetes. In the absence of unequivocal hyperglycemia, results should be confirmed by repeat testing. The classification and Diagnosis of Diabetes Diabetes Care 2021; 46: S19-S40. Current interpretive data was last revised 2022. Calcium 7.7(L) 8.5 - 10.3 mg/dL [facility] Bilirubin, total 0.3 0.1 - 1.2 mg/dL [facility] Protein, pl 6.2(L) 6.5 - 8.5 g/dL [facility] Albumin 3.7 3.5 - 5.0 g/dL [facility] Alk phos 57 40 - 130 Units/L [facility] ALT 11 7 - 55 Units/L [facility] AST 27 10 - 50 Units/L [facility] Blood 06/04/2024 5:40 PM ADMINISTRATIVE PROGRAM SPECIALIST 06/04/2024 6:03 PM ADMINISTRATIVE PROGRAM SPECIALIST us Litzy Bruno MD LAB BLOOD ORDERABLES Final Result [facility] Department [place] [address] * CT Thoracic and Lumbar Spine WO Contrast (06/04/2024 4:37 PM ADMINISTRATIVE PROGRAM SPECIALIST) Anatomical Region Laterality Modality Spine N/A Computed Tomogra phy 06/04/2024 5:07 PM ADMINISTRATIVE PROGRAM SPECIALIST Impressions 06/04/2024 5:07 PM ADMINISTRATIVE PROGRAM SPECIALIST 1. ??No acute fracture in the thoracic or lumbar spine. 2. ??Degenerative changes of the thoracic and lumbar spine as above. This is most pronounced at L5-S1 where there is severe bilateral neuroforaminal stenosis. Dictated by: Perez Virgen MD The radiology attending physician has personally reviewed this study, and had reviewed and/or edited this written report and agrees with it. Electronically signed by: Renato Garza M.D. Narrative 06/04/2024 5:07 PM ADMINISTRATIVE PROGRAM SPECIALIST EXAMINATION: 1. CT of the thoracic spine without contrast 2. CT of the lumbar spine without contrast HISTORY: 69-year-old with ground-level fall. ??Patient was noted to have splayed C4-C5 facet joint and multilevel chronic central canal stenosis from C4 to C7. ??Patient is status post spinal fusion and repair fracture on 06/04/2024. TECHNIQUE: CT of the thoracic spine was performed according to standard protocol without intravenous contrast. CT of the lumbar spine was performed according to the standard protocol without intravenous contrast. COMPARISON: None Available. FINDINGS: THORACIC SPINE: Partially imaged surgical drain in the back. ??There are foci of gas in the soft tissues and musculature of the back, likely related to recent procedure. ??Partially imaged spinal fusion instrumentation extending to T1. ??Imaged hardware is intact. There are 12 rib-bearing thoracic vertebra. The alignment of the thoracic spine is normal. There is no acute fracture. Vertebral bodies are normal in height without compression fractures. No high-grade spinal canal or neuroforaminal stenosis. There is no soft tissue abnormality. The thoracic aorta is normal. LUMBAR SPINE: The alignment of the lumbar spine is normal. There is no acute fracture. The vertebral bodies are normal in height without compression fractures. There is multilevel spondylosis of the lumbar spine most pronounced at L5-S1 with significant intervertebral disc height loss. ??There is mild spinal canal stenosis at this level, along with severe bilateral neuroforaminal stenosis. There is no soft tissue abnormality. The abdominal aorta appears normal. Procedure Note Renato Garza MD PhD - 06/04/2024 EXAMINATION: 1. CT of the thoracic spine without contrast 2. CT of the lumbar spine without contrast HISTORY: 69-year-old with ground-level fall. Patient was noted to have splayed C4-C5 facet joint and multilevel chronic central canal stenosis from C4 to C7. Patient is status post spinal fusion and repair fracture on 06/04/2024. TECHNIQUE: CT of the thoracic spine was performed according to standard protocol without intravenous contrast. CT of the lumbar spine was performed according to the standard protocol without intravenous contrast. COMPARISON: None Available. FINDINGS: THORACIC SPINE: Partially imaged surgical drain in the back. There are foci of gas in the soft tissues and musculature of the back, likely related to recent procedure. Partially imaged spinal fusion instrumentation extending to T1. Imaged hardware is intact. There are 12 rib-bearing thoracic vertebra. The alignment of the thoracic spine is normal. There is no acute fracture. Vertebral bodies are normal in height without compression fractures. No high-grade spinal canal or neuroforaminal stenosis. There is no soft tissue abnormality. The thoracic aorta is normal. LUMBAR SPINE: The alignment of the lumbar spine is normal. There is no acute fracture. The vertebral bodies are normal in height without compression fractures. There is multilevel spondylosis of the lumbar spine most pronounced at L5-S1 with significant intervertebral disc height loss. There is mild spinal canal stenosis at this level, along with severe bilateral neuroforaminal stenosis. There is no soft tissue abnormality. The abdominal aorta appears normal. IMPRESSION: 1. No acute fracture in the thoracic or lumbar spine. 2. Degenerative changes of the thoracic and lumbar spine as above. This is most pronounced at L5-S1 where there is severe bilateral neuroforaminal stenosis. Dictated by: Perez Virgen MD The radiology attending physician has personally reviewed this study, and had reviewed and/or edited this written report and agrees with it. Electronically signed by: Renato Garza M.D. Litzy Bruno MD IMG CT PROCEDURES Final Res ult * POCT glucose (06/04/2024 3:08 PM ADMINISTRATIVE PROGRAM SPECIALIST) Glucose, POC 162 70 - 199 mg/dL Blood 06/04/2024 3:08 PM ADMINISTRATIVE PROGRAM SPECIALIST 06/04/2024 3:08 PM ADMINISTRATIVE PROGRAM SPECIALIST Litzy Bruno MD LAB POCT ORDERABLES - [place] [address] * POCT glucose (06/04/2024 2:10 PM ADMINISTRATIVE PROGRAM SPECIALIST) Glucose, POC 171 70 - 199 mg/dL Blood 06/04/2024 2:10 PM ADMINISTRATIVE PROGRAM SPECIALIST 06/04/2024 2:10 PM ADMINISTRATIVE PROGRAM SPECIALIST Litzy Bruno MD LAB POCT ORDERABLES - DEVIC E Final Result Performing Organization Address [facility] [place] [address] * POCT glucose (06/04/2024 1:20 PM ADMINISTRATIVE PROGRAM SPECIALIST) Glucose, POC 169 70 - 199 mg/dL Blood 06/04/2024 1:20 PM ADMINISTRATIVE PROGRAM SPECIALIST 06/04/2024 1:20 PM ADMINISTRATIVE PROGRAM SPECIALIST Litzy Bruno MD LAB POCT ORDERABLES - DEVIC E Final Result Performing Organization Address [facility]/[place] [address] * POCT glucose (06/04/2024 12:00 PM ADMINISTRATIVE PROGRAM SPECIALIST) Glucose, POC 187 70 - 199 mg/dL Blood 06/04/2024 12:0 0 PM ADMINISTRATIVE PROGRAM SPECIALIST 06/04/2024 12:00 PM ADMINISTRATIVE PROGRAM SPECIALIST Litzy Bruno MD LAB POCT ORDERABLES - DEVIC E Final Result Performing Organization Address City/[facility] [place] [address] * FL Fluoroscopy < 1 Hour (06/04/2024 11:38 AM ADMINISTRATIVE PROGRAM SPECIALIST) Narrative [email or web address] - 06/04/2024 11:39 AM ADMINISTRATIVE PROGRAM SPECIALIST The images from this study are not interpreted by Radiology. ??Please refer to the physician's procedure / OR operative note. us Panda Gamez MD IMG FLUOROSCOPY PROCEDUR ES Final Result Performing Organization Address [facility] de Phone Number [email or web address] * POCT glucose (06/04/2024 11:03 AM ADMINISTRATIVE PROGRAM SPECIALIST) Glucose, POC 166 70 - 199 mg/dL Blood 06/04/2024 11:0 3 AM ADMINISTRATIVE PROGRAM SPECIALIST 06/04/2024 11:03 AM ADMINISTRATIVE PROGRAM SPECIALIST Litzy Bruno MD LAB POCT ORDERABLES - DEVIC E Final Result Performing Organization Address [facility] de Phone Number [facility] Department [place] [address] * POCT glucose (06/04/2024 9:51 AM ADMINISTRATIVE PROGRAM SPECIALIST) Glucose, POC 194 70 - 199 mg/dL Blood 06/04/2024 9:51 AM ADMINISTRATIVE PROGRAM SPECIALIST 06/04/2024 9:51 AM ADMINISTRATIVE PROGRAM SPECIALIST Litzy Bruno MD LAB POCT ORDERABLES - DEVIC E Final Result Performing Organization Address [facility] Phone Number [facility] Department [place] [address] * DC AN ELECTIVE ENDOTRACHEAL AIRWAY, DC AN PROCEDURE PLACEHOLDER (06/04/2024 9:46 AM ADMINISTRATIVE PROGRAM SPECIALIST) Narrative Florin Henson CRNA - 06/04/2024 9:46 AM ADMINISTRATIVE PROGRAM SPECIALIST Florin Henson CRNA ? 06/04/2024 ??9:48 AM Airway Patient location: OR Urgency: elective Indications for airway management: anesthesia Difficult airway: no Staff: Supervising provider: Lisa Marie MD PhD Placed by: PSYCHIATRY TEACHER: Florin Henson CRNA Airway prep: Preoxygenated: yes Patient position: sniffing Mask difficulty assessment: 0 - not attempted Sedation level during airway: GA Final airway details: Final airway type: endotracheal airway Tube type: ETT ETT size: 7.5 mm Cuffed: yes Technique used for successful ETT placement: video laryngoscopy Insertion site: oral Blade type: Yu Video blade type: Patel Blade size: 4 Cormack-Lehane (video): grade I - full view of glottis Cuff inflated with: air ETT to lips: 23 cm Placement verified by: auscultation and CO2 detection Airway secured with: silk tape, prone view tape and tegaderm Number of attempts: 1 Additional comments: Cspine maintained midline, Ccollar in place throughout intubation. us Lisa Marie MD PhD ANESTHESIA ORDERABLES Final Result * DC ARTL CATHJ/CANNULJ MNTR/TRANSFUSION SPX PRQ (06/04/2024 9:04 AM ADMINISTRATIVE PROGRAM SPECIALIST) Narrative Kalyan Chandler MD - 06/04/2024 9:04 AM ADMINISTRATIVE PROGRAM SPECIALIST Radha Ferrell MD ? 06/04/2024 ??9:05 AM Arterial line Date/Time: 06/04/2024 9:04 AM Performed by: Radha Ferrell MD Authorized by: Nathan Buchanan MD ?? [place] Protocol: ??RN Notified of Procedure: yes ?Informed consent: ??Risks, benefits, alternatives discussed ??Patient's stated name/ matches armband: ??Yes ??Allergies confirmed: yes ?Consent form signed, dated, timed; matches correct patient, intended procedure and site: ??Yes ??Imaging: ??N/a ??Lab/Diag test results: ??N/a ??Supplies, devices and special equipment are available: yes ?Site/side marked: yes ?Immediately prior to the procedure a time out was called: a verbal verification by the procedure participants confirmed correct patient identity, correct site/side marked and visible (if applicable); agreement on procedure to be done; and correct patient positioning ?? Indications: ??Indications: hemodynamic monitoring ?? Pre-procedure details: ??Skin preparation: ??Betadine ??Preparation: Patient was prepped and draped in sterile fashion ?? Sedation: ??Sedation used: no ?? Anesthesia (see MAR for exact dosages): ??Anesthesia method: ??Local infiltration ??Local anesthetic: ??Lidocaine 2% Procedure details: ??Location: ??R radial ??Denis's test performed: yes ?Denis's test abnormal: no ?Needle gauge: ??20 G ??Placement technique: ??Ultrasound guided ??Ultrasound guidance used for: ??Pre-procedure marking and real-time guidance ??Sterile ultrasound techniques: Sterile gel and sterile probe covers were used ?Number of attempts: ??1 ??Transducer: waveform confirmed ?? Post-procedure details: ??Post-procedure: ??Sterile dressing applied and sutured ??CMS: ??Normal ??Patient tolerance of procedure: ??Tolerated well, no immediate complications Post Procedure Debrief: ??All guidewires, needles, sponges or other items are accounted for: yes ?Any special post procedure monitoring, testing or other considerations: n/a ?All specimens identified, labeled and matched to patient identification: n/a ?Responsible alliance party for transporting specimen(s) to lab determined: n/a ?? us Nathan Buchanan MD IN CLINIC/BEDSIDE ORDERABLES Final Result * MRI Cervical Spine WO Contrast (06/04/2024 7:48 AM ADMINISTRATIVE PROGRAM SPECIALIST) Anatomical Region Laterality Modality Spine N/A Magnetic Resonan ce 06/04/2024 8:40 AM ADMINISTRATIVE PROGRAM SPECIALIST Impressions 06/04/2024 8:53 AM ADMINISTRATIVE PROGRAM SPECIALIST 1. Findings concerning for possible fracture of an anterior osteophyte at C5-C6 with anterior discoligamentous injury at this level (widening of the disc space, focal disruption of the anterior longitudinal ligament). There is mild edema within the interspinous ligament at C4-C5 extending into the facet joints with mild widening on the left at this level, consistent with interspinous and capsular ligamentous injury at this level. ?? 2. Severe multilevel degenerative disc and joint disease resulting in multilevel severe canal and neuroforaminal stenosis with cord signal abnormality and compression at C4-C5. The Critical results were discussed with Dr. Adame by Dr. Lyndsay Agudelo on 06/04/2024 at 8:42 AM Dictated by: Lyndsay Agudelo MD The radiology attending physician has personally reviewed this study, and had reviewed and/or edited this written report and agrees with it. Electronically signed by: Tony Willoughby M.D. Narrative 06/04/2024 8:53 AM ADMINISTRATIVE PROGRAM SPECIALIST EXAMINATION: Magnetic resonance imaging (MRI) of the cervical spine without contrast HISTORY: Trauma, concern for central cord syndrome TECHNIQUE: Multiplanar multi-weighted MRI of the cervical spine was performed without intravenous contrast using the standard protocol. COMPARISON: Same day CT cervical spine FINDINGS: Dextrocurvature of the cervical spine. Minimal retrolisthesis of C4 on C5, anterolisthesis of C5 on C6, and retrolisthesis of C6 on C7. Vertebral bodies demonstrate normal signal intensity on all sequences. Mild STIR signal within the anterior disc space at C5-C6 extending into the prevertebral soft tissues with possible mild osseous disruption of an anterior osteophyte and mild widening of the disc space and disruption of the anterior longitudinal ligament concerning for focal discoligamentous injury. The posterior longitudinal ligament appears intact. There is some mild edema within the interspinous ligament at C4-C5 extending into the facet joints with some associated widening of the left at C4-C5. This is consistent with interspinous and capsular ligamentous injury at this level. ??Degenerative changes are noted at the craniocervical junction. The visualized portions of the skull base and the posterior fossa are normal. There are no annular fissures identified. Right thyroid nodule. Normal signal voids are present in the vertebral arteries. C2-C3: Posterior disc osteophyte complex. There is severe left, mild right facet arthropathy. There is moderate bilateral uncovertebral joint disease. There is severe left, mild right neuroforaminal stenosis. There is mild spinal canal stenosis. C3-C4: Posterior disc osteophyte complex There is severe bilateral facet arthropathy. There is moderate bilateral uncovertebral joint disease. There is severe bilateral neuroforaminal stenosis. There is mild spinal canal stenosis. C4-C5: Posterior disc osteophyte complex. ??Ligamentum flavum hypertrophy. ??There is severe left, moderate right facet arthropathy. There is moderate bilateral uncovertebral joint disease. There is severe left, moderate right neuroforaminal stenosis. There is severe spinal canal stenosis with associated T2 signal abnormality within the cord and cord compression. C5-C6: Diffuse disc bulge with ligamentum flavum hypertrophy. There is severe bilateral facet arthropathy. There is moderate bilateral uncovertebral joint disease. There is moderate bilateral neuroforaminal stenosis. There is moderate to severe spinal canal stenosis. C6-C7: Diffuse disc bulge with ligamentum flavum hypertrophy. There is mild to moderate bilateral facet arthropathy. There is mild bilateral uncovertebral joint disease. There is no neuroforaminal stenosis. There is mild spinal canal stenosis. C7-T1: The disk is normal in configuration. There is no facet arthropathy. There is no uncovertebral joint disease. There is no neuroforaminal stenosis. There is no spinal canal stenosis. Procedure Note Tony Willoughby MD - 06/04/2024 EXAMINATION: Magnetic resonance imaging (MRI) of the cervical spine without contrast HISTORY: Trauma, concern for central cord syndrome TECHNIQUE: Multiplanar multi-weighted MRI of the cervical spine was performed without intravenous contrast using the standard protocol. COMPARISON: Same day CT cervical spine FINDINGS: Dextrocurvature of the cervical spine. Minimal retrolisthesis of C4 on C5, anterolisthesis of C5 on C6, and retrolisthesis of C6 on C7. Vertebral bodies demonstrate normal signal intensity on all sequences. Mild STIR signal within the anterior disc space at C5-C6 extending into the prevertebral soft tissues with possible mild osseous disruption of an anterior osteophyte and mild widening of the disc space and disruption of the anterior longitudinal ligament concerning for focal discoligamentous injury. The posterior longitudinal ligament appears intact. There is some mild edema within the interspinous ligament at C4-C5 extending into the facet joints with some associated widening of the left at C4-C5. This is consistent with interspinous and capsular ligamentous injury at this level. Degenerative changes are noted at the craniocervical junction. The visualized portions of the skull base and the posterior fossa are normal. There are no annular fissures identified. Right thyroid nodule. Normal signal voids are present in the vertebral arteries. C2-C3: Posterior disc osteophyte complex. There is severe left, mild right facet arthropathy. There is moderate bilateral uncovertebral joint disease. There is severe left, mild right neuroforaminal stenosis. There is mild spinal canal stenosis. C3-C4: Posterior disc osteophyte complex There is severe bilateral facet arthropathy. There is moderate bilateral uncovertebral joint disease. There is severe bilateral neuroforaminal stenosis. There is mild spinal canal stenosis. C4-C5: Posterior disc osteophyte complex. Ligamentum flavum hypertrophy. There is severe left, moderate right facet arthropathy. There is moderate bilateral uncovertebral joint disease. There is severe left, moderate right neuroforaminal stenosis. There is severe spinal canal stenosis with associated T2 signal abnormality within the cord and cord compression. C5-C6: Diffuse disc bulge with ligamentum flavum hypertrophy. There is severe bilateral facet arthropathy. There is moderate bilateral uncovertebral joint disease. There is moderate bilateral neuroforaminal stenosis. There is moderate to severe spinal canal stenosis. C6-C7: Diffuse disc bulge with ligamentum flavum hypertrophy. There is mild to moderate bilateral facet arthropathy. There is mild bilateral uncovertebral joint disease. There is no neuroforaminal stenosis. There is mild spinal canal stenosis. C7-T1: The disk is normal in configuration. There is no facet arthropathy. There is no uncovertebral joint disease. There is no neuroforaminal stenosis. There is no spinal canal stenosis. IMPRESSION: 1. Findings concerning for possible fracture of an anterior osteophyte at C5-C6 with anterior discoligamentous injury at this level (widening of the disc space, focal disruption of the anterior longitudinal ligament). There is mild edema within the interspinous ligament at C4-C5 extending into the facet joints with mild widening on the left at this level, consistent with interspinous and capsular ligamentous injury at this level. 2. Severe multilevel degenerative disc and joint disease resulting in multilevel severe canal and neuroforaminal stenosis with cord signal abnormality and compression at C4-C5. The Critical results were discussed with Dr. Adame by Dr. Lyndsay Agudelo on 06/04/2024 at 8:42 AM Dictated by: Lyndsay Agudelo MD The radiology attending physician has personally reviewed this study, and had reviewed and/or edited this written report and agrees with it. Electronically signed by: Tony Chele Fartun, M.D. us Luis Prieto MD IMG MRI PROCEDURES F inal Result * SCAN - RADIOLOGY/IMAGING (06/04/2024 7:02 AM ADMINISTRATIVE PROGRAM SPECIALIST) Anatomical Region Laterality Modality Other Result [facility] Tim Horton MD Final Result * SCAN - RADIOLOGY/IMAGING (06/04/2024 7:00 AM ADMINISTRATIVE PROGRAM SPECIALIST) Anatomical Region Laterality Modality Other Result [facility] Tim Horton MD Final Result * SCAN - LABS (06/04/2024 6:55 AM ADMINISTRATIVE PROGRAM SPECIALIST) Result [facility] Tim Horton MD Final Result * Neuro CT Outside Consult (06/04/2024 6:53 AM ADMINISTRATIVE PROGRAM SPECIALIST) Anatomical Region Laterality Modality N/A Computed Tomogra phy 06/04/2024 12:2 3 PM ADMINISTRATIVE PROGRAM SPECIALIST Impressions 06/04/2024 12:23 PM ADMINISTRATIVE PROGRAM SPECIALIST 1. ??Head CT demonstrates no acute intracranial abnormality. 2. ??Facial CT demonstrates no acute facial fracture. ??Foci of hyperdensity likely representing calcifications along the wall of the right globe. 3. ??Cervical spine CT demonstrates no acute cervical spine fracture. Multilevel advanced degenerative disease of the cervical spine resulting in multilevel central spinal or neural foraminal stenoses as described above in more detail with severe C4-C5 and moderate C5-C6 and C6-C7 central spinal stenoses. 4. ??Incidental 1.8 x 1.7 cm hypodense nodule within the right lobe of the thyroid gland. ??This can be further evaluated with a nonemergent, outpatient thyroid ultrasound examination as clinically indicated. The findings, conclusions and recommendations within this report do not replace the initial findings, conclusions ??and recommendations made at the facility where the study was performed based upon the imaging and clinical condition at that time. ??Comparison with the prior report and clinical history is necessary. ??The provided images may or may not represent the campo source data set and thus may contain changes that may lower the accuracy of this second-opinion interpretation. Electronically signed by: Nicolas Benz MD Narrative 06/04/2024 12:23 PM ADMINISTRATIVE PROGRAM SPECIALIST EXAMINATION: RADIOLOGY CONSULTATION ON OUTSIDE IMAGING STUDY STUDY INITIALLY PERFORMED: 06/04/2024 at [place], [place]. TYPE OF STUDY: Multiple CT images of the head, face and cervical spine without contrast are provided at the time of this interpretation. CONTRAST ROUTE: No contrast was administered. The protocol was adequate to address the clinical question. The outside final report was not available at the time of this second opinion interpretation. TYPE OF CONSULTATION: Consult on outside imaging study with images submitted through Outside [facility]aring [facility] DATE OF CONSULTATION: 06/04/2024 11:38 AM HISTORY: Fall COMPARISON: None available. FINDINGS: Head CT: Parenchyma: Chronic mild volume loss is present. Discrete small and patchy hypodensities are present likely representing chronic microvascular ischemic changes. Chronic lacunar infarctions within the body of right caudate nucleus and right decubitus nuclei. No hemorrhage, mass or mass effect is present. Ventricles and midline: Ventricles are normal in size for the brain volume. There is no midline shift or hydrocephalus. Scalp and bony structures: There is no acute skull fracture or significant scalp edema/hematoma. No pathologic lytic or sclerotic bone lesions are present. Orbits, paranasal sinuses and mastoids: No acute intraorbital abnormality. Minimal mucosal disease within left maxillary sinus. Mastoids and tympanic cavities demonstrate no significant opacification. Maxillofacial CT: Soft tissues: No significant facial or scalp soft tissue injury, edema or hematoma. Bones: No acute fracture involving the visualized face, orbits or skullbase. Orbits: Globes, optic nerves and extraocular muscles are normal. No significant intraorbital hemorrhage or mass. Focus of calcification along the right anterior medial border of the right globe. ??There is a 2nd smaller focus of hyperdensity along the posterior border of the right globe which may represent an additional focus of minimal calcification involving the choroid or retina. Paranasal Sinuses: Minimal mucosal thickening within right ethmoid sinus. ??Slightly lobulated mucosal disease within left maxillary sinus. Mild leftward deviation of the nasal septum with a bony spur projecting into left nasal cavity. Temporal bones: No acute fracture. Tympanic cavities and mastoids are well aerated. Cervical spine CT: Craniocervical Junction: Atlanto-occipital joint alignment is normal. Alignment: Dextroconvex scoliosis of the cervical spine is noted. ??Mild grade 1 anterolisthesis of C3 on C4, C5 and C6 and minimal grade 1 retrolisthesis of C6 on C7 vertebra are also noted. Facets: Multilevel asymmetric facet arthropathy is present. C1-C2: Osteoarthritic changes are present involving the anterior arch of C1 and the odontoid process of C2 vertebra with predental space narrowing, sclerosis and osteophytes. C2-C3: Asymmetric broad-based left-sided posterior disc bulge with endplate osteophytes. No significant central spinal stenosis. Moderate right and severe left foraminal stenoses. Degenerative disease: Degenerative disease is present involving the intervertebral disc with disc bulge, endplate irregularities and/or sclerosis and bilateral uncovertebral joint hypertrophy at C3-C4 through C6-C7 levels. Neural foraminal stenosis: C3-C4 moderate right and severe left, C4-C5 bilateral moderate, C5-C6 severe right and moderate left, C6-C7 bilateral mild foraminal stenoses. Central spinal stenosis: C4-C5 severe, C5-C6 moderate, C6-C7 moderate central spinal stenoses. Prevertebral soft tissues: Prevertebral soft tissues are unremarkable without significant edema, hematoma or other acute post-traumatic changes. Lungs: Visualized lung apices/upper lung frias demonstrate no acute abnormality. 1.8 x 1.7 cm hypodense nodule within the right lobe of thyroid gland. Procedure Note Nicolas Benz MD - 06/04/2024 EXAMINATION: RADIOLOGY CONSULTATION ON OUTSIDE IMAGING STUDY STUDY INITIALLY PERFORMED: 06/04/2024 at [place], [place]. TYPE OF STUDY: Multiple CT images of the head, face and cervical spine without contrast are provided at the time of this interpretation. CONTRAST ROUTE: No contrast was administered. The protocol was adequate to address the clinical question. The outside final report was not available at the time of this second opinion interpretation. TYPE OF CONSULTATION: Consult on outside imaging study with images submitted through Outside Image [facility]aring [facility] DATE OF CONSULTATION: 06/04/2024 11:38 AM HISTORY: Fall COMPARISON: None available. FINDINGS: Head CT: Parenchyma: Chronic mild volume loss is present. Discrete small and patchy hypodensities are present likely representing chronic microvascular ischemic changes. Chronic lacunar infarctions within the body of right caudate nucleus and right decubitus nuclei. No hemorrhage, mass or mass effect is present. Ventricles and midline: Ventricles are normal in size for the brain volume. There is no midline shift or hydrocephalus. Scalp and bony structures: There is no acute skull fracture or significant scalp edema/hematoma. No pathologic lytic or sclerotic bone lesions are present. Orbits, paranasal sinuses and mastoids: No acute intraorbital abnormality. Minimal mucosal disease within left maxillary sinus. Mastoids and tympanic cavities demonstrate no significant opacification. Maxillofacial CT: Soft tissues: No significant facial or scalp soft tissue injury, edema or hematoma. Bones: No acute fracture involving the visualized face, orbits or skullbase. Orbits: Globes, optic nerves and extraocular muscles are normal. No significant intraorbital hemorrhage or mass. Focus of calcification along the right anterior medial border of the right globe. There is a 2nd smaller focus of hyperdensity along the posterior border of the right globe which may represent an additional focus of minimal calcification involving the choroid or retina. Paranasal Sinuses: Minimal mucosal thickening within right ethmoid sinus. Slightly lobulated mucosal disease within left maxillary sinus. Mild leftward deviation of the nasal septum with a bony spur projecting into left nasal cavity. Temporal bones: No acute fracture. Tympanic cavities and mastoids are well aerated. Cervical spine CT: Craniocervical Junction: Atlanto-occipital joint alignment is normal. Alignment: Dextroconvex scoliosis of the cervical spine is noted. Mild grade 1 anterolisthesis of C3 on C4, C5 and C6 and minimal grade 1 retrolisthesis of C6 on C7 vertebra are also noted. Facets: Multilevel asymmetric facet arthropathy is present. C1-C2: Osteoarthritic changes are present involving the anterior arch of C1 and the odontoid process of C2 vertebra with predental space narrowing, sclerosis and osteophytes. C2-C3: Asymmetric broad-based left-sided posterior disc bulge with endplate osteophytes. No significant central spinal stenosis. Moderate right and severe left foraminal stenoses. Degenerative disease: Degenerative disease is present involving the intervertebral disc with disc bulge, endplate irregularities and/or sclerosis and bilateral uncovertebral joint hypertrophy at C3-C4 through C6-C7 levels. Neural foraminal stenosis: C3-C4 moderate right and severe left, C4-C5 bilateral moderate, C5-C6 severe right and moderate left, C6-C7 bilateral mild foraminal stenoses. Central spinal stenosis: C4-C5 severe, C5-C6 moderate, C6-C7 moderate central spinal stenoses. Prevertebral soft tissues: Prevertebral soft tissues are unremarkable without significant edema, hematoma or other acute post-traumatic changes. Lungs: Visualized lung apices/upper lung frias demonstrate no acute abnormality. 1.8 x 1.7 cm hypodense nodule within the right lobe of thyroid gland. IMPRESSION: 1. Head CT demonstrates no acute intracranial abnormality. 2. Facial CT demonstrates no acute facial fracture. Foci of hyperdensity likely representing calcifications along the wall of the right globe. 3. Cervical spine CT demonstrates no acute cervical spine fracture. Multilevel advanced degenerative disease of the cervical spine resulting in multilevel central spinal or neural foraminal stenoses as described above in more detail with severe C4-C5 and moderate C5-C6 and C6-C7 central spinal stenoses. 4. Incidental 1.8 x 1.7 cm hypodense nodule within the right lobe of the thyroid gland. This can be further evaluated with a nonemergent, outpatient thyroid ultrasound examination as clinically indicated. The findings, conclusions and recommendations within this report do not replace the initial findings, conclusions and recommendations made at the facility where the study was performed based upon the imaging and clinical condition at that time. Comparison with the prior report and clinical history is necessary. The provided images may or may not represent the campo source data set and thus may contain changes that may lower the accuracy of this second-opinion interpretation. Electronically signed by: Nicolas Benz MD Nathan Buchanan MD IMG CT PROCEDURES Final Resul t * Neuro CT Outside Consult (06/04/2024 6:50 AM ADMINISTRATIVE PROGRAM SPECIALIST) Anatomical Region Laterality Modality N/A Computed Tomogra phy 06/04/2024 12:2 3 PM ADMINISTRATIVE PROGRAM SPECIALIST Impressions 06/04/2024 12:23 PM ADMINISTRATIVE PROGRAM SPECIALIST 1. ??Head CT demonstrates no acute intracranial abnormality. 2. ??Facial CT demonstrates no acute facial fracture. ??Foci of hyperdensity likely representing calcifications along the wall of the right globe. 3. ??Cervical spine CT demonstrates no acute cervical spine fracture. Multilevel advanced degenerative disease of the cervical spine resulting in multilevel central spinal or neural foraminal stenoses as described above in more detail with severe C4-C5 and moderate C5-C6 and C6-C7 central spinal stenoses. 4. ??Incidental 1.8 x 1.7 cm hypodense nodule within the right lobe of the thyroid gland. ??This can be further evaluated with a nonemergent, outpatient thyroid ultrasound examination as clinically indicated. The findings, conclusions and recommendations within this report do not replace the initial findings, conclusions ??and recommendations made at the facility where the study was performed based upon the imaging and clinical condition at that time. ??Comparison with the prior report and clinical history is necessary. ??The provided images may or may not represent the campo source data set and thus may contain changes that may lower the accuracy of this second-opinion interpretation. Electronically signed by: Nicolas Benz MD Narrative 06/04/2024 12:23 PM ADMINISTRATIVE PROGRAM SPECIALIST EXAMINATION: RADIOLOGY CONSULTATION ON OUTSIDE IMAGING STUDY STUDY INITIALLY PERFORMED: 06/04/2024 at [place], [place]. TYPE OF STUDY: Multiple CT images of the head, face and cervical spine without contrast are provided at the time of this interpretation. CONTRAST ROUTE: No contrast was administered. The protocol was adequate to address the clinical question. The outside final report was not available at the time of this second opinion interpretation. TYPE OF CONSULTATION: Consult on outside imaging study with images submitted through Outside Image Sharing Service DATE OF CONSULTATION: 06/04/2024 11:38 AM HISTORY: Fall COMPARISON: None available. FINDINGS: Head CT: Parenchyma: Chronic mild volume loss is present. Discrete small and patchy hypodensities are present likely representing chronic microvascular ischemic changes. Chronic lacunar infarctions within the body of right caudate nucleus and right decubitus nuclei. No hemorrhage, mass or mass effect is present. Ventricles and midline: Ventricles are normal in size for the brain volume. There is no midline shift or hydrocephalus. Scalp and bony structures: There is no acute skull fracture or significant scalp edema/hematoma. No pathologic lytic or sclerotic bone lesions are present. Orbits, paranasal sinuses and mastoids: No acute intraorbital abnormality. Minimal mucosal disease within left maxillary sinus. Mastoids and tympanic cavities demonstrate no significant opacification. Maxillofacial CT: Soft tissues: No significant facial or scalp soft tissue injury, edema or hematoma. Bones: No acute fracture involving the visualized face, orbits or skullbase. Orbits: Globes, optic nerves and extraocular muscles are normal. No significant intraorbital hemorrhage or mass. Focus of calcification along the right anterior medial border of the right globe. ??There is a 2nd smaller focus of hyperdensity along the posterior border of the right globe which may represent an additional focus of minimal calcification involving the choroid or retina. Paranasal Sinuses: Minimal mucosal thickening within right ethmoid sinus. ??Slightly lobulated mucosal disease within left maxillary sinus. Mild leftward deviation of the nasal septum with a bony spur projecting into left nasal cavity. Temporal bones: No acute fracture. Tympanic cavities and mastoids are well aerated. Cervical spine CT: Craniocervical Junction: Atlanto-occipital joint alignment is normal. Alignment: Dextroconvex scoliosis of the cervical spine is noted. ??Mild grade 1 anterolisthesis of C3 on C4, C5 and C6 and minimal grade 1 retrolisthesis of C6 on C7 vertebra are also noted. Facets: Multilevel asymmetric facet arthropathy is present. C1-C2: Osteoarthritic changes are present involving the anterior arch of C1 and the odontoid process of C2 vertebra with predental space narrowing, sclerosis and osteophytes. C2-C3: Asymmetric broad-based left-sided posterior disc bulge with endplate osteophytes. No significant central spinal stenosis. Moderate right and severe left foraminal stenoses. Degenerative disease: Degenerative disease is present involving the intervertebral disc with disc bulge, endplate irregularities and/or sclerosis and bilateral uncovertebral joint hypertrophy at C3-C4 through C6-C7 levels. Neural foraminal stenosis: C3-C4 moderate right and severe left, C4-C5 bilateral moderate, C5-C6 severe right and moderate left, C6-C7 bilateral mild foraminal stenoses. Central spinal stenosis: C4-C5 severe, C5-C6 moderate, C6-C7 moderate central spinal stenoses. Prevertebral soft tissues: Prevertebral soft tissues are unremarkable without significant edema, hematoma or other acute post-traumatic changes. Lungs: Visualized lung apices/upper lung frias demonstrate no acute abnormality. 1.8 x 1.7 cm hypodense nodule within the right lobe of thyroid gland. Procedure Note Nicolas Benz MD - 06/04/2024 EXAMINATION: RADIOLOGY CONSULTATION ON OUTSIDE IMAGING STUDY STUDY INITIALLY PERFORMED: 06/04/2024 at [place], [place]. TYPE OF STUDY: Multiple CT images of the head, face and cervical spine without contrast are provided at the time of this interpretation. CONTRAST ROUTE: No contrast was administered. The protocol was adequate to address the clinical question. The outside final report was not available at the time of this second opinion interpretation. TYPE OF CONSULTATION: Consult on outside imaging study with images submitted through Outside Image Sharing Service DATE OF CONSULTATION: 06/04/2024 11:38 AM HISTORY: Fall COMPARISON: None available. FINDINGS: Head CT: Parenchyma: Chronic mild volume loss is present. Discrete small and patchy hypodensities are present likely representing chronic microvascular ischemic changes. Chronic lacunar infarctions within the body of right caudate nucleus and right decubitus nuclei. No hemorrhage, mass or mass effect is present. Ventricles and midline: Ventricles are normal in size for the brain volume. There is no midline shift or hydrocephalus. Scalp and bony structures: There is no acute skull fracture or significant scalp edema/hematoma. No pathologic lytic or sclerotic bone lesions are present. Orbits, paranasal sinuses and mastoids: No acute intraorbital abnormality. Minimal mucosal disease within left maxillary sinus. Mastoids and tympanic cavities demonstrate no significant opacification. Maxillofacial CT: Soft tissues: No significant facial or scalp soft tissue injury, edema or hematoma. Bones: No acute fracture involving the visualized face, orbits or skullbase. Orbits: Globes, optic nerves and extraocular muscles are normal. No significant intraorbital hemorrhage or mass. Focus of calcification along the right anterior medial border of the right globe. There is a 2nd smaller focus of hyperdensity along the posterior border of the right globe which may represent an additional focus of minimal calcification involving the choroid or retina. Paranasal Sinuses: Minimal mucosal thickening within right ethmoid sinus. Slightly lobulated mucosal disease within left maxillary sinus. Mild leftward deviation of the nasal septum with a bony spur projecting into left nasal cavity. Temporal bones: No acute fracture. Tympanic cavities and mastoids are well aerated. Cervical spine CT: Craniocervical Junction: Atlanto-occipital joint alignment is normal. Alignment: Dextroconvex scoliosis of the cervical spine is noted. Mild grade 1 anterolisthesis of C3 on C4, C5 and C6 and minimal grade 1 retrolisthesis of C6 on C7 vertebra are also noted. Facets: Multilevel asymmetric facet arthropathy is present. C1-C2: Osteoarthritic changes are present involving the anterior arch of C1 and the odontoid process of C2 vertebra with predental space narrowing, sclerosis and osteophytes. C2-C3: Asymmetric broad-based left-sided posterior disc bulge with endplate osteophytes. No significant central spinal stenosis. Moderate right and severe left foraminal stenoses. Degenerative disease: Degenerative disease is present involving the intervertebral disc with disc bulge, endplate irregularities and/or sclerosis and bilateral uncovertebral joint hypertrophy at C3-C4 through C6-C7 levels. Neural foraminal stenosis: C3-C4 moderate right and severe left, C4-C5 bilateral moderate, C5-C6 severe right and moderate left, C6-C7 bilateral mild foraminal stenoses. Central spinal stenosis: C4-C5 severe, C5-C6 moderate, C6-C7 moderate central spinal stenoses. Prevertebral soft tissues: Prevertebral soft tissues are unremarkable without significant edema, hematoma or other acute post-traumatic changes. Lungs: Visualized lung apices/upper lung frias demonstrate no acute abnormality. 1.8 x 1.7 cm hypodense nodule within the right lobe of thyroid gland. IMPRESSION: 1. Head CT demonstrates no acute intracranial abnormality. 2. Facial CT demonstrates no acute facial fracture. Foci of hyperdensity likely representing calcifications along the wall of the right globe. 3. Cervical spine CT demonstrates no acute cervical spine fracture. Multilevel advanced degenerative disease of the cervical spine resulting in multilevel central spinal or neural foraminal stenoses as described above in more detail with severe C4-C5 and moderate C5-C6 and C6-C7 central spinal stenoses. 4. Incidental 1.8 x 1.7 cm hypodense nodule within the right lobe of the thyroid gland. This can be further evaluated with a nonemergent, outpatient thyroid ultrasound examination as clinically indicated. The findings, conclusions and recommendations within this report do not replace the initial findings, conclusions and recommendations made at the facility where the study was performed based upon the imaging and clinical condition at that time. Comparison with the prior report and clinical history is necessary. The provided images may or may not represent the campo source data set and thus may contain changes that may lower the accuracy of this second-opinion interpretation. Electronically signed by: Nicolas Benz MD us Nathan Buchanan MD IMG CT PROCEDURES Final Resul t * SCAN - RADIOLOGY/IMAGING (06/04/2024 6:49 AM ADMINISTRATIVE PROGRAM SPECIALIST) Anatomical Region Laterality Modality Other us Tim Horton MD Final Result * XR Outside Reference (06/04/2024 6:46 AM ADMINISTRATIVE PROGRAM SPECIALIST) Impressions FERCHO - 06/04/2024 6:46 AM ADMINISTRATIVE PROGRAM SPECIALIST These images are for Reference purposes only and have not been reviewed by [facility] Radiology. ??There will be no report generated by a [facility] Radiologist. Narrative [facility] - 06/04/2024 6:46 AM ADMINISTRATIVE PROGRAM SPECIALIST EXAMINATION: ??Images For Reference Purposes Only us Nathan Buchanan MD IMG XR PROCEDURES Final Resul t [facility] * POCT glucose (06/04/2024 6:43 AM ADMINISTRATIVE PROGRAM SPECIALIST) Glucose, POC 177 70 - 199 mg/dL Blood 06/04/2024 6:43 AM ADMINISTRATIVE PROGRAM SPECIALIST 06/04/2024 6:43 AM ADMINISTRATIVE PROGRAM SPECIALIST us Nathan Buchanan MD LAB POCT ORDERABLES - DEVICE Final Result Performing Organization Address [facility] Co de Phone Number IRENE [facility] [place] [address] * POCT lactate (06/04/2024 6:38 AM ADMINISTRATIVE PROGRAM SPECIALIST) Lactate POC i-STAT 1.2 0.7 - 2.2 mmol/L Blood 06/04/2024 6:38 AM ADMINISTRATIVE PROGRAM SPECIALIST 06/04/2024 6:38 AM ADMINISTRATIVE PROGRAM SPECIALIST Nathan Buchanan MD LAB POCT ORDERABLES - DEVICE Final Result Performing Organization Address [facility] Co de Phone Number [facility] [place] [address] * POCT glucose (06/04/2024 6:34 AM ADMINISTRATIVE PROGRAM SPECIALIST) Glucose, POC 199 70 - 199 mg/dL Blood 06/04/2024 6:34 AM ADMINISTRATIVE PROGRAM SPECIALIST 06/04/2024 6:34 AM ADMINISTRATIVE PROGRAM SPECIALIST Nathan Buchanan MD LAB POCT ORDERABLES - DEVICE Final Result Performing Organization Address [facility] de Phone Number [facility] Department [place] [address] * (ABNORMAL) POC Blood Gas and Chemistries, Arterial - (06/04/2024 6:34 AM ADMINISTRATIVE PROGRAM SPECIALIST) K POC 4.0 3.3 - 4.9 mmol/L Comment: Interpretive Data Not all point of care methods assess for hemolysis. Confirm with instrument and retest K+ if not consistent with clinical signs and symptoms. Current Interpretive Data was last revised on 2023. Hct, POC 41.0(L) 41.4 - 51.6 % [facility] Total Hb, POC 13.7(L) 13.8 - 17.2 g/dL [facility] Blood 06/04/2024 6:34 AM ADMINISTRATIVE PROGRAM SPECIALIST 06/04/2024 6:34 AM ADMINISTRATIVE PROGRAM SPECIALIST Result [facility] Nathan Buchanan MD LAB POCT ORDERABLES - DEVICE Final Result Performing Organization Address [facility] Co de Phone Number [facility] Department [place] [address] * DC CRITICAL CARE ILL/INJURED PATIENT INIT 30-74 MIN (06/04/2024 6:29 AM ADMINISTRATIVE PROGRAM SPECIALIST) Narrative Nathan Buchanan MD - 06/04/2024 6:29 AM ADMINISTRATIVE PROGRAM SPECIALIST Nathan Buchanan MD ? 06/05/2024 12:33 AM Critical Care Performed by: Nathan Buchanan MD Authorized by: Nathan Buchanan MD ?? Critical care provider statement: As reflected in the history, physical exam, orders, notes, and/or MDM, I was personally present while the patient was critically ill and provided critical care services for 31 minutes, excluding time involved in separately billable procedures. ??Critical care was necessary to treat or prevent imminent or life-threatening deterioration of the following condition(s): ?? unstable vital signs ?? level 1 trauma and spinal cord injury/spine fracture ??Critical care was time spent by me providing the following: ? continuous telemetry, continuous pulse oximetry, interpretation of bedside monitors, imaging, and arterial/venous lab draws and serial bedside patient exams ?? frequent neurologic exams ?? spinal immobilization and serial neurovascular exams ?? I provided emergent necessary critical care medicine services to this patient. I ordered and reviewed test results and/or imaging studies. I spent time discussing the management of this critically ill patient with consultants and the medical staff. I spent time discussing the management and therapeutic options for this critically ill patient with the patient themselves or with the appropriate designated surrogate decision-maker. I spent time documenting in the medical record. us Nathan Buchanan MD IN CLINIC/BEDSIDE ORDERABLES Final Result * Check Sample (06/04/2024 6:29 AM ADMINISTRATIVE PROGRAM SPECIALIST) ABO Rh O Positive [facility] HCLL OTHER 06/04/2024 6:29 AM ADMINISTRATIVE PROGRAM SPECIALIST 06/04/2024 6:52 AM ADMINISTRATIVE PROGRAM SPECIALIST us Nathan Buchanan MD LAB BLOOD ORDERABLES Final Re sult CERNER [facility] Department [place] [address] [facility] * XR Chest 1 Vw Portable (06/04/2024 6:22 AM ADMINISTRATIVE PROGRAM SPECIALIST) Anatomical Region Laterality Modality Body, Chest N/A Computed Radiogr aphy 06/04/2024 6:26 AM ADMINISTRATIVE PROGRAM SPECIALIST Impressions 06/04/2024 8:10 AM ADMINISTRATIVE PROGRAM SPECIALIST CHEST: The heart and mediastinal contours are within normal limits. No pneumothorax or pleural effusion. ??No pulmonary edema or consolidation. ??The lungs are clear. 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 ??No acute process fracture is identified. ??Vascular atherosclerotic calcifications. Dictated by: Florin Koch MD The radiology attending physician has personally reviewed this study, and had reviewed and/or edited this written report and agrees with it. Electronically signed by: Florin Rivers M.D. Narrative 06/04/2024 8:10 AM ADMINISTRATIVE PROGRAM SPECIALIST EXAMINATION: XR CHEST 1 VIEW, XR PELVIS 1 OR 2 VIEWS HISTORY: Mechanical fall COMPARISON: CT of the chest dated 07/11/2023 Procedure Note Florin Rivers MD PhD - 06/04/2024 EXAMINATION: XR CHEST 1 VIEW, XR PELVIS 1 OR 2 VIEWS HISTORY: Mechanical fall COMPARISON: CT of the chest dated 07/11/2023 IMPRESSION: CHEST: The heart and mediastinal contours are within normal limits. No pneumothorax or pleural effusion. No pulmonary edema or consolidation. The lungs are clear. 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 No acute process fracture is identified. Vascular atherosclerotic calcifications. Dictated by: Florin Koch MD The radiology attending physician has personally reviewed this study, and had reviewed and/or edited this written report and agrees with it. Electronically signed by: Florin Rivers M.D. Nathan Buchanan MD IMG XR PROCEDURES Final Resul t * XR Pelvis 1 or 2 Views (06/04/2024 6:22 AM ADMINISTRATIVE PROGRAM SPECIALIST) Anatomical Region Laterality Modality Body, Pelvis N/A Computed Radiogr aphy 06/04/2024 6:26 AM ADMINISTRATIVE PROGRAM SPECIALIST Impressions 06/04/2024 8:10 AM ADMINISTRATIVE PROGRAM SPECIALIST CHEST: The heart and mediastinal contours are within normal limits. No pneumothorax or pleural effusion. ??No pulmonary edema or consolidation. ??The lungs are clear. 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 ??No acute process fracture is identified. ??Vascular atherosclerotic calcifications. Dictated by: Florin Koch MD The radiology attending physician has personally reviewed this study, and had reviewed and/or edited this written report and agrees with it. Electronically signed by: Florin Rivers M.D. Narrative 06/04/2024 8:10 AM ADMINISTRATIVE PROGRAM SPECIALIST EXAMINATION: XR CHEST 1 VIEW, XR PELVIS 1 OR 2 VIEWS HISTORY: Mechanical fall COMPARISON: CT of the chest dated 07/11/2023 Procedure Note Florin Rivers MD PhD - 06/04/2024 EXAMINATION: XR CHEST 1 VIEW, XR PELVIS 1 OR 2 VIEWS HISTORY: Mechanical fall COMPARISON: CT of the chest dated 07/11/2023 IMPRESSION: CHEST: The heart and mediastinal contours are within normal limits. No pneumothorax or pleural effusion. No pulmonary edema or consolidation. The lungs are clear. 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 No acute process fracture is identified. Vascular atherosclerotic calcifications. Dictated by: Florin Koch MD The radiology attending physician has personally reviewed this study, and had reviewed and/or edited this written report and agrees with it. Electronically signed by: Florin Rivers M.D. Nathan Buchanan MD IMG XR PROCEDURES Final Resul t * Thromboelastometry Panel - Heparin (06/04/2024 5:56 AM ADMINISTRATIVE PROGRAM SPECIALIST) HEPTEM-CT 187 141 - 215 sec Comment:Code Blue Specimen HEPTEM-A5 43 33 - 51 mm [facility] Comment:Code Blue Specimen HEPTEM-A10 54 44 - 61 mm [facility] Comment:Code Blue Specimen HEPTEM-A20 61 52 - 67 mm [facility] Comment:Code Blue Specimen HEPTEM-MCF 65 54 - 69 mm C[facility]ER [facility] Comment:Code Blue Specimen Blood 06/04/2024 5:56 AM ADMINISTRATIVE PROGRAM SPECIALIST 06/04/2024 6:04 AM ADMINISTRATIVE PROGRAM SPECIALIST us Nathan Buchanan MD LAB BLOOD ORDERABLES Edited R esult - Final IRENE [facility] Department [place] [address] * Thromboelastometry Panel - Intrinsic (06/04/2024 5:56 AM ADMINISTRATIVE PROGRAM SPECIALIST) INTEM-CT 184 139 - 205 sec Comment:Code Blue Specimen INTEM-A5 47 36 - 54 mm CERNER [facility] Comment:Code Blue Specimen INTEM-A10 58 46 - 63 mm CERNER [facility] Comment:Code Blue Specimen INTEM-A20 65 53 - 68 mm CERNER [facility] Comment:Code Blue Specimen INTEM-MCF 68 55 - 70 mm CERNER [facility] Comment:Code Blue Specimen INTEM-LI60 100 93 - 100 % [facility] Comment:Code Blue Specimen INTEM-ML 1 0 - 7 % [facility] Comment:Code Blue Specimen Blood 06/04/2024 5:56 AM ADMINISTRATIVE PROGRAM SPECIALIST 06/04/2024 6:04 AM ADMINISTRATIVE PROGRAM SPECIALIST Nathan Buchanan MD LAB BLOOD ORDERABLES Edited [employer] [facility] Performing Organization Address [facility] Co de Phone Number [facility] [place] [address] * Thromboelastometry Panel - Fibrinogen (06/04/2024 5:56 AM ADMINISTRATIVE PROGRAM SPECIALIST) FIBTEM-A5 12 5 - 16 mm Comment:Code Blue Specimen FIBTEM-A10 14 6 - 17 mm [facility] Comment:Code Blue Specimen FIBTEM-A20 15 6 - 18 mm [facility] Comment:Code Blue Specimen FIBTEM-MCF 16 9 - 19 mm [facility] Comment:Code Blue Specimen Blood 06/04/2024 5:56 AM ADMINISTRATIVE PROGRAM SPECIALIST 06/04/2024 6:04 AM ADMINISTRATIVE PROGRAM SPECIALIST us Nathan Buchanan MD LAB BLOOD ORDERABLES Edited [employer] [facility] Performing Organization Address City/[facility]/ZIP Co de Phone Number [facility] [place] [address] * Thromboelastometry Panel - Extrinsic (06/04/2024 5:56 AM ADMINISTRATIVE PROGRAM SPECIALIST) EXTEM-CT 55 51 - 73 sec Comment:Code Blue Specimen EXTEM-A5 45 33 - 52 mm [facility] Comment:Code Blue Specimen EXTEM-A10 56 45 - 62 mm IRENE [facility] Comment:Code Blue Specimen EXTEM-A20 64 54 - 69 mm IRENE [facility] Comment:Code Blue Specimen EXTEM-MCF 67 57 - 72 mm IRENE [facility] Comment:Scotty Blue Specimen EXTEM-LI60 100 94 - 100 % IRENE [facility] Comment:Scotty Blue Specimen EXTEM-ML 1 0 - 6 % IRENE [facility] Comment:Code Blue Specimen Blood 06/04/2024 5:56 AM ADMINISTRATIVE PROGRAM SPECIALIST 06/04/2024 6:04 AM ADMINISTRATIVE PROGRAM SPECIALIST us Nathan Buchanan MD LAB BLOOD ORDERABLES Edited R esult - Final [facility] Department [place] [address] * eGFR (06/04/2024 5:56 AM ADMINISTRATIVE PROGRAM SPECIALIST) eGFR >90 >=60 mL/min/1. 73 m2 Comment: Interpretive Data Reference Interval Normal ?>/= 90 mL/min/1.73m2 Mildly decreased* ? 60 - 89 mL/min/1.73m2 Mildly to moderately decreased ?45 - 59 mL/min/1.73m2 Moderately to severely decreased ??30 - 44 mL/min/1.73m2 Severely decreased ?15 - 29 mL/min/1.73m2 Kidney Failure ?< 15 ??mL/min/1.73m2 *Relative to young adult level Estimated glomerular filtration rate is determined by the 2020 CKD-EPI equation recommended by the National Kidney Foundation (A Unifying Approach to GFR Estimation: Recommendations of the NKF-ASK Task Force on Reassessing the Inclusion of Race in Diagnosing Kidney Disease, JASN 2020). The CKD-EPI equation should not be used for patients with unstable renal function and has not been validated in children and those over 70. Current interpretive data was last reviewed 2021. Blood 06/04/2024 5:56 AM ADMINISTRATIVE PROGRAM SPECIALIST 06/04/2024 6:04 AM ADMINISTRATIVE PROGRAM SPECIALIST us Nathan Buchanan MD LAB BLOOD ORDERABLES Final Re sult [facility] Department [place] [address] * (ABNORMAL) Differential, auto (06/04/2024 5:56 AM ADMINISTRATIVE PROGRAM SPECIALIST) Neutrophil abs 13.9(H) 1.5 - 6.5 K/cumm Imm gran abs 0.1 0.0 - 0.1 K/cumm [facility] Lymphocyte abs 1.0 0.8 - 3.3 K/cumm [facility] Monocyte abs 0.4 0.2 - 0.8 K/cumm [facility] Eosinophil abs 0.1 0.0 - 0.5 K/cumm [facility] Basophil abs 0.0 0.0 - 0.1 K/cumm [facility] Neutrophil pct 89.9 % [facility] Comment: Interpretive Data Percent cell count reference ranges are not reported, since discordance with absolute values may lead to misinterpretation of CBC data. Current Interpretive Data was last revised on 2017. Imm gran pct 0.7 % [facility] Comment: Interpretive Data Percent cell count reference ranges are not reported, since discordance with absolute values may lead to misinterpretation of CBC data. Current Interpretive Data was last revised on 2017. Lymphocyte pct 6.2 % [facility] Comment: Interpretive Data Percent cell count reference ranges are not reported, since discordance with absolute values may lead to misinterpretation of CBC data. Current Interpretive Data was last revised on 2017. Monocyte pct 2.5 % [facility] Comment: Interpretive Data Percent cell count reference ranges are not reported, since discordance with absolute values may lead to misinterpretation of CBC data. Current Interpretive Data was last revised on 2017. Eosinophil pct 0.5 % [facility] Comment: Interpretive Data Percent cell count reference ranges are not reported, since discordance with absolute values may lead to misinterpretation of CBC data. Current Interpretive Data was last revised on 2017. Basophil pct 0.2 % [facility] Comment: Interpretive Data Percent cell count reference ranges are not reported, since discordance with absolute values may lead to misinterpretation of CBC data. Current Interpretive Data was last revised on 2017. Blood 06/04/2024 5:56 AM ADMINISTRATIVE PROGRAM SPECIALIST 06/04/2024 6:04 AM ADMINISTRATIVE PROGRAM SPECIALIST us Nathan Buchanan MD LAB BLOOD ORDERABLES Final Re sult [facility] Department [place] [address] * (ABNORMAL) CBC with auto differential (06/04/2024 5:56 AM ADMINISTRATIVE PROGRAM SPECIALIST) WBC 15.4(H) 3.8 - 9.9 K/cumm Comment:Code Blue Specimen Hgb 13.7 13.0 - 17.5 g/dL [facility] Hct 38.5(L) 38.9 - 50.3 % [facility] Plt 248 150 - 400 K/cumm [facility] MPV 9.9 9.1 - 12.3 fL [facility] RBC 4.24(L) 4.30 - 5.80 M/cumm [facility] MCV 90.8 81.3 - 96.4 fL [facility] MCH 32.3 27.1 - 33.3 pg [facility] MCHC 35.6 32.3 - 35.7 g/dL [facility] RDW CV 12.1 11.1 - 14.9 % [facility] RDW SD 39.8 35.7 - 48.1 fL [facility] NRBC abs 0.00 0.00 - 0.01 K/cumm [facility] Blood (Blood, Venous) 06/04/2024 5:56 AM ADMINISTRATIVE PROGRAM SPECIALIST 06/04/2024 6:04 AM ADMINISTRATIVE PROGRAM SPECIALIST Nathan Buchanan MD LAB BLOOD ORDERABLES Final Re sult Performing Organization Address [facility] Co de Phone Number [facility] [place] [address] * aPTT (06/04/2024 5:56 AM ADMINISTRATIVE PROGRAM SPECIALIST) aPTT 35 28 - 38 sec Comment: Code Blue Specimen Interpretive Data Heparin therapeutic range: 66.0 - 100.0 seconds. Range based on correlation with therapeutic heparin activity range of 0.3 - 0.7 Units/mL. Current interpretive data was last revised on 2023. Blood 06/04/2024 5:56 AM ADMINISTRATIVE PROGRAM SPECIALIST 06/04/2024 6:04 AM ADMINISTRATIVE PROGRAM SPECIALIST Nathan Buchanan MD LAB BLOOD ORDERABLES Final Re sult Performing Organization Address [facility] Co de Phone Number [facility] [place] [address] * Protime-INR (06/04/2024 5:56 AM ADMINISTRATIVE PROGRAM SPECIALIST) PT 12.7 9.7 - 13.0 sec Comment:Code Blue Specimen INR 1.17 0.90 - 1.20 [facility] Comment: Code Blue Specimen Interpretive data Oral anticoagulant therapeutic ranges: Venous thromboembolism prophylaxis or treatment: 2.0-3.0 CARDIOLOGY Standard range: 2.0-3.0 High-intensity range: 2.5-3.5 Refer to indication-specific guidelines for appropriate target ranges for prosthetic heart valve replacement. Current interpretive data was last revised on 2019. Blood 06/04/2024 5:56 AM ADMINISTRATIVE PROGRAM SPECIALIST 06/04/2024 6:04 AM ADMINISTRATIVE PROGRAM SPECIALIST Nathan Buchanan MD LAB BLOOD ORDERABLES Final Re sult Performing Organization Address City/[facility] Co de Phone Number [facility] [place] [address] * Type and screen (06/04/2024 5:56 AM ADMINISTRATIVE PROGRAM SPECIALIST) Jaren, indirect Negative ABO Rh O Positive [facility] Blood 06/04/2024 5:56 AM ADMINISTRATIVE PROGRAM SPECIALIST 06/04/2024 6:15 AM ADMINISTRATIVE PROGRAM SPECIALIST Narrative [facility] - 06/04/2024 7:22 AM ADMINISTRATIVE PROGRAM SPECIALIST Has the patient had Daratumumab or Isatuximab in the past 6 months?->Unknown Nathan Buchanan MD LAB BLOOD BANK TEST ORDERABLE S Final Result Performing Organization Address City/[facility]/ZIP Co de Phone Number [facility] [place] [address] * (ABNORMAL) Blood gas, venous (06/04/2024 5:56 AM ADMINISTRATIVE PROGRAM SPECIALIST) pH, Venous 7.39 7.32 - 7.43 Comment:Code Blue Specimen PCO2, Venous 31(L) 40 - 50 mmHg [facility] Comment:Code Blue Specimen PO2, Venous 155 mmHg [facility] Comment: Code Blue Specimen Interpretive Data No Reference Range Established Current Interpretive Data was last revised on 2017. HCO3 Venous, Calculated 19(L) 20 - 30 mmol/L [facility] Comment:Code Blue Specimen BE, venous -5 mmol/L [facility] Comment: Code Blue Specimen Interpretive Data No Reference Range Established Current Interpretive Data was last revised on 2017. Blood 06/04/2024 5:56 AM ADMINISTRATIVE PROGRAM SPECIALIST 06/04/2024 6:04 AM ADMINISTRATIVE PROGRAM SPECIALIST Nathan Buchanan MD LAB BLOOD ORDERABLES Final Re sult Performing Organization Address [facility]/State/ZIP Co de Phone Number [facility] [place] [address] * Ethanol (06/04/2024 5:56 AM ADMINISTRATIVE PROGRAM SPECIALIST) Ethanol <10 <=10 mg/dL Comment: Code Blue Specimen Interpretive Data Legal limit of intoxication > or = 80 mg/dL Levels > or = 400 mg/dL are potentially TOXIC. Current interpretive data was last revised on 2018. Blood 06/04/2024 5:56 AM ADMINISTRATIVE PROGRAM SPECIALIST 06/04/2024 6:04 AM ADMINISTRATIVE PROGRAM SPECIALIST Nathan Buchanan MD LAB BLOOD ORDERABLES Final Re sult [facility] Department [place] [address] * (ABNORMAL) Basic metabolic panel (06/04/2024 5:56 AM ADMINISTRATIVE PROGRAM SPECIALIST) Sodium 133(L) 135 - 145 mmol/L Comment:Code Blue Specimen Potassium, pl 4.6 3.3 - 4.9 mmol/L [facility] Comment:Code Blue Specimen Chloride 100 97 - 110 mmol/L [facility] Comment:Code Blue Specimen CO2 20(L) 22 - 32 mmol/L [facility] Comment:Code Blue Specimen Anion gap 13 2 - 15 mmol/L [facility] Comment:Code Blue Specimen BUN 12 6 - 25 mg/dL [facility] Comment:Code Blue Specimen Creatinine 0.72(L) 0.80 - 1.30 mg/dL [facility] Comment:Code Blue Specimen Glucose 189 70 - 199 mg/dL [facility] Comment: Code Blue Specimen Interpretive Data Fasting glucose >/= 126 mg/dl is diagnostic for diabetes. ?? Fasting is defined as no caloric intake for at least 8 hours. Fasting glucose between 100 mg/dl to 125 mg/dl is diagnostic of prediabetes. In a patient with classic symptoms of hyperglycemia or hyperglycemic crisis, a random glucose >/= 200 mg/dl is diagnostic for diabetes. In the absence of unequivocal hyperglycemia, results should be confirmed by repeat testing. The classification and Diagnosis of Diabetes Diabetes Care 202; 46: S19-S40. Current interpretive data was last revised 2022. Calcium 8.5 8.5 - 10.3 mg/dL [facility] Comment:Code Blue Specimen Blood 06/04/2024 5:56 AM ADMINISTRATIVE PROGRAM SPECIALIST 06/04/2024 6:04 AM ADMINISTRATIVE PROGRAM SPECIALIST us Nathan Buchanan MD LAB BLOOD ORDERABLES Final Re sult [facility] Department [place] [address] * (ABNORMAL) POCT hemoglobin A1c (05/12/2024 11:45 AM ADMINISTRATIVE PROGRAM SPECIALIST) Hemoglobin A1C, POC 7.2 4.0 - 5.6 % Blood 05/12/2024 11:4 5 AM ADMINISTRATIVE PROGRAM SPECIALIST Tim Horton MD POINT OF CARE TEST ORDERABLES Final Result * CT Lung Cancer Screening (07/11/2023 7:52 AM ADMINISTRATIVE PROGRAM SPECIALIST) Anatomical Region Laterality Modality Chest N/A Computed Tomogra phy 07/11/2023 8:24 AM ADMINISTRATIVE PROGRAM SPECIALIST Impressions 07/12/2023 2:08 PM ADMINISTRATIVE PROGRAM SPECIALIST 1. ??LungRADS Category 2 (benign) S. ??Recommend Low dose Screening CT of chest in 12 months. 2. ??Coronary artery atherosclerosis. Recommend follow up coronary risk assessment and additional imaging as appropriate. 3. Emphysema. LungRADS Categories: 1 - Negative (no nodules, or only benign calcified or fat-containing nodules) 2 - Benign Appearance or Behavior (nodules with very low likelihood of becoming a clinically active cancer due to size or lack of growth) 3 - Probably Benign (probably benign findings-short term follow up suggested; includes nodules with a low likelihood of becoming a clinically active cancer) 4A,4B,4X - Suspicious (category 3 or 4 nodules with findings for which additional diagnostic testing and/or tissue sampling is recommended) S - Other (clinically significant or potentially clinically significant findings (non-lung cancer) C - Prior Lung Cancer (modifier for patients with a prior diagnosis of lung cancer who return to screening) Dictated by: Marielena Bowen MD The radiology attending physician has personally reviewed this study, and had reviewed and/or edited this written report and agrees with it. Electronically signed by: Ace Ramos M.D. Narrative 07/12/2023 2:08 PM ADMINISTRATIVE PROGRAM SPECIALIST EXAMINATION: ??Lung cancer screening CT of the Chest without intravenous contrast HISTORY: Lung Cancer Screening TECHNIQUE: ??Low radiation dose chest protocol. No intravenous contrast. Reconstructed slice width 1.[address] Dose Index 1 mGy. Dose-length product 41 mGy-cm. COMPARISON: CT abdomen pelvis from 05/18/2022 FINDINGS: ?? Lung nodules or findings of lung cancer: There is a 4.5 mm nodule in the left lower lobe (table position -44.3) Additionally, there are tiny, scattered calcified granulomas in both lungs. Smoking related lung disease: emphysema Other findings: Calcified subcarinal lymph nodes are compatible with chronic granulomatous disease. ??Coronary artery atherosclerosis. ?? Procedure Note Ace Ramos MD - 07/12/2023 EXAMINATION: Lung cancer screening CT of the Chest without intravenous contrast HISTORY: Lung Cancer Screening TECHNIQUE: Low radiation dose chest protocol. No intravenous contrast. Reconstructed slice width 1.[address] Dose Index 1 mGy. Dose-length product 41 mGy-cm. COMPARISON: CT abdomen pelvis from 05/18/2022 FINDINGS: Lung nodules or findings of lung cancer: There is a 4.5 mm nodule in the left lower lobe (table position -44.3) Additionally, there are tiny, scattered calcified granulomas in both lungs. Smoking related lung disease: emphysema Other findings: Calcified subcarinal lymph nodes are compatible with chronic granulomatous disease. Coronary artery atherosclerosis. IMPRESSION: 1. LungRADS Category 2 (benign) S. Recommend Low dose Screening CT of chest in 12 months. 2. Coronary artery atherosclerosis. Recommend follow up coronary risk assessment and additional imaging as appropriate. 3. Emphysema. LungRADS Categories: 1 - Negative (no nodules, or only benign calcified or fat-containing nodules) 2 - Benign Appearance or Behavior (nodules with very low likelihood of becoming a clinically active cancer due to size or lack of growth) 3 - Probably Benign (probably benign findings-short term follow up suggested; includes nodules with a low likelihood of becoming a clinically active cancer) 4A,4B,4X - Suspicious (category 3 or 4 nodules with findings for which additional diagnostic testing and/or tissue sampling is recommended) S - Other (clinically significant or potentially clinically significant findings (non-lung cancer) C - Prior Lung Cancer (modifier for patients with a prior diagnosis of lung cancer who return to screening) Dictated by: Marielena Bowen MD The radiology attending physician has personally reviewed this study, and had reviewed and/or edited this written report and agrees with it. Electronically signed by: Ace Ramos M.D. Tim Horton MD IMG CT PROCEDURES Final Resul t * (ABNORMAL) Albumin Creatinine Ratio, Urine (11/22/2022 12:31 PM CDT) Creatinine ur 19.2 Not Estab. mg/dL [facility] - 01 Microalbumin, ur 22.4 Not Estab. ug/mL [facility] - 01 Microalbumin/cr eat ratio 117(H) 0 - 29 mg/g creat [facility] - 01 Comment: ? Normal: ?0 - ??29 ? Moderately increased: 30 - 300 ? Severely increased: ? >300 Urine 11/22/2022 12:3 1 PM CDT 11/22/2022 Narrative [facility] - 11/23/2022 8:17 AM CDT Performed at: ??01 - [facility] [address] ??[id number] Digital Asset Specialist: Mike Montes De Oca PhD, Phone: ??[phone] Tim Horton MD LAB URINE ORDERABLES Final Re sult [facility] - 01 * CT Abdomen Pelvis W Contrast (05/18/2022 5:13 PM ADMINISTRATIVE PROGRAM SPECIALIST) Anatomical Region Laterality Modality Body N/A Computed Tomogra phy 05/18/2022 5:46 PM ADMINISTRATIVE PROGRAM SPECIALIST Impressions 05/18/2022 5:46 PM ADMINISTRATIVE PROGRAM SPECIALIST 1. ??No clear CT explanation for the patient's symptoms. Electronically signed by: Mike Acosta M.D. Narrative 05/18/2022 5:46 PM ADMINISTRATIVE PROGRAM SPECIALIST EXAMINATION: ??Computed tomography of the abdomen and pelvis with intravenous contrast HISTORY: Abdominal pain radiating into the groin TECHNIQUE: ??Transaxial computed tomographic images of the abdomen and pelvis were obtained with intravenous contrast according to the standard protocol after the uneventful administration of 82 mL Opti-Ray 350 intravenous contrast. COMPARISON: 10/07/2013 FINDINGS: Within the lung bases, there is no pleural effusion, pneumothorax, or consolidation. ??Normal heart size without pericardial effusion. There is no focal liver lesion or biliary duct dilatation. Nondistended gallbladder. ??No focal lesion is seen within the adrenal glands pancreas or spleen. There are cortical defects within both kidneys, right greater than left, indicating previous infection or infarct. ??No hydronephrosis or suspicious renal lesion. ??No nephrolithiasis. The abdominal aorta is atherosclerotic but nonaneurysmal. ??No abdominal or pelvic lymphadenopathy. ??Images through the pelvis are partially obscured by hip replacements, but the bladder and prostate gland are grossly normal. There is no free intraperitoneal fluid or free gas. ??No intestinal obstruction or focal bowel wall thickening. ??Colonic diverticulosis is present without diverticulitis. ??Normal appendix. ??Rectus sheath diastases without hernia. No suspicious osseous lesion or fracture. Procedure Note Mike Acosta MD - 05/18/2022 EXAMINATION: Computed tomography of the abdomen and pelvis with intravenous contrast HISTORY: Abdominal pain radiating into the groin TECHNIQUE: Transaxial computed tomographic images of the abdomen and pelvis were obtained with intravenous contrast according to the standard protocol after the uneventful administration of 82 mL Opti-Ray 350 intravenous contrast. COMPARISON: 10/07/2013 FINDINGS: Within the lung bases, there is no pleural effusion, pneumothorax, or consolidation. Normal heart size without pericardial effusion. There is no focal liver lesion or biliary duct dilatation. Nondistended gallbladder. No focal lesion is seen within the adrenal glands pancreas or spleen. There are cortical defects within both kidneys, right greater than left, indicating previous infection or infarct. No hydronephrosis or suspicious renal lesion. No nephrolithiasis. The abdominal aorta is atherosclerotic but nonaneurysmal. No abdominal or pelvic lymphadenopathy. Images through the pelvis are partially obscured by hip replacements, but the bladder and prostate gland are grossly normal. There is no free intraperitoneal fluid or free gas. No intestinal obstruction or focal bowel wall thickening. Colonic diverticulosis is present without diverticulitis. Normal appendix. Rectus sheath diastases without hernia. No suspicious osseous lesion or fracture. IMPRESSION: 1. No clear CT explanation for the patient's symptoms. Electronically signed by: Mike Acosta M.D. Tim Horton MD IMG CT PROCEDURES Final Resul t * HEPATITIS C AB W/REFL TO HCV RNA, QN, PCR (REFL) (09/07/2021 2:48 PM ADMINISTRATIVE PROGRAM SPECIALIST) Pathologist [facility] Hep C Ab <0.1 0.0 - 0.9 s/co ratio [facility] - 01 Blood specimen (specimen) 09/07/2021 2:48 PM ADMINISTRATIVE PROGRAM SPECIALIST 09/07/2021 Narrative [facility] - 09/08/2021 10:10 AM ADMINISTRATIVE PROGRAM SPECIALIST Performed at: ??01 - [facility] [address] ??[id number] Digital Asset Specialist: Mike Montes De Oca PhD, Phone: ??[phone] Yo Lawrence MD LAB BLOOD ORDERABLES [facility] al [facility] - [facility] * PSA screen (01/25/2021 1:39 PM CDT) PSA 0.6 0.0 - 4.0 ng/mL [facility] - 01 Comment: Suri ECLIA methodology. According to the [place] [employer], Serum PSA should decrease and remain at undetectable levels after radical prostatectomy. The AUA defines biochemical recurrence as an initial PSA value 0.2 ng/mL or greater followed by a subsequent confirmatory PSA value 0.2 ng/mL or greater. Values obtained with different assay methods or kits cannot be used interchangeably. Results cannot be interpreted as absolute evidence of the presence or absence of malignant disease. Blood specimen (specimen) 01/25/2021 1:39 PM CDT 01/25/2021 Narrative [facility] - 01/26/2021 10:10 AM CDT Performed at: ??01 - [facility] [address] ??[id number] Digital Asset Specialist: Mike Montes De Oca PhD, Phone: ??[phone] Tim Horton MD LAB BLOOD ORDERABLES Final Re sult [facility] - 01 from Last 3 Months or Most Recently Relevant to Health Maintenance Additional Health Concerns Infection Onset Date Last Indicated C. difficile 06/21/2024 06/21/2024 Insurance [facility] Address: [address] [address] [facility] [facility] [facility] MEDIC[facility] Address: [address] [address] [place] [address] [facility] CHOICE PLUS [facility] HMO/PPO Address: [address] [address] [place] [id number] [facility] CHOICE PLUS [facility] HMO/PPO Address: [address] [address] [place] [address] [place] [address] MEDICARE SOLUTIONS Advance Directives For more information, please contact: [phone] * Full Code (Latest Code Status on File) Date Activated Date Inactivated Comments 06/04/2024 1:34 PM 06/13/2024 5:07 PM * Full Code Date Activated Date Inactivated Comments 08/07/2023 2:11 AM 08/10/2023 3:34 PM 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
--- OUTSIDE RECORDS SUMMARY | 2024-08-04 08:35 | XMS_ITS | Encounter Summary ---
Author Organization [facility] Address [address] [facility] [place] [address] Care Team Providers Care Supervisor Spinning Name Role Phone Bri Clayton MD Unavailable Tim Horton MD Primary Care Provider [phone] Reason for Visit * Reason Onset Date Comments Question 01/13/2024 Encounter Details Date Type Department Care Team (Late st Contact Info) Description 01/13/2024 Telephone [facility] - Ophthalmology [address] [place] [phone] Bell Gaffney MD [address] [place] [address] [place] [address] Question Social History Tobacco Use Types Packs/Day Years Used Date Smoking Tobacco: Former Cigarettes 2.3 25 1 988 - 2012 Smokeless Tobacco: Never Alcohol Use Standard Drinks/Week Comments No 0 (1 standard drink = 0.6 oz pur e alcohol) AUDIT-C Answer Date Recorded Q1: How often do you have a drink containing alc ohol? Never 12/17/2021 Average Number of Drinks Not on file 022 Frequency of Binge Drinking Not on file 11/29 PHQ-2 Answer Date Recorded Patient Health Questionnaire-2 Score 0 04/23/2023 Sex and Gender Information Value Date Recorded Sex Assigned at Not on file Gender Identity Not on file Sexual Orientation Not on file documented as of this encounter Miscellaneous Notes * Telephone Encounter - Keke Godwin - 01/13/2024 11:23 AM CDT Joe from [facility] called and has questions about medical records. She needs to know the best corrected vision and is he able to read any letters in the 20/150 line. # [phone] documented in this encounter Plan of Treatment Upcoming Encounters Date Type Department Care Team (Late st Contact Info) Description 09/09/2024 1:45 PM CDT Office Visit [facility] - Ophthalmology [address] [place] [phone] Bell Gaffney MD [address] [place] [address] [place] [phone] documented as of this encounter Visit Diagnoses Not on filedocumented in this encounter Care Teams Supervisor Spinning Relationship Specialty Start Date End Date Tim Horton MD [address] [facility] [address] [place] [address] PCP - General 04/18/22 [place] [address] [facility] [address] [place] [id number] Ophthalmology 07/23/19 documented as of this encounter
--- OUTSIDE RECORDS SUMMARY | 2024-08-04 08:35 | XMS_ITS | Clinical Summary ---
Author Organization [facility] Address [address] [place] [address] Phone Care Team Providers Care Technology Lead Name Role Phone Eitan Garcia MD Primary Care Provider Allergies Active Allergy Reactions Criticality Noted Date Comments Codeine Nausea and Vomiting Low 11/22/2010 Medications ranitidine (ZANTAC) 150 mg Oral tablet Take 150 mg by mouth 2 times daily. Active albuterol sulfate (PROVENTIL) 4 mg Oral tablet Take 4 mg by mouth 2 times daily. 1 Active fenofibric acid (TRILIPIX) 135 mg Oral CpDR Take 135 mg by mouth daily. Active fexofenadine (NIELS) 180 mg Oral tablet Take 180 mg by mouth daily. Active atorvastatin (LIPITOR) 80 mg Oral tablet Take 80 mg by mouth Daily LATE. Active colesevelam (WELCHOL) 625 mg Oral Tab Take 1,875 mg by mouth 2 times daily with meals. Active Cholecalciferol , Vitamin D3, (VITAMIN D) 2,000 unit Oral Cap Take 1 Tab by mouth daily. 1 Active multivitamin (DAILY-SHYANN) Oral tablet Take 1 Tab by mouth daily. Active olopatadine (PATANOL) 0.1 % OP solution Administer 1 Drop in both eyes 2 times daily. Active mometasone (NASONEX) 50 mcg/Actuation Both Nostril [place] Administer 2 Sprays in each nostril daily. Active albuterol (PROVENTIL,VENT GONZÁLEZ) 90 mcg/Actuation Inhalation HFAA Take 2 Puffs by inhalation every 6 hours as needed. 1 Active fluticasone (FLOVENT) 220 mcg/Actuation Inhalation Aero Take 2 Puffs by inhalation every 12 hours. Active cromolyn (NASALCROM) 5.2 mg/Actuation Both Nostril [place] Administer 1 [place] in each nostril 4 times daily. Active warfarin (COUMADIN) 3 mg Oral tablet Take 1.5 Tabs by mouth Daily LATE. 120 Tab 1 1 Active docusate sodium (COLACE) 100 mg Oral capsule Take 1 Cap by mouth 2 times daily. 60 Cap 2 1 Active indomethacin (INDOCIN) 25 mg Oral capsule Take 1 Cap by mouth 3 times daily. 90 Cap 1 1 Active neomycin-bacitr acin-polymyxin (NEOSPORIN) 3.5-400-5,000 [id number] Topical Oint Apply to affected area daily. 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 Gender Identity Not on file Sexual Orientation Not on file Last Filed Vital Signs Vital Sign Reading Time Taken Comments Blood Pressure 130/78 12/10/2010 7:45 AM CDT Pulse 92 12/10/2010 7:45 AM CDT Temperature 36.3 ??C (97.4 ??F) 12/10/2010 7:45 AM CD T Respiratory Rate 18 12/10/2010 7:45 AM CDT Oxygen Saturation 100% 12/10/2010 12:00 AM CDT Inhaled Oxygen Concentration - - Weight 108.9 kg (240 lb) 12/07/2010 10:11 AM CDT Height 185.4 cm (6' 1 ) 11/22/2010 10:37 AM CDT Body Mass Index 31.66 11/22/2010 10:37 AM CDT Plan of Treatment Health Maintenance Due Date Last Done Comments DTAP/TDAP/TD VACCINES (1 - Tdap) 02/14/1976 PNEUMOCOCCAL VACCINE 65+ YEARS (1 of 2 - PCV) 02/13/19 76 04/06/2010 COLORECTAL SCREENING 2002 Colorectal Cancer Screening 2002 FIT-DNA Q 3 years 2002 FIT/FOBT Q 1 year 2002 Flex Sig/CT Colonography Q 5 years 2002 ZOSTER VACCINE (1 of 2) 2007 INFLUENZA VACCINE (#1) 2024 03/09/2010 RSV VACCINE (60+ or ) (1 - 1-dose 75+ series) 02/14/2032 Medical Devices Implanted Type Area Polymer Engineer Device Identifier Shelf Expiration Date Model / Serial / Lot Log [id number] - [employer] Total Hip Systems - 1 - Shell 3h Stiktite [employer]td 58mm [id number] Implanted:Qty: 1 on 12/07/[address] [facility] Hip Right: Hip ROMERO NEPHEW ORTHO 06/30/2020 [id number] / / [id number] Log [id number] - [employer] Total Hip Systems - 1 - Liner Acetabular [id number] Implanted:Qty: 1 on 12/07/[address] [facility] Hip Right: Hip ROMERO NEPHEW ORTHO 09/30/2019 [id number] / / [id number] Right Anteverted Neck 12/14 Implanted:Qty: 1 on 12/07/[address] [facility] Right: Hip ROMERO NEPHEW 05/01/2020 [id number] / / [id number] Smf Stiktite Size 2 Femoral Stem Implanted:Qty: 1 on 12/07/[address] [facility] Right: Hip ROMERO NEPHEW 05/31/2020 [id number] / / [id number] Oxinum Head 36mm Plus 12 Implanted:Qty: 1 on 12/07/[address] [facility] Right: Hip ROMERO NEPHEW 07/01/2019 [id number] / / [id number] Insurance [facility] [id number] Advance Directives For more information, please contact: [phone] * Full Code (Latest Code Status on File) Date Activated Date Inactivated Comments 12/07/2010 4:34 PM 12/10/2010 4:06 PM * Full Code Date Activated Date Inactivated Comments 12/07/2010 10:12 AM 12/07/2010 4:34 PM Care Teams Technology Lead Relationship Specialty Start Date End Date Eitan Garcia MD [address] [place] [id number] PCP - General Family Practice 11/14/10
--- OUTSIDE RECORDS SUMMARY | 2024-08-04 08:35 | XMS_ITS | Continuity of Care Document ---
Author Organization [facility] Address [address] [place] [address] Phone Care Team Providers Care Customer Specialist Name Role Phone William Olsen Unavailable Unavailable Procedures Procedure Date Post-op Follow-up Visit Post-op Follow-up Visit Remove Cataract, Insert Lens Cataract Kit SEC [employer] Eye Exam, New Patient IOLMaster Advance Directives Directive Yes / No Effective Date File Name No Information Encounters Encounter Description Practice Location Reason(s) For Visit Diagnoses Date Provider Providers Copied on Encounter [facility], [address] [place] [address] [address], [place], [place], [id number], tel:[phone] [facility] No Information 0 Doisy Edverónica. [address] , [address], [place], [address], [place]. tel:[phone] Referring Provider: Mo Hernandez OD, [address] [place], [address]. tel:[phone] [facility], [address] [place] [address] [address], [place], [place], [id number], [place] tel:[phone] [facility] No Information 0 Doisy Edverónica. [address] , [address], [place], [address], [place]. tel:[phone] [facility], [address], [place], [place], [id number], [place] tel:[phone] [facility] No Information Sep-2 8-201 0 Doisy Edward. [address] [facility] , [address], [place], [place], [facility], . tel:[phone] Referring Provider: Mo Hernandez OD, [address] [place], [address]. tel:[phone] [facility], [address], [place], [place], [id number], [place] tel:[phone] [facility] No Information Sep-2 8-201 0 Doisy Edward. [address] [facility] , [address], [place], [place], [facility], . tel:[phone] [facility], [address], [place], [place], [id number], [place] tel:[phone] [facility] No Information Sep-0 8-201 0 Doisy Edward. [address] [facility] , [address], [place], [place], [facility], . tel:[phone] Referring Provider: Mo Hernandez OD, [address] [place], [address]. tel:[phone] Family History Family Member Type Diagnosis Age At Onset No Information Payers Payer name Insurance type Covered democrat ID Authoriza tion(s) No Information Social History Type Description Quantity Date Captured Comments Sex Male Smoking Status No Information Chief Complaint And Reason For Visit No Information Reason For Referral Reason For Referral No Information History Of Present Illness Encounter Date Complaint History Of Prese nt Illness No Information Functional Status Date Functional Assessmen t No Information Instructions Date Instruction Additional Infor mation No Information Assessments Type Assessment Date No Information Patient Care Teams Name Effective Dates (start - stop) Status Members No Information
--- OUTSIDE RECORDS SUMMARY | 2024-08-04 08:36 | XMS_ITS | Referral Summary ---
Author Organization [facility] Address [address] [place] [phone] Care Team Providers Care Cotton Ginner Helper Name Role Phone Tim Horton MD Primary Care Provider Yo Lawrence MD Unavailable Earl Ernandez DPM Unavailable [phone] Bell Gaffney MD Unavailable [phone] Encounters Date Type Department Care Team Description 07/28/2024 Orders Only [facility] [address] [place] [phone] Tim Horton MD 07/27/2024 Telephone [facility] [address] [place] [phone] Tim Horton MD Spoke With Home Health Provider 07/23/2024 Telephone [facility] [address] [place] [phone] Tim Horton MD 07/23/2024 12:15 PM WAX BLEACHER Office Visit [facility] [address] [place] [phone] Tim Horton MD Type 2 diabetes mellitus with diabetic polyneuropathy, without long-term current use of insulin (HCC) (Primary Dx); Mixed hyperlipidemia; Type 2 diabetes mellitus without retinopathy (CMS/HCC) (HCC); Central cord syndrome, sequela (HCC) 07/13/2024 Telephone [facility] [address] [facility] [address] [facility] [place] [address] Tim Horton MD Spoke With Home Health Provider 07/13/2024 8:00 AM WAX BLEACHER Ancillary Procedure [facility] [address] [phone] Syncope and collapse 07/10/2024 Orders Only [facility] Cardiology [address] [facility] Medical Office Building [address] [place] [address] Jayne Brooks NP Syncope and collapse (Primary Dx) 07/06/2024 Telephone [place] [address] [facility] [address] [place] [address] Nathan Rivas MD MyCHeapt message re: pt update 07/02/2024 Orders Only [facility] [phone] Unknown, Notinfile 06/29/2024 Orders Only [facility] [phone] Unknown, Notinfile 06/25/2024 Orders Only [facility] [phone] Medicine 06/22/2024 Orders Only [facility] [address] [facility] [address] [facility] [place] [phone] Mamie Cummings MA Personal history of nicotine dependence 06/22/2024 Orders Only [facility] [phone] Unknown, Notinfile 06/22/2024 Telephone [facility] Cardiology [facility] Building [address] [place] [address] Nathan Rivas MD 06/21/2024 Orders Only [facility] [phone] Unknown, Notinfile 06/18/2024 Orders Only [facility] [phone] Unknown, Notinfile 06/17/2024 Telephone [facility] [address] [place] [address] Health 4th Floor [address] [place] [address] Bhavna Fisher 06/16/2024 Telephone [facility] [address] [place] [address] Talia Carmona RN 06/15/2024 Orders Only [facility] [phone] Unknown, Notinfile 06/14/2024 Orders Only [facility] [phone] Unknown, Notinfile 06/04/2024 5:48 AM WAX BLEACHER - 06/13/2024 12:52 PM WAX BLEACHER Hospital Encounter [facility] [address] [place] [address] Nathan Buchanan MD Vallar, Kelly Jean, MD Palmer, Kalyan Catherine MD Fall, initial encounter (Primary Dx); Central cord syndrome, initial encounter (HCC); Central cord syndrome, subsequent encounter (HCC) Discharge Disposition: Discharge to an Rehab facility 06/04/2024 Orders Only [facility] [address] [facility] [address] [place] [phone] Tim Horton MD 06/04/2024 9:07 AM WAX BLEACHER Anesthesia Event [facility] Operating Room [address] [place] [phone] Lisa Marie MD PhD Florin Henson CRNA 06/04/2024 9:00 AM WAX BLEACHER - 06/04/2024 2:50 PM WAX BLEACHER Surgery [facility] Operating Room [address] [place] [address] Panda Gamez MD FUSION CERVICAL/THORACIC - POSTERIOR WITH INSTRUMENTATION C3-T1 05/12/2024 11:30 AM WAX BLEACHER Office Visit [facility] [address] [facility] [address] [place] [phone] Tim Horton MD Type 2 diabetes mellitus with diabetic polyneuropathy, without long-term current use of insulin (HCC) (Primary Dx); Mixed hyperlipidemia; Peripheral vascular disease (HCC); Cardiomyopathy, unspecified type (HCC) 05/06/2024 Telephone [facility]iology [address] [facility] 8th [place] [address] [place] [phone] SinNathan mccabe MD Entresto inquiry from Last 3 Months Allergies Active Allergy [...] by mouth every 8 (eight) hours 06/12/20 24 Active prednisoLONE acetate (PRED FORTE) 1 % ophthalmic suspension Administer 1 drop into the left eye 4 (four) times a day 06/12/20 24 Active polyethylene glycol (MIRALAX) 17 gram packetIndicat ions:constipa tion Take 1 packet (17 g total) by mouth daily as needed for constipation 06/12/20 24 Active methocarbamoL (ROBAXIN) 500 mg tablet Take 2 tablets (1,000 mg total) by mouth every 8 (eight) hours 06/12/20 24 Active ketorolac (ACULAR) 0.5 % ophthalmic solution [...] for muscle spasms 30 tablet 07/23/19 25 025 Active metFORMIN XR (GLUCOPHAGE XR) 500 [...] 3 times daily 30 capsule 2 07/23/19 025 Discontinued(R eorder) Active Problems Problem Noted Date Diagnosed Date Urinary retention 06/11/2024 Assessment & Plan (06/11/2024 11:30 AM WAX BLEACHER): 06/11 elias replaced and flomax started Acute traumatic pain 06/08/2024 Assessment & Plan (06/12/2024 12:25 PM WAX BLEACHER): - Tylenol 1g q6h - Increased Gabapentin 600mg TID - Robaxin 1000mg q8h - Ketorolac 1 gtts QID - Oxycodone 5mg q4h PRN Discharge planning issues 06/08/2024 Assessment & Plan (06/12/2024 3:19 PM WAX BLEACHER): - 06/08: awaiting PT/OT, spine drain remained in place. - 06/09: syncope workup pending, continue to work with PT/OT - 06/10-06/11: Patient is medically stable for discharge, SW/CM updated. Discharge pending insurance authorization 06/12: Discharged Central cord syndrome (CMS/HCC) 06/04/2024 Assessment & Plan (06/12/2024 3:18 PM WAX BLEACHER): - Neurosurgery consult - MRI C spine [...] 05/12/2024 Assessment & Plan (05/12/2024 12:29 PM WAX BLEACHER): Has had 1 further episode of syncope. I have asked her to please reach out to his genetic counsellor to discuss. The episodes of syncope seemed [...] will call Cardiology to discuss Diabetic polyneuropathy asso ciated with type 2 diabetes mellitus ([facility]) 01/01/2024 Assessment & Plan (04/09/2024 1:25 PM [...] if you have a cut. Let your pickle solution maker decide how much walking you should do. [...] if you have a cut. Let your pickle solution maker decide how much walking you should do. Essential hypertension 10/17/2023 Assessment & Plan (06/12/2024 3:19 PM WAX BLEACHER): 06/06: still holding entresto Continue to hold [...] issues. Assessment & Plan (09/03/2023 1:27 PM WAX BLEACHER): We will continue calcium channel blockers at this time. Assessment & Plan (08/26/2023 11:56 AM WAX BLEACHER): Recommend that he continue felodipine at this standpoint for Raynaud's syndrome. Assessment & Plan (08/16/2023 12:04 PM WAX BLEACHER): While in hospital he was started on [...] well. Assessment & Plan (09/03/2023 1:27 PM WAX BLEACHER): Remove the rest of the sutures without [...] issues. Assessment & Plan (08/26/2023 11:57 AM WAX BLEACHER): I started to remove the sutures however the incision site was not fully coapted. Therefore I stopped suture removal and applied Steri-Strips of the area. He is to keep the dressing clean, dry, intact. He is to continue weight-bearing as tolerated in surgical shoe. He is to monitor for any signs of reaction or infection. Assessment & Plan (08/16/2023 8:41 AM WAX BLEACHER): Osteomyelitis has been resected completely. Diabetic foot [...] if you have a cut. Let your pickle solution maker decide how much walking you should do. Cellulitis of toe of left foot 08/07/2023 Toe pain, left 08/06/2023 Acute osteomyelitis of left ankle or foot 2023 Assessment & Plan (08/26/2023 11:56 AM WAX BLEACHER): Proximal margin of the amputation was clear of osteomyelitis. Assessment & Plan (08/16/2023 8:40 AM WAX BLEACHER): Proximal margin of the amputation was clear of osteomyelitis. He is to the dressing clean, dry, intact. He can be weight-bearing in surgical shoe. Type 2 diabetes mellitus without retinopathy (CM S/HCC) 03/01/2023 Syncope 02/27/2023 Assessment & Plan (06/10/2024 1:29 PM WAX BLEACHER): - Orthostatic vital signs repeat 06/09 (-) [...] 08/02/2022 Assessment & Plan (08/16/2023 8:40 AM WAX BLEACHER): This is resolved currently with antibiotic treatment as well as with partial 3rd digit amputation. Monitor for further signs of infection Assessment & Plan (08/02/2022 10:27 AM WAX BLEACHER): Finish clindamycin as prescribed by Podiatry Apply [...] Lawrence. Assessment & Plan (09/07/2021 8:12 PM WAX BLEACHER): Mr. Obrien is a 66yo male with [...] 10/09/2013 Assessment & Plan (05/12/2024 12:29 PM WAX BLEACHER): Dustin at this time. Type 2 diabetes mellitus 02/04/2012 Overview (10/11/2017): Description: dx'd 2011 Assessment & Plan (05/12/2024 12:29 PM WAX BLEACHER): Would like to add Farxiga if finances etc. will allow. Assessment & Plan (10/17/2023 1:44 PM CDT): A1c elevated. Needs to follow diet. Assessment & Plan (08/02/2022 10:26 AM WAX BLEACHER): Well controlled, 6.1% Hyperlipidemia 02/04/2012 Assessment & Plan (05/12/2024 12:29 PM WAX BLEACHER): Stable. Assessment & Plan (10/17/2023 1:44 PM CDT): Doing well at this time Resolved Problems Problem Noted Date Diagnosed Date Resolved Date Abdominal pain 03/20/2022 08/02/2022 Assessment & Plan (03/20/2022 5:38 PM CDT): Will continue to monitor If worsens or persists to call for imaging Polyarthritis 08/09/2021 03/20/2022 Assessment & Plan (08/09/2021 4:09 PM WAX BLEACHER): Check rheum panel Hypertrophic toenail 02/22/2015 022 Pain in extremity 02/07/2015 03/20/2022 Onychomycosis of toenail 02/07/2015 Ingrown toenail 05/12/2014 03/20/2022 Skin callus 05/12/2014 03/20/2022 Ulcer of toe ([facility]) 10/09/201303/20 Arthralgia of shoulder 06/18/201203/20 Unspecified cataract 02/04/2012 022 Immunizations Name Administration Dates Next Due Flucelvax Influenza Quad 04/16/2024 Influenza, Quadrivalent, Hig h Dose, Preservative Free, Intrr 03/31/2023 Influenza, Quadrivalent, Spl it, Preservative Free, Intramuscular 03/25/2018 Influenza, Trivalent, High D ose, Split, Preservative Free, Intramuscular 04/16/2024 Influenza, Trivalent, IM (MDV) 03/09/2010 Influenza, Unspecified 03/19/2023,03/25/2018 Pfizer Sars-Cov-2 Bivalent Vaccination (12+ YRS) 03/31/2022 Pneumococcal Conjugate, Unspecified 04/19/2021,1 Pneumococcal, Unspecified 04/20/2021 ZOSTER Recombinant 05/07/2024 Social History Tobacco Use Types Packs/Day Years Used Date Smoking Tobacco: Former Cigarettes 2.5 30 1 1 - 2010 Smokeless Tobacco: Never Tobacco Cessation:Counseling Given: Not Answered Alcohol Use Standard Drinks/Week Comments No 0 (1 standard drink = 0.6 oz pur e alcohol) [facility] Utilities Answer Date Recorded In the past 12 months has th e electric, gas, oil, or water company threatened to shut off services in your [...] 08/07/2023 How often do you attend chur ch or pentecostalism services? 1 to 4 times per year 08/07/2023 Do you belong to any clubs o r organizations such as taoist groups, unions, fraternal or athletic groups, or [...] place to sleep or slept in a correction (including now)? No 08/07/2023 Personal Safety Answer Date Recorded Have you ever been in or are you currently in a harmful physical or emotional relationship or is someone making you feel afraid or unsafe? Denies 06/04/2024 Sex and Gender Information Value Date Recorded Sex Assigned at Not on file Legal Sex Male 2:47 AM WAX BLEACHER Gender Identity Male 02/12/2021 8:10 AM CDT Sexual Orientation Straight 12/18/2018 4: 37 PM CDT Last Filed Vital Signs Vital Sign Reading Time Taken Comments Blood Pressure 143/91 07/23/2024 12:31 PM WAX BLEACHER Pulse 103 07/23/2024 12:31 PM WAX BLEACHER Temperature 37.1 ??C (98.8 ??F) 06/13/2024 4:41 AM CS T Respiratory Rate 18 06/13/2024 4:41 AM WAX BLEACHER Oxygen Saturation 96% 06/13/2024 4:41 AM WAX BLEACHER Inhaled Oxygen Concentration - - Weight 85.7 kg (189 lb) 07/23/2024 12:31 PM WAX BLEACHER Height 185.4 cm (6' 1 ) 07/23/2024 12:31 PM WAX BLEACHER Body Mass Index 24.94 07/23/2024 12:31 PM WAX BLEACHER Plan of Treatment Not on file Medical Devices Implanted Type Area Non Profit Director Device Identifier Shelf Expiration Date Model / Serial / Lot [employer] Graft Bone Magnetos 10cc 1-2mm Granules In Moldable Putty 703-038-[id number] - [id number] Implanted:Qty : 1 on 06/04/2024 by Panda Gamez MD at [facility] N/A: Spine Cervical [employer] [id number] 01/29/2029 [id number] / / [id number] Allosource Crushed Fresh Frozen Cancellous 1-4mm Graft 15ml Bone [id number] - [id number] Implanted:Qty : 1 on 06/04/2024 by Panda Gamez MD at [facility] N/A: Spine Cervical Allosource 08/25/2028 [id number] / / [id number] Medtronic Inc 3.5mm 18mm Multiaxial Spine Screw Bone [id number] - [id number] Implanted:Qty : 6 on 06/04/2024 by Panda Gamez MD at [facility] N/A: Spine Cervical Medtronic Inc [id number] / / Medtronic Inc 3.5mm 22mm Multiaxial Spine Screw Bone [id number] - [id number] Implanted:Qty : 2 on 06/04/2024 by Panda Gamez MD at [facility] N/A: Spine Cervical Medtronic Inc [id number] / / Medtronic Inc 4.5mm 24mm Multiaxial Spine Screw Bone [id number] - [id number] Implanted:Qty : 2 on 06/04/2024 by Panda Gamez MD at [facility] N/A: Spine Cervical Medtronic Inc [id number] / / Medtronic Inc Miguel Spinal [place]ipito Cervical Standard Infinity [id number] - [id number] Implanted:Qty : 1 on 06/04/2024 by Panda Gamez MD at [facility] N/A: Spine Cervical Medtronic Inc [id number] / / Medtronic Inc Set Screw [id number] M6 Setscrew [id number] - [id number] Implanted:Qty : 10 on 06/04/2024 by Panda Gamez MD at [facility] N/A: Spine Cervical Medtronic Inc [id number] / / Medtronic Inc 3.5mm 80mm Precut Miguel Spinal [id number] - [id number] Implanted:Qty : 1 on 06/04/2024 by Panda Gamez MD at [facility] N/A: Spine Cervical Medtronic Inc [id number] / / Procedures Procedure Name Priority Date/Time Associated Diagnosis Comments SCAN - LABS 07/28/2024 1:20 AM WAX BLEACHER POCT HEMOGLOBIN A1C Routine 07/23/2024 12:36 PM WAX BLEACHER Type 2 diabetes mellitus with diabetic polyneuropathy, without long-term current use of insulin (HCC) CS GLUCOSE Routine Gen Lab 07/02/2024 5:21 AM WAX BLEACHER EGFR Routine Gen Lab 07/02/2024 5:21 AM WAX BLEACHER CS BASIC METABOLIC PANEL Routine Gen Lab 07/02/2024 5:21 AM WAX BLEACHER CBC WITHOUT DIFFERENTIAL Routine Gen Lab 07/02/2024 5:21 AM WAX BLEACHER EGFR Routine Gen Lab 06/29/2024 10:23 AM WAX BLEACHER COMPREHENSIVE METABOLIC PANEL WITHOUT GLUCOSE (OUTREACH) Routine Gen Lab 06/29/2024 10:23 AM WAX BLEACHER CS GLUCOSE Routine Gen Lab 06/29/2024 10:23 AM WAX BLEACHER CBC WITHOUT DIFFERENTIAL Routine Gen Lab 06/29/2024 10:23 AM WAX BLEACHER EGFR Routine Gen Lab 06/25/2024 11:00 AM WAX BLEACHER COMPREHENSIVE METABOLIC PANEL WITHOUT GLUCOSE (OUTREACH) Routine Gen Lab 06/25/2024 11:00 AM WAX BLEACHER CS GLUCOSE Routine Gen Lab 06/25/2024 11:00 AM WAX BLEACHER DIFFERENTIAL AUTO Routine Gen Lab 06/25/2024 11:00 AM WAX BLEACHER CBC WITH AUTO DIFFERENTIAL Routine Gen Lab 06/25/2024 11:00 AM WAX BLEACHER EGFR Routine Gen Lab 06/22/2024 8:29 AM WAX BLEACHER COMPREHENSIVE METABOLIC PANEL WITHOUT GLUCOSE (OUTREACH) Routine Gen Lab 06/22/2024 8:29 AM WAX BLEACHER CS GLUCOSE Routine Gen Lab 06/22/2024 8:29 AM WAX BLEACHER CBC WITHOUT DIFFERENTIAL Routine Gen Lab 06/22/2024 8:29 AM WAX BLEACHER C. DIFFICILE TESTING Routine Gen Lab 06/21/2024 4:18 PM WAX BLEACHER EGFR Routine Gen Lab 06/18/2024 4:58 PM WAX BLEACHER CS BASIC METABOLIC PANEL Routine Gen Lab 06/18/2024 4:58 PM WAX BLEACHER CS GLUCOSE Routine Gen Lab 06/18/2024 4:58 PM WAX BLEACHER CBC WITHOUT DIFFERENTIAL Routine Gen Lab 06/18/2024 4:58 PM WAX BLEACHER EGFR Routine Gen Lab 06/15/2024 9:30 AM WAX BLEACHER COMPREHENSIVE METABOLIC PANEL WITHOUT GLUCOSE (OUTREACH) Routine Gen Lab 06/15/2024 9:30 AM WAX BLEACHER VITAMIN D 25 HYDROXY Routine Gen Lab 06/15/2024 9:30 AM WAX BLEACHER CS GLUCOSE Routine Gen Lab 06/15/2024 9:30 AM WAX BLEACHER CBC WITHOUT DIFFERENTIAL Routine Gen Lab 06/15/2024 9:30 AM WAX BLEACHER URINALYSIS, MICROSCOPIC ONLY Routine Gen Lab 06/14/2024 4:34 PM WAX BLEACHER URINE CULTURE Routine Gen Lab 06/14/2024 4:34 PM WAX BLEACHER URINALYSIS AND REFLEX TO MICROSCOPIC AND CULTURE Routine Gen Lab 06/14/2024 4:34 PM WAX BLEACHER CBC WITHOUT DIFFERENTIAL Routine Gen Lab 06/14/2024 5:18 AM WAX BLEACHER POCT GLUCOSE DEVICE Routine 06/13/2024 11:41 AM WAX BLEACHER POCT GLUCOSE DEVICE Routine 06/13/2024 8 :46 AM WAX BLEACHER POCT GLUCOSE DEVICE Routine 06/13/2024 2 :02 AM WAX BLEACHER POCT GLUCOSE DEVICE Routine 06/12/2024 8 :34 PM WAX BLEACHER POCT GLUCOSE DEVICE Routine 06/12/2024 5 :28 PM WAX BLEACHER POCT GLUCOSE DEVICE Routine 06/12/2024 11:17 AM WAX BLEACHER POCT GLUCOSE DEVICE Routine 06/12/2024 7 :44 AM WAX BLEACHER POCT GLUCOSE DEVICE Routine 06/11/2024 9 :23 PM WAX BLEACHER POCT GLUCOSE DEVICE Routine 06/11/2024 5 :11 PM WAX BLEACHER POCT GLUCOSE DEVICE Routine 06/11/2024 12:39 PM WAX BLEACHER POCT GLUCOSE DEVICE Routine 06/11/2024 9 :26 AM WAX BLEACHER EGFR Timed 06/11/2024 6:11 AM WAX BLEACHER BASIC METABOLIC PANEL Timed 06/11/2024 6:11 AM WAX BLEACHER POCT GLUCOSE DEVICE Routine 06/11/2024 2 :01 AM WAX BLEACHER POCT GLUCOSE DEVICE Routine 06/10/2024 8 :58 PM WAX BLEACHER POCT GLUCOSE DEVICE Routine 06/10/2024 7 :26 PM WAX BLEACHER POCT GLUCOSE DEVICE Routine 06/10/2024 3 :23 PM WAX BLEACHER POCT GLUCOSE DEVICE Routine 06/10/2024 11:05 AM WAX BLEACHER TRANSTHORACIC ECHO (TTE) COMPLETE W DOPPLER/CF W CONTRAST ED Urgent/IP Urgent 06/10/2024 9:22 AM WAX BLEACHER POCT GLUCOSE DEVICE Routine 06/10/2024 7 :30 AM WAX BLEACHER POCT GLUCOSE DEVICE Routine 06/10/2024 4 :51 AM WAX BLEACHER POCT GLUCOSE DEVICE Routine 06/09/2024 11:40 PM WAX BLEACHER EGFR Routine 06/09/2024 9:46 PM WAX BLEACHER DIFFERENTIAL AUTO Routine 06/09/2024 9:4 6 PM WAX BLEACHER PHOSPHORUS Routine 06/09/2024 9:46 PM WAX BLEACHER MAGNESIUM Routine 06/09/2024 9:46 PM WAX BLEACHER BASIC METABOLIC PANEL Routine 06/09/2024 9:46 PM WAX BLEACHER CBC WITH AUTO DIFFERENTIAL Routine 06/09/2024 9:46 PM WAX BLEACHER POCT GLUCOSE DEVICE Routine 06/09/2024 7 :54 PM WAX BLEACHER POCT GLUCOSE DEVICE Routine 06/09/2024 5 :49 PM WAX BLEACHER POCT GLUCOSE DEVICE Routine 06/09/2024 12:05 PM WAX BLEACHER POCT GLUCOSE DEVICE Routine 06/09/2024 7 :32 AM WAX BLEACHER EGFR STAT 06/09/2024 6:36 AM WAX BLEACHER PHOSPHORUS STAT 06/09/2024 6:36 AM WAX BLEACHER MAGNESIUM STAT 06/09/2024 6:36 AM WAX BLEACHER BASIC METABOLIC PANEL STAT 06/09/2024 6:36 AM WAX BLEACHER CBC WITHOUT DIFFERENTIAL STAT 024 6:36 AM WAX BLEACHER POCT GLUCOSE DEVICE Routine 06/08/2024 9 :12 PM WAX BLEACHER POCT GLUCOSE DEVICE Routine 06/08/2024 5 :33 PM WAX BLEACHER XR ABDOMEN AP 1 VIEW ED Urgent/IP Urgent 06/08/2024 3:30 PM WAX BLEACHER POCT GLUCOSE DEVICE Routine 06/08/2024 11:17 AM WAX BLEACHER POCT GLUCOSE DEVICE Routine 06/08/2024 7 :34 AM WAX BLEACHER POCT GLUCOSE DEVICE Routine 06/08/2024 3 :38 AM WAX BLEACHER POCT GLUCOSE DEVICE Routine 06/07/2024 11:34 PM WAX BLEACHER EGFR Routine 06/07/2024 9:38 PM WAX BLEACHER PHOSPHORUS Routine 06/07/2024 9:38 PM WAX BLEACHER MAGNESIUM Routine 06/07/2024 9:38 PM WAX BLEACHER BASIC METABOLIC PANEL Routine 06/07/2024 9:38 PM WAX BLEACHER CBC WITHOUT DIFFERENTIAL Routine 024 9:38 PM WAX BLEACHER POCT GLUCOSE DEVICE Routine 06/07/2024 8 :15 PM WAX BLEACHER POCT GLUCOSE DEVICE Routine 06/07/2024 5 :08 PM WAX BLEACHER POCT GLUCOSE DEVICE Routine 06/07/2024 11:04 AM WAX BLEACHER POCT GLUCOSE DEVICE Routine 06/07/2024 7 :47 AM WAX BLEACHER POCT GLUCOSE DEVICE Routine 06/06/2024 8 :27 PM WAX BLEACHER POCT GLUCOSE DEVICE Routine 06/06/2024 5 :25 PM WAX BLEACHER XR SPINE CERVICAL 2 OR 3 VIEWS IP Routine 06/06/2024 12:21 PM WAX BLEACHER POCT GLUCOSE DEVICE Routine 06/06/2024 11:15 AM WAX BLEACHER POCT GLUCOSE DEVICE Routine 06/06/2024 7 :41 AM WAX BLEACHER POCT GLUCOSE DEVICE Routine 06/06/2024 6 :07 AM WAX BLEACHER POCT GLUCOSE DEVICE Routine 06/06/2024 3 :50 AM WAX BLEACHER POCT GLUCOSE DEVICE Routine 06/06/2024 1 :36 AM WAX BLEACHER POCT GLUCOSE DEVICE Routine 06/05/2024 8 :48 PM WAX BLEACHER CRITICAL CARE Routine 06/05/2024 8:42 PM WAX BLEACHER Fall, initial encounter EGFR Routine 06/05/2024 7:32 PM WAX BLEACHER DIFFERENTIAL AUTO Routine 06/05/2024 7:3 2 PM WAX BLEACHER PHOSPHORUS Routine 06/05/2024 7:32 PM WAX BLEACHER MAGNESIUM Routine 06/05/2024 7:32 PM WAX BLEACHER COMPREHENSIVE METABOLIC PANEL Routine 06/05/2024 7:32 PM WAX BLEACHER CBC WITH AUTO DIFFERENTIAL Routine 06/05/2024 7:32 PM WAX BLEACHER POCT GLUCOSE DEVICE Routine 06/05/2024 6 :02 PM WAX BLEACHER CRITICAL CARE Routine 06/05/2024 5:30 PM WAX BLEACHER Central cord syndrome, subsequent encounter (HCC) POCT GLUCOSE DEVICE Routine 06/05/2024 12:51 PM WAX BLEACHER POCT GLUCOSE DEVICE Routine 06/05/2024 8 :34 AM WAX BLEACHER POCT GLUCOSE DEVICE Routine 06/05/2024 6 :07 AM WAX BLEACHER POCT GLUCOSE DEVICE Routine 06/05/2024 5 :18 AM WAX BLEACHER POCT GLUCOSE DEVICE Routine 06/05/2024 4 :17 AM WAX BLEACHER POCT GLUCOSE DEVICE Routine 06/05/2024 3 :27 AM WAX BLEACHER POCT GLUCOSE DEVICE Routine 06/04/2024 11:34 PM WAX BLEACHER CRITICAL CARE Routine 06/04/2024 11:00 PM WAX BLEACHER Central cord syndrome, subsequent encounter (HCC) POCT GLUCOSE DEVICE Routine 06/04/2024 8 :09 PM WAX BLEACHER POCT GLUCOSE DEVICE Routine 06/04/2024 7 :00 PM WAX BLEACHER LIPID PANEL STAT 06/04/2024 5:40 PM WAX BLEACHER EGFR STAT 06/04/2024 5:40 PM WAX BLEACHER DIFFERENTIAL AUTO STAT 06/04/2024 5:4 0 PM WAX BLEACHER CBC WITH AUTO DIFFERENTIAL STAT 06/04/2024 5:40 PM WAX BLEACHER PHOSPHORUS STAT 06/04/2024 5:40 PM WAX BLEACHER MAGNESIUM STAT 06/04/2024 5:40 PM WAX BLEACHER COMPREHENSIVE METABOLIC PANEL STAT 06/04/2024 5:[address] THORACIC AND LUMBAR SPINE WO CONTRAST ED Urgent/IP Urgent 06/04/2024 4:37 PM WAX BLEACHER POCT GLUCOSE DEVICE Routine 06/04/2024 3 :08 PM WAX BLEACHER POCT GLUCOSE DEVICE Routine 06/04/2024 2 :10 PM WAX BLEACHER POCT GLUCOSE DEVICE Routine 06/04/2024 1 :20 PM WAX BLEACHER POCT GLUCOSE DEVICE Routine 06/04/2024 12:00 PM WAX BLEACHER FL FLUOROSCOPY < 1 HOUR IP Routine 06/04/20 11:38 AM WAX BLEACHER POCT GLUCOSE DEVICE Routine 06/04/2024 11:03 AM WAX BLEACHER POCT GLUCOSE DEVICE Routine 06/04/2024 9 :51 AM WAX BLEACHER RI AN PROCEDURE PLACEHOLDER Routine 06/04/2024 9:46 AM WAX BLEACHER RI AN ELECTIVE ENDOTRACHEAL AIRWAY Routine 06/04/2024 9:46 AM WAX BLEACHER FUSION CERVICAL/THORACIC - POSTERIOR WITH INSTRUMENTATION 06/04/2024 9:06 AM WAX BLEACHER Central cord syndrome, initial encounter ([facility]) Case Notes Ronnie [phone], Graham Michelle @ 0809 [address] ARTL CATHJ/CANNULJ MNTR/TRANSFUSION SPX PRQ Routine 06/04/2024 9:04 AM WAX BLEACHER MRI CERVICAL SPINE WO CONTRAST Critical/Life- Threatening 06/04/2024 7:48 AM WAX BLEACHER SCAN - RADIOLOGY/IMAGING 7:02 AM W[facility] SCAN - RADIOLOGY/IMAGING 7:00 AM [facility] SCAN - LABS 06/04/2024 6:55 AM [facility] NEURO CT OUTSIDE CONSULT Routine 6:53 AM [facility] NEURO CT OUTSIDE CONSULT Routine 6:50 AM [facility] SCAN - RADIOLOGY/IMAGING 6:49 AM [facility] XR TRANSFER OF OUTSIDE FILMS Routine 06/04/2024 6:46 AM [facility] POCT GLUCOSE DEVICE Routine 06/04/2024 6 :43 AM WAX BLEACHER POCT LACTATE - DEVICE Routine 06/04/2024 6:38 AM WAX BLEACHER POC BLOOD GAS AND CHEMISTRIES, ARTERIAL Routine 06/04/2024 6:34 AM WAX BLEACHER POCT GLUCOSE DEVICE Routine 06/04/2024 6 :34 AM WAX BLEACHER RI CRITICAL CARE ILL/INJURED PATIENT INIT 30-74 MIN Routine 06/04/2024 6:29 AM WAX BLEACHER B CHECK SAMPLE STAT 06/04/2024 6:29 AM WAX BLEACHER XR CHEST 1 VIEW ED 06/04/2024 6:22 AM WAX BLEACHER XR PELVIS 1 OR 2 VIEWS ED 6:22 AM WAX BLEACHER THROMBOELASTOMETRY PANEL - INTRINSIC STAT 06/04/2024 5:56 AM WAX BLEACHER THROMBOELASTOMETRY PANEL - HEPARIN STAT 06/04/2024 5:56 AM WAX BLEACHER THROMBOELASTOMETRY PANEL - EXTRINSIC STAT 06/04/2024 5:56 AM WAX BLEACHER THROMBOELASTOMETRY PANEL - FIBRINOGEN STAT 06/04/2024 5:56 AM WAX BLEACHER EGFR STAT 06/04/2024 5:56 AM WAX BLEACHER DIFFERENTIAL AUTO STAT 06/04/2024 5:5 6 AM WAX BLEACHER BASIC METABOLIC PANEL STAT 06/04/2024 5:56 AM WAX BLEACHER THROMBOELASTOMETRY PANEL STAT 024 5:56 AM WAX BLEACHER PROTIME-INR STAT 06/04/2024 5:56 AM WAX BLEACHER APTT STAT 06/04/2024 5:56 AM WAX BLEACHER ETHANOL STAT 06/04/2024 5:56 AM WAX BLEACHER CBC WITH AUTO DIFFERENTIAL STAT 06/04/2024 5:56 AM WAX BLEACHER BLOOD GAS, VENOUS STAT 06/04/2024 5:5 6 AM WAX BLEACHER TYPE AND SCREEN STAT 06/04/2024 5:56 AM WAX BLEACHER POCT HEMOGLOBIN A1C Routine 05/12/2024 11:45 AM WAX BLEACHER Type 2 diabetes mellitus with diabetic polyneuropathy, without long-term current use of insulin (HCC) CT LUNG CANCER SCREENING Schedule Routine, Read Routine (OP Routine) 07/11/2023 7:52 AM WAX BLEACHER Personal history of nicotine dependence ALBUMIN CREATININE RATIO, URINE Routine 11/22/2022 12:31 PM CDT Type 2 diabetes mellitus without complication, without long-term current use of insulin (CMS/HCC) (HCC) Mixed hyperlipidemia Rheumatoid arthritis of both wrists, unspecified whether rheumatoid factor present (HCC) Cellulitis of left toe CT ABDOMEN PELVIS W CONTRAST Schedule Routine, Read Routine (OP Routine) 05/18/2022 5:13 PM WAX BLEACHER Abdominal pain HEPATITIS C AB W/REFL TO HCV RNA, QN, PCR (REFL) Routine 09/07/2021 2:48 PM WAX BLEACHER Pain in both wrists Fatigue, unspecified type PSA SCREEN Routine 01/25/2021 1:39 PM CDT Type 2 diabetes mellitus without complication, without long-term current use of insulin (CMS/HCC) (HCC) Essential hypertension from Last 3 Months or Most Recently Relevant to Health Maintenance Results * SCAN - LABS (07/28/2024 1:20 AM WAX BLEACHER) us Tim Horton MD Final Result * (ABNORMAL) POCT hemoglobin A1c (07/23/2024 12:36 PM WAX BLEACHER) Hemoglobin A1C, POC 5.9 4.0 - 5.6 % Blood 07/23/2024 12:3 6 PM WAX BLEACHER us Tim Horton MD POINT OF CARE TEST ORDERABLES Final Result * CS GLUCOSE (07/02/2024 5:21 AM WAX BLEACHER) Glucose 85 70 - 199 mg/dL IRENE [...] was last revised 2022. Testing performed by: [facility], [address] [place] [address]., [address] Blood 07/02/2024 5:21 AM WAX BLEACHER 07/02/2024 6:56 AM WAX BLEACHER us Notinfile Unknown LAB BLOOD ORDERABLES Final Res ult [facility] One [facility] Department [place] [address] * (ABNORMAL) CS BASIC METABOLIC PANEL (07/02/2024 5:21 AM WAX BLEACHER) Sodium 140 135 - 145 mmol/L [facility] Comment:Testing performed by : [facility], [address] [place] [address]., [address] Potassium, pl 4.0 3.3 - 4.9 mmol/L [facility] Comment:Testing performed by : [facility], [address] [place] [address]., [address] Chloride 108 97 - 110 mmol/L [facility] Comment:Testing performed by : [facility], [address] [place]., [address] CO2 25 22 - 32 mmol/L [facility] Comment:Testing performed by : [facility], [address] [place]., [address] Anion gap 7 2 - 15 mmol/L [facility] Comment:Testing performed by : [facility], 1 [facility], [address] BUN 8 6 - 25 mg/dL [facility] Comment:Testing performed by : [facility], 1 [facility], [address] Creatinine 0.73(L) 0.80 - 1.30 mg/dL [facility] Comment:Testing performed by : [facility], 1 [facility], [address] Calcium 8.6 8.5 - 10.3 mg/dL [facility] Comment:Testing performed by : [facility], 1 [facility], [address] Blood 07/02/2024 5:21 AM WAX BLEACHER 07/02/2024 6:56 AM WAX BLEACHER us Notinfile Unknown LAB BLOOD ORDERABLES Final Res ult [facility] One [facility] Department [place] [address] * eGFR (07/02/2024 5:21 AM WAX BLEACHER) eGFR >90 >=60 mL/min/1. 73 m2 [facility] Comment: Interpretive Data Reference Interval Normal [...] was last reviewed 2021. Testing performed by: [facility], [address] [place] [address] Blood 07/02/2024 5:21 AM WAX BLEACHER 07/02/2024 6:56 AM WAX BLEACHER us Notinfile Unknown LAB BLOOD ORDERABLES Final Res ult [facility] One [facility] Department [place] [address] * (ABNORMAL) CBC without differential (07/02/2024 5:21 AM WAX BLEACHER) WBC 5.8 3.8 - 9.9 K/cumm [facility] Comment:Testing performed by : [facility], [address] [place] [address] Hgb 11.5(L) 13.0 - 17.5 g/dL [facility] Comment:Testing performed by : [facility], [address] [place] [address] Hct 35.6(L) 38.9 - 50.3 % [facility] Comment:Testing performed by : [facility], [address] [place] [address] Plt 234 150 - 400 K/cumm [facility] Comment:Testing performed by : [facility], 1 [facility], [address] MPV 10.2 9.1 - 12.3 fL [facility] Comment:Testing performed by : [facility], 1 [facility], [address] RBC 3.80(L) 4.30 - 5.80 M/cumm [facility] Comment:Testing performed by : [facility], 1 [facility], [address] MCV 93.7 81.3 - 96.4 fL [facility] Comment:Testing performed by : [facility], 1 [facility], [address] MCH 30.3 27.1 - 33.3 pg [facility] Comment:Testing performed by : [facility], 1 [facility], [address] MCHC 32.3 32.3 - 35.7 g/dL [facility] Comment:Testing performed by : [facility], 1 [facility], [address] RDW CV 12.2 11.1 - 14.9 % [facility] Comment:Testing performed by : [facility], 1 [facility], [address] RDW SD 41.9 35.7 - 48.1 fL [facility] Comment:Testing performed by : [facility], 1 [facility], [address] NRBC abs 0.00 0.00 - 0.01 K/cumm [facility] Comment:Testing performed by : [facility], 1 [facility], [address] Blood 07/02/2024 5:21 AM WAX BLEACHER 07/02/2024 6:56 AM WAX BLEACHER us Notinfile Unknown LAB BLOOD ORDERABLES Final Res ult [facility] One [facility] Department [place] [address] * CS GLUCOSE (06/29/2024 10:23 AM WAX BLEACHER) Glucose 99 70 - 199 mg/dL IRENE JENKINS Comment: [...] was last revised 2022. Testing performed by: [facility], 1 [facility], [place]., [address] Blood 06/29/2024 10:2 3 AM WAX BLEACHER 06/29/2024 10:52 AM WAX BLEACHER Narrative [facility] - 06/29/2024 11:30 AM WAX BLEACHER Draw in Dialysis us Notinfile Unknown LAB BLOOD ORDERABLES Final Res ult [facility] One [facility] Department [place] [address] * eGFR (06/29/2024 10:23 AM WAX BLEACHER) eGFR >90 >=60 mL/min/1. 73 m2 IRENE [...] was last reviewed 2021. Testing performed by: [facility], [address] [place] [address]., [address] Blood 06/29/2024 10:2 3 AM WAX BLEACHER 06/29/2024 10:52 AM WAX BLEACHER us Notinfile Unknown LAB BLOOD ORDERABLES Final Res ult [facility] One [facility] Department [place] [address] * (ABNORMAL) Comprehensive metabolic panel, without glucose (Outreach) (06/29/2024 10:23 AM WAX BLEACHER) Sodium 140 135 - 145 mmol/L [facility] Comment:Testing performed by : [facility], [address] [place]., [address] Potassium, pl 4.3 3.3 - 4.9 mmol/L [facility] Comment:Testing performed by : [facility], [address] [place] [address] Chloride 107 97 - 110 mmol/L IRENE JENKINS Comment:Testing performed by : [facility], [address] [place]., [address] CO2 22 22 - 32 mmol/L IRENE JENKINS Comment:Testing performed by : [facility], 1 [facility], [address] Anion gap 11 2 - 15 mmol/L [facility] Comment:Testing performed by : [facility], 1 [facility], [address] BUN 6 6 - 25 mg/dL [facility] Comment:Testing performed by : [facility], 1 [facility], [address] Creatinine 0.67(L) 0.80 - 1.30 mg/dL [facility] Comment:Testing performed by : [facility], 1 [facility], [address] Calcium 8.9 8.5 - 10.3 mg/dL [facility] Comment:Testing performed by : [facility], 1 [facility], [address] Protein, pl 6.5 6.5 - 8.5 g/dL [facility] Comment:Testing performed by : [facility], 1 [facility], [address] Albumin 3.7 3.5 - 5.0 g/dL [facility] Comment:Testing performed by : [facility], 1 [facility], [address] Bilirubin, total 0.3 0.1 - 1.2 mg/dL [facility] Comment:Testing performed by : [facility], [address] [place] [address], [address] Alk phos 82 40 - 130 Units/L [facility] Comment:Testing performed by : [facility], [address] [place] [address], [address] AST 17 10 - 50 Units/L [facility] Comment:Testing performed by : [facility], [address] [place] [address], [address] ALT 12 7 - 55 Units/L [facility] Comment:Testing performed by : [facility], 1 [facility], [address] Blood 06/29/2024 10:2 3 AM WAX BLEACHER 06/29/2024 10:52 AM WAX BLEACHER Narrative IRENE J[facility] - 06/29/2024 11:30 AM WAX BLEACHER Draw in Dialysis us Notinfile Unknown LAB BLOOD ORDERABLES Final Res ult [facility] One [facility] Department [place] [address] * (ABNORMAL) CBC without differential (06/29/2024 10:23 AM WAX BLEACHER) WBC 5.7 3.8 - 9.9 K/cumm [facility] Comment:Testing performed by : [facility], [address] [place] [address], [address] Hgb 11.3(L) 13.0 - 17.5 g/dL [facility] Comment:Testing performed by : [facility], [address] [place] [address], [address] Hct 35.3(L) 38.9 - 50.3 % [facility] Comment:Testing performed by : [facility], 1 [facility], [address] Plt 251 150 - 400 K/cumm [facility] Comment:Testing performed by : [facility], [address] [place] [address]., [address] MPV 10.3 9.1 - 12.3 fL [facility] Comment:Testing performed by : [facility], [address] [place] [address], [address] RBC 3.70(L) 4.30 - 5.80 M/cumm [facility] Comment:Testing performed by : [address], [address] MCV 95.4 81.3 - 96.4 fL [facility] Comment:Testing performed by : [facility], [address] [place] [address], [address] MCH 30.5 27.1 - 33.3 pg [facility] Comment:Testing performed by : [facility], [address] [place] [address] MCHC 32.0(L) 32.3 - 35.7 g/dL [facility] Comment:Testing performed by : [facility], [address] [place] [address] RDW CV 12.3 11.1 - 14.9 % [facility] Comment:Testing performed by : [facility], 1 [facility], [address] RDW SD 43.3 35.7 - 48.1 fL [facility] Comment:Testing performed by : [facility], 1 [facility], [address] NRBC abs 0.00 0.00 - 0.01 K/cumm [facility] Comment:Testing performed by : [facility], [address] [place] [address] Blood 06/29/2024 10:2 3 AM WAX BLEACHER 06/29/2024 10:52 AM WAX BLEACHER Narrative [facility] - 06/29/2024 11:12 AM WAX BLEACHER Draw in Dialysis us Notinfile Unknown LAB BLOOD ORDERABLES Final Res ult [facility] One [facility] Department [place] [address] * CS GLUCOSE (06/25/2024 11:00 AM WAX BLEACHER) [employer] Signature Glucose 98 70 - 199 mg/dL [facility] Comment: Interpretive Data Fasting glucose >/= [...] was last revised 2022. Testing performed by: [facility], [address] [place] [address] Blood 06/25/2024 11:0 0 AM WAX BLEACHER 06/25/2024 11:40 AM WAX BLEACHER Medicine LAB BLOOD ORDERABLES Final Resul t [facility] One [facility] Department [place] [address] * eGFR (06/25/2024 11:00 AM WAX BLEACHER) eGFR >90 >=60 mL/min/1. 73 m2 IRENE [...] was last reviewed 2021. Testing performed by: [facility], [address] [place] [address] Blood 06/25/2024 11:0 0 AM WAX BLEACHER 06/25/2024 11:45 AM WAX BLEACHER Medicine LAB BLOOD ORDERABLES Final Resul t [facility] One [facility] Department [place] [address] * Differential, auto (06/25/2024 11:00 AM WAX BLEACHER) Neutrophil abs 3.4 1.5 - 6.5 K/cumm [facility] Comment:Testing performed by : [facility], [address] [place] [address] Imm gran abs 0.0 0.0 - 0.1 K/cumm [facility] Comment:Testing performed by : [facility], [address] [place] [address] Lymphocyte abs 1.4 0.8 - 3.3 K/cumm [facility] Comment:Testing performed by : [facility], [address] [place] [address] Monocyte abs 0.6 0.2 - 0.8 K/cumm [facility] Comment:Testing performed by : [facility], [address] [place] [address]., [address] Eosinophil abs 0.2 0.0 - 0.5 K/cumm [facility] Comment:Testing performed by : [facility], [address] [place] [address]., [address] Basophil abs 0.0 0.0 - 0.1 K/cumm [facility] Comment:Testing performed by : [facility], 1 [facility], [address] Neutrophil pct 60.7 % [facility] Comment: Interpretive Data Percent cell count reference ranges are not reported, since discordance with absolute values may lead to misinterpretation of CBC data. Current Interpretive Data was last revised on 2017. Testing performed by: [facility], [address] [place] [address] Imm gran pct 0.5 % [facility] Comment: Interpretive Data Percent cell count reference ranges are not reported, since discordance with absolute values may lead to misinterpretation of CBC data. Current Interpretive Data was last revised on 2017. Testing performed by: [facility], [address] [place] [address] Lymphocyte pct 25.1 % [facility] Comment: Interpretive Data Percent cell count reference ranges are not reported, since discordance with absolute values may lead to misinterpretation of CBC data. Current Interpretive Data was last revised on 2017. Testing performed by: [facility], [address] [place] [address] Monocyte pct 10.8 % [facility] Comment: Interpretive Data Percent cell count reference ranges are not reported, since discordance with absolute values may lead to misinterpretation of CBC data. Current Interpretive Data was last revised on 2017. Testing performed by: [facility], [address] [place] [address] Eosinophil pct 2.9 % [facility] Comment: Interpretive Data Percent cell count reference ranges are not reported, since discordance with absolute values may lead to misinterpretation of CBC data. Current Interpretive Data was last revised on 2017. Testing performed by: [facility], [address] [place] [address] Basophil pct 0.0 % [facility] Comment: Interpretive Data Percent cell count reference ranges are not reported, since discordance with absolute values may lead to misinterpretation of CBC data. Current Interpretive Data was last revised on 2017. Testing performed by: [facility], [address] [place] [address] Blood 06/25/2024 11:0 0 AM WAX BLEACHER 06/25/2024 11:41 AM WAX BLEACHER us Medicine LAB BLOOD ORDERABLES Final Resul t [facility] One [facility] Department [place] [address] * (ABNORMAL) Comprehensive metabolic panel, without glucose (Outreach) (06/25/2024 11:00 AM WAX BLEACHER) Sodium 139 135 - 145 mmol/L [facility] Comment:Testing performed by : [facility], 1 [facility], [address] Potassium, pl 4.6 3.3 - 4.9 mmol/L [facility] Comment:Testing performed by : [facility], 1 [facility], [address] Chloride 104 97 - 110 mmol/L [facility] Comment:Testing performed by : [facility], 1 [facility], [address] CO2 22 22 - 32 mmol/L [facility] Comment:Testing performed by : [facility], 1 [facility], [address] Anion gap 13 2 - 15 mmol/L [facility] Comment:Testing performed by : [facility], 1 [facility], [address] BUN 7 6 - 25 mg/dL [facility] Comment:Testing performed by : [facility], 1 [facility], [address] Creatinine 0.67(L) 0.80 - 1.30 mg/dL [facility] Comment:Testing performed by : [facility], [address] [place] [address], [address] Calcium 8.7 8.5 - 10.3 mg/dL [facility] Comment:Testing performed by : [facility], 1 [facility], [address] Protein, pl 6.2(L) 6.5 - 8.5 g/dL [facility] Comment:Testing performed by : [facility], [address] [place] [address] Albumin 3.5 3.5 - 5.0 g/dL [facility] Comment:Testing performed by : [facility], 1 [facility], [address] Bilirubin, total 0.3 0.1 - 1.2 mg/dL [facility] Comment:Testing performed by : [facility], 1 [facility], [address] Alk phos 85 40 - 130 Units/L [facility] Comment:Testing performed by : [facility], 1 [facility], [address] AST 26 10 - 50 Units/L [facility] Comment:Testing performed by : [facility], [address] [place] [address], [address] ALT 15 7 - 55 Units/L [facility] Comment:Testing performed by : [facility], [address] [place] [address], [address] Blood 06/25/2024 11:0 0 AM WAX BLEACHER 06/25/2024 11:40 AM WAX BLEACHER Medicine LAB BLOOD ORDERABLES Final Resul t [facility] One [facility] Department [place] [address] * (ABNORMAL) CBC with auto differential (06/25/2024 11:00 AM WAX BLEACHER) WBC 5.6 3.8 - 9.9 K/cumm [facility] Comment:Testing performed by : [facility], 1 [facility], [address] Hgb 11.0(L) 13.0 - 17.5 g/dL [facility] Comment:Testing performed by : [facility], 1 [facility], [address] Hct 33.9(L) 38.9 - 50.3 % [facility] Comment:Testing performed by : [facility], 1 [facility], [address] Plt 252 150 - 400 K/cumm [facility] Comment:Testing performed by : [facility], 1 [facility], [address] MPV 9.9 9.1 - 12.3 fL [facility] Comment:Testing performed by : [facility], 1 [facility], [address] RBC 3.54(L) 4.30 - 5.80 M/cumm [facility] Comment:Testing performed by : [facility], 1 [facility], [address] MCV 95.8 81.3 - 96.4 fL [facility] Comment:Testing performed by : [facility], 1 [facility], [address] MCH 31.1 27.1 - 33.3 pg [facility] Comment:Testing performed by : [facility], 1 [facility], [address] MCHC 32.4 32.3 - 35.7 g/dL [facility] Comment:Testing performed by : [facility], 1 [facility], [address] RDW CV 12.4 11.1 - 14.9 % [facility] Comment:Testing performed by : [facility], 1 [facility], [address] RDW SD 43.3 35.7 - 48.1 fL [facility] Comment:Testing performed by : [facility], 1 [facility], [address] NRBC abs 0.00 0.00 - 0.01 K/cumm [facility] Comment:Testing performed by : [facility], 1 [facility] [place] [address] Blood 06/25/2024 11:0 0 AM WAX BLEACHER 06/25/2024 11:41 AM WAX BLEACHER Medicine LAB BLOOD ORDERABLES Final Resul t Performing Organization Address [facility] de Phone Number [facility] One [facility] Department [place] [address] * CS GLUCOSE (06/22/2024 8:29 AM WAX BLEACHER) Glucose 138 70 - 199 mg/dL [facility] Comment: Interpretive Data Fasting glucose >/= [...] was last revised 2022. Testing performed by: [facility], 1 [facility], [place]., [address] Blood 06/22/2024 8:29 AM WAX BLEACHER 06/22/2024 12:52 PM WAX BLEACHER Narrative [facility] - 06/22/2024 1:37 PM WAX BLEACHER Draw in Dialysis us Notinfile Unknown LAB BLOOD ORDERABLES Final Res ult Performing Organization Address [facility] Co de Phone Number [facility] One [facility] Department [place] [address] * eGFR (06/22/2024 8:29 AM WAX BLEACHER) eGFR >90 >=60 mL/min/1. 73 m2 IRENE [...] was last reviewed 2021. Testing performed by: [facility], [address] [place] [address]., [address] Blood 06/22/2024 8:29 AM WAX BLEACHER 06/22/2024 1:08 PM WAX BLEACHER us Notinfile Unknown LAB BLOOD ORDERABLES Final Res ult [facility] One [facility] Department [place] [address] * (ABNORMAL) Comprehensive metabolic panel, without glucose (Outreach) (06/22/2024 8:29 AM WAX BLEACHER) Sodium 138 135 - 145 mmol/L [facility] Comment:Testing performed by : [facility], [address] [place] [address]., [address] Potassium, pl 4.3 3.3 - 4.9 mmol/L IRENE JENKINS Comment:Testing performed by : [facility], 1 [facility], [address] Chloride 105 97 - 110 mmol/L CERNER [facility]J Comment:Testing performed by : [facility], 1 [facility], [address] CO2 23 22 - 32 mmol/L [facility] Comment:Testing performed by : [facility], 1 [facility], [address] Anion gap 10 2 - 15 mmol/L CERNER [facility]J Comment:Testing performed by : [facility], 1 [facility], [address] BUN 6 6 - 25 mg/dL C[facility]ER [facility]J Comment:Testing performed by : [facility], 1 [facility], [address] Creatinine 0.69(L) 0.80 - 1.30 mg/dL [facility] Comment:Testing performed by : [facility], 1 [facility], [address] Calcium 8.8 8.5 - 10.3 mg/dL [facility] Comment:Testing performed by : [facility], 1 [facility], [address] Protein, pl 6.5 6.5 - 8.5 g/dL CERNER [facility]J Comment:Testing performed by : [facility], 1 [facility], [address] Albumin 3.5 3.5 - 5.0 g/dL C[facility]ER [facility]J Comment:Testing performed by : [facility], 1 [facility], [address] Bilirubin, total 0.4 0.1 - 1.2 mg/dL C[facility]ER [facility] Comment:Testing performed by : [facility], 1 [facility], [address] Alk phos 89 40 - 130 Units/L C[facility]ER [facility] Comment:Testing performed by : [facility], 1 [facility], [address] AST 29 10 - 50 Units/L [facility] Comment:Testing performed by : [facility], 1 [facility], [address] ALT 24 7 - 55 Units/L [facility] Comment:Testing performed by : [facility], 1 [facility], [address] Blood 06/22/2024 8:29 AM WAX BLEACHER 06/22/2024 12:52 PM WAX BLEACHER N[facility]ative [facility] - 06/22/2024 1:38 PM WAX BLEACHER Draw in Dialysis us Notinfile Unknown LAB BLOOD ORDERABLES Final Res ult [facility] One [facility] Department [place] [address] * (ABNORMAL) CBC without differential (06/22/2024 8:29 AM WAX BLEACHER) WBC 7.7 3.8 - 9.9 K/cumm [facility] Comment:Testing performed by : [facility], 1 [facility], [address] Hgb 11.1(L) 13.0 - 17.5 g/dL [facility] Comment:Testing performed by : [facility], 1 [facility], [address] Hct 34.5(L) 38.9 - 50.3 % [facility] Comment:Testing performed by : [facility], [address] [place]., [address] Plt 320 150 - 400 K/cumm [facility] Comment:Testing performed by : [facility], [address] [place]., [address] MPV 9.6 9.1 - 12.3 fL [facility] Comment:Testing performed by : [facility], 1 [facility], [address] RBC 3.62(L) 4.30 - 5.80 M/cumm [facility] Comment:Testing performed by : [facility], 1 [facility], [address] MCV 95.3 81.3 - 96.4 fL [facility] Comment:Testing performed by : [facility], 1 [facility], [address] MCH 30.7 27.1 - 33.3 pg [facility] Comment:Testing performed by : [facility], 1 [facility], [address] MCHC 32.2(L) 32.3 - 35.7 g/dL [facility] Comment:Testing performed by : [facility], 1 [facility], [address] RDW CV 12.3 11.1 - 14.9 % [facility] Comment:Testing performed by : [facility], 1 [facility], [address] RDW SD 43.1 35.7 - 48.1 fL [facility] Comment:Testing performed by : [facility], 1 [facility], [address] NRBC abs 0.00 0.00 - 0.01 K/cumm [facility] Comment:Testing performed by : [facility], 1 [facility], [address] Blood 06/22/2024 8:29 AM WAX BLEACHER 06/22/2024 12:52 PM WAX BLEACHER Narrative [facility] 06/22/2024 1:16 PM WAX BLEACHER Draw in Dialysis us Notinfile Unknown LAB BLOOD ORDERABLES Final Res ult [facility] One [facility] Department [place] [address] * (ABNORMAL) C. difficile testing Stool (06/21/2024 4:18 PM WAX BLEACHER) GDH Result Positive Negative IRENE JENKINS Comment:Testing performed by : [facility], 1 [place]., [address] Toxin Result Positive Negative [facility] Comment:Testing performed by : [facility], 1 [facility], [place]., [address] C. diff result Positive, free toxin(A) Negative, free toxin [facility] Comment:Testing performed by : [facility], 1 [place] [address] C. diff interp Toxigenic Clostridioides (Clostridium) difficile detected. Analysis was performed using a two-step methodology using glutamate dehydrogenase antigen detection followed by detection of C. difficile toxin(s). [facility] Comment:Testing performed by : [facility], [address] [place] [address], [place]., [address] Stool 06/21/2024 4:18 PM WAX BLEACHER 06/21/2024 9:43 PM WAX BLEACHER us Notinfile Unknown LAB MICROBIOLOGY - GENERAL ORD ERABLES Final Result [facility] One [facility] Department [place] [address] * CS GLUCOSE (06/18/2024 4:58 PM WAX BLEACHER) Pathologist [facility] Glucose 116 70 - 199 mg/dL [facility] Comment: Interpretive Data Fasting glucose >/= [...] was last revised 2022. Testing performed by: [facility], 1 [facility], [address] Blood 06/18/2024 4:58 PM WAX BLEACHER 06/18/2024 6:20 PM WAX BLEACHER us Notinfile Unknown LAB BLOOD ORDERABLES Final Res ult [facility] One [facility] Department [place] [address] * (ABNORMAL) CS BASIC METABOLIC PANEL (06/18/2024 4:58 PM WAX BLEACHER) Sodium 135 135 - 145 mmol/L [facility] Comment:Testing performed by : [facility], 1 [facility], [address] Potassium, pl 3.5 3.3 - 4.9 mmol/L [facility] Comment:Testing performed by : [facility], [address] [place] [address], [address] Chloride 98 97 - 110 mmol/L [facility] Comment:Testing performed by : [facility], [address] [place] [address], [address] CO2 24 22 - 32 mmol/L [facility] Comment:Testing performed by : [facility], 1 [facility], [address] Anion gap 13 2 - 15 mmol/L [facility] Comment:Testing performed by : [facility], [address] [place] [address], [address] BUN 9 6 - 25 mg/dL [facility] Comment:Testing performed by : [facility], [address] [place] [address], [address] Creatinine 0.73(L) 0.80 - 1.30 mg/dL [facility] Comment:Testing performed by : [facility], 1 [facility], [address] Calcium 9.2 8.5 - 10.3 mg/dL [facility] Comment:Testing performed by : [facility], 1 [place]., [address] Blood 06/18/2024 4:58 PM WAX BLEACHER 06/18/2024 6:20 PM WAX BLEACHER us Notinfile Unknown LAB BLOOD ORDERABLES Final Res ult [facility] One [facility] Department [place] [address] * eGFR (06/18/2024 4:58 PM WAX BLEACHER) eGFR >90 >=60 mL/min/1. 73 m2 IRENE [...] was last reviewed 2021. Testing performed by: [facility], 1 [place]., [address] Blood 06/18/2024 4:58 PM WAX BLEACHER 06/18/2024 6:30 PM WAX BLEACHER us Notinfile Unknown LAB BLOOD ORDERABLES Final Res ult [facility] One [facility] Department [place] [address] * (ABNORMAL) CBC without differential (06/18/2024 4:58 PM WAX BLEACHER) WBC 11.5(H) 3.8 - 9.9 K/cumm [facility] Comment:Testing performed by : [facility], [address] [place] [address], [address] Hgb 11.6(L) 13.0 - 17.5 g/dL [facility] Comment:Testing performed by : [facility], [address] [place] [address], [address] Hct 36.1(L) 38.9 - 50.3 % [facility] Comment:Testing performed by : [facility], 1 [facility], [address] Plt 380 150 - 400 K/cumm [facility] Comment:Testing performed by : [facility], [address] [place] [address], [address] MPV 9.7 9.1 - 12.3 fL [facility] Comment:Testing performed by : [facility], 1 [facility], [address] RBC 3.69(L) 4.30 - 5.80 M/cumm [facility] Comment:Testing performed by : [address], [address] MCV 97.8(H) 81.3 - 96.4 fL [facility] Comment:Testing performed by : [facility], [address] [place] [address], [address] MCH 31.4 27.1 - 33.3 pg [facility] Comment:Testing performed by : [facility], 1 [place]., [address] MCHC 32.1(L) 32.3 - 35.7 g/dL [facility] Comment:Testing performed by : [facility], 1 [place]., [address] RDW CV 12.2 11.1 - 14.9 % [facility] Comment:Testing performed by : [facility], [address] [place]., [address] RDW SD 44.3 35.7 - 48.1 fL [facility] Comment:Testing performed by : [facility], [address] [place]., [address] NRBC abs 0.00 0.00 - 0.01 K/cumm [facility] Comment:Testing performed by : [facility], 1 [place] [address] Blood 06/18/2024 4:58 PM WAX BLEACHER 06/18/2024 6:20 PM WAX BLEACHER us Notinfile Unknown LAB BLOOD ORDERABLES Final Res ult [facility] One [facility] Department [place] [address] * (ABNORMAL) CS GLUCOSE (06/15/2024 9:30 AM WAX BLEACHER) [employer] Signature Glucose 231(H) 70 - 199 mg/dL [facility] Comment: Interpretive Data Fasting glucose >/= [...] was last revised 2022. Testing performed by: [facility], [address] [place] [address], [place]., [address] Blood 06/15/2024 9:30 AM WAX BLEACHER 06/15/2024 12:24 PM WAX BLEACHER Narrative IRENE JENKINS - 06/15/2024 1:05 PM WAX BLEACHER Draw in Dialysis us Notinfile Unknown LAB BLOOD ORDERABLES Final Res ult [facility] One [facility] Department [place] [address] * eGFR (06/15/2024 9:30 AM WAX BLEACHER) eGFR >90 >=60 mL/min/1. 73 m2 [facility] Comment: Interpretive Data Reference Interval Normal [...] was last reviewed 2021. Testing performed by: [facility], 1 [facility], [address] Blood 06/15/2024 9:30 AM WAX BLEACHER 06/15/2024 12:24 PM WAX BLEACHER us Notinfile Unknown LAB BLOOD ORDERABLES Final Res ult [facility] One [facility] Department [place] [address] * (ABNORMAL) Comprehensive metabolic panel, without glucose (Outreach) (06/15/2024 9:30 AM WAX BLEACHER) Sodium 132(L) 135 - 145 mmol/L [facility] Comment:Testing performed by : [facility], 1 [facility], [address] Potassium, pl 3.7 3.3 - 4.9 mmol/L [facility] Comment:Testing performed by : [facility], 1 [facility], [address] Chloride 97 97 - 110 mmol/L [facility] Comment:Testing performed by : [facility], 1 [facility], [address] CO2 23 22 - 32 mmol/L [facility] Comment:Testing performed by : [facility], 1 [facility], [address] Anion gap 12 2 - 15 mmol/L [facility] Comment:Testing performed by : [facility], 1 [facility], [address] BUN 11 6 - 25 mg/dL [facility] Comment:Testing performed by : [facility], [address] [place] [address], [address] Creatinine 0.71(L) 0.80 - 1.30 mg/dL [facility] Comment:Testing performed by : [facility], 1 [facility], [address] Calcium 8.9 8.5 - 10.3 mg/dL [facility] Comment:Testing performed by : [facility], 1 [facility], [address] Protein, pl 6.8 6.5 - 8.5 g/dL [facility] Comment:Testing performed by : [facility], 1 [facility], [address] Albumin 3.5 3.5 - 5.0 g/dL [facility] Comment:Testing performed by : [facility], 1 [facility], [address] Bilirubin, total 0.5 0.1 - 1.2 mg/dL [facility] Comment:Testing performed by : [facility], 1 [facility], [address] Alk phos 88 40 - 130 Units/L [facility] Comment:Testing performed by : [facility], 1 [facility], [address] AST 36 10 - 50 Units/L [facility] Comment:Testing performed by : [facility], [address] [place] [address], [address] ALT 34 7 - 55 Units/L [facility] Comment:Testing performed by : [facility], 1 [facility], [address] Blood 06/15/2024 9:30 AM WAX BLEACHER 06/15/2024 12:24 PM WAX BLEACHER Narrative [facility] - 06/15/2024 1:43 PM WAX BLEACHER Draw in Dialysis us Notinfile Unknown LAB BLOOD ORDERABLES Final Res ult [facility] One [facility] Department [place] [address] * Vitamin D 25 hydroxy (06/15/2024 9:30 AM WAX BLEACHER) Vitamin D 25-OH 32 30 - 80 ng/mL [facility] Comment:Testing performed by : [facility], 1 [facility], [address] Blood 06/15/2024 9:30 AM WAX BLEACHER 06/15/2024 12:24 PM WAX BLEACHER Narrative IRENE JENKINS - 06/15/2024 1:43 PM WAX BLEACHER Draw in Dialysis us Notinfile Unknown LAB BLOOD ORDERABLES Final Res ult [facility] One [facility] Department [place] [address] * (ABNORMAL) CBC without differential (06/15/2024 9:30 AM WAX BLEACHER) WBC 7.5 3.8 - 9.9 K/cumm [facility] Comment:Testing performed by : [facility], [address] [place] [address], [address] Hgb 11.2(L) 13.0 - 17.5 g/dL [facility] Comment:Testing performed by : [facility], [address] [place] [address], [address] Hct 33.4(L) 38.9 - 50.3 % [facility] Comment:Testing performed by : [facility], [address] [place] [address], [address] Plt 298 150 - 400 K/cumm [facility] Comment:Testing performed by : [facility], [address] [place] [address], [address] MPV 10.2 9.1 - 12.3 fL [facility] Comment:Testing performed by : [facility], [address] [place] [address], [address] RBC 3.59(L) 4.30 - 5.80 M/cumm [facility] Comment:Testing performed by : [facility], [address] [place] [address], [address] MCV 93.0 81.3 - 96.4 fL [facility] Comment:Testing performed by : [facility], 1 [facility], [address] MCH 31.2 27.1 - 33.3 pg [facility] Comment:Testing performed by : [facility], 1 [facility], [address] MCHC 33.5 32.3 - 35.7 g/dL [facility] Comment:Testing performed by : [facility], 1 [facility], [address] RDW CV 11.9 11.1 - 14.9 % [facility] Comment:Testing performed by : [facility], 1 [facility], [address] RDW SD 40.8 35.7 - 48.1 fL [facility] Comment:Testing performed by : [facility], 1 [facility], [address] NRBC abs 0.00 0.00 - 0.01 K/cumm [facility] Comment:Testing performed by : [facility], 1 [facility], [address] Blood 06/15/2024 9:30 AM WAX BLEACHER 06/15/2024 12:24 PM WAX BLEACHER Narrative [facility] - 06/15/2024 12:48 PM WAX BLEACHER Draw in Dialysis us Notinfile Unknown LAB BLOOD ORDERABLES Final Res ult [facility] One [facility] Department [place] [address] * (ABNORMAL) Urinalysis reflex to microscopic and culture Urine (06/14/2024 4:34 PM WAX BLEACHER) Color, ur Straw Yellow [facility] Comment:Testing performed by : [facility], 1 [facility], [address] Clarity, ur Clear Clear [facility] Comment:Testing performed by : [facility], [address] [place]., [address] Specific gravity, ur 1.011 1.003 - 1.030 [facility] Comment:Testing performed by : [facility], 1 [facility], [address] pH, urine 7.0 [facility] Comment: Interpretive Data Urine pH is affected by diet, medications, systemic acid-base disturbances, and renal tubular function. ??pH may affect urinary stone formation. ??For example, urine pH below 6.0 may help reduce the tendency for calcium phosphate stones and pH greater than 6.0 may reduce the tendency for uric acid stone formation. Source: [facility] [employer] Current Interpretive Data was last revised on 2017 Testing performed by: [facility], 1 [facility], [address] Protein, ur ql Trace Negative [facility] Comment:Testing performed by : [facility], [address] [place] [address], [address] Glucose, ur ql 2+(A) Negative [facility] Comment:Testing performed by : [facility], [address] [place] [address], [address] Ketones, ur Negative Negative [facility] Comment:Testing performed by : [facility], [address] [place] [address], [address] Bilirubin, ur Negative Negative [facility] Comment:Testing performed by : [facility], [address] [place] [address]., [address] Blood, ur 1+(A) Negative [facility] Comment:Testing performed by : [facility], [address] [place] [address], [address] Urobilinogen, ur 2.0(A) <2.0 mg/dL [facility] Comment:Testing performed by : [facility], [address] [place] [address], [address] Nitrite, ur Negative Negative [facility] Comment:Testing performed by : [facility], 1 [facility], [place]., [address] Leukocyte esterase, ur 3+(A) Negative [facility] Comment:Testing performed by : [facility], [address] [place] [address] UA reflex comment Reflex to microscopic UA will be performed. [facility] Comment:Testing performed by : [facility], 1 [facility], [address] Urine 06/14/2024 4:34 PM WAX BLEACHER 06/14/2024 9:16 PM WAX BLEACHER us Notinfile Unknown LAB MICROBIOLOGY - GENERAL ORD ERABLES Final Result [facility] One [facility] Department [place] [address] * (ABNORMAL) Urinalysis, microscopic only (06/14/2024 4:34 PM WAX BLEACHER) WBC, ur 21-50(A) 0 - 5 /HPF [facility] Comment:Testing performed by : [facility], [address] [place] [address]., [address] RBC, ur 11-20(A) 0 - 2 /HPF [facility] Comment:Testing performed by : [facility], [address] [place] [address]., [address] Bacteria, ur Trace(A) [facility] Comment:Testing performed by : [facility], [address] [place] [address]., [address] Hyaline casts, ur 1-5 0 - 10 /LPF [facility] Comment:Testing performed by : [facility], 1 [facility], [address] Culture Reflex Comment Reflex to urine culture will be performed. [facility] Comment:Testing performed by : [facility], 1 [facility], [address] Urine 06/14/2024 4:34 PM WAX BLEACHER 06/14/2024 9:16 PM WAX BLEACHER us Notinfile Unknown LAB URINE ORDERABLES Final Res ult [facility] One [facility] Department [place] [address] * (ABNORMAL) Urine culture Urine (06/14/2024 4:34 PM WAX BLEACHER) Report Final Report: Greater than or equal to 100,000 colonies/mL of Escherichia coli Greater than or equal to 100,000 colonies/mL of Escherichia coli #2 (.) [facility] Comment:Testing performed by : [facility], [address] [place] [address] Organism ESCHERICHIA COLI [facility] Organism ESCHERICHIA COLI [facility] Urine 06/14/2024 4:34 PM WAX BLEACHER 06/14/2024 11:07 PM WAX BLEACHER Narrative [facility] - 06/15/2024 4:58 PM WAX BLEACHER Urine culture reflexed based upon urinalysis results. Testing performed by [facility] ([phone]) Organism Antibiotic Method Susceptibility Escherichia coli Ampicillin [...] MICROBIOLOGY - GENERAL ORD ERABLES Final Result [facility] One [facility] Department [place] [address] * (ABNORMAL) CBC without differential (06/14/2024 5:18 AM WAX BLEACHER) WBC 13.1(H) 3.8 - 9.9 K/cumm [facility] Comment:Testing performed by : [facility], [address] [place] [address], [address] Hgb 10.6(L) 13.0 - 17.5 g/dL [facility] Comment:Testing performed by : [address], [address] Hct 32.4(L) 38.9 - 50.3 % [facility] Comment:Testing performed by : [facility], 1 [facility], [address] Plt 252 150 - 400 K/cumm [facility] Comment:Testing performed by : [facility], 1 [facility] [facility], [address] MPV 10.2 9.1 - 12.3 fL CERNER BJ Comment:Testing performed by : [facility], 1 [facility], [address] RBC 3.36(L) 4.30 - 5.80 M/cumm CERNER BJ Comment:Testing performed by : [address], [address] MCV 96.4 81.3 - 96.4 fL CERNER BJ Comment:Testing performed by : [address], [address] MCH 31.5 27.1 - 33.3 pg CERNER BJ Comment:Testing performed by : [facility], [address] [place] [address], [address] MCHC 32.7 32.3 - 35.7 g/dL [facility] Comment:Testing performed by : [facility], 1 [facility], [address] RDW CV 12.0 11.1 - 14.9 % [facility] Comment:Testing performed by : [facility], 1 [facility], [address] RDW SD 42.7 35.7 - 48.1 fL [facility] Comment:Testing performed by : [facility], 1 [facility], [address] NRBC abs 0.00 0.00 - 0.01 K/cumm [facility] Comment:Testing performed by : [facility], 1 [facility], [address] Blood 06/14/2024 5:18 AM WAX BLEACHER 06/14/2024 10:29 AM WAX BLEACHER us Notinfile Unknown LAB BLOOD ORDERABLES Final Res ult Performing Organization Address City/[facility]/ZIP Co de Phone Number [facility] Department [place] [address] * POCT glucose (06/13/2024 11:41 AM WAX BLEACHER) Glucose, POC 183 70 - 199 mg/dL Blood 06/13/2024 11:4 1 AM WAX BLEACHER 06/13/2024 11:41 AM WAX BLEACHER us Litzy Bruno MD LAB POCT ORDERABLES - DEVIC E Final Result [facility] Department [place] [address] * (ABNORMAL) POCT glucose (06/13/2024 8:46 AM WAX BLEACHER) Glucose, POC 208(H) 70 - 199 mg/dL Blood 06/13/2024 8:46 AM WAX BLEACHER 06/13/2024 8:46 AM WAX BLEACHER us Litzy Bruno MD LAB POCT ORDERABLES - DEVIC E Final Result Performing Organization Address [facility] de Phone Number [facility] [place] [address] * (ABNORMAL) POCT glucose (06/13/2024 2:02 AM WAX BLEACHER) Glucose, POC 212(H) 70 - 199 mg/dL Blood 06/13/2024 2:02 AM WAX BLEACHER 06/13/2024 2:02 AM WAX BLEACHER us Litzy Bruno MD LAB POCT ORDERABLES - DEVIC E Final Result Performing Organization Address [facility] de Phone Number [facility] [place] [address] * (ABNORMAL) POCT glucose (06/12/2024 8:34 PM WAX BLEACHER) Glucose, POC 292(H) 70 - 199 mg/dL Blood 06/12/2024 8:34 PM WAX BLEACHER 06/12/2024 8:34 PM WAX BLEACHER us Litzy Bruno MD LAB POCT ORDERABLES - DEVIC E Final Result Performing Organization Address [facility] de Phone Number [facility] [place] [address] * POCT glucose (06/12/2024 5:28 PM WAX BLEACHER) Glucose, POC 196 70 - 199 mg/dL Blood 06/12/2024 5:28 PM WAX BLEACHER 06/12/2024 5:28 PM WAX BLEACHER us Litzy Bruno MD LAB POCT ORDERABLES - DEVIC E Final Result Performing Organization Address [facility] Co de Phone Number [facility] [place] [address] * (ABNORMAL) POCT glucose (06/12/2024 11:17 AM WAX BLEACHER) Glucose, POC 233(H) 70 - 199 mg/dL Blood 06/12/2024 11:1 7 AM WAX BLEACHER 06/12/2024 11:17 AM WAX BLEACHER Litzy Bruno MD LAB POCT ORDERABLES - DEVIC E Final Result Performing Organization Address [facility] de Phone Number [facility] [place] [address] * (ABNORMAL) POCT glucose (06/12/2024 7:44 AM WAX BLEACHER) Glucose, POC 210(H) 70 - 199 mg/dL Comment:Glu2: RN/MD Notified Glucose comment 1 Glu2: RN/MD Notified [facility] Blood 06/12/2024 7:44 AM WAX BLEACHER 06/12/2024 7:44 AM WAX BLEACHER us Litzy Bruno MD LAB POCT ORDERABLES - DEVIC E Final Result Performing Organization Address [facility] Co de Phone Number [facility] [place] [address] * (ABNORMAL) POCT glucose (06/11/2024 9:23 PM WAX BLEACHER) Glucose, POC 274(H) 70 - 199 mg/dL Blood 06/11/2024 9:23 PM WAX BLEACHER 06/11/2024 9:23 PM WAX BLEACHER Litzy Bruno MD LAB POCT ORDERABLES - DEVIC E Final Result Performing Organization Address [facility] Co de Phone Number [facility] [place] [address] * POCT glucose (06/11/2024 5:11 PM WAX BLEACHER) Glucose, POC 187 70 - 199 mg/dL Blood 06/11/2024 5:11 PM WAX BLEACHER 06/11/2024 5:11 PM WAX BLEACHER us Litzy Bruno MD LAB POCT ORDERABLES - DEVIC E Final Result Performing Organization Address [facility] Co de Phone Number [facility] [place] [address] * (ABNORMAL) POCT glucose (06/11/2024 12:39 PM WAX BLEACHER) Glucose, POC 201(H) 70 - 199 mg/dL Comment:Glu2: RN/MD Notified Glucose comment 1 Glu2: RN/MD Notified [facility] Blood 06/11/2024 12:3 9 PM WAX BLEACHER 06/11/2024 12:39 PM WAX BLEACHER us Litzy Bruno MD LAB POCT ORDERABLES - DEVIC E Final Result Performing Organization Address [facility] Co de Phone Number [facility] Department [place] [address] * (ABNORMAL) POCT glucose (06/11/2024 9:26 AM WAX BLEACHER) Glucose, POC 208(H) 70 - 199 mg/dL Blood 06/11/2024 9:26 AM WAX BLEACHER 06/11/2024 9:26 AM WAX BLEACHER Litzy Bruno MD LAB POCT ORDERABLES - DEVIC E Final Result Performing Organization Address City/[facility] Co de Phone Number [facility] Department [place] [address] * eGFR (06/11/2024 6:11 AM WAX BLEACHER) eGFR >90 >=60 mL/min/1. 73 m2 Comment: [...] last reviewed 2021. Blood 06/11/2024 6:11 AM WAX BLEACHER 06/11/2024 6:30 AM WAX BLEACHER us Litzy Bruno MD LAB BLOOD ORDERABLES Final Result [facility] One [facility] Department [place] [address] * (ABNORMAL) Basic metabolic panel (06/11/2024 6:11 AM WAX BLEACHER) Sodium 134(L) 135 - 145 mmol/L Potassium, pl 3.9 3.3 - 4.9 mmol/L [facility] Chloride 99 97 - 110 mmol/L [facility] CO2 24 22 - 32 mmol/L [facility] Anion gap 11 2 - 15 mmol/L [facility] BUN 12 6 - 25 mg/dL [facility] Creatinine 0.66(L) 0.80 - 1.30 mg/dL [facility] Glucose 192 70 - 199 mg/dL [facility] Comment: Interpretive Data Fasting glucose >/= 126 [...] 2022. Calcium 8.8 8.5 - 10.3 mg/dL [facility] Blood 06/11/2024 6:11 AM WAX BLEACHER 06/11/2024 6:30 AM WAX BLEACHER Litzy Bruno MD LAB BLOOD ORDERABLES Final Result Performing Organization Address [facility] Co de Phone Number [facility] Department [place] [address] * POCT glucose (06/11/2024 2:01 AM WAX BLEACHER) [facility] Glucose, POC 177 70 - 199 mg/dL Blood 06/11/2024 2:01 AM WAX BLEACHER 06/11/2024 2:01 AM WAX BLEACHER Litzy Bruno MD LAB POCT ORDERABLES - DEVIC E Final Result Performing Organization Address [facility] Co de Phone Number [facility] Department [place] [address] * (ABNORMAL) POCT glucose (06/10/2024 8:58 PM WAX BLEACHER) Glucose, POC 216(H) 70 - 199 mg/dL Blood 06/10/2024 8:58 PM WAX BLEACHER 06/10/2024 8:58 PM WAX BLEACHER us Litzy Bruno MD LAB POCT ORDERABLES - DEVIC E Final Result Performing Organization Address City/[facility] Co de Phone Number [facility] [place] [address] * (ABNORMAL) POCT glucose (06/10/2024 7:26 PM WAX BLEACHER) Glucose, POC 205(H) 70 - 199 mg/dL Comment:Glu2: RN/MD Notified Glucose comment 1 Glu2: RN/MD Notified [facility] Blood 06/10/2024 7:26 PM WAX BLEACHER 06/10/2024 7:26 PM WAX BLEACHER us Litzy Bruno MD LAB POCT ORDERABLES - DEVIC E Final Result Performing Organization Address [facility] Co de Phone Number [facility] [place] [address] * (ABNORMAL) POCT glucose (06/10/2024 3:23 PM WAX BLEACHER) Glucose, POC 237(H) 70 - 199 mg/dL Blood 06/10/2024 3:23 PM WAX BLEACHER 06/10/2024 3:23 PM WAX BLEACHER us Litzy Bruno MD LAB POCT ORDERABLES - DEVIC E Final Result Performing Organization Address [facility] [place] [address] * (ABNORMAL) POCT glucose (06/10/2024 11:05 AM WAX BLEACHER) Glucose, POC 243(H) 70 - 199 mg/dL Blood 06/10/2024 11:0 5 AM WAX BLEACHER 06/10/2024 11:05 AM WAX BLEACHER us Litzy Bruno MD LAB POCT ORDERABLES - DEVIC E Final Result [facility] One [facility] Department [place] [address] * TRANSTHORACIC ECHO (TTE) COMPLETE W DOPPLER/CF W CONTRAST (06/10/2024 9:22 AM WAX BLEACHER) LV EF 55-60 % CARDIOREPORT Anatomical Region Laterality Modality Ultrasound 06/10/2024 8:00 AM WAX BLEACHER Narrative 06/10/2024 9:47 AM WAX BLEACHER Patient name: Ronak Obrien Date of test: 06/10/2024 Type of test: TTE w/Doppler Hospital #: 0 Date of : 1955 (M) Oil Speculator: Panda Cabello RDCS Referring Physician: YUMIKO ZUNIGA MD Contrast Agent: 0.60 ml Definity Administered, (0.90 ml wasted). Contrast Administered by: Barbara Burton RN Supervised/Interpreted by: Cristi Landon MD Diagnosis: Location: [facility] Reason for test: syncope MV Structure: Normal, [...] 2=Hypo 3=Akinetic 4=Dyskin./Aneurysm 0=Not visualized) Parasternal Long [place]:MAS=1 BAS=1 MIL=1 RUSSELL=1 Parasternal [place]:MAS=1 MIS=1 MO=1 MIL=1 MAL=1 MA=1 Apical 4 Chambers:=1 MIS=1 BIS=1 BAL=1 MAL=1 AL=1 AC=1 Apical 2 Chambers:AI=1 MO=1 BI=1 BA=1 MA=1 AA=1 AC=1 LV Global [...] MD By signing this report, the attending genetic counsellor certifies that he or she has personally supervised and interpreted the echocardiogram and has reviewed and or edited and agrees with the written comments contained within the report. Procedure Note Cristi Patterson MD - 06/10/2024 Patient name: Ronak Obrien Date of test: 06/10/2024 Type of test: TTE w/Doppler [facility] #: 0 Date of : 1955 (M) Oil Speculator: Panda Cabello RDCS Referring Physician: YUMIKO ZUNIGA MD Contrast Agent: 0.60 ml Definity Administered, (0.90 ml wasted). Contrast Administered by: Barbara Burton RN Supervised/Interpreted by: Cristi Landon MD Diagnosis: Location: [facility] Reason for test: syncope MV Structure: Normal, [...] 2=Hypo 3=Akinetic 4=Dyskin./Aneurysm 0=Not visualized) Parasternal [place]:MAS=1 BAS=1 MIL=1 RUSSELL=1 Parasternal [place]:MAS=1 MIS=1 MO=1 MIL=1 MAL=1 MA=1 Apical 4 Chambers:=1 MIS=1 BIS=1 BAL=1 MAL=1 AL=1 AC=1 Apical 2 Chambers:AI=1 MO=1 BI=1 BA=1 MA=1 AA=1 AC=1 LV Global [...] MD By signing this report, the attending genetic counsellor certifies that he or she has personally supervised and interpreted the echocardiogram and has reviewed and or edited and agrees with the written comments contained within the report. us Yumiko Zuniga NP CV ECHO PROCEDURES Fin al Result * (ABNORMAL) POCT glucose (06/10/2024 7:30 AM WAX BLEACHER) Glucose, POC 214(H) 70 - 199 mg/dL Blood 06/10/2024 7:30 AM WAX BLEACHER 06/10/2024 7:30 AM WAX BLEACHER Litzy Bruno MD LAB POCT ORDERABLES - DEVIC E Final Result Performing Organization Address [facility] de Phone Number [facility] [place] [address] * POCT glucose (06/10/2024 4:51 AM WAX BLEACHER) Glucose, POC 167 70 - 199 mg/dL Blood 06/10/2024 4:51 AM WAX BLEACHER 06/10/2024 4:51 AM WAX BLEACHER Litzy Bruno MD LAB POCT ORDERABLES - DEVIC E Final Result Performing Organization Address [facility] de Phone Number [facility] [place] [address] * POCT glucose (06/09/2024 11:40 PM WAX BLEACHER) Glucose, POC 182 70 - 199 mg/dL Blood 06/09/2024 11:4 0 PM WAX BLEACHER 06/09/2024 11:40 PM WAX BLEACHER Litzy Bruno MD LAB POCT ORDERABLES - DEVIC E Final Result Performing Organization Address [facility] de Phone Number [facility] [place] [address] * eGFR (06/09/2024 9:46 PM WAX BLEACHER) Pathologist [facility] eGFR >90 >=60 mL/min/1. 73 m2 Comment: [...] last reviewed 2021. Blood 06/09/2024 9:46 PM WAX BLEACHER 06/09/2024 10:54 PM WAX BLEACHER Yumiko Zuniga HORSE SHOW MANAGER LAB BLOOD ORDERABLES F inal Result [facility] One [facility] Department [place] [address] * (ABNORMAL) Differential, auto (06/09/2024 9:46 PM WAX BLEACHER) Pathologist [facility] Neutrophil abs 8.4(H) 1.5 - 6.5 K/cumm Imm gran abs 0.1 0.0 - 0.1 K/cumm [facility] Lymphocyte abs 1.7 0.8 - 3.3 K/cumm [facility] Monocyte abs 1.0(H) 0.2 - 0.8 K/cumm [facility] Eosinophil abs 0.2 0.0 - 0.5 K/cumm [facility] Basophil abs 0.0 0.0 - 0.1 K/cumm [facility] Neutrophil pct 73.7 % [facility] Comment: Interpretive Data Percent cell count reference ranges are not reported, since discordance with absolute values may lead to misinterpretation of CBC data. Current Interpretive Data was last revised on 2017. Imm gran pct 0.4 % [facility] Comment: Interpretive Data Percent cell count reference ranges are not reported, since discordance with absolute values may lead to misinterpretation of CBC data. Current Interpretive Data was last revised on 2017. Lymphocyte pct 15.2 % [facility] Comment: Interpretive Data Percent cell count reference ranges are not reported, since discordance with absolute values may lead to misinterpretation of CBC data. Current Interpretive Data was last revised on 2017. Monocyte pct 8.7 % [facility] Comment: Interpretive Data Percent cell count reference ranges are not reported, since discordance with absolute values may lead to misinterpretation of CBC data. Current Interpretive Data was last revised on 2017. Eosinophil pct 1.7 % [facility] Comment: Interpretive Data Percent cell count reference ranges are not reported, since discordance with absolute values may lead to misinterpretation of CBC data. Current Interpretive Data was last revised on 2017. Basophil pct 0.3 % [facility] Comment: Interpretive Data Percent cell count reference ranges are not reported, since discordance with absolute values may lead to misinterpretation of CBC data. Current Interpretive Data was last revised on 2017. Blood 06/09/2024 9:46 PM WAX BLEACHER 06/09/2024 10:54 PM WAX BLEACHER us Yumiko Zuniga NP LAB BLOOD ORDERABLES F inal Result [facility] One [facility] Department [place] [address] * (ABNORMAL) CBC with auto differential (06/09/2024 9:46 PM WAX BLEACHER) WBC 11.4(H) 3.8 - 9.9 K/cumm Hgb 11.2(L) 13.0 - 17.5 g/dL [facility] Hct 33.1(L) 38.9 - 50.3 % [facility] Plt 248 150 - 400 K/cumm [facility] MPV 10.3 9.1 - 12.3 fL [facility] RBC 3.49(L) 4.30 - 5.80 M/cumm [facility] MCV 94.8 81.3 - 96.4 fL [facility] MCH 32.1 27.1 - 33.3 pg [facility] MCHC 33.8 32.3 - 35.7 g/dL [facility] RDW CV 11.9 11.1 - 14.9 % [facility] RDW SD 41.1 35.7 - 48.1 fL [facility] NRBC abs 0.00 0.00 - 0.01 K/cumm [facility] Blood 06/09/2024 9:46 PM WAX BLEACHER 06/09/2024 10:54 PM WAX BLEACHER Yumiko Zuniga HORSE SHOW MANAGER LAB BLOOD ORDERABLES F inal Result [facility] [place] [address] * Phosphorus (06/09/2024 9:46 PM WAX BLEACHER) Pathologist [facility] Phosphorus, pl 3.0 2.3 - 4.5 mg/dL Blood 06/09/2024 9:46 PM WAX BLEACHER 06/09/2024 10:54 PM WAX BLEACHER us Yumiko Zuniga HORSE SHOW MANAGER LAB BLOOD ORDERABLES F inal Result [facility] [place] [address] * Magnesium (06/09/2024 9:46 PM WAX BLEACHER) Magnesium 2.0 1.4 - 2.5 mg/dL Blood 06/09/2024 9:46 PM WAX BLEACHER 06/09/2024 10:54 PM WAX BLEACHER Yumiko Zuniga NP LAB BLOOD ORDERABLES F inal Result [facility] Department [place] [address] * (ABNORMAL) Basic metabolic panel (06/09/2024 9:46 PM WAX BLEACHER) Pathologist [facility] Sodium 131(L) 135 - 145 mmol/L Potassium, pl 4.0 3.3 - 4.9 mmol/L [facility] Chloride 96(L) 97 - 110 mmol/L [facility] CO2 27 22 - 32 mmol/L [facility] Anion gap 8 2 - 15 mmol/L [facility] BUN 12 6 - 25 mg/dL [facility] Creatinine 0.84 0.80 - 1.30 mg/dL [facility] Glucose 222(H) 70 - 199 mg/dL [facility] Comment: Interpretive Data Fasting glucose >/= 126 [...] 2022. Calcium 8.6 8.5 - 10.3 mg/dL [facility] Blood 06/09/2024 9:46 PM WAX BLEACHER 06/09/2024 10:54 PM WAX BLEACHER Yumiko Zuniga NP LAB BLOOD ORDERABLES F inal Result Performing Organization Address City/[facility]/ZIP Co de Phone Number [facility] Department [place] [address] * POCT glucose (06/09/2024 7:54 PM WAX BLEACHER) Glucose, POC 168 70 - 199 mg/dL Blood 06/09/2024 7:54 PM WAX BLEACHER 06/09/2024 7:54 PM WAX BLEACHER Litzy Bruno MD LAB POCT ORDERABLES - DEVIC E Final Result Performing Organization Address [facility] Co de Phone Number [facility] [place] [address] * POCT glucose (06/09/2024 5:49 PM WAX BLEACHER) Glucose, POC 187 70 - 199 mg/dL Blood 06/09/2024 5:49 PM WAX BLEACHER 06/09/2024 5:49 PM WAX BLEACHER Litzy Bruno MD LAB POCT ORDERABLES - DEVIC E Final Result Performing Organization Address [facility] de Phone Number [facility] [place] [address] * (ABNORMAL) POCT glucose (06/09/2024 12:05 PM WAX BLEACHER) Glucose, POC 250(H) 70 - 199 mg/dL Blood 06/09/2024 12:0 5 PM WAX BLEACHER 06/09/2024 12:05 PM WAX BLEACHER Litzy Bruno MD LAB POCT ORDERABLES - DEVIC E Final Result Performing Organization Address [facility] de Phone Number [facility] [place] [address] * (ABNORMAL) POCT glucose (06/09/2024 7:32 AM WAX BLEACHER) Glucose, POC 218(H) 70 - 199 mg/dL Blood 06/09/2024 7:32 AM WAX BLEACHER 06/09/2024 7:32 AM WAX BLEACHER us Litzy rBuno MD LAB POCT ORDERABLES - DEVIC E Final Result Performing Organization Address [facility] Co de Phone Number [facility] [place] [address] * eGFR (06/09/2024 6:36 AM WAX BLEACHER) eGFR >90 >=60 mL/min/1. 73 m2 Comment: [...] last reviewed 2021. Blood 06/09/2024 6:36 AM WAX BLEACHER 06/09/2024 6:46 AM WAX BLEACHER us Yumiko Zuniga NP LAB BLOOD ORDERABLES F inal Result Performing Organization Address [facility] Co de Phone Number IR[facility] JENKINS Yoshi [facility] Department of [employer] [place], [place] [id number] * (ABNORMAL) CBC without differential (06/09/2024 6:36 AM WAX BLEACHER) [facility] WBC 11.3(H) 3.8 - 9.9 K/cumm Hgb 11.8(L) 13.0 - 17.5 g/dL [facility] Hct 34.0(L) 38.9 - 50.3 % [facility] Plt 267 150 - 400 K/cumm [facility] MPV 9.7 9.1 - 12.3 fL [facility] RBC 3.66(L) 4.30 - 5.80 M/cumm [facility] MCV 92.9 81.3 - 96.4 fL [facility] MCH 32.2 27.1 - 33.3 pg [facility] MCHC 34.7 32.3 - 35.7 g/dL [facility] RDW CV 12.2 11.1 - 14.9 % [facility] RDW SD 41.8 35.7 - 48.1 fL [facility] NRBC abs 0.00 0.00 - 0.01 K/cumm [facility] Blood 06/09/2024 6:36 AM WAX BLEACHER 06/09/2024 6:46 AM WAX BLEACHER us Yumiko Zuniga HORSE SHOW MANAGER LAB BLOOD ORDERABLES F inal Result Performing Organization Address [facility] Co de Phone Number [facility] [place] [place] [address] * Phosphorus (06/09/2024 6:36 AM WAX BLEACHER) [facility] Phosphorus, pl 3.1 2.3 - 4.5 mg/dL Blood 06/09/2024 6:36 AM WAX BLEACHER 06/09/2024 6:46 AM WAX BLEACHER Yumiko Zuniga HORSE SHOW MANAGER LAB BLOOD ORDERABLES F inal Result Performing Organization Address [facility] Co de Phone Number [facility] [place] [place] [address] * Magnesium (06/09/2024 6:36 AM WAX BLEACHER) Pathologist [facility] Magnesium 2.0 1.4 - 2.5 mg/dL Blood 06/09/2024 6:36 AM WAX BLEACHER 06/09/2024 6:46 AM WAX BLEACHER Yumiko Zuniga NP LAB BLOOD ORDERABLES F inal Result [facility] One [facility] Department [place] [address] * (ABNORMAL) Basic metabolic panel (06/09/2024 6:36 AM WAX BLEACHER) [facility] Sodium 131(L) 135 - 145 mmol/L Potassium, pl 4.2 3.3 - 4.9 mmol/L [facility] Chloride 97 97 - 110 mmol/L [facility] CO2 25 22 - 32 mmol/L [facility] Anion gap 9 2 - 15 mmol/L [facility] BUN 12 6 - 25 mg/dL [facility] Creatinine 0.67(L) 0.80 - 1.30 mg/dL [facility] Glucose 204(H) 70 - 199 mg/dL [facility] Comment: Interpretive Data Fasting glucose >/= 126 [...] 2022. Calcium 8.8 8.5 - 10.3 mg/dL [facility] Blood 06/09/2024 6:36 AM WAX BLEACHER 06/09/2024 6:46 AM WAX BLEACHER Yumiko Zuniga NP LAB BLOOD ORDERABLES F inal Result Performing Organization Address [facility] de Phone Number [facility] Department of Laboratories [place] [address] * (ABNORMAL) POCT glucose (06/08/2024 9:12 PM WAX BLEACHER) Glucose, POC 215(H) 70 - 199 mg/dL Blood 06/08/2024 9:12 PM WAX BLEACHER 06/08/2024 9:12 PM WAX BLEACHER Litzy Bruno MD LAB POCT ORDERABLES - DEVIC E Final Result Performing Organization Address [facility] de Phone Number [facility] [place] [address] * POCT glucose (06/08/2024 5:33 PM WAX BLEACHER) Glucose, POC 164 70 - 199 mg/dL Blood 06/08/2024 5:33 PM WAX BLEACHER 06/08/2024 5:33 PM WAX BLEACHER Litzy Bruno MD LAB POCT ORDERABLES - DEVIC E Final Result Performing Organization Address [facility] de Phone Number [facility] Department [place] [address] * XR Abdomen 1 View AP (06/08/2024 3:30 PM WAX BLEACHER) Anatomical Region Laterality Modality Body, Abdomen N/A Computed Radiogr aphy 06/08/2024 3:48 PM WAX BLEACHER Impressions 06/08/2024 3:48 PM WAX BLEACHER A single view of the abdomen is submitted for evaluation. Mild gaseous distension of the transverse colon. ??Otherwise normal bowel gas pattern. ??Bilateral total hip arthroplasties. The radiology attending physician has personally reviewed this study, and had reviewed and/or edited this written report and agrees with it. Electronically signed by: Ty Thompson M.D. Narrative 06/08/2024 3:48 PM WAX BLEACHER EXAMINATION: Abdomen, one view. HISTORY: Abdominal distension. COMPARISON: CT 05/18/2022 Procedure Note Ty Thomspon MD - 06/08/2024 EXAMINATION: Abdomen, one view. [...] it. Electronically signed by: Ty Thompson M.D. us Yumiko Zuniga HORSE SHOW MANAGER IMG XR PROCEDURES Ting l Result * (ABNORMAL) POCT glucose (06/08/2024 11:17 AM WAX BLEACHER) Glucose, POC 207(H) 70 - 199 mg/dL Blood 06/08/2024 11:1 7 AM WAX BLEACHER 06/08/2024 11:17 AM WAX BLEACHER Litzy Bruno MD LAB POCT ORDERABLES - DEVIC E Final Result Performing Organization Address [facility] de Phone Number [facility] Department [place] [address] * POCT glucose (06/08/2024 7:34 AM WAX BLEACHER) Glucose, POC 173 70 - 199 mg/dL Blood 06/08/2024 7:34 AM WAX BLEACHER 06/08/2024 7:34 AM WAX BLEACHER Litzy Bruno MD LAB POCT ORDERABLES - DEVIC E Final Result Performing Organization Address [facility] de Phone Number [facility] Department [place] [address] * POCT glucose (06/08/2024 3:38 AM WAX BLEACHER) Glucose, POC 169 70 - 199 mg/dL Blood 06/08/2024 3:38 AM WAX BLEACHER 06/08/2024 3:38 AM WAX BLEACHER us Litzy Bruno MD LAB POCT ORDERABLES - DEVIC E Final Result Performing Organization Address [facility] de Phone Number [facility] [place] [place] [address] * POCT glucose (06/07/2024 11:34 PM WAX BLEACHER) Glucose, POC 170 70 - 199 mg/dL Blood 06/07/2024 11:3 4 PM WAX BLEACHER 06/07/2024 11:34 PM WAX BLEACHER us Litzy Bruno MD LAB POCT ORDERABLES - DEVIC E Final Result Performing Organization Address [facility] Phone Number [facility] [place] [place] [address] * eGFR (06/07/2024 9:38 PM WAX BLEACHER) Pathologist [facility] eGFR >90 >=60 mL/min/1. 73 m2 Comment: [...] last reviewed 2021. Blood 06/07/2024 9:38 PM WAX BLEACHER 06/07/2024 10:46 PM WAX BLEACHER Litzy Bruno MD LAB BLOOD ORDERABLES Final Result [facility] Department [place] [address] * (ABNORMAL) CBC without differential (06/07/2024 9:38 PM WAX BLEACHER) WBC 10.4(H) 3.8 - 9.9 K/cumm Hgb 11.7(L) 13.0 - 17.5 g/dL [facility] Hct 33.6(L) 38.9 - 50.3 % [facility] Plt 244 150 - 400 K/cumm [facility] MPV 10.4 9.1 - 12.3 fL [facility] RBC 3.60(L) 4.30 - 5.80 M/cumm [facility] MCV 93.3 81.3 - 96.4 fL [facility] MCH 32.5 27.1 - 33.3 pg [facility] MCHC 34.8 32.3 - 35.7 g/dL [facility] RDW CV 12.2 11.1 - 14.9 % [facility] RDW SD 42.1 35.7 - 48.1 fL [facility] NRBC abs 0.00 0.00 - 0.01 K/cumm [facility] Blood 06/07/2024 9:38 PM WAX BLEACHER 06/07/2024 10:46 PM WAX BLEACHER us Litzy Bruno MD LAB BLOOD ORDERABLES Final Result [facility] [place] [address] * Phosphorus (06/07/2024 9:38 PM WAX BLEACHER) [facility] Phosphorus, pl 2.8 2.3 - 4.5 mg/dL Blood 06/07/2024 9:38 PM WAX BLEACHER 06/07/2024 10:46 PM WAX BLEACHER Litzy Bruno MD LAB BLOOD ORDERABLES Final Result Performing Organization Address [facility] Co de Phone Number [facility] [place] [address] * Magnesium (06/07/2024 9:38 PM WAX BLEACHER) [facility] Magnesium 2.0 1.4 - 2.5 mg/dL Blood 06/07/2024 9:38 PM WAX BLEACHER 06/07/2024 10:46 PM WAX BLEACHER Litzy Bruno MD LAB BLOOD ORDERABLES Final Result Performing Organization Address [facility] Co de Phone Number [facility] [place] [address] * (ABNORMAL) Basic metabolic panel (06/07/2024 9:38 PM WAX BLEACHER) [facility] Sodium 133(L) 135 - 145 mmol/L Potassium, pl 4.1 3.3 - 4.9 mmol/L [facility] Chloride 99 97 - 110 mmol/L [facility] CO2 24 22 - 32 mmol/L [facility] Anion gap 10 2 - 15 mmol/L [facility] BUN 11 6 - 25 mg/dL [facility] Creatinine 0.67(L) 0.80 - 1.30 mg/dL [facility] Glucose 203(H) 70 - 199 mg/dL [facility] Comment: Interpretive Data Fasting glucose >/= 126 [...] 2022. Calcium 8.8 8.5 - 10.3 mg/dL [facility] Blood 06/07/2024 9:38 PM WAX BLEACHER 06/07/2024 10:46 PM WAX BLEACHER Litzy Bruno MD LAB BLOOD ORDERABLES Final Result Performing Organization Address [facility] Co de Phone Number [facility] Department [place] [address] * (ABNORMAL) POCT glucose (06/07/2024 8:15 PM WAX BLEACHER) Glucose, POC 214(H) 70 - 199 mg/dL Blood 06/07/2024 8:15 PM WAX BLEACHER 06/07/2024 8:15 PM WAX BLEACHER Litzy Bruno MD LAB POCT ORDERABLES - DEVIC E Final Result [facility] Department [place] [address] * (ABNORMAL) POCT glucose (06/07/2024 5:08 PM WAX BLEACHER) Glucose, POC 221(H) 70 - 199 mg/dL Blood 06/07/2024 5:08 PM WAX BLEACHER 06/07/2024 5:08 PM WAX BLEACHER Litzy Bruno MD LAB POCT ORDERABLES - DEVIC E Final Result Performing Organization Address [facility] Co [place] [address] * (ABNORMAL) POCT glucose (06/07/2024 11:04 AM WAX BLEACHER) Glucose, POC 216(H) 70 - 199 mg/dL Comment:Glu2: RN/MD Notified Glucose comment 1 Glu2: RN/MD Notified [facility] Blood 06/07/2024 11:0 4 AM WAX BLEACHER 06/07/2024 11:04 AM WAX BLEACHER us Litzy Bruno MD LAB POCT ORDERABLES - DEVIC E Final Result Performing Organization Address [facility] [place] [address] * POCT glucose (06/07/2024 7:47 AM WAX BLEACHER) Glucose, POC 192 70 - 199 mg/dL Blood 06/07/2024 7:47 AM WAX BLEACHER 06/07/2024 7:47 AM WAX BLEACHER us Litzy Bruno MD LAB POCT ORDERABLES - DEVIC E Final Result Performing Organization Address [facility] Co de Phone Number [facility] Department [place] [address] * POCT glucose (06/06/2024 8:27 PM WAX BLEACHER) Glucose, POC 163 70 - 199 mg/dL Blood 06/06/2024 8:27 PM WAX BLEACHER 06/06/2024 8:27 PM WAX BLEACHER us Litzy Bruno MD LAB POCT ORDERABLES - DEVIC E Final Result Performing Organization Address [facility] Co de Phone Number [facility] Department [place] [address] * POCT glucose (06/06/2024 5:25 PM WAX BLEACHER) Glucose, POC 181 70 - 199 mg/dL Blood 06/06/2024 5:25 PM WAX BLEACHER 06/06/2024 5:25 PM WAX BLEACHER Litzy Bruno MD LAB POCT ORDERABLES - DEVIC E Final Result IRENE JENKINS [facility] Department [place] [address] * XR Spine Cervical 2 or 3 Views (06/06/2024 12:21 PM WAX BLEACHER) Anatomical Region Laterality Modality Spine N/A Computed Radiogr aphy 06/06/2024 1:21 PM WAX BLEACHER Impressions 06/06/2024 1:21 PM WAX BLEACHER 1. ??Interval C3-T1 posterior instrumented spinal fusion Electronically signed by: Korey Mendoza MD Narrative 06/06/2024 1:21 PM WAX BLEACHER EXAMINATION: XR SPINE CERVICAL 2 OR 3 [...] * (ABNORMAL) POCT glucose (06/06/2024 11:15 AM WAX BLEACHER) Glucose, POC 241(H) 70 - 199 mg/dL Blood 06/06/2024 11:1 5 AM WAX BLEACHER 06/06/2024 11:15 AM WAX BLEACHER Litzy Bruno MD LAB POCT ORDERABLES - DEVIC E Final Result Performing Organization Address [facility] de Phone Number [facility] [place] [place] [address] * POCT glucose (06/06/2024 7:41 AM WAX BLEACHER) Glucose, POC 199 70 - 199 mg/dL Blood 06/06/2024 7:41 AM WAX BLEACHER 06/06/2024 7:41 AM WAX BLEACHER Litzy Bruno MD LAB POCT ORDERABLES - DEVIC E Final Result Performing Organization Address [facility] de Phone Number [facility] [place] [address] * POCT glucose (06/06/2024 6:07 AM WAX BLEACHER) Glucose, POC 191 70 - 199 mg/dL Blood 06/06/2024 6:07 AM WAX BLEACHER 06/06/2024 6:07 AM WAX BLEACHER Litzy Bruno MD LAB POCT ORDERABLES - DEVIC E Final Result Performing Organization Address [facility] de Phone Number [facility] [place] [address] * (ABNORMAL) POCT glucose (06/06/2024 3:50 AM WAX BLEACHER) Glucose, POC 207(H) 70 - 199 mg/dL Blood 06/06/2024 3:50 AM WAX BLEACHER 06/06/2024 3:50 AM WAX BLEACHER us Litzy Bruno MD LAB POCT ORDERABLES - DEVIC E Final Result Performing Organization Address [facility] de Phone Number [facility] [place] [address] * POCT glucose (06/06/2024 1:36 AM WAX BLEACHER) Glucose, POC 161 70 - 199 mg/dL Blood 06/06/2024 1:36 AM WAX BLEACHER 06/06/2024 1:36 AM WAX BLEACHER us Litzy Bruno MD LAB POCT ORDERABLES - DEVIC E Final Result Performing Organization Address [facility] [place] [address] * (ABNORMAL) POCT glucose (06/05/2024 8:48 PM WAX BLEACHER) Glucose, POC 214(H) 70 - 199 mg/dL Comment:Glu2: RN/MD Notified Glucose comment 1 Glu2: RN/MD Notified [facility] Blood 06/05/2024 8:48 PM WAX BLEACHER 06/05/2024 8:48 PM WAX BLEACHER Litzy Bruno MD LAB POCT ORDERABLES - DEVIC E Final Result Performing Organization Address [facility] de Phone Number [facility] [place] [address] * Critical Care (06/05/2024 8:42 PM WAX BLEACHER) Narrative Chele Gibson MD - 06/05/2024 8:42 PM WAX BLEACHER Chele Gibson MD ? 06/06/2024 ??5:12 AM [...] plan with the patient's team and other medical/excellence consultant staff. This time was in addition to and separate from care provided by other practitioners on this day of service. ?? us Chele Gibson MD IN CLINIC/BEDSIDE ORDERAB LES Final Result * eGFR (06/05/2024 7:32 PM WAX BLEACHER) eGFR >90 >=60 mL/min/1. 73 m2 Comment: [...] last reviewed 2021. Blood 06/05/2024 7:32 PM WAX BLEACHER 06/05/2024 8:28 PM WAX BLEACHER Litzy Bruno MD LAB BLOOD ORDERABLES Final Result [facility] Department [place] [address] * (ABNORMAL) Differential, auto (06/05/2024 7:32 PM WAX BLEACHER) Neutrophil abs 10.2(H) 1.5 - 6.5 K/cumm Imm gran abs 0.1 0.0 - 0.1 K/cumm [facility] Lymphocyte abs 1.8 0.8 - 3.3 K/cumm [facility] Monocyte abs 1.0(H) 0.2 - 0.8 K/cumm [facility] Eosinophil abs 0.1 0.0 - 0.5 K/cumm [facility] Basophil abs 0.0 0.0 - 0.1 K/cumm [facility] Neutrophil pct 77.3 % [facility] Comment: Interpretive Data Percent cell count reference ranges are not reported, since discordance with absolute values may lead to misinterpretation of CBC data. Current Interpretive Data was last revised on 2017. Imm gran pct 0.4 % [facility] Comment: Interpretive Data Percent cell count reference ranges are not reported, since discordance with absolute values may lead to misinterpretation of CBC data. Current Interpretive Data was last revised on 2017. Lymphocyte pct 13.5 % [facility] Comment: Interpretive Data Percent cell count reference ranges are not reported, since discordance with absolute values may lead to misinterpretation of CBC data. Current Interpretive Data was last revised on 2017. Monocyte pct 7.8 % [facility] Comment: Interpretive Data Percent cell count reference ranges are not reported, since discordance with absolute values may lead to misinterpretation of CBC data. Current Interpretive Data was last revised on 2017. Eosinophil pct 0.8 % [facility] Comment: Interpretive Data Percent cell count reference ranges are not reported, since discordance with absolute values may lead to misinterpretation of CBC data. Current Interpretive Data was last revised on 2017. Basophil pct 0.2 % [facility] Comment: Interpretive Data Percent cell count reference ranges are not reported, since discordance with absolute values may lead to misinterpretation of CBC data. Current Interpretive Data was last revised on 2017. Blood 06/05/2024 7:32 PM WAX BLEACHER 06/05/2024 8:29 PM WAX BLEACHER Litzy Bruno MD LAB BLOOD ORDERABLES Final Result Performing Organization Address City/[facility]/ZIP Co de Phone Number [facility] Department [place] [address] * (ABNORMAL) CBC with auto differential (06/05/2024 7:32 PM WAX BLEACHER) WBC 13.2(H) 3.8 - 9.9 K/cumm Hgb 11.9(L) 13.0 - 17.5 g/dL [facility] Hct 34.1(L) 38.9 - 50.3 % [facility] Plt 270 150 - 400 K/cumm [facility] MPV 10.1 9.1 - 12.3 fL [facility] RBC 3.59(L) 4.30 - 5.80 M/cumm [facility] MCV 95.0 81.3 - 96.4 fL [facility] MCH 33.1 27.1 - 33.3 pg [facility] MCHC 34.9 32.3 - 35.7 g/dL [facility] RDW CV 12.3 11.1 - 14.9 % [facility] RDW SD 42.6 35.7 - 48.1 fL [facility] NRBC abs 0.00 0.00 - 0.01 K/cumm [facility] Blood 06/05/2024 7:32 PM WAX BLEACHER 06/05/2024 8:29 PM WAX BLEACHER Litzy Bruno MD LAB BLOOD ORDERABLES Final Result Performing Organization Address [facility]/ZIP Co de Phone Number [facility] [place] [address] * (ABNORMAL) Phosphorus (06/05/2024 7:32 PM WAX BLEACHER) [facility] Phosphorus, pl 2.1(L) 2.3 - 4.5 mg/dL Blood 06/05/2024 7:32 PM WAX BLEACHER 06/05/2024 8:28 PM WAX BLEACHER Litzy Bruno MD LAB BLOOD ORDERABLES Final Result [facility] [place] [address] * Magnesium (06/05/2024 7:32 PM WAX BLEACHER) [facility] Magnesium 1.9 1.4 - 2.5 mg/dL Blood 06/05/2024 7:32 PM WAX BLEACHER 06/05/2024 8:28 PM WAX BLEACHER Litzy Bruno MD LAB BLOOD ORDERABLES Final Result Performing Organization Address [facility]/ZIP Co de Phone Number [facility] [place] [address] * (ABNORMAL) Comprehensive metabolic panel (06/05/2024 7:32 PM WAX BLEACHER) [facility] Sodium 131(L) 135 - 145 mmol/L Potassium, pl 4.2 3.3 - 4.9 mmol/L [facility] Chloride 100 97 - 110 mmol/L [facility] CO2 22 22 - 32 mmol/L [facility] Anion gap 9 2 - 15 mmol/L [facility] BUN 10 6 - 25 mg/dL [facility] Creatinine 0.80 0.80 - 1.30 mg/dL [facility] Glucose 249(H) 70 - 199 mg/dL [facility] Comment: Interpretive Data Fasting glucose >/= 126 [...] 2022. Calcium 8.2(L) 8.5 - 10.3 mg/dL [facility] Bilirubin, total 0.5 0.1 - 1.2 mg/dL [facility] Protein, pl 6.0(L) 6.5 - 8.5 g/dL [facility] Albumin 3.7 3.5 - 5.0 g/dL [facility] Alk phos 64 40 - 130 Units/L [facility] ALT 9 7 - 55 Units/L [facility] AST 20 10 - 50 Units/L [facility] Blood 06/05/2024 7:32 PM WAX BLEACHER 06/05/2024 8:28 PM WAX BLEACHER us Litzy Bruno MD LAB BLOOD ORDERABLES Final Result Performing Organization Address [facility]/ZIP Co de Phone Number [facility] Department [place] [address] * (ABNORMAL) POCT glucose (06/05/2024 6:02 PM WAX BLEACHER) [employer] Signature Glucose, POC 200(H) 70 - 199 mg/dL Blood 06/05/2024 6:02 PM WAX BLEACHER 06/05/2024 6:02 PM WAX BLEACHER Litzy Bruno MD LAB POCT ORDERABLES - DEVIC E Final Result Performing Organization Address [facility]/ZIP Co de Phone Number [facility] Department [place] [address] * Critical Care (06/05/2024 5:30 PM WAX BLEACHER) Narrative Bin Cheema MD - 06/05/2024 5:30 PM WAX BLEACHER Bin Cheema MD ? 06/05/2024 ??5:30 PM [...] plan with the patient's team and other medical/excellence consultant staff. This time was in addition to and separate from care provided by other practitioners on this day of service. ?? us Bin Cheema MD IN CLINIC/BEDSIDE ORDERABLE S Final Result * (ABNORMAL) POCT glucose (06/05/2024 12:51 PM WAX BLEACHER) Glucose, POC 272(H) 70 - 199 mg/dL Blood 06/05/2024 12:5 1 PM WAX BLEACHER 06/05/2024 12:51 PM WAX BLEACHER Litzy Bruno MD LAB POCT ORDERABLES - DEVIC E Final Result Performing Organization Address [facility] de Phone Number [facility] Department [place] [address] * POCT glucose (06/05/2024 8:34 AM WAX BLEACHER) Glucose, POC 191 70 - 199 mg/dL Blood 06/05/2024 8:34 AM WAX BLEACHER 06/05/2024 8:34 AM WAX BLEACHER Litzy Bruno MD LAB POCT ORDERABLES - DEVIC E Final Result Performing Organization Address [facility] de Phone Number [facility] Department [place] [address] * POCT glucose (06/05/2024 6:07 AM WAX BLEACHER) Glucose, POC 189 70 - 199 mg/dL Blood 06/05/2024 6:07 AM WAX BLEACHER 06/05/2024 6:07 AM WAX BLEACHER Litzy Bruno MD LAB POCT ORDERABLES - DEVIC E Final Result Performing Organization Address [facility] Co de Phone Number [facility] [place] [address] * POCT glucose (06/05/2024 5:18 AM WAX BLEACHER) Glucose, POC 163 70 - 199 mg/dL Blood 06/05/2024 5:18 AM WAX BLEACHER 06/05/2024 5:18 AM WAX BLEACHER Litzy Bruno MD LAB POCT ORDERABLES - DEVIC E Final Result Performing Organization Address [facility] de Phone Number [facility] [place] [place] [address] * (ABNORMAL) POCT glucose (06/05/2024 4:17 AM WAX BLEACHER) Glucose, POC 204(H) 70 - 199 mg/dL Blood 06/05/2024 4:17 AM WAX BLEACHER 06/05/2024 4:17 AM WAX BLEACHER Litzy Bruno MD LAB POCT ORDERABLES - DEVIC E Final Result Performing Organization Address [facility] Co [place] [address] * (ABNORMAL) POCT glucose (06/05/2024 3:27 AM WAX BLEACHER) Glucose, POC 228(H) 70 - 199 mg/dL Comment:Glu2: RN/ Notified Glucose comment 1 Glu2: RN/MD Notified [facility] Blood 06/05/2024 3:27 AM WAX BLEACHER 06/05/2024 3:27 AM WAX BLEACHER Litzy Bruno MD LAB POCT ORDERABLES - DEVIC E Final Result Performing Organization Address [facility] de Phone Number [facility] Department [place] [address] * (ABNORMAL) POCT glucose (06/04/2024 11:34 PM WAX BLEACHER) Glucose, POC 212(H) 70 - 199 mg/dL Comment:Glu2: RN/MD Notified Glucose comment 1 Glu2: RN/MD Notified [facility] Blood 06/04/2024 11:3 4 PM WAX BLEACHER 06/04/2024 11:34 PM WAX BLEACHER Litzy Bruno MD LAB POCT ORDERABLES - DEVIC E Final Result Performing Organization Address [facility] de Phone Number [facility] Department [place] [address] * Critical Care (06/04/2024 11:00 PM WAX BLEACHER) Narrative Ramiro Slaughter MD - 06/04/2024 11:00 PM WAX BLEACHER Ramiro Slaughter MD ? 06/05/2024 ??8:35 AM [...] plan with the ICU team and other medical/excellence consultant staff, making frequent assessments and decisions regarding [...] * (ABNORMAL) POCT glucose (06/04/2024 8:09 PM WAX BLEACHER) Glucose, POC 208(H) 70 - 199 mg/dL Blood 06/04/2024 8:09 PM WAX BLEACHER 06/04/2024 8:09 PM WAX BLEACHER us Litzy Bruno MD LAB POCT ORDERABLES - DEVIC E Final Result Performing Organization Address [facility] Co de Phone Number [facility] Department [place] [address] * POCT glucose (06/04/2024 7:00 PM WAX BLEACHER) Glucose, POC 165 70 - 199 mg/dL Blood 06/04/2024 7:00 PM WAX BLEACHER 06/04/2024 7:00 PM WAX BLEACHER Litzy Bruno MD LAB POCT ORDERABLES - DEVIC E Final Result Performing Organization Address [facility] Co de Phone Number [facility] Department [place] [address] * eGFR (06/04/2024 5:40 PM WAX BLEACHER) eGFR >90 >=60 mL/min/1. 73 m2 Comment: [...] last reviewed 2021. Blood 06/04/2024 5:40 PM WAX BLEACHER 06/04/2024 6:03 PM WAX BLEACHER us Litzy Bruno MD LAB BLOOD ORDERABLES Final Result [facility] One [facility] Department [place] [address] * (ABNORMAL) Differential, auto (06/04/2024 5:40 PM WAX BLEACHER) Pathologist [facility] Neutrophil abs 15.7(H) 1.5 - 6.5 K/cumm Imm gran abs 0.1 0.0 - 0.1 K/cumm [facility] Lymphocyte abs 0.8 0.8 - 3.3 K/cumm [facility] Monocyte abs 1.0(H) 0.2 - 0.8 K/cumm [facility] Eosinophil abs 0.0 0.0 - 0.5 K/cumm [facility] Basophil abs 0.0 0.0 - 0.1 K/cumm [facility] Neutrophil pct 89.0 % [facility] Comment: Interpretive Data Percent cell count reference ranges are not reported, since discordance with absolute values may lead to misinterpretation of CBC data. Current Interpretive Data was last revised on 2017. Imm gran pct 0.5 % [facility] Comment: Interpretive Data Percent cell count reference ranges are not reported, since discordance with absolute values may lead to misinterpretation of CBC data. Current Interpretive Data was last revised on 2017. Lymphocyte pct 4.8 % [facility] Comment: Interpretive Data Percent cell count reference ranges are not reported, since discordance with absolute values may lead to misinterpretation of CBC data. Current Interpretive Data was last revised on 2017. Monocyte pct 5.5 % [facility] Comment: Interpretive Data Percent cell count reference ranges are not reported, since discordance with absolute values may lead to misinterpretation of CBC data. Current Interpretive Data was last revised on 2017. Eosinophil pct 0.0 % [facility] Comment: Interpretive Data Percent cell count reference ranges are not reported, since discordance with absolute values may lead to misinterpretation of CBC data. Current Interpretive Data was last revised on 2017. Basophil pct 0.2 % [facility] Comment: Interpretive Data Percent cell count reference ranges are not reported, since discordance with absolute values may lead to misinterpretation of CBC data. Current Interpretive Data was last revised on 2017. Blood 06/04/2024 5:40 PM WAX BLEACHER 06/04/2024 5:51 PM WAX BLEACHER Litzy Bruno MD LAB BLOOD ORDERABLES Final Result [facility] Department [place] [address] * (ABNORMAL) CBC with auto differential (06/04/2024 5:40 PM WAX BLEACHER) WBC 17.6(H) 3.8 - 9.9 K/cumm Hgb 13.2 13.0 - 17.5 g/dL [facility] Hct 38.3(L) 38.9 - 50.3 % [facility] Plt 267 150 - 400 K/cumm [facility] MPV 9.8 9.1 - 12.3 fL [facility] RBC 4.09(L) 4.30 - 5.80 M/cumm [facility] MCV 93.6 81.3 - 96.4 fL [facility] MCH 32.3 27.1 - 33.3 pg [facility] MCHC 34.5 32.3 - 35.7 g/dL [facility] RDW CV 12.0 11.1 - 14.9 % [facility] RDW SD 41.4 35.7 - 48.1 fL [facility] NRBC abs 0.00 0.00 - 0.01 K/cumm [facility] Blood 06/04/2024 5:40 PM WAX BLEACHER 06/04/2024 5:51 PM WAX BLEACHER us Litzy Bruno MD LAB BLOOD ORDERABLES Final Result [facility] [place] [address] * Phosphorus (06/04/2024 5:40 PM WAX BLEACHER) Phosphorus, pl 2.8 2.3 - 4.5 mg/dL Blood 06/04/2024 5:40 PM WAX BLEACHER 06/04/2024 6:03 PM WAX BLEACHER Litzy Bruno MD LAB BLOOD ORDERABLES Final Result [facility] Department [place] [address] * Magnesium (06/04/2024 5:40 PM WAX BLEACHER) Magnesium 1.6 1.4 - 2.5 mg/dL Blood 06/04/2024 5:40 PM WAX BLEACHER 06/04/2024 6:03 PM WAX BLEACHER us Litzy Bruno MD LAB BLOOD ORDERABLES Final Result IRENE JENKINS [facility] Department [place] [address] * (ABNORMAL) Lipid panel (06/04/2024 5:40 PM WAX BLEACHER) Cholesterol 106 30 - 199 mg/dL Comment: [...] revised on 2018. Triglycerides 136 <=149 mg/dL [facility] Comment: Interpretive Data Ages < or [...] revised on 2018. HDL 31(L) >=40 mg/dL [facility] Comment: Interpretive Data Ages < or = [...] on 2018. LDL, calculated 51 <=129 mg/dL [facility] Comment: Interpretive Data Ages < or = [...] 3. Jamal Blakely et al. JAY Cardiol. 2020 October 29;5(5):540-548. doi: [email or web address] Current Interpretive Data was last revised on 2024. Non-HDL Cholesterol 75 mg/dL [facility] Comment: Interpretive Data Ages < or = [...] last revised on 2018. Chol/HDL ratio 3 [facility] Blood 06/04/2024 5:40 PM WAX BLEACHER 06/04/2024 6:03 PM WAX BLEACHER us Litzy Bruno MD LAB BLOOD ORDERABLES Final Result [facility] Department [place] [address] * (ABNORMAL) Comprehensive metabolic panel (06/04/2024 5:40 PM WAX BLEACHER) Sodium 135 135 - 145 mmol/L Potassium, pl 4.5 3.3 - 4.9 mmol/L [facility] Chloride 103 97 - 110 mmol/L [facility] CO2 20(L) 22 - 32 mmol/L [facility] Anion gap 12 2 - 15 mmol/L [facility] BUN 8 6 - 25 mg/dL [facility] Creatinine 0.58(L) 0.80 - 1.30 mg/dL [facility] Glucose 178 70 - 199 mg/dL [facility] Comment: Interpretive Data Fasting glucose >/= 126 [...] 2022. Calcium 7.7(L) 8.5 - 10.3 mg/dL [facility] Bilirubin, total 0.3 0.1 - 1.2 mg/dL [facility] Protein, pl 6.2(L) 6.5 - 8.5 g/dL [facility] Albumin 3.7 3.5 - 5.0 g/dL [facility] Alk phos 57 40 - 130 Units/L [facility] ALT 11 7 - 55 Units/L [facility] AST 27 10 - 50 Units/L [facility] Blood 06/04/2024 5:40 PM WAX BLEACHER 06/04/2024 6:03 PM WAX BLEACHER us Litzy Bruno MD LAB BLOOD ORDERABLES Final Result [facility] Department [place] [address] * CT Thoracic and Lumbar Spine WO Contrast (06/04/2024 4:37 PM WAX BLEACHER) Anatomical Region Laterality Modality Spine N/A Computed Tomogra phy 06/04/2024 5:07 PM WAX BLEACHER Impressions 06/04/2024 5:07 PM WAX BLEACHER 1. ??No acute fracture in the thoracic [...] Renato Garza M.D. Narrative 06/04/2024 5:07 PM WAX BLEACHER EXAMINATION: 1. CT of the thoracic spine [...] ult * POCT glucose (06/04/2024 3:08 PM WAX BLEACHER) Glucose, POC 162 70 - 199 mg/dL Blood 06/04/2024 3:08 PM WAX BLEACHER 06/04/2024 3:08 PM WAX BLEACHER Litzy Bruno MD LAB POCT ORDERABLES - DEVIC E Final Result [facility] [place] [address] * POCT glucose (06/04/2024 2:10 PM WAX BLEACHER) Glucose, POC 171 70 - 199 mg/dL Blood 06/04/2024 2:10 PM WAX BLEACHER 06/04/2024 2:10 PM WAX BLEACHER Litzy Bruno MD LAB POCT ORDERABLES - DEVIC E Final Result Performing Organization Address [facility] de Phone Number [facility] [place] [address] * POCT glucose (06/04/2024 1:20 PM WAX BLEACHER) Glucose, POC 169 70 - 199 mg/dL Blood 06/04/2024 1:20 PM WAX BLEACHER 06/04/2024 1:20 PM WAX BLEACHER Litzy Bruno MD LAB POCT ORDERABLES - DEVIC E Final Result Performing Organization Address [facility] Phone Number [facility] [place] [address] * POCT glucose (06/04/2024 12:00 PM WAX BLEACHER) Glucose, POC 187 70 - 199 mg/dL Blood 06/04/2024 12:0 0 PM WAX BLEACHER 06/04/2024 12:00 PM WAX BLEACHER Litzy Bruno MD LAB POCT ORDERABLES - DEVIC E Final Result Performing Organization Address [facility] [place] [address] * FL Fluoroscopy < 1 Hour (06/04/2024 11:38 AM WAX BLEACHER) Narrative [facility] - 06/04/2024 11:39 AM WAX BLEACHER The images from this study are not interpreted by Radiology. ??Please refer to the physician's procedure / OR operative note. Panda Gamez MD IMG FLUOROSCOPY PROCEDUR ES Final Result Performing Organization Address [facility] Co de Phone Number [facility] * POCT glucose (06/04/2024 11:03 AM WAX BLEACHER) Glucose, POC 166 70 - 199 mg/dL Blood 06/04/2024 11:0 3 AM WAX BLEACHER 06/04/2024 11:03 AM WAX BLEACHER Litzy Bruno MD LAB POCT ORDERABLES - DEVIC E Final Result Performing Organization Address [facility] de Phone Number [facility] [place] [address] * POCT glucose (06/04/2024 9:51 AM WAX BLEACHER) Glucose, POC 194 70 - 199 mg/dL Blood 06/04/2024 9:51 AM WAX BLEACHER 06/04/2024 9:51 AM WAX BLEACHER Litzy Bruno MD LAB POCT ORDERABLES - DEVIC E Final Result Performing Organization Address [facility] de Phone Number [facility] [place] [address] * RI AN ELECTIVE ENDOTRACHEAL AIRWAY, RI AN PROCEDURE PLACEHOLDER (06/04/2024 9:46 AM WAX BLEACHER) Narrative Florin Henson CRNA - 06/04/2024 9:46 AM WAX BLEACHER Florin Henson CRNA ? 06/04/2024 ??9:48 AM Airway Patient location: OR Urgency: elective Indications for airway management: anesthesia Difficult airway: no Staff: Supervising provider: Lisa Marie MD PhD Placed by: MILITARY TECHNOLOGY SPECIALIST: Florin Henson CRNA Airway prep: Preoxygenated: yes [...] MD PhD ANESTHESIA ORDERABLES Final Result * RI ARTL CATHJ/CANNULJ MNTR/TRANSFUSION SPX PRQ (06/04/2024 9:04 AM WAX BLEACHER) Narrative Kalyan Chandler MD - 06/04/2024 9:04 AM WAX BLEACHER Radha Ferrell MD ? 06/04/2024 ??9:05 AM Arterial line Date/Time: 06/04/2024 9:04 AM Performed by: Radha Ferrell MD Authorized by: Nathan Buchanan MD ?? [place] Protocol: ??RN Notified of Procedure: yes ?Informed [...] and matched to patient identification: n/a ?Responsible republican for transporting specimen(s) to lab determined: n/a ?? us Nathan Buchanan MD IN CLINIC/BEDSIDE ORDERABLES Final Result * MRI Cervical Spine WO Contrast (06/04/2024 7:48 AM WAX BLEACHER) Anatomical Region Laterality Modality Spine N/A Magnetic Resonan ce 06/04/2024 8:40 AM WAX BLEACHER Impressions 06/04/2024 8:53 AM WAX BLEACHER 1. Findings concerning for possible fracture of [...] Tony Willoughby M.D. Narrative 06/04/2024 8:53 AM WAX BLEACHER EXAMINATION: Magnetic resonance imaging (MRI) of the [...] it. Electronically signed by: Tony Willoughby M.D. Luis Prieto MD IMG MRI PROCEDURES F inal Result * SCAN - RADIOLOGY/IMAGING (06/04/2024 7:02 AM WAX BLEACHER) Anatomical Region Laterality Modality Other Tim Horton MD Final Result * SCAN - RADIOLOGY/IMAGING (06/04/2024 7:00 AM WAX BLEACHER) Anatomical Region Laterality Modality Other Tim Horton MD Final Result * SCAN - LABS (06/04/2024 6:55 AM WAX BLEACHER) Tim Horton MD Final Result * Neuro CT Outside Consult (06/04/2024 6:53 AM WAX BLEACHER) Anatomical Region Laterality Modality N/A Computed Tomogra phy 06/04/2024 12:2 3 PM WAX BLEACHER Impressions 06/04/2024 12:23 PM WAX BLEACHER 1. ??Head CT demonstrates no acute intracranial [...] images may or may not represent the [place] source data set and thus may contain changes that may lower the accuracy of this second-opinion interpretation. Electronically signed by: Nicolas Benz MD Narrative 06/04/2024 12:23 PM WAX BLEACHER EXAMINATION: RADIOLOGY CONSULTATION ON OUTSIDE IMAGING STUDY STUDY INITIALLY PERFORMED: 06/04/2024 at [place], [place]. TYPE OF STUDY: Multiple CT images [...] IMAGING STUDY STUDY INITIALLY PERFORMED: 06/04/2024 at [place], [place]. TYPE OF STUDY: Multiple CT images [...] images may or may not represent the [place] source data set and thus may contain changes that may lower the accuracy of this second-opinion interpretation. Electronically signed by: Nicolas Benz MD Nathan Buchanan MD IMG CT PROCEDURES Final Resul t * Neuro CT Outside Consult (06/04/2024 6:50 AM WAX BLEACHER) Anatomical Region Laterality Modality N/A Computed Tomogra phy 06/04/2024 12:2 3 PM WAX BLEACHER Impressions 06/04/2024 12:23 PM WAX BLEACHER 1. ??Head CT demonstrates no acute intracranial [...] images may or may not represent the [place] source data set and thus may contain changes that may lower the accuracy of this second-opinion interpretation. Electronically signed by: Nicolas Benz MD Narrative 06/04/2024 12:23 PM WAX BLEACHER EXAMINATION: RADIOLOGY CONSULTATION ON OUTSIDE IMAGING STUDY STUDY INITIALLY PERFORMED: 06/04/2024 at [place], [place]. TYPE OF STUDY: Multiple CT images [...] IMAGING STUDY STUDY INITIALLY PERFORMED: 06/04/2024 at [place], [place]. TYPE OF STUDY: Multiple CT images [...] images may or may not represent the [place] source data set and thus may contain changes that may lower the accuracy of this second-opinion interpretation. Electronically signed by: Nicolas Benz MD Nathan Buchanan MD IMG CT PROCEDURES Final Resul t * SCAN - RADIOLOGY/IMAGING (06/04/2024 6:49 AM WAX BLEACHER) Anatomical Region Laterality Modality Other Tim Horton MD Final Result * XR Outside Reference (06/04/2024 6:46 AM WAX BLEACHER) Impressions [facility] - 06/04/2024 6:46 AM WAX BLEACHER These images are for Reference purposes only and have not been reviewed by [facility] Radiology. ??There will be no report generated by a [facility] Radiologist. Narrative [facility] - 06/04/2024 6:46 AM WAX BLEACHER EXAMINATION: ??Images For Reference Purposes Only us Nathan Buchanan MD IMG XR PROCEDURES Final Resul t Performing Organization Address [facility] Co de Phone Number [facility] * POCT glucose (06/04/2024 6:43 AM WAX BLEACHER) Glucose, POC 177 70 - 199 mg/dL Blood 06/04/2024 6:43 AM WAX BLEACHER 06/04/2024 6:43 AM WAX BLEACHER us Nathan Buchanan MD LAB POCT ORDERABLES - DEVICE Final Result Performing Organization Address [facility] de Phone Number [facility] [place] [address] * POCT lactate (06/04/2024 6:38 AM WAX BLEACHER) Lactate POC i-STAT 1.2 0.7 - 2.2 mmol/L Blood 06/04/2024 6:38 AM WAX BLEACHER 06/04/2024 6:38 AM WAX BLEACHER us Nathan Buchanan MD LAB POCT ORDERABLES - DEVICE Final Result Performing Organization Address [facility] de Phone Number [facility] Department [place] [address] * POCT glucose (06/04/2024 6:34 AM WAX BLEACHER) Glucose, POC 199 70 - 199 mg/dL Blood 06/04/2024 6:34 AM WAX BLEACHER 06/04/2024 6:34 AM WAX BLEACHER Nathan Buchanan MD LAB POCT ORDERABLES - DEVICE Final Result Performing Organization Address [facility] Co de Phone Number [facility] Department [place] [address] * (ABNORMAL) POC Blood Gas and Chemistries, Arterial - (06/04/2024 6:34 AM WAX BLEACHER) K POC 4.0 3.3 - 4.9 mmol/L Comment: Interpretive Data Not all point of care methods assess for hemolysis. Confirm with instrument and retest K+ if not consistent with clinical signs and symptoms. Current Interpretive Data was last revised on 2023. Hct, POC 41.0(L) 41.4 - 51.6 % [facility] Total Hb, POC 13.7(L) 13.8 - 17.2 g/dL [facility] Blood 06/04/2024 6:34 AM WAX BLEACHER 06/04/2024 6:34 AM WAX BLEACHER Nathan Buchanan MD LAB POCT ORDERABLES - DEVICE Final Result [facility] [place] [address] * RI CRITICAL CARE ILL/INJURED PATIENT INIT 30-74 MIN (06/04/2024 6:29 AM WAX BLEACHER) Narrative Nathan Buchanan MD - 06/04/2024 6:29 AM WAX BLEACHER Nathan Buchanan MD ? 06/05/2024 12:33 AM [...] Result * Check Sample (06/04/2024 6:29 AM WAX BLEACHER) ABO Rh O Positive [facility] HCLL OTHER 06/04/2024 6:29 AM WAX BLEACHER 06/04/2024 6:52 AM WAX BLEACHER us Nathan Buchanan MD LAB BLOOD ORDERABLES Final Re sult [facility] [place] [address] [facility] * XR Chest 1 Vw Portable (06/04/2024 6:22 AM WAX BLEACHER) Anatomical Region Laterality Modality Body, Chest N/A Computed Radiogr aphy 06/04/2024 6:26 AM WAX BLEACHER Impressions 06/04/2024 8:10 AM WAX BLEACHER CHEST: The heart and mediastinal contours are [...] Florin Rivers M.D. Narrative 06/04/2024 8:10 AM WAX BLEACHER EXAMINATION: XR CHEST 1 VIEW, XR PELVIS [...] 1 or 2 Views (06/04/2024 6:22 AM WAX BLEACHER) Anatomical Region Laterality Modality Body, Pelvis N/A Computed Radiogr aphy 06/04/2024 6:26 AM WAX BLEACHER Impressions 06/04/2024 8:10 AM WAX BLEACHER CHEST: The heart and mediastinal contours are [...] Florin Rivers M.D. Narrative 06/04/2024 8:10 AM WAX BLEACHER EXAMINATION: XR CHEST 1 VIEW, XR PELVIS 1 OR 2 VIEWS HISTORY: Mechanical fall COMPARISON: CT of the chest dated 07/11/2023 Procedure Note Flroin Rivers MD PhD - 06/04/2024 EXAMINATION: XR [...] Thromboelastometry Panel - Heparin (06/04/2024 5:56 AM WAX BLEACHER) HEPTEM-CT 187 141 - 215 sec Comment:Code Blue Specimen HEPTEM-A5 43 33 - 51 mm [facility] Comment:Code Blue Specimen HEPTEM-A10 54 44 - 61 mm [facility] Comment:Code Blue Specimen HEPTEM-A20 61 52 - 67 mm [facility] Comment:Code Blue Specimen HEPTEM-MCF 65 54 - 69 mm [facility] Comment:Code Blue Specimen Blood 06/04/2024 5:56 AM WAX BLEACHER 06/04/2024 6:04 AM WAX BLEACHER Nathan Buchanan MD LAB BLOOD ORDERABLES Edited R esult - Final [facility] [place] [address] * Thromboelastometry Panel - Intrinsic (06/04/2024 5:56 AM WAX BLEACHER) INTEM-CT 184 139 - 205 sec Comment:Code Blue Specimen INTEM-A5 47 36 - 54 mm [facility] Comment:Code Blue Specimen INTEM-A10 58 46 - 63 mm [facility] Comment:Code Blue Specimen INTEM-A20 65 53 - 68 mm [facility] Comment:Code Blue Specimen INTEM-MCF 68 55 - 70 mm [facility] Comment:Code Blue Specimen INTEM-LI60 100 93 - 100 % [facility] Comment:Code Blue Specimen INTEM-ML 1 0 - 7 % [facility] Comment:Code Blue Specimen Blood 06/04/2024 5:56 AM WAX BLEACHER 06/04/2024 6:04 AM WAX BLEACHER Nathan Buchanan MD LAB BLOOD ORDERABLES Edited [place] Performing Organization Address [facility] Co de Phone Number [facility] [place] [address] * Thromboelastometry Panel - Fibrinogen (06/04/2024 5:56 AM WAX BLEACHER) FIBTEM-A5 12 5 - 16 mm Comment:Code Blue Specimen FIBTEM-A10 14 6 - 17 mm [facility] Comment:Code Blue Specimen FIBTEM-A20 15 6 - 18 mm [facility] Comment:Code Blue Specimen FIBTEM-MCF 16 9 - 19 mm [facility] Comment:Code Blue Specimen Blood 06/04/2024 5:56 AM WAX BLEACHER 06/04/2024 6:04 AM WAX BLEACHER Nathan Buchanan MD LAB BLOOD ORDERABLES Edited R [facility] Performing Organization Address [facility] Co de Phone Number [facility] [place] [place] [address] * Thromboelastometry Panel - Extrinsic (06/04/2024 5:56 AM WAX BLEACHER) EXTEM-CT 55 51 - 73 sec Comment:Code Blue Specimen EXTEM-A5 45 33 - 52 mm [facility] Comment:Code Blue Specimen EXTEM-A10 56 45 - 62 mm [facility] Comment:Code Blue Specimen EXTEM-A20 64 54 - 69 mm [facility] Comment:Code Blue Specimen EXTEM-MCF 67 57 - 72 mm [facility] Comment:Code Blue Specimen EXTEM-LI60 100 94 - 100 % [facility] Comment:Code Blue Specimen EXTEM-ML 1 0 - 6 % [facility] Comment:Code Blue Specimen Blood 06/04/2024 5:56 AM WAX BLEACHER 06/04/2024 6:04 AM WAX BLEACHER us Nathan Buchanan MD LAB BLOOD ORDERABLES Edited R esult - Final Performing Organization Address [facility] Co de Phone Number IRENE [facility] Department [place] [address] * eGFR (06/04/2024 5:56 AM WAX BLEACHER) eGFR >90 >=60 mL/min/1. 73 m2 Comment: [...] last reviewed 2021. Blood 06/04/2024 5:56 AM WAX BLEACHER 06/04/2024 6:04 AM WAX BLEACHER us Nathan Buchanan MD LAB BLOOD ORDERABLES Final Re sult Performing Organization Address [facility] de Phone Number IRENE [facility] Department [place] [address] * (ABNORMAL) Differential, auto (06/04/2024 5:56 AM WAX BLEACHER) Neutrophil abs 13.9(H) 1.5 - 6.5 K/cumm Imm gran abs 0.1 0.0 - 0.1 K/cumm [facility] Lymphocyte abs 1.0 0.8 - 3.3 K/cumm [facility] Monocyte abs 0.4 0.2 - 0.8 K/cumm [facility] Eosinophil abs 0.1 0.0 - 0.5 K/cumm [facility] Basophil abs 0.0 0.0 - 0.1 K/cumm [facility] Neutrophil pct 89.9 % [facility] Comment: Interpretive Data Percent cell count reference ranges are not reported, since discordance with absolute values may lead to misinterpretation of CBC data. Current Interpretive Data was last revised on 2017. Imm gran pct 0.7 % [facility] Comment: Interpretive Data Percent cell count reference ranges are not reported, since discordance with absolute values may lead to misinterpretation of CBC data. Current Interpretive Data was last revised on 2017. Lymphocyte pct 6.2 % [facility] Comment: Interpretive Data Percent cell count reference ranges are not reported, since discordance with absolute values may lead to misinterpretation of CBC data. Current Interpretive Data was last revised on 2017. Monocyte pct 2.5 % [facility] Comment: Interpretive Data Percent cell count reference ranges are not reported, since discordance with absolute values may lead to misinterpretation of CBC data. Current Interpretive Data was last revised on 2017. Eosinophil pct 0.5 % [facility] Comment: Interpretive Data Percent cell count reference ranges are not reported, since discordance with absolute values may lead to misinterpretation of CBC data. Current Interpretive Data was last revised on 2017. Basophil pct 0.2 % [facility] Comment: Interpretive Data Percent cell count reference ranges are not reported, since discordance with absolute values may lead to misinterpretation of CBC data. Current Interpretive Data was last revised on 2017. Blood 06/04/2024 5:56 AM WAX BLEACHER 06/04/2024 6:04 AM WAX BLEACHER Nathan Buchanan MD LAB BLOOD ORDERABLES Final Re sult Performing Organization Address [facility] Co de Phone Number [facility] Department [place] [address] * (ABNORMAL) CBC with auto differential (06/04/2024 5:56 AM WAX BLEACHER) Pathologist [facility] WBC 15.4(H) 3.8 - 9.9 K/cumm Comment:Code Blue Specimen Hgb 13.7 13.0 - 17.5 g/dL [facility] Hct 38.5(L) 38.9 - 50.3 % [facility] Plt 248 150 - 400 K/cumm [facility] MPV 9.9 9.1 - 12.3 fL [facility] RBC 4.24(L) 4.30 - 5.80 M/cumm [facility] MCV 90.8 81.3 - 96.4 fL [facility] MCH 32.3 27.1 - 33.3 pg [facility] MCHC 35.6 32.3 - 35.7 g/dL [facility] RDW CV 12.1 11.1 - 14.9 % [facility] RDW SD 39.8 35.7 - 48.1 fL [facility] [facility] NRBC abs 0.00 0.00 - 0.01 K/cumm [facility] Blood (Blood, Venous) 06/04/2024 5:56 AM WAX BLEACHER 06/04/2024 6:04 AM WAX BLEACHER Nathan Buchanan MD LAB BLOOD ORDERABLES Final Re sult Performing Organization Address City/[facility]/ZIP Co de Phone Number [facility] Department [place] [address] * aPTT (06/04/2024 5:56 AM WAX BLEACHER) Pathologist [facility] aPTT 35 28 - 38 sec Comment: Code Blue Specimen Interpretive Data Heparin therapeutic range: 66.0 - 100.0 seconds. Range based on correlation with therapeutic heparin activity range of 0.3 - 0.7 Units/mL. Current interpretive data was last revised on 2023. Blood 06/04/2024 5:56 AM WAX BLEACHER 06/04/2024 6:04 AM WAX BLEACHER Nathan Buchanan MD LAB BLOOD ORDERABLES Final Re sult Performing Organization Address City/[facility] Co de Phone Number [facility] One [facility] Department [place] [address] * Protime-INR (06/04/2024 5:56 AM WAX BLEACHER) PT 12.7 9.7 - 13.0 sec Comment:Code Blue Specimen INR 1.17 0.90 - 1.20 [facility] Comment: Code Blue Specimen Interpretive data Oral anticoagulant therapeutic ranges: Venous thromboembolism prophylaxis or treatment: 2.0-3.0 CARDIOLOGY Standard range: 2.0-3.0 High-intensity range: 2.5-3.5 Refer to indication-specific guidelines for appropriate target ranges for prosthetic heart valve replacement. Current interpretive data was last revised on 2019. Blood 06/04/2024 5:56 AM WAX BLEACHER 06/04/2024 6:04 AM WAX BLEACHER Nathan Buchanan MD LAB BLOOD ORDERABLES Final Re juhit Performing Organization Address City/[facility] Co de Phone Number [facility] One [facility] Department [place] [address] * Type and screen (06/04/2024 5:56 AM WAX BLEACHER) Jaren, indirect Negative ABO Rh O Positive [facility] Blood 06/04/2024 5:56 AM WAX BLEACHER 06/04/2024 6:15 AM WAX BLEACHER Narrative [facility] - 06/04/2024 7:22 AM WAX BLEACHER Has the patient had Daratumumab or Isatuximab in the past 6 months?->Unknown Nathan Buchanan MD LAB BLOOD BANK TEST ORDERABLE S Final Result Performing Organization Address [facility] Co de Phone Number [facility] [place] [address] * (ABNORMAL) Blood gas, venous (06/04/2024 5:56 AM WAX BLEACHER) pH, Venous 7.39 7.32 - 7.43 Comment:Code Blue Specimen PCO2, Venous 31(L) 40 - 50 mmHg [facility] Comment:Code Blue Specimen PO2, Venous 155 mmHg [facility] Comment: Code Blue Specimen Interpretive Data No Reference Range Established Current Interpretive Data was last revised on 2017. HCO3 Venous, Calculated 19(L) 20 - 30 mmol/L [facility] Comment:Code Blue Specimen BE, venous -5 mmol/L [facility] Comment: Code Blue Specimen Interpretive Data No Reference Range Established Current Interpretive Data was last revised on 2017. Blood 06/04/2024 5:56 AM WAX BLEACHER 06/04/2024 6:04 AM WAX BLEACHER Nathan Buchanan MD LAB BLOOD ORDERABLES Final Re sult Performing Organization Address [facility] de Phone Number [facility] Department [place] [address] * Ethanol (06/04/2024 5:56 AM WAX BLEACHER) Ethanol <10 <=10 mg/dL Comment: Code Blue Specimen Interpretive Data Legal limit of intoxication > or = 80 mg/dL Levels > or = 400 mg/dL are potentially TOXIC. Current interpretive data was last revised on 2018. Blood 06/04/2024 5:56 AM WAX BLEACHER 06/04/2024 6:04 AM WAX BLEACHER Nathan Buchanan MD LAB BLOOD ORDERABLES Final Re sult Performing Organization Address [facility] Co de Phone Number [facility] Department [place] [address] * (ABNORMAL) Basic metabolic panel (06/04/2024 5:56 AM WAX BLEACHER) [facility] Sodium 133(L) 135 - 145 mmol/L Comment:Code Blue Specimen Potassium, pl 4.6 3.3 - 4.9 mmol/L [facility] Comment:Code Blue Specimen Chloride 100 97 - 110 mmol/L [facility] Comment:Code Blue Specimen CO2 20(L) 22 - 32 mmol/L [facility] Comment:Code Blue Specimen Anion gap 13 2 - 15 mmol/L [facility] Comment:Code Blue Specimen BUN 12 6 - 25 mg/dL [facility] Comment:Code Blue Specimen Creatinine 0.72(L) 0.80 - 1.30 mg/dL [facility] Comment:Code Blue Specimen Glucose 189 70 - 199 mg/dL [facility] Comment: Code Blue Specimen Interpretive Data Fasting [...] 2022. Calcium 8.5 8.5 - 10.3 mg/dL [facility] Comment:Code Blue Specimen Blood 06/04/2024 5:56 AM WAX BLEACHER 06/04/2024 6:04 AM WAX BLEACHER us Nathan Buchanan MD LAB BLOOD ORDERABLES Final Re sult [facility] Department [place] [address] * (ABNORMAL) POCT hemoglobin A1c (05/12/2024 11:45 AM WAX BLEACHER) [facility] Hemoglobin A1C, POC 7.2 4.0 - 5.6 % Blood 05/12/2024 11:4 5 AM WAX BLEACHER us Tim Horton MD POINT OF CARE TEST ORDERABLES Final Result * CT Lung Cancer Screening (07/11/2023 7:52 AM WAX BLEACHER) Anatomical Region Laterality Modality Chest N/A Computed Tomogra phy 07/11/2023 8:24 AM WAX BLEACHER Impressions 07/12/2023 2:08 PM WAX BLEACHER 1. ??LungRADS Category 2 (benign) S. ??Recommend [...] Ace Ramos M.D. Narrative 07/12/2023 2:08 PM WAX BLEACHER EXAMINATION: ??Lung cancer screening CT of the [...] AM CDT Performed at: ??01 - [facility] [address] ??[id number] Direct Support Worker: Mike Montes De Oca PhD, Phone: ??[phone] us Tim Horton MD LAB URINE ORDERABLES Final Re sult [facility] - 01 * CT Abdomen Pelvis W Contrast (05/18/2022 5:13 PM WAX BLEACHER) Anatomical Region Laterality Modality Body N/A Computed Tomogra phy 05/18/2022 5:46 PM WAX BLEACHER Impressions 05/18/2022 5:46 PM WAX BLEACHER 1. ??No clear CT explanation for the patient's symptoms. Electronically signed by: Mike Acosta M.D. Narrative 05/18/2022 5:46 PM WAX BLEACHER EXAMINATION: ??Computed tomography of the abdomen and [...] for the patient's symptoms. Electronically signed by: Vincent Florin Mellnick, M.D. Tim Horton MD IMG CT PROCEDURES Final Resul t * HEPATITIS C AB W/REFL TO HCV RNA, QN, PCR (REFL) (09/07/2021 2:48 PM WAX BLEACHER) Hep C Ab <0.1 0.0 - 0.9 s/co ratio [facility] - 01 Blood specimen (specimen) 09/07/2021 2:48 PM WAX BLEACHER 09/07/2021 Narrative [facility] - 09/08/2021 10:10 AM WAX BLEACHER Performed at: ??[address] ??[id number] Direct Support Worker: Mike Montes De Oca PhD, Phone: ??[phone] Yo Lawrence MD LAB BLOOD ORDERABLES Fin al Result Performing Organization Address City/State/[facility] [place] Phone Number [facility] - 01 * PSA screen (01/25/2021 1:39 PM CDT) Pathologist [facility] PSA 0.6 0.0 - 4.0 ng/mL [facility] - 01 Comment: Suri ECLIA methodology. According to the [employer], Serum PSA should decrease and [...] 10:10 AM CDT Performed at: ??01 - [address] ??[id number] Direct Support Worker: Mike Montes De Oca PhD, Phone: ??[phone] Tim Horton MD LAB BLOOD ORDERABLES Final Re sult [facility] - 01 from Last 3 Months or Most Recently Relevant to Health Maintenance Additional Health Concerns Infection Onset Date Last Indicated C. 

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
== END 2024-08-04 09:40 | disposition home or self-care (01) ==
PROVIDERS: Emergency Provider Family Medicine; PCP Internal Medicine
DX: S00.83XA Contusion of other part of head, initial encounter (principal); I10 Essential (primary) hypertension; E11.9 Type 2 diabetes mellitus without complications; Z79.84 Long term (current) use of oral hypoglycemic drugs; W19.XXXA Unspecified fall, initial encounter
CPT/HCPCS: 70450; 72070; 99284